=== PATIENT | female | born 1945 | race Caucasian/White ===

== ENCOUNTER → 2016-12-31 | Outpatient (CLI) | payer OTHER ==
[~2016-12-31] MED LIST: ACET-1257 PO; AMOX500C3 PO; ATOR10TA82 PO; CPR500 PO; ECON0.05 TOP; ECON118C TOP; FURO-85 PO; GLC/500 PO; GLIP5TAB11 PO; HYDR12.55 PO; INSDGIPEN SC; LEVO50TA6 PO; LISI-729 PO; NAPR1TAB9 PO; SULF800T23 PO
[2016-12-31 14:33] LABS: BASO % 0.7 %; BASO ABS # 0.08 K/uL (0-0.2); COMPLETE YES; EOS % 3.2 %; HEMATOCRIT 40.8 % (37-47); LYMPH % 25.5 %; LYMPH ABS # 3.08 K/uL (1.2-3.4); MEAN CELL VOLUME 92.5 fL (80-100); MEAN CORPUSCULAR HEMOGLOBIN 30.4 pg (25-34); MEAN CORPUSCULAR HGB CONC 32.8 g/dl (32-36); MEAN PLATELET VOLUME 9.9 fL (7.4-10.4); MONO % 5.8 %; NEUT % 63.8 %; PLATELET COUNT 343 K/uL (130-400); RED BLOOD COUNT 4.41 M/uL (4.2-5.4); WHITE BLOOD COUNT 12.06 K/uL (4.8-10.8)
[2016-12-31 15:29] LABS: ALT/SGPT 17 U/L (12-78); AST/SGOT 6 U/L (15-37); BLOOD UREA NITROGEN 38 mg/dl (7-18); BUN/CREATININE RATIO 29.4 (10-20); CALCIUM 9.6 mg/dl (8.5-10.1); CARBON DIOXIDE 35 mmol/L (21-32); CHLORIDE 99 mmol/L (98-107); GLUCOSE 205 mg/dl (70-99); POTASSIUM 4.8 mmol/L (3.5-5.1); SODIUM 138 mmol/L (136-145)
[2016-12-31 15:40] LABS: ALKALINE PHOSPHATASE 103 U/L (45-117); CHOLESTEROL 135 mg/dl (0-200); CHOLESTEROL/HDL RATIO 2.9; HDL CHOLESTEROL 46 mg/dl; LDL CHOLESTEROL CALCULATED 52 mg/dl; TRIGLYCERIDES 186 mg/dl (0-150); VERY LOW DENSITY LIPOPROT CALC 37 mg/dl
[2017-01-01 06:17] LABS: ESTIMATED AVERAGE GLUCOSE 278 mg/dl; HA1C FLAG Normal (Normal)
== END | disposition home or self-care (01) ==
LOC: C.LABBC 10:43
PROVIDERS: ATTEND Internal Medicine Geriatric Medicine
DX: Z11.59 Encounter for screening for other viral diseases (principal); M48.00 Spinal stenosis, site unspecified; E03.9 Hypothyroidism, unspecified; M19.90 Unspecified osteoarthritis, unspecified site; E11.65 Type 2 diabetes mellitus with hyperglycemia; I10 Essential (primary) hypertension; R60.9 Edema, unspecified; Z68.43 Body mass index [BMI] 50.0-59.9, adult

== ENCOUNTER → 2017-01-20 | Outpatient (CLI) | payer OTHER ==
[2017-01-20 17:19] LABS: BLOOD UREA NITROGEN 23 mg/dl (7-18); BUN/CREATININE RATIO 22.6 (10-20); CALCIUM 8.9 mg/dl (8.5-10.1); CARBON DIOXIDE 35 mmol/L (21-32); CHLORIDE 102 mmol/L (98-107); GLUCOSE 179 mg/dl (70-99); POTASSIUM 4.6 mmol/L (3.5-5.1); SODIUM 139 mmol/L (136-145)
== END | disposition home or self-care (01) ==
LOC: C.LABBC 12:58
PROVIDERS: ATTEND Internal Medicine Geriatric Medicine
DX: R79.9 Abnormal finding of blood chemistry, unspecified (principal)

== ENCOUNTER 2017-05-17 12:56 | Inpatient (IN) | payer OTHER ==
[~2017-05-17] VITALS: Ht 170.2 cm; Wt 123.6 kg
[~2017-05-17 12:56] MED LIST changes: -ATOR10TA82 PO; +ATOR10TA88 PO; -CPR500 PO; -ECON118C TOP
[2017-05-17] MEDS ORDERED: ECON118C TOP (13:36)
[2017-05-17] MEDS ORDERED: INSDGIPEN SC (13:36)
[2017-05-17 14:10] LABS: BASO % 0.4 %; BASO ABS # 0.05 K/uL (0-0.2); COMPLETE YES; EOS % 2.9 %; HEMATOCRIT 42.2 % (37-47); IG% 0.9 %; LYMPH % 19.6 %; LYMPH ABS # 2.42 K/uL (1.2-3.4); MEAN CELL VOLUME 90.2 fL (80-100); MEAN CORPUSCULAR HEMOGLOBIN 29.5 pg (25-34); MEAN CORPUSCULAR HGB CONC 32.7 g/dl (32-36); MEAN PLATELET VOLUME 9.3 fL (7.4-10.4); MONO % 5.3 %; NEUT % 70.9 %; PLATELET COUNT 343 K/uL (130-400); RED BLOOD COUNT 4.68 M/uL (4.2-5.4); WHITE BLOOD COUNT 12.35 K/uL (4.8-10.8)
[2017-05-17 14:24] LABS: INR 0.9 (0.9-1.1)
[2017-05-17] MEDS ORDERED: SODIUM CHLORIDE 0.9% 1000ML 1,000 ML IV STA ×2 (14:27→17:22)
[2017-05-17 14:30] LABS: ALT/SGPT 23 U/L (12-78); AST/SGOT 26 U/L (15-37); BLOOD UREA NITROGEN 41 mg/dl (7-18); BUN/CREATININE RATIO 27.6 (10-20); CALCIUM 8.6 mg/dl (8.5-10.1); CARBON DIOXIDE 31 mmol/L (21-32); CHLORIDE 101 mmol/L (98-107); GLUCOSE 161 mg/dl (70-99); MAGNESIUM 2.3 mg/dl (1.8-2.4); POTASSIUM 4.2 mmol/L (3.5-5.1); SODIUM 137 mmol/L (136-145)
[2017-05-17 14:41] LABS: ALKALINE PHOSPHATASE 107 U/L (45-117)
[2017-05-17 14:54] LABS: URINE APPEARANCE CLOUDY (CLEAR); URINE BILIRUBIN NEG (NEG); URINE COLOR YELLOW; URINE EPITHELIAL CELL AUTO 0-5 /lpf (0-5); URINE NITRITE NEG (NEG); URINE SPECIFIC GRAVITY 1.021 (1.000-1.030); UROBILINOGEN NEG (NEG); ZZURINE CULT IF INDIC CATH YES
--- NOTE | 2017-05-17 14:57 | DIAGNOSTIC IMAGING REPORT ---
LEFT FEMUR 2 VIEWS ROUTINE CLINICAL HISTORY: l hip/fem/isch tub pain COMPARISON: None. DISCUSSION: The bones and joint spaces appear intact. There is no evidence of fracture, dislocation or bony disease. Moderate degenerative change left hip as well as left knee. Soft tissue vascular calcification. IMPRESSION: No acute process. The above report was generated using voice recognition software. It may contain grammatical, syntax or spelling errors. Electronically signed by: Danny Alvarado M.D. 05/17/2017 2:55 PM Dictated Date/Time: 05/17/2017 2:54 PM
--- NOTE | 2017-05-17 14:58 | DIAGNOSTIC IMAGING REPORT ---
RIGHT FEMUR 2 VIEWS ROUTINE CLINICAL HISTORY: r femur pain Right pain COMPARISON: None. DISCUSSION: The bones and joint spaces appear intact. There is no evidence of fracture, dislocation or bony disease. Mild degenerative change of the right knee as well as right hip. Soft tissue vascular calcification. IMPRESSION: No acute process. Mild degenerative change. The above report was generated using voice recognition software. It may contain grammatical, syntax or spelling errors. Electronically signed by: Danny Alvarado M.D. 05/17/2017 2:57 PM Dictated Date/Time: 05/17/2017 2:57 PM
--- NOTE | 2017-05-17 14:58 | DIAGNOSTIC IMAGING REPORT ---
PELVIS 1 OR 2 VIEW ROUTINE CLINICAL HISTORY: l hip/femur pain pain COMPARISON: None. DISCUSSION: The bones and joint spaces appear intact. There is no evidence of fracture, dislocation or bony disease. Mild degenerative change of the hips bilaterally. Mild degenerative sclerosis of the sacroiliac joints. IMPRESSION: No acute bony abnormality. Mild degenerative change. The above report was generated using voice recognition software. It may contain grammatical, syntax or spelling errors. Electronically signed by: Danny Alvarado M.D. 05/17/2017 2:56 PM Dictated Date/Time: 05/17/2017 2:56 PM
[2017-05-17 15:08] LABS: MANUAL MICROSCOPIC REQUIRED? NO; REVIEW REQ? NO
[2017-05-17] MEDS ORDERED: CEFTRIAXONE SOD INJ 1 GM ADDVIAL IV STA (15:25)
[2017-05-17] MEDS ORDERED: GLUCOSE 10 TABS/TUBE PO PRN ×2 (18:15→19:45)
[2017-05-17] MEDS ORDERED: DEXTROSE 50% 50 ML SYR IV PRN ×2 (18:15→19:45)
[2017-05-17] MEDS ORDERED: POLYETHYLENE (MIRALAX) 17 GM PACK PO PRN (18:15)
[2017-05-17] MEDS ORDERED: ONDANSETRON INJ 2 MG/ML 2 ML VIAL IV PRN (18:15)
[2017-05-17] MEDS ORDERED: GLUCOSE 40% GEL 15 GM TUBE PO PRN ×2 (18:15→19:45)
[2017-05-17] MEDS ORDERED: MAGNESIUM HYDROXIDE SUSP 30 ML UDC PO PRN (18:15)
[2017-05-17] MEDS ORDERED: GLUCAGON FOR INJ 1 MG VIAL SQ PRN ×2 (18:15→19:45)
[2017-05-17] MEDS ORDERED: ACETAMINOPHEN 325 MG TAB PO PRN (18:15)
--- NOTE | 2017-05-17 18:19 | History and Physical ---
History & Physical Date & Time of Service: May 17, 2017 at 17:13 Chief Complaint: Primary Care Physician: Carlos Delarosa M.D. History of Present Illness Source: patient This is a 71-year-old female with past medical history of hypertension, hyperlipidemia, diabetes type 2, hypothyroidism, depression, GERD, spinal stenosis, obesity with a BMI = 42.7, osteoarthritis who presents to the ER after multiple calls from EMS secondary to falls. The patient has also been found on multiple occasions by EMS to be sitting in her own urine and feces as she is unable to care for herself. The most recent event occurred on Wednesday where the patient fell while she was going from a sit to standing position, in an attempt to change the pad which she was sitting on as it was soiled. She denies any loss of consciousness or trauma sustained at that time. At that time she refused to come to the hospital because she is afraid of going to a nursing facility. The patient is from home, and lives with another male house mate, Steve, who receives social group worker for 5 hours daily, 7 days per week. She only receives 2 hours daily. Pt is unable to ambulate herself, and uses a wheelchair primarily. Here in the ER the patient was found to have a dirty UA with moderate esterase, urine WBC 10-30 and 4+ bacteria. She was also mildly hypotensive upon presentation to the ER with a blood pressure of 99/80. She is maintained on 2 L of oxygen via NC however typically doesn't wear supplemental O2. Past Medical/Surgical History Medical Problems: Diabetes type 2 Hypertension Hyperlipidemia Hypothyroidism Depression GERD Spinal stenosis Obesity, morbid Osteoarthritis Surgical history Tonsillectomy and adenoidectomy Hx of Family History No pertinent family history Social History Smoking Status: Never Smoker (exposure to secondhand smoke) Smokeless Tobacco Use: No Alcohol Use: none Drug Use: none Marital Status: Occupational Status: unemployed, disabled Multi-Drug Resistant Organisms History of MDRO: Yes Type of MDRO: VRE Allergies Coded Allergies: Metformin (Verified Adverse Reaction, Unknown, Diarrhea, 05/17/17) Home Medications Scheduled Atorvastatin (Lipitor), 10 MG PO DAILY Econazole Nitrate (Econazole Nitrate), 1 APPLN TOP BID Furosemide (Lasix), 20 MG PO QAM Glipizide (Glucotrol), 5 MG PO BID Insulin Glargine (Lantus Solostar), 30 UNITS SC BID Levothyroxine Sodium (Levothyroxine Sodium), 50 MCG PO DAILY Lisinopril (Zestril), 5 MG PO DAILY Scheduled PRN Naproxen (Aleve), 220 MG PO UD PRN for Pain Review of Systems Constitutional: + fatigue, No fever, No chills, No sweats Eyes: No diplopia ENT: No hearing loss, No trouble swallowing Respiratory: + cough (dry), No sputum, No wheezing, No shortness of breath, No dyspnea on exertion Cardiovascular: No chest pain, No edema Abdomen: No pain, No nausea, No vomiting, No diarrhea Musculoskeletal: + joint pain (bilateral hips), No swelling, No calf pain Genitourinary - Female: + dysuria, + urinary frequency, No hematuria Neurologic: + weakness, + numbness/tingling (bilateral lower extremities), + balance problems Endocrine: No fatigue Integumentary: No rash, No itch Physical Exam Vital Signs Date Time Temp Pulse Resp B/P (MAP) Pulse Ox O2 Delivery O2 Flow Rate FiO2 05/17/17 17:01 103 18 99/71 100 Room Air 05/17/17 15:58 102 20 128/72 100 Nasal Cannula 2.0 05/17/17 15:05 72 20 128/66 98 Room Air 05/17/17 14:09 96 99/80 103 108/54 05/17/17 13:59 Nasal Cannula 05/17/17 13:59 101 05/17/17 13:54 Nasal Cannula 2.0 05/17/17 13:43 36.9 104 18 118/57 95 Room Air General Appearance: WD/WN, no apparent distress, + obese Head: normocephalic, atraumatic Eyes: PERRL, EOMI ENT: hearing grossly normal, pharynx normal, + pertinent finding (mucous membranes moist) Neck: supple, no JVD Respiratory/Chest: chest non-tender, lungs clear, no respiratory distress, no accessory muscle use, + pertinent finding (on 2 L via NC, breath sounds difficult to auscultate due to body habitus) Cardiovascular: regular rate, rhythm Abdomen/GI: normal bowel sounds, non tender, soft Back: + pertinent finding (+sacral wound, grade II, ~1 x 1 cm) Extremities/Musculoskelatal: no calf tenderness, no pedal edema, normal range of motion Neurologic/Psych: alert, normal reflexes, oriented x 3 Skin: normal color, warm/dry Diagnostics Laboratory Results Results Past 24 Hours Test 05/17/17 13:51 05/17/17 14:00 05/17/17 14:05 Range/Units Bedside Glucose 185 70-90 mg/dl White Blood Count 12.35 4.8-10.8 K/uL Red Blood Count 4.68 4.2-5.4 M/uL Hemoglobin 13.8 12.0-16.0 g/dL Hematocrit 42.2 37-47 % Mean Corpuscular Volume 90.2 80-100 fL Mean Corpuscular Hemoglobin 29.5 25-34 pg Mean Corpuscular Hemoglobin Concent 32.7 32-36 g/dl Platelet Count 343 130-400 K/uL Mean Platelet Volume 9.3 7.4-10.4 fL Neutrophils (%) (Auto) 70.9 % Lymphocytes (%) (Auto) 19.6 % Monocytes (%) (Auto) 5.3 % Eosinophils (%) (Auto) 2.9 % Basophils (%) (Auto) 0.4 % Neutrophils # (Auto) 8.75 1.4-6.5 K/uL Lymphocytes # (Auto) 2.42 1.2-3.4 K/uL Monocytes # (Auto) 0.66 0.11-0.59 K/uL Eosinophils # (Auto) 0.36 0-0.5 K/uL Basophils # (Auto) 0.05 0-0.2 K/uL RDW Standard Deviation 44.8 36.4-46.3 fL RDW Coefficient of Variation 13.6 11.5-14.5 % Immature Granulocyte % (Auto) 0.9 % Immature Granulocyte # (Auto) 0.11 0.00-0.02 K/uL Prothrombin Time 10.0 9.0-12.0 SECONDS Prothromb Time International Ratio 0.9 0.9-1.1 Activated Partial Thromboplast Time 26.0 21.0-31.0 SECONDS Partial Thromboplastin Ratio 1.0 Sodium Level 137 136-145 mmol/L Potassium Level 4.2 3.5-5.1 mmol/L Chloride Level 101 98-107 mmol/L Carbon Dioxide Level 31 21-32 mmol/L Anion Gap 5.0 3-11 mmol/L Blood Urea Nitrogen 41 7-18 mg/dl Creatinine 1.50 0.60-1.20 mg/dl Est Creatinine Clear Calc Drug Dose 47.6 ml/min Estimated GFR () 40.5 Estimated GFR (Non- 34.9 BUN/Creatinine Ratio 27.6 10-20 Random Glucose 161 70-99 mg/dl Calcium Level 8.6 8.5-10.1 mg/dl Magnesium Level 2.3 1.8-2.4 mg/dl Total Bilirubin 0.9 0.2-1 mg/dl Direct Bilirubin 0.2 0-0.2 mg/dl Aspartate Amino Transf (AST/SGOT) 26 15-37 U/L Alanine Aminotransferase (ALT/SGPT) 23 12-78 U/L Alkaline Phosphatase 107 45-117 U/L Troponin I < 0.015 0-0.045 ng/ml Total Protein 7.0 6.4-8.2 gm/dl Albumin 3.5 3.4-5.0 gm/dl Lipase 393 73-393 U/L Thyroid Stimulating Hormone (TSH) 3.340 0.300-4.500 uIu/ml Urine Color YELLOW Urine Appearance CLOUDY CLEAR Urine pH 5.0 4.5-7.5 Urine Specific [place] 1.021 1.000-1.030 Urine Protein 1+ NEG Urine Glucose (UA) NEG NEG Urine Ketones NEG NEG Urine Occult Blood 3+ NEG Urine Nitrite NEG NEG Urine Bilirubin NEG NEG Urine Urobilinogen NEG NEG Urine Leukocyte Esterase MODERATE NEG Urine WBC (Auto) 10-30 0-5 /hpf Urine RBC (Auto) 0-4 0-4 /hpf Urine Hyaline Casts (Auto) 1-5 0-5 /lpf Urine Epithelial Cells (Auto) 0-5 0-5 /lpf Urine Bacteria (Auto) 4+ NEG Microbiology Results 05/17/17 Urine Culture, Received Pending Diagnostic Radiology RIGHT FEMUR 2 VIEWS ROUTINE CLINICAL HISTORY: r femur pain Right pain COMPARISON: None. DISCUSSION: The bones and joint spaces appear intact. There is no evidence of fracture, dislocation or bony disease. Mild degenerative change of the right knee as well as right hip. Soft tissue vascular calcification. IMPRESSION: No acute process. Mild degenerative change. The above report was generated using voice recognition software. It may contain grammatical, syntax or spelling errors. Electronically signed by: Danny Alvarado M.D. 05/17/2017 2:57 PM Dictated Date/Time: 05/17/2017 2:57 PM The status of this report is Signed. LEFT FEMUR 2 VIEWS ROUTINE CLINICAL HISTORY: l hip/fem/isch tub pain COMPARISON: None. DISCUSSION: The bones and joint spaces appear intact. There is no evidence of fracture, dislocation or bony disease. Moderate degenerative change left hip as well as left knee. Soft tissue vascular calcification. IMPRESSION: No acute process. The above report was generated using voice recognition software. It may contain grammatical, syntax or spelling errors. Electronically signed by: Danny Alvarado M.D. 05/17/2017 2:55 PM Dictated Date/Time: 05/17/2017 2:54 PM The status of this report is Signed. PELVIS 1 OR 2 VIEW ROUTINE CLINICAL HISTORY: l hip/femur pain pain COMPARISON: None. DISCUSSION: The bones and joint spaces appear intact. There is no evidence of fracture, dislocation or bony disease. Mild degenerative change of the hips bilaterally. Mild degenerative sclerosis of the sacroiliac joints. IMPRESSION: No acute bony abnormality. Mild degenerative change. The above report was generated using voice recognition software. It may contain grammatical, syntax or spelling errors. Electronically signed by: Danny Alvarado M.D. 05/17/2017 2:56 PM Dictated Date/Time: 05/17/2017 2:56 PM The status of this report is Signed. EKG Vent. rate 91 BPM CA interval * ms QRS duration 68 ms QT/QTc 338/415 ms P-R-T axes * 67 30 Poor data quality, interpretation may be adversely affected Probable Sinus rhythm Low voltage QRS Abnormal ECG When compared with ECG of 09-SEP-2015 15:05, rate has decreased Confirmed by ALESSANDRA HAWTHORNE MD ([id number]) on 05/17/2017 3:28:42 PM Impression Assessment and Plan This is a 71-year-old female with past medical history of hypertension, hyperlipidemia, diabetes type 2, hypothyroidism, depression, GERD, spinal stenosis, obesity with a BMI = 42.7, osteoarthritis who presents to the ER after multiple calls from EMS secondary to falls. UTI - Admit patient to [facility] - UA appears dirty, urine culture in process - Continue on Rocephin - Patient's blood pressure has improved from 99/80 with IVF's, continue NSS at 100mL/hr x 12 hrs, and encourage PO fluids - WBC slightly elevated at 12.35, with left shift. - Afebrile but slightly hypotensive at time of presentation, BP typically runs in 110/70ss-120/80s on review of outpatient records - Likely etiology from inability to care/clean herself - PT/OT evals CLEMENITNA on CKD stage II - Cr. elevated at 1.5, baseline around 1.00 - IVFs over next 12 hours at 100mL/hr, Pt received 1 L NSS in the ED - Encourage oral hydration Hypertension - Hold lisinopril 5 mg daily for now, can resume when she improves - Lasix 20 mg prn as outpatient held. Hyperlipidemia - Continue atorvastatin 10 mg daily DM II - Last hemoglobin A1c = 11.3 on 12/31/16, recheck - Continue Lantus 30 U BID - ISS with Accu-Cheks ACHS Obesity BMI equals 42.7 - Diet and exercise should be encouraged prior to patient's discharge - Her diet currently consists of one meal per day and snacks as she has been unable to care for herself Sacral Wound - Wound nurse consultation DVT ppx: Teds, SCDs, Lovenox 40 units subq daily CODE STATUS: Full code This should be rediscussed with the patient as she was very unsure at the time of admission, patient was encouraged to talk with her son about her decision as she has not assigned a medical POA otherwise. Disposition: Patient from home, to assist with discharge planning, likely needs SNF placement. Level of Care Med/Surg Advanced Directives Existing Advance Directive: No Existing Living Will: No Existing Power of Kettle Tender: No Existing Health Care Proxy: No Resuscitation Status FULL RESUSCITATION VTE Prophylaxis VTE Risk Assessment Done? Y/N: Yes Risk Level: Moderate Given or contraindicated: Enoxaparin (Lovenox)SQ, T.E.D. Stockings, SCD's
--- NOTE | 2017-05-17 20:26 | EMERGENCY ROOM VISIT NOTE ---
History Report prepared by Roz: Pako Toscano Under the Supervision of: Dr. Andrea Colmenares D.O. First contact with patient: 13:18 History of Present Illness The patient is a 71 year old female who presents to the Emergency Room with complaints of a fall that occurred two days ago. She has been calling the ambulance more as of late secondary to help her stand up or get up off of the floor from falls. She fell out of her chair recently and has left hip pain. She has a history of diabetes and is on Insulin, Lasix, and Lisinopril. She is not on oxygen at home. Pt denies headache, change in vision, fevers, chest pain, shortness of breath, nausea, vomiting, pain with urination, and melena. Source of History: patient Onset: two days ago Symptom Intensity: 1 episode Quality: other (Fall) Timing: constant Associated Symptoms: No fevers, No headache, No chest pain, No SOB, No nausea, No vomiting, No melena, No diarrhea, No urinary symptoms Note: She has left hip pain. Review of Systems See HPI for pertinent positives & negatives. A total of 10 systems reviewed and were otherwise negative. Past Medical & Surgical Medical Problems: (1) Cellulitis (2) Diabetes (3) UTI (urinary tract infection) Family History No pertinent family history Social History Smoking Status: Current Some Day Smoker Drug Use: none Marital Status: Occupation Status: unemployed, disabled Current/Historical Medications Scheduled Atorvastatin (Lipitor), 10 MG PO DAILY Econazole Nitrate (Econazole Nitrate), 1 APPLN TOP BID Glipizide (Glucotrol), 5 MG PO BID Insulin Glargine (Lantus Solostar), 30 UNITS SC BID Levothyroxine Sodium (Levothyroxine Sodium), 50 MCG PO DAILY Lisinopril (Zestril), 5 MG PO DAILY Scheduled PRN Furosemide (Lasix), 20 MG PO QAM PRN for UNDECIDED Naproxen (Aleve), 220 MG PO UD PRN for Pain Allergies Coded Allergies: Metformin (Verified Adverse Reaction, Unknown, Diarrhea, 05/17/17) Physical Exam Vital Signs Date Time Temp Pulse Resp B/P (MAP) Pulse Ox O2 Delivery O2 Flow Rate FiO2 05/17/17 19:15 36.9 98 20 107/70 98 9/11/17 18:52 98 20 107/70 98 Room Air 05/17/17 18:01 99 05/17/17 17:01 103 18 99/71 100 Room Air 05/17/17 15:58 102 20 128/72 100 Nasal Cannula 2.0 05/17/17 15:05 72 20 128/66 98 Room Air 05/17/17 14:09 96 99/80 103 108/54 05/17/17 13:59 Nasal Cannula 05/17/17 13:59 101 05/17/17 13:54 Nasal Cannula 2.0 05/17/17 13:43 36.9 104 18 118/57 95 Room Air Physical Exam GENERAL: alert, chronically ill appearing,disheveled, morbidly obese, no distress, non-toxic HEAD: NC/AT EYE EXAM: normal conjunctiva NOSE: No septal hematoma. OROPHARYNX: no exudate, no erythema, lips, buccal mucosa, and tongue normal and mucous membranes are moist NECK: supple, no nuchal rigidity, no adenopathy, non-tender LUNGS: Clear to auscultation. Normal chest wall mechanics HEART: Distant, no murmurs, S1 normal and S2 normal ABDOMEN: abdomen soft, non-tender, normo-active bowel sounds, no masses, no rebound or guarding. BACK: Back is symmetrical on inspection and there is no deformity, no midline tenderness, no CVA tenderness. PELVIS: Minimal tenderness over the left proximal femur SKIN: Mild erythema with satellite lesions underneath the pannus going to the bilateral groins. UPPER EXTREMITIES: upper extremities are grossly normal. LOWER EXTREMITIES: No pitting edema. NEURO EXAM: Normal sensorium, cranial nerves II-XII grossly intact, normal speech, no gross weakness of arms, able to lift bilateral lower extremities with minimal discomfort. Medical Decision & Procedures ER Provider Diagnostic Interpretation: Radiology results as stated below per my review and the radiologist's interpretation: PELVIS 1 OR 2 VIEW ROUTINE CLINICAL HISTORY: l hip/femur pain pain COMPARISON: None. DISCUSSION: The bones and joint spaces appear intact. There is no evidence of fracture, dislocation or bony disease. Mild degenerative change of the hips bilaterally. Mild degenerative sclerosis of the sacroiliac joints. IMPRESSION: No acute bony abnormality. Mild degenerative change. The above report was generated using voice recognition software. It may contain grammatical, syntax or spelling errors. Electronically signed by: Danny Alvarado M.D. 05/17/2017 2:56 PM Dictated Date/Time: 05/17/2017 2:56 PM LEFT FEMUR 2 VIEWS ROUTINE CLINICAL HISTORY: l hip/fem/isch tub pain COMPARISON: None. DISCUSSION: The bones and joint spaces appear intact. There is no evidence of fracture, dislocation or bony disease. Moderate degenerative change left hip as well as left knee. Soft tissue vascular calcification. IMPRESSION: No acute process. The above report was generated using voice recognition software. It may contain grammatical, syntax or spelling errors. Electronically signed by: Danny Alvarado M.D. 05/17/2017 2:55 PM Dictated Date/Time: 05/17/2017 2:54 PM RIGHT FEMUR 2 VIEWS ROUTINE CLINICAL HISTORY: r femur pain Right pain COMPARISON: None. DISCUSSION: The bones and joint spaces appear intact. There is no evidence of fracture, dislocation or bony disease. Mild degenerative change of the right knee as well as right hip. Soft tissue vascular calcification. IMPRESSION: No acute process. Mild degenerative change. The above report was generated using voice recognition software. It may contain grammatical, syntax or spelling errors. Electronically signed by: Danny Alvarado M.D. 05/17/2017 2:57 PM Dictated Date/Time: 05/17/2017 2:57 PM Laboratory Results 05/17/17 14:00 Red Blood Count 4.68, Mean Corpuscular Volume 90.2, Mean Corpuscular Hemoglobin 29.5, Mean Corpuscular Hemoglobin Concent 32.7, Mean Platelet Volume 9.3, Neutrophils (%) (Auto) 70.9, Lymphocytes (%) (Auto) 19.6, Monocytes (%) (Auto) 5.3, Eosinophils (%) (Auto) 2.9, Basophils (%) (Auto) 0.4, Neutrophils # (Auto) 8.75, Lymphocytes # (Auto) 2.42, Monocytes # (Auto) 0.66, Eosinophils # (Auto) 0.36, Basophils # (Auto) 0.05 05/17/17 14:00 Test 05/17/17 13:51 05/17/17 14:00 05/17/17 14:05 Bedside Glucose 185 mg/dl (70-90) White Blood Count 12.35 K/uL (4.8-10.8) Red Blood Count 4.68 M/uL (4.2-5.4) Hemoglobin 13.8 g/dL (12.0-16.0) Hematocrit 42.2 % (37-47) Mean Corpuscular Volume 90.2 fL (80-100) Mean Corpuscular Hemoglobin 29.5 pg (25-34) Mean Corpuscular Hemoglobin Concent 32.7 g/dl (32-36) Platelet Count 343 K/uL (130-400) Mean Platelet Volume 9.3 fL (7.4-10.4) Neutrophils (%) (Auto) 70.9 % Lymphocytes (%) (Auto) 19.6 % Monocytes (%) (Auto) 5.3 % Eosinophils (%) (Auto) 2.9 % Basophils (%) (Auto) 0.4 % Neutrophils # (Auto) 8.75 K/uL (1.4-6.5) Lymphocytes # (Auto) 2.42 K/uL (1.2-3.4) Monocytes # (Auto) 0.66 K/uL (0.11-0.59) Eosinophils # (Auto) 0.36 K/uL (0-0.5) Basophils # (Auto) 0.05 K/uL (0-0.2) RDW Standard Deviation 44.8 fL (36.4-46.3) RDW Coefficient of Variation 13.6 % (11.5-14.5) Immature Granulocyte % (Auto) 0.9 % Immature Granulocyte # (Auto) 0.11 K/uL (0.00-0.02) Prothrombin Time 10.0 SECONDS (9.0-12.0) Prothromb Time International Ratio 0.9 (0.9-1.1) Activated Partial Thromboplast Time 26.0 SECONDS (21.0-31.0) Partial Thromboplastin Ratio 1.0 Anion Gap 5.0 mmol/L (3-11) Est Creatinine Clear Calc Drug Dose 47.6 ml/min Estimated GFR () 40.5 Estimated GFR (Non- 34.9 BUN/Creatinine Ratio 27.6 (10-20) Calcium Level 8.6 mg/dl (8.5-10.1) Magnesium Level 2.3 mg/dl (1.8-2.4) Total Bilirubin 0.9 mg/dl (0.2-1) Direct Bilirubin 0.2 mg/dl (0-0.2) Aspartate Amino Transf (AST/SGOT) 26 U/L (15-37) Alanine Aminotransferase (ALT/SGPT) 23 U/L (12-78) Alkaline Phosphatase 107 U/L (45-117) Troponin I < 0.015 ng/ml (0-0.045) Total Protein 7.0 gm/dl (6.4-8.2) Albumin 3.5 gm/dl (3.4-5.0) Lipase 393 U/L (73-393) Thyroid Stimulating Hormone (TSH) 3.340 uIu/ml (0.300-4.500) Urine Color YELLOW Urine Appearance CLOUDY (CLEAR) Urine pH 5.0 (4.5-7.5) Urine Specific Cold[place] 1.021 (1.000-1.030) Urine Protein 1+ (NEG) Urine Glucose (UA) NEG (NEG) Urine Ketones NEG (NEG) Urine Occult Blood 3+ (NEG) Urine Nitrite NEG (NEG) Urine Bilirubin NEG (NEG) Urine Urobilinogen NEG (NEG) Urine Leukocyte Esterase MODERATE (NEG) Urine WBC (Auto) 10-30 /hpf (0-5) Urine RBC (Auto) 0-4 /hpf (0-4) Urine Hyaline Casts (Auto) 1-5 /lpf (0-5) Urine Epithelial Cells (Auto) 0-5 /lpf (0-5) Urine Bacteria (Auto) 4+ (NEG) Laboratory results per my review. Medications Administered Medications (Trade) Dose Ordered Sig/Paz Route Start Time Stop Time Status Last Admin Dose Admin Sodium Chloride 1,000 ml @ 999 mls/hr Q1H1M STAT IV 05/17/17 14:27 05/17/17 15:27 DC 05/17/17 15:01 999 MLS/HR Ceftriaxone Sodium (Rocephin Inj) 1 gm NOW STAT IV 05/17/17 15:25 05/17/17 15:26 DC 05/17/17 15:37 1 GM Sodium Chloride 1,000 ml @ 999 mls/hr Q1H1M STAT IV 05/17/17 17:22 05/17/17 18:22 DC 05/17/17 17:22 999 MLS/HR ECG Indication: tachycardia Rate (beats per minute): 91 Rhythm: sinus rhythm Findings: other (Normal axis, poor baseline for interpretation) ED Course ED COURSE: Vital signs were reviewed and showed tachycardia. The patients medical record was reviewed The above diagnostic studies were performed and reviewed. ED treatments and interventions as stated above. 1318: The patient was evaluated in room B2. A complete history and physical examination was performed. 1427: Ordered Sodium Chloride 1000 ml @ 999 mls/hr IV 1525: Ordered Rocephin Inj 1 gm IV 1603: Upon reevaluation, the patient is resting. I discussed my findings with the patient and she understands and agrees with the treatment plan. Based on the patients age, coexisting illnesses, exam and lab findings the decision to treat as an inpatient was made. The patient remained stable while under my care. The patient will be evaluated for further management by Dr. Peg CALIX. Medical Decision Differential Diagnosis includes but is not limited to dehydration, stroke, anemia, hypoglycemia, hyponatremia, hypernatremia, urinary tract infection, pneumonia, bronchitis, sepsis, gastroenteritis, additional abdominal pathology, metabolic abnormalities and infections. Patient is a 71-year-old female who presents to ER for falls associated with weakness. Patient has been unable to get herself up from the chair and has called the ambulance mobile times upper out. CBC shows a mild leukocytosis. She was tachycardic upon arrival fairly persistently tachycardic. CBC along with BMP, LFTs and troponin, TSH was unremarkable. INR was negative. Luke's along with white cells and +4 bacteria was in the urine. This does show a UTI. She was given IV Rocephin. He was evaluated by area of aging who deemed her okay to go back home. I do not feel this is reasonable as she cannot get up. Imaging shows no fractures. She was admitted to internal medicine with ambulatory dysfunction UTI. Medication Reconcilliation Current Medication List: was personally reviewed by me Blood Pressure Screening Patient's blood pressure: Normal blood pressure Blood pressure disposition: Did not require urgent referral Consults Time Called: 1600 Consulting Physician: Dr. Peg CALIX Returned Call: 1603 I reviewed the patient's case with him. He will evaluate the patient for further management. Impression Primary Impression: UTI (urinary tract infection) Additional Impression: Ambulatory dysfunction Scribe Attestation The scribe's documentation has been prepared under my direction and personally reviewed by me in its entirety. I confirm that the note above accurately reflects all work, treatment, procedures, and medical decision making performed by me. Departure Information Dispostion Being Evaluated By Hospitalist Referrals Carlos Delarosa M.D. (PCP) Problem Qualifiers Primary Impression: UTI (urinary tract infection) Urinary tract infection type: acute cystitis Hematuria presence: with hematuria Qualified Codes: N30.01 - Acute cystitis with hematuria
[2017-05-17 20:29] VITALS: BP 107/67; PULSE 98; TEMP 36.9; O2SAT 96; BMI 42.7
[2017-05-17] MEDS: SODIUM CHLORIDE 0.9% 1000ML 1,000 ML IV SCH (21:28)
[2017-05-17] MEDS: ENOXAPARIN 40 MG/0.4 ML SYR SQ SCH (21:44)
[2017-05-17] MEDS: INSULIN ASPART 100 UNITS/ML 3 ML PEN SC SCH (21:45)
[2017-05-17] MEDS: INSULIN GLARGINE SOLOSTAR 100 UNITS/ML 3 ML PEN SC SCH (22:57)
[2017-05-17] MEDS: ECONAZOLE NITRATE 1% CRM 15 GM TUBE EXT SCH (22:59)
[2017-05-18 00:15] VITALS: BP 122/72; PULSE 115; TEMP 36.8; O2SAT 93
[2017-05-18 05:46] LABS: BASO % 0.4 %; BASO ABS # 0.04 K/uL (0-0.2); COMPLETE YES; EOS % 4.4 %; HEMATOCRIT 37.8 % (37-47); LYMPH % 24.2 %; LYMPH ABS # 2.55 K/uL (1.2-3.4); MEAN CELL VOLUME 90.9 fL (80-100); MEAN CORPUSCULAR HEMOGLOBIN 28.8 pg (25-34); MEAN CORPUSCULAR HGB CONC 31.7 g/dl (32-36); MEAN PLATELET VOLUME 9.2 fL (7.4-10.4); PLATELET COUNT 295 K/uL (130-400); RED BLOOD COUNT 4.16 M/uL (4.2-5.4); WHITE BLOOD COUNT 10.55 K/uL (4.8-10.8)
[2017-05-18] MEDS: LEVOTHYROXINE 50 MCG TAB PO SCH (06:09)
[2017-05-18 06:27] LABS: BUN/CREATININE RATIO 27.5 (10-20); CREATININE 1.1 mg/dl (0.60-1.20); POTASSIUM 4.4 mmol/L (3.5-5.1)
[2017-05-18 06:38] LABS: ESTIMATED AVERAGE GLUCOSE 223 mg/dl; HA1C FLAG Normal (Normal)
[2017-05-18] MEDS: SODIUM CHLORIDE 0.9% 1000ML 1,000 ML IV SCH ×2 (07:49→18:23)
[2017-05-18] MEDS: ECONAZOLE NITRATE 1% CRM 15 GM TUBE EXT SCH ×2 (08:00→21:26)
[2017-05-18 08:13] VITALS: BP 115/68; PULSE 104; TEMP 36.8; O2SAT 95
[2017-05-18] MEDS ORDERED: LISINOPRIL 5 MG TAB PO SCH (09:00)
[2017-05-18] MEDS: ATORVASTATIN 10 MG TAB PO SCH (09:02)
[2017-05-18] MEDS: ENOXAPARIN 40 MG/0.4 ML SYR SQ SCH (09:03)
[2017-05-18] MEDS: INSULIN ASPART 100 UNITS/ML 3 ML PEN SC SCH ×4 (09:09→21:24)
[2017-05-18] MEDS: INSULIN GLARGINE SOLOSTAR 100 UNITS/ML 3 ML PEN SC SCH ×2 (09:10→21:26)
[2017-05-18 11:17] VITALS: Ht 170.2 cm; Wt 123.6 kg
[2017-05-18 16:08] VITALS: BP 117/63; PULSE 98; TEMP 37.2; O2SAT 96
[2017-05-18] MEDS ORDERED: CEFTRIAXONE SOD INJ 500 MG in DEXTROSE 5% 50ML 50 ML IV SCH (17:00)
--- NOTE | 2017-05-18 17:24 | Progress Note ---
Subjective Date of Service: May 18, 2017. Subjective Pt evaluation today including: conversation w/ patient Pt states she is exhausted. She had no been OOB prior to our discussion, so she is uncertain how she is doing in terms of weakness. Tolerating PO without issue. Pt denies fever, SOB, chest pain, abd pain, n/v/c/d, LE pain or swelling. States that [employer] she was so weak that she was unable to move or take care of her daily needs, including toileting issues. Problem List Medical Problems: (1) Ambulatory dysfunction Status: Acute (2) Cellulitis of left lower extremity Status: Acute (3) Hypoxia Status: Acute Review of Systems All Other Systems: Reviewed and Negative Objective Vital Signs Date Time Temp Pulse Resp B/P (MAP) Pulse Ox O2 Delivery O2 Flow Rate FiO2 05/18/17 16:08 37.2 98 20 117/63 (81) 96 Nasal Cannula 2.0 05/18/17 08:13 36.8 104 18 115/68 (84) 95 Nasal Cannula 2.0 05/18/17 07:50 Nasal Cannula 2.0 05/18/17 00:15 36.8 115 22 122/72 (89) 93 Nasal Cannula 2.0 05/18/17 00:00 Nasal Cannula 2.0 05/17/17 20:29 36.9 98 20 107/67 96 Room Air 2.0 05/17/17 19:15 36.9 98 20 107/70 98 05/17/17 18:52 98 20 107/70 98 Room Air 05/17/17 18:01 99 Physical Exam General Appearance: no apparent distress, + obese Eyes: normal inspection, EOMI Respiratory/Chest: normal breath sounds, no respiratory distress Cardiovascular: regular rate, rhythm, no edema Abdomen: non tender, soft Extremities: non-tender, no pedal edema Neurologic/Psychiatric: alert, normal mood/affect Skin: warm/dry, + pertinent finding (toenails are unhealthy in appearance with skin ulceration that appear chronic on LE) Laboratory Results Last 24 Hours Test 05/17/17 20:29 05/18/17 05:25 Bedside Glucose 96 mg/dl White Blood Count 10.55 K/uL Red Blood Count 4.16 M/uL Hemoglobin 12.0 g/dL Hematocrit 37.8 % Mean Corpuscular Volume 90.9 fL Mean Corpuscular Hemoglobin 28.8 pg Mean Corpuscular Hemoglobin Concent 31.7 g/dl Platelet Count 295 K/uL Mean Platelet Volume 9.2 fL Neutrophils (%) (Auto) 63.0 % Lymphocytes (%) (Auto) 24.2 % Monocytes (%) (Auto) 7.0 % Eosinophils (%) (Auto) 4.4 % Basophils (%) (Auto) 0.4 % Neutrophils # (Auto) 6.65 K/uL Lymphocytes # (Auto) 2.55 K/uL Monocytes # (Auto) 0.74 K/uL Eosinophils # (Auto) 0.46 K/uL Basophils # (Auto) 0.04 K/uL RDW Standard Deviation 44.7 fL RDW Coefficient of Variation 13.4 % Immature Granulocyte % (Auto) 1.0 % Immature Granulocyte # (Auto) 0.11 K/uL Sodium Level 141 mmol/L Potassium Level 4.4 mmol/L Chloride Level 109 mmol/L Carbon Dioxide Level 29 mmol/L Anion Gap 3.0 mmol/L Blood Urea Nitrogen 30 mg/dl Creatinine 1.10 mg/dl Est Creatinine Clear Calc Drug Dose 64.9 ml/min Estimated GFR () 58.9 Estimated GFR (Non- 50.8 BUN/Creatinine Ratio 27.5 Random Glucose 159 mg/dl Estimated Average Glucose 223 mg/dl Hemoglobin A1c 9.4 % Calcium Level 8.0 mg/dl Assessment and Plan This is a 71-year-old female with past medical history of hypertension, hyperlipidemia, diabetes type 2, hypothyroidism, depression, GERD, spinal stenosis, obesity with a BMI = 42.7, osteoarthritis who presents to the ER after multiple calls from EMS secondary to falls. UTI Mod leuk est, neg nitrites with cx pending - Continue on Rocephin - WBC slightly elevated on admission, now improved - Afebrile - Likely etiology from inability to care/clean herself HypoTN: on admission, now improved s/p IVF and abx LCEMENTINA on CKD stage II - Cr. elevated on admission and now improved Hypertension - Hold lisinopril 5 mg daily for now, can resume as BP allows - Lasix 20 mg prn as outpatient held. Hyperlipidemia - Continue atorvastatin 10 mg daily DM II - Last hemoglobin A1c = 11.3 on 12/31/16, recheck - Continue Lantus 30 U BID - ISS with Accu-Cheks ACHS Obesity BMI equals 42.7 - Diet and exercise should be encouraged prior to patient's discharge - Her diet currently consists of one meal per day and snacks as she has been unable to care for herself Sacral Wound - Wound nurse consultation DVT ppx: Teds, SCDs, Lovenox 40 units subq daily CODE STATUS: Full code This should be rediscussed with the patient as she was very unsure at the time of admission, patient was encouraged to talk with her son about her decision as she has not assigned a medical POA otherwise. PT/OT pending, possible placement on d/c
[2017-05-18 23:39] VITALS: BP 114/68; PULSE 72; TEMP 37.3; O2SAT 95
[2017-05-19] MEDS: LEVOTHYROXINE 50 MCG TAB PO SCH (06:22)
[2017-05-19 07:47] VITALS: BP 144/75; PULSE 90; TEMP 36.6; O2SAT 96
[2017-05-19 07:58] LABS: BASO % 0.5 %; BASO ABS # 0.04 K/uL (0-0.2); COMPLETE YES; EOS % 3.8 %; HEMATOCRIT 38.8 % (37-47); LYMPH ABS # 2.36 K/uL (1.2-3.4); MEAN CELL VOLUME 91.1 fL (80-100); MEAN CORPUSCULAR HEMOGLOBIN 29.3 pg (25-34); MEAN CORPUSCULAR HGB CONC 32.2 g/dl (32-36); MEAN PLATELET VOLUME 9.1 fL (7.4-10.4); NEUT % 59.7 %; PLATELET COUNT 304 K/uL (130-400); RED BLOOD COUNT 4.26 M/uL (4.2-5.4); WHITE BLOOD COUNT 8.74 K/uL (4.8-10.8)
[2017-05-19 08:32] LABS: BUN/CREATININE RATIO 20.4 (10-20); CALCIUM 8.8 mg/dl (8.5-10.1); CREATININE 0.85 mg/dl (0.60-1.20); POTASSIUM 4.2 mmol/L (3.5-5.1)
[2017-05-19] MEDS: INSULIN ASPART 100 UNITS/ML 3 ML PEN SC SCH ×4 (09:19→19:38)
[2017-05-19] MEDS: ENOXAPARIN 40 MG/0.4 ML SYR SQ SCH (09:21)
[2017-05-19] MEDS: INSULIN GLARGINE SOLOSTAR 100 UNITS/ML 3 ML PEN SC SCH ×2 (09:21→19:38)
[2017-05-19] MEDS: ECONAZOLE NITRATE 1% CRM 15 GM TUBE EXT SCH ×2 (09:23→19:33)
[2017-05-19] MEDS: ATORVASTATIN 10 MG TAB PO SCH (09:35)
[2017-05-19] MEDS ORDERED: NAPROXEN 250 MG TAB PO PRN (10:15)
[2017-05-19] MEDS ORDERED: CIPROFLOXACIN 500 MG TAB PO ONE (12:23)
[2017-05-19] MEDS ORDERED: CPR500 PO (14:41)
--- NOTE | 2017-05-19 14:42 | Discharge Instructions ---
Discharge Instructions Date of Service May 19, 2017. Admission Reason for Admission: UTI Discharge Discharge Diagnosis / Problem: UTI, deconditioning Discharge Goals Goal(s): Decrease discomfort, Improve function, Increase independence Activity Recommendations Activity Level: Assistance Required Therapies: Physical Therapy, Occupational Therapy . Additional Information Patient informed of condition: Yes Advance Directives: No DNR: No Level of Care: Acute Rehab Communicable Disease: No Prognosis: Improving Current Hospital Diet Patient's current hospital diet: AHA Diet (Heart Healthy), Diabetes Type 2 Diet Discharge Diet Recommended Diet: Diabetes Type 2 Diet Pending Studies Studies pending at discharge: no Laboratory Results Hemoglobin A1c Test 05/18/17 05:25 Range/Units Estimated Average Glucose 223 mg/dl Hemoglobin A1c 9.4 H 4.5-5.6 % Medical Emergencies . Who to Call and When: Medical Emergencies: If at any time you feel your situation is an emergency, please call 911 immediately. . Non-Emergent Contact Non-Emergency issues call your: Primary Care Provider . . "Provider Documentation" section prepared by Alivia Walker. . Core Measure Problem Core Measures: None
--- NOTE | 2017-05-19 14:44 | Discharge Summary ---
Discharge Summary Date of Service May 19, 2017. Discharge Summary Admission Date: May 17, 2017 at 18:08 Discharge Date: May 19, 2017 Discharge Disposition: Rehab Principal Diagnosis: UTI, deconditioning Problems/Secondary Diagnoses: DM HTN GERD Spinal stenosis Hyperlipidemia Hypothyroid Depression Obesity OA Medication Reconciliation New Medications: Ciprofloxacin (Ciprofloxacin HCl) 500 Mg Tab 500 MG PO BID for 10 Days, TAB Continued Medications: Atorvastatin (Lipitor) 10 Mg Tab 10 MG PO DAILY, TAB Econazole Nitrate (Econazole Nitrate) 1 % Cre 1 APPLN TOP BID, #85 Furosemide (Lasix) 20 Mg Tab 20 MG PO QAM PRN for UNDECIDED, TAB Use for swelling in legs Glipizide (Glucotrol) 5 Mg Tab 5 MG PO BID, TAB Insulin Glargine (Lantus Solostar) 100 Unit/Ml Inj 30 UNITS SC BID, PEN Levothyroxine Sodium (Levothyroxine Sodium) 50 Mcg Tab 50 MCG PO DAILY, TAB Lisinopril (Zestril) 5 Mg Tab 5 MG PO DAILY, TAB Naproxen (Aleve) 220 Mg Tab 220 MG PO UD PRN for Pain, TAB Discharge Exam Pt is feeling weak still and has pain related to her hips/thighs which she usually has, but is feeling overall improved. She has been working with therapy. Tolerating PO without issue. Pt denies fever, SOB, chest pain, abd pain, n/v/c/d, LE or swelling. Pertinent positives and negatives reviewed in HPI--all others negative Physical Exam: General Appearance: no apparent distress, + obese Respiratory/Chest: normal breath sounds, no respiratory distress Cardiovascular: regular rate, rhythm, no edema Abdomen / GI: non tender, soft Extremities: no calf tenderness, no pedal edema Neurologic/Psychiatric: alert, oriented x 3 Skin: warm/dry, + pertinent finding (toe nails are in poor repair, skin on LE with chronic changes) Hospital Course This is a 71-year-old female with past medical history of hypertension, hyperlipidemia, diabetes type 2, hypothyroidism, depression, GERD, spinal stenosis, obesity with a BMI = 42.7, osteoarthritis who presents to the ER after multiple calls from EMS secondary to falls. UTI Mod leuk est, neg nitrites with cx + for Klebsiella and Lactobacillus with resistance to amp/sulbactam and cefepime - Was on rocephin during admission and feeling improved, however with resistance to cefepime will d/c on cipro x7 days - WBC slightly elevated on admission, now improved - Afebrile - Likely etiology from inability to care/clean herself due to her obesity and deconditioning HypoTN: on admission, now improved s/p IVF and abx CLEMENTINA on CKD stage II - Cr. elevated on admission and now improved Hypertension - Hold lisinopril 5 mg daily for now, can resume as BP allows - Lasix 20 mg prn as outpatient held. Hyperlipidemia - Continue atorvastatin 10 mg daily DM II - Last hemoglobin A1c = 11.3 on 12/31/16, recheck - Continue Lantus 30 U BID - ISS with Accu-Cheks ACHS Obesity BMI 42.7 Sacral Wound - Wound nurse consultation PT/OT with recs for inpt rehab, which pt was agreeable to. Office of Aging is involved in pt's care and should likely be kept in the loop on d/c to [facility] given tenuous home situation. Pt lives with a friend who has HH services in place. Total Time Spent: Greater than 30 minutes This includes examination of the patient, discharge planning, medication reconciliation, and communication with other providers. Discharge Instructions Please refer to the electronic Patient Visit Report (Discharge Instructions) for additional information. Follow-Up Dr. Delarosa 1 week after d/c from [facility] Additional Copies To Carlos Delarosa M.D.; [facility]
[2017-05-19 15:46] VITALS: BP 148/72; PULSE 99; TEMP 37; O2SAT 92
[2017-05-19 15:50] VITALS: BP 148/72; PULSE 99; TEMP 37; O2SAT 92
[2017-05-19] MEDS ORDERED: CIPROFLOXACIN 500 MG TAB PO SCH (20:00)
== END 2017-05-19 20:53 | DRG 690 ==
LOC: EDBD 12:56 → C.EDB 12:57 → C.MS4W 18:08 → CANRESERV 18:27 → ENRESERV 18:27 → C.MS4W 20:25 → UNDOADMIN 20:25
PROVIDERS: ADMIT Hospitalist; ATTEND Family Medicine
DX: N39.0 Urinary tract infection, site not specified (principal); Z68.41 Body mass index [BMI] 40.0-44.9, adult; E66.2 Morbid (severe) obesity with alveolar hypoventilation; N17.9 Acute kidney failure, unspecified; E11.9 Type 2 diabetes mellitus without complications; I95.9 Hypotension, unspecified; Z87.440 Personal history of urinary (tract) infections; F17.200 Nicotine dependence, unspecified, uncomplicated; B96.1 Klebsiella pneumoniae [K. pneumoniae] as the cause of diseases classified elsewhere; I12.9 Hypertensive chronic kidney disease with stage 1 through stage 4 chronic kidney disease, or unspecified chronic kidney disease; E78.5 Hyperlipidemia, unspecified; E03.9 Hypothyroidism, unspecified; K21.9 Gastro-esophageal reflux disease without esophagitis; N18.2 Chronic kidney disease, stage 2 (mild); R29.6 Repeated falls; Z79.4 Long term (current) use of insulin; W18.39XA Other fall on same level, initial encounter; Y92.009 Unspecified place in unspecified non-institutional (private) residence as the place of occurrence of the external cause

== ENCOUNTER → 2017-08-16 | Outpatient (CLI) | payer OTHER ==
[~2017-08-16] MED LIST changes: -ACET-1257 PO; -AMOX500C3 PO; +ATOR10TA82 PO; -ATOR10TA88 PO; +CPR500 PO; -ECON0.05 TOP; +ECON118C TOP; -GLC/500 PO; -HYDR12.55 PO; -SULF800T23 PO
--- NOTE | 2017-08-16 11:55 | DIAGNOSTIC IMAGING REPORT ---
CHEST 2 VIEWS ROUTINE CLINICAL HISTORY: 71 years-old Female presenting with R05 [id number]. TECHNIQUE: PA and lateral views of the chest were obtained. COMPARISON: 09/09/2015. FINDINGS: Atherosclerosis of aortic arch. Prominence of the cardiac silhouette unchanged. Mild prominence of pulmonary vasculature unchanged. Lungs and pleural spaces clear. Calcification superior lateral to the left humeral head could suggest calcific tendinitis. Upper abdomen normal. IMPRESSION: 1. Mild cardiomegaly and mild vascular prominence could suggest volume overload. No pulmonary edema. Electronically signed by: Papa Crain M.D. 08/16/2017 11:54 AM Dictated Date/Time: 08/16/2017 11:53 AM
[2017-08-16 14:15] LABS: ALT/SGPT 14 U/L (12-78); AST/SGOT 8 U/L (15-37); BLOOD UREA NITROGEN 24 mg/dl (7-18); BUN/CREATININE RATIO 26.7 (10-20); CALCIUM 8.5 mg/dl (8.5-10.1); CARBON DIOXIDE 30 mmol/L (21-32); CHLORIDE 101 mmol/L (98-107); CHOLESTEROL 115 mg/dl (0-200); CREATININE 0.88 mg/dl (0.60-1.20); GLUCOSE 259 mg/dl (70-99); POTASSIUM 4.6 mmol/L (3.5-5.1); SODIUM 136 mmol/L (136-145)
[2017-08-16 14:26] LABS: ALKALINE PHOSPHATASE 90 U/L (45-117); CHOLESTEROL/HDL RATIO 2.5; ESTIMATED AVERAGE GLUCOSE 203 mg/dl; HA1C FLAG Normal (Normal); HDL CHOLESTEROL 46 mg/dl; LDL CHOLESTEROL CALCULATED 35 mg/dl; TRIGLYCERIDES 171 mg/dl (0-150); VERY LOW DENSITY LIPOPROT CALC 34 mg/dl
== END | disposition home or self-care (01) ==
LOC: C.RADBC 11:05
PROVIDERS: ATTEND Internal Medicine Geriatric Medicine
DX: R05 Cough (principal); E03.9 Hypothyroidism, unspecified; E11.65 Type 2 diabetes mellitus with hyperglycemia; E78.5 Hyperlipidemia, unspecified; I10 Essential (primary) hypertension; M48.00 Spinal stenosis, site unspecified

== ENCOUNTER 2017-09-20 12:23 | Inpatient (IN) | payer OTHER ==
[~2017-09-20] VITALS: Ht 172.7 cm; Wt 129.4 kg
[2017-09-20] MEDS ORDERED: CZR25 PO (13:28)
[2017-09-20] MEDS ORDERED: LPT10 PO (13:28)
[2017-09-20] MEDS ORDERED: LEVO50TA6 PO (13:28)
[2017-09-20] MEDS ORDERED: INSDGIPEN SC (13:28)
[2017-09-20] MEDS ORDERED: FURO-85 PO (13:28)
[2017-09-20] MEDS ORDERED: GLC5 PO (13:28)
[2017-09-20 14:05] LABS: BASO % 0.4 %; BASO ABS # 0.07 K/uL (0-0.2); EOS % 2.6 %; EOS ABS # 0.44 K/uL (0-0.5); HEMATOCRIT 38.1 % (37-47); HEMOGLOBIN 12.4 g/dL (12.0-16.0); IG# 0.14 K/uL (0.00-0.02); LYMPH % 21.8 %; LYMPH ABS # 3.68 K/uL (1.2-3.4); MEAN CELL VOLUME 90.9 fL (80-100); MEAN CORPUSCULAR HEMOGLOBIN 29.6 pg (25-34); MEAN CORPUSCULAR HGB CONC 32.5 g/dl (32-36); MEAN PLATELET VOLUME 9.6 fL (7.4-10.4); MONO % 6.4 %; MONO ABS # 1.08 K/uL (0.11-0.59); NEUT ABS # 11.49 K/uL (1.4-6.5); PLATELET COUNT 353 K/uL (130-400); RED CELL DISTRIBUTION WIDTH CV 13.8 % (11.5-14.5); RED CELL DISTRIBUTION WIDTH SD 45.7 fL (36.4-46.3)
[2017-09-20 14:27] LABS: CALCIUM 8.5 mg/dl (8.5-10.1); CREATININE 0.87 mg/dl (0.60-1.20); POTASSIUM 4.4 mmol/L (3.5-5.1)
[2017-09-20] MEDS ORDERED: AMPICILLIN/SULBACTAM SOD INJ 3,000 MG in SODIUM CHLORIDE 0.9% 100ML 100 ML IV STA (14:48)
--- NOTE | 2017-09-20 15:44 | DIAGNOSTIC IMAGING REPORT ---
BILATERAL LOWER EXTREMITY VENOUS DOPPLER HISTORY: Bilateral leg swelling, erythema b/l, LLE wounds COMPARISON STUDY: Left venous Doppler 09/09/2015. FINDINGS: Subcutaneous edema seen within the right popliteal fossa. No obvious DVT within the bilateral lower extremities. However, the patient deferred visualization of the left common femoral vein, left greater saphenous vein, and proximal left superficial femoral vein. In addition, the patient was unable to tolerate compression of the majority of the bilateral lower extremity venous structures. IMPRESSION: No DVT within the visualized bilateral lower extremity venous systems as described above. Electronically signed by: Andrea Ojeda M.D. 09/20/2017 3:42 PM Dictated Date/Time: 09/20/2017 3:40 PM
--- NOTE | 2017-09-20 16:23 | History and Physical ---
History & Physical Date & Time of Service: Sep 20, 2017 at 16:20 Chief Complaint: EDEMA Primary Care Physician: Carlos Delarosa M.D. History of Present Illness Source: patient This is 71 yo F with PMHx of HTN, DM II, morbid obesity, HLD, hypothyroidism, osteoarthritis, spinal stenosis, depression who presents with increased bilateral lower extremity swelling and opened skin ulcerations which have now have purulent discharge x 3 days. The patient notes having home health caregivers in over the weekend, but had a training nurse. She reports this person did not wash or wrap her legs like others have done so in the past, and therefore feels the ulcers are much worse now. Her primary managed care manager, Victorina called EMS and brought her to the ER today for increased redness and swelling. She reports some pain in her legs, but it is the worst when she gets a cramp like sensation in them occasionally. She uses a wheelchair primarily for ambulation, so cannot say if it's painful to ambulate. She denies fever, sweats or chills. Denies any other acute complaints. The patient is extremely emotional during my examination as she reports her boyfriend last fall and is still not over this. She lives alone and has minimal support. Her caregiver Victorina is her primary emotional support. Here in the ER, WBC is elevated at 16.9. Bilateral LE dopplers are negative for acute findings. VSS. Past Medical/Surgical History Medical Problems: (1) Cellulitis (2) Depressed (3) Diabetes (4) HLD (hyperlipidemia) (5) HTN (hypertension) (6) Hypothyroidism (7) Major depressive disorder (8) Mild intellectual disabilities (9) Obesity, morbid, BMI 40.0-49.9 (10) UTI (urinary tract infection) Surgical Problems: (1) H/O: hysterectomy (2) Hx of tonsillectomy Family History No pertinent family history Social History Smoking Status: Current Some Day Smoker Drug Use: none Marital Status: Housing status: lives alone Occupational Status: unemployed, disabled Multi-Drug Resistant Organisms History of MDRO: Yes Type of MDRO: VRE Allergies Coded Allergies: Metformin (Verified Adverse Reaction, Unknown, Diarrhea, 09/20/17) Home Medications Scheduled Atorvastatin (Lipitor), 10 MG PO DAILY Glipizide (Glipizide), 5 MG PO BID Insulin Glargine (Lantus Solostar), 36 UNITS SC BID Levothyroxine Sodium (Levothyroxine Sodium), 50 MCG PO DAILY Losartan Potassium (Losartan Potassium), 25 MG PO DAILY Scheduled PRN Furosemide (Lasix), 20 MG PO DAILY PRN for EDEMA Review of Systems Constitutional: No fever, No chills, No sweats, No weight loss, No fatigue Eyes: No redness, No diplopia ENT: No nasal symptoms, No sore throat, No trouble swallowing Respiratory: No cough, No sputum, No wheezing, No shortness of breath, No dyspnea on exertion Cardiovascular: No chest pain, No edema, No palpitations Abdomen: No pain, No nausea, No vomiting, No diarrhea, No constipation Musculoskeletal: + swelling, No joint pain, No calf pain Genitourinary - Female: + urinary incontinence, No dysuria Neurologic: + balance problems, + problem reported (uses wheelchair for ambulation primarily), No numbness/tingling Psychiatric: + depression symptoms Endocrine: No fatigue Integumentary: No rash, No itch Physical Exam Vital Signs Date Time Temp Pulse Resp B/P (MAP) Pulse Ox O2 Delivery O2 Flow Rate FiO2 09/20/17 14:54 93 18 107/63 92 Room Air 09/20/17 14:05 93 Room Air 09/20/17 14:02 92 09/20/17 12:38 36.8 104 20 134/64 93 Room Air General Appearance: WD/WN, + obese, + pertinent finding (tearful during exam) Head: normocephalic, atraumatic Eyes: PERRL, EOMI, + pertinent finding (MMM) ENT: hearing grossly normal, pharynx normal Neck: supple, no JVD Respiratory/Chest: lungs clear, no respiratory distress, no accessory muscle use Cardiovascular: regular rate, rhythm, + systolic murmur (grade II/ ) Abdomen/GI: normal bowel sounds, non tender, soft Back: no CVA tenderness, normal range of motion Extremities/Musculoskelatal: + pertinent finding (BLE edema 2+ pitting, worse on the left compared to right, + erythema and warmth, + LLE ulceration overal medial posterior ankle, +yellow serosanginous drainage. Multiple small areas of excoriation over the LLE. + sacral decubitus grade II/V) Neurologic/Psych: alert, normal mood/affect, normal reflexes Skin: normal color, warm/dry Diagnostics Laboratory Results Results Past 24 Hours Test 09/20/17 13:28 Range/Units White Blood Count 16.90 4.8-10.8 K/uL Red Blood Count 4.19 4.2-5.4 M/uL Hemoglobin 12.4 12.0-16.0 g/dL Hematocrit 38.1 37-47 % Mean Corpuscular Volume 90.9 80-100 fL Mean Corpuscular Hemoglobin 29.6 25-34 pg Mean Corpuscular Hemoglobin Concent 32.5 32-36 g/dl Platelet Count 353 130-400 K/uL Mean Platelet Volume 9.6 7.4-10.4 fL Neutrophils (%) (Auto) 68.0 % Lymphocytes (%) (Auto) 21.8 % Monocytes (%) (Auto) 6.4 % Eosinophils (%) (Auto) 2.6 % Basophils (%) (Auto) 0.4 % Neutrophils # (Auto) 11.49 1.4-6.5 K/uL Lymphocytes # (Auto) 3.68 1.2-3.4 K/uL Monocytes # (Auto) 1.08 0.11-0.59 K/uL Eosinophils # (Auto) 0.44 0-0.5 K/uL Basophils # (Auto) 0.07 0-0.2 K/uL RDW Standard Deviation 45.7 36.4-46.3 fL RDW Coefficient of Variation 13.8 11.5-14.5 % Immature Granulocyte % (Auto) 0.8 % Immature Granulocyte # (Auto) 0.14 0.00-0.02 K/uL Sodium Level 136 136-145 mmol/L Potassium Level 4.4 3.5-5.1 mmol/L Chloride Level 100 98-107 mmol/L Carbon Dioxide Level 31 21-32 mmol/L Anion Gap 5.0 3-11 mmol/L Blood Urea Nitrogen 20 7-18 mg/dl Creatinine 0.87 0.60-1.20 mg/dl Est Creatinine Clear Calc Drug Dose 85.6 ml/min Estimated GFR () 78.2 Estimated GFR (Non- 67.5 BUN/Creatinine Ratio 23.1 10-20 Random Glucose 150 70-99 mg/dl Calcium Level 8.5 8.5-10.1 mg/dl Microbiology Results 09/20/17 Blood Culture, Received Pending 09/20/17 Blood Culture, Received Pending Diagnostic Radiology BILATERAL LOWER EXTREMITY VENOUS DOPPLER HISTORY: Bilateral leg swelling, erythema b/l, LLE wounds COMPARISON STUDY: Left venous Doppler 09/09/2015. FINDINGS: Subcutaneous edema seen within the right popliteal fossa. No obvious DVT within the bilateral lower extremities. However, the patient deferred visualization of the left common femoral vein, left greater saphenous vein, and proximal left superficial femoral vein. In addition, the patient was unable to tolerate compression of the majority of the bilateral lower extremity venous structures. IMPRESSION: No DVT within the visualized bilateral lower extremity venous systems as described above. Electronically signed by: Andrea Ojeda M.D. 09/20/2017 3:42 PM Dictated Date/Time: 09/20/2017 3:40 PM The status of this report is Signed. Impression Assessment and Plan This is 71 yo F with PMHx of HTN, DM II, morbid obesity, HLD, hypothyroidism, osteoarthritis, spinal stenosis, depression who presents with increased bilateral lower extremity swelling and opened skin ulcerations which have now have purulent discharge x 3 days. Bilateral Lower extremity Cellulitis/ sacral decubitus ulceration - Admit to med/surg - Wound care nurse consulted - pt has been applying aquacel to the wounds - ID consulted for antibiotic recs- wound culture - unasyn started in the ER, continue this for now. - WBC = 16.7 - Will order 1 time dose of lasix 20 mg IV as pt uses Lasix PO 20 mg prn edema - Doppler US BLE neg for VTE - PT/OT DM II - A1C = 8.7 in Dec, ISS with accuchecks - Continue lantus 36 U BID, holding home glipizide for now - Heart healthy diabetic diet HTN - Cont losartan 25 mg QAM HLD - Cont Atorvastatin Morbid obesity - PT/OT consulted - diet and exercise encouraged Hypothyroidism - Continue levothyroxine - TSH = 2.17 in Dec. Osteoarthritis -stable DVT ppx: Lovenox subq, no teds or scds with bilateral lower extremity cellulitis CODE STATUS: FULL Disposition: From home, lives alone, CM to assist with discharge planning. Level of Care Med/Surg Resuscitation Status FULL RESUSCITATION VTE Prophylaxis Given or contraindicated: Enoxaparin (Lovenox)SQ Note Attending Attestation & Admission Note: Pt seen/examined, chart reviewed, care plan d/w CHEYENNE Wetzel. I agree w/ the hartmann components of her admission documentation. 71yo female with chronic edema of LEs, morbid obesity, T2DM, chronic stasis changes of b/l shins - receives HH services and dressing changes due to chronically open wounds - presenting with concern of increased drainage from her left soriano (lesser degree the right soriano) as well as mild discomfort. PMH, PSH, allergies, meds, sochx, famhx, ros - reviewed VSS afebrile gen - obese, NAD neck - no obvious JVD heart - RRR lungs - basilar rales b/l, no wheeze abd - obese, soft, NT ext - 2+ edema left leg, 1+ edema right leg, pulses 2+ b/l skin - background of chronic venous stasis changes b/l shins, worse on left; possible mild cellulitis of left soriano anteriorly with macerated skin/ superficial ulcers on both anterior chins; mild weeping noted especially on left soriano; nontender to palpation; minimal warmth left soriano A/P: 1. chronic edema of b/l LEs, L>R 2. chronic venous stasis changes with superimposed venous ulcerations b/l shins worse on left 3. possible superimposed cellulitis of b/l shins, especially on left 4. bilateral crackles on exam 5. T2DM 6. morbid obesity consult wound care for shins in meantime aquacel to ulcers and cover w/ optifoams; await final recs from wound care for possible cellulitis will cont unasyn; low threshold to add vanco for MRSA coverage but she does not have h/o such agree w/ ID consult for b/l rales on lung exam - check cxr, r/o pulmonary edema add novolog for mealtime/HS coverage cont lantus add MVI, zinc, vit C to promote skin healing Mariaa RAMIREZ MD
[2017-09-20] MEDS ORDERED: GLUCAGON FOR INJ 1 MG VIAL SQ PRN (16:45)
[2017-09-20] MEDS ORDERED: GLUCOSE 40% GEL 15 GM TUBE PO PRN (16:45)
[2017-09-20] MEDS ORDERED: DEXTROSE 50% 50 ML SYR IV PRN (16:45)
[2017-09-20] MEDS ORDERED: POLYETHYLENE (MIRALAX) 17 GM PACK PO PRN (16:45)
[2017-09-20] MEDS ORDERED: GLUCOSE 10 TABS/TUBE PO PRN (16:45)
[2017-09-20] MEDS ORDERED: ONDANSETRON INJ 2 MG/ML 2 ML VIAL IV PRN (16:45)
[2017-09-20] MEDS ORDERED: MAGNESIUM HYDROXIDE SUSP 30 ML UDC PO PRN (16:45)
--- NOTE | 2017-09-20 17:18 | EMERGENCY ROOM VISIT NOTE ---
History Report prepared by Roz: Luisito William Under the Supervision of: Dr. Hima Saeed M.D. First contact with patient: 12:29 Stated Complaint: EDEMA History of Present Illness The patient is a 71 year old white female with a past medical history of diabetes, cellulitis, and UTI who presents to the ED with a cc of worsening lower extremity wound infections beginning this week. The wounds have begun "seeping". She follows up with the wound care clinic for her wounds. Positive increased leg swelling. Patient notes that she has a bed sore on her back side currently. She does not typically ambulate at home. Negative fevers or chills. Eating and drinking normally. Defecating and urinating normally. Source of History: patient Onset: This week Position: leg (bilateral) Quality: other (wound infections) Timing: worsening Associated Symptoms: No fevers, No chills Note: Positive increased leg swelling. Review of Systems See HPI for pertinent positives and negatives. A total of ten systems were reviewed and were otherwise negative. Past Medical & Surgical Medical Problems: (1) Cellulitis (2) Depressed (3) Diabetes (4) HLD (hyperlipidemia) (5) HTN (hypertension) (6) Hypothyroidism (7) Major depressive disorder (8) Mild intellectual disabilities (9) Obesity, morbid, BMI 40.0-49.9 (10) UTI (urinary tract infection) Surgical Problems: (1) H/O: hysterectomy (2) Hx of tonsillectomy Family History No pertinent family history Social History Smoking Status: Current Some Day Smoker Drug Use: none Marital Status: Occupation Status: unemployed, disabled Current/Historical Medications Scheduled Atorvastatin (Lipitor), 10 MG PO DAILY Glipizide (Glipizide), 5 MG PO BID Insulin Glargine (Lantus Solostar), 36 UNITS SC BID Levothyroxine Sodium (Levothyroxine Sodium), 50 MCG PO DAILY Losartan Potassium (Losartan Potassium), 25 MG PO DAILY Scheduled PRN Furosemide (Lasix), 20 MG PO DAILY PRN for EDEMA Allergies Coded Allergies: Metformin (Verified Adverse Reaction, Unknown, Diarrhea, 09/20/17) Physical Exam Vital Signs Date Time Temp Pulse Resp B/P (MAP) Pulse Ox O2 Delivery O2 Flow Rate FiO2 09/20/17 16:43 76 16 101/63 98 Room Air 1/15/18 14:54 93 18 107/63 92 Room Air 09/20/17 14:05 93 Room Air 09/20/17 14:02 92 09/20/17 12:38 36.8 104 20 134/64 93 Room Air Physical Exam GENERAL: Obese, awake, alert, well-appearing, NAD HENT: Normocephalic, atraumatic. EYES: Normal conjunctiva. Sclera non-icteric. NECK: Supple. No nuchal rigidity. FROM. RESPIRATORY: CTAB, no rhonchi, wheezing, crackles CARDIAC: RRR, no MRG ABDOMEN: Large, soft, NTND, BS+ MSK: No chest wall TTP. LLE greater in size than the RLE. Stage 2 ulcerations to the LLE draining clear liquid. Good granulation tissue forming over the lateral aspect. Mild warmth present. NVI distally. NEURO: GCS 15, CN 2-12 intact, moves all 4s on command SKIN: Several plaque-like lesions over the posterior buttock. 2 by 1 cm Stage 2 ulcer with healthy tissue. No evidence of infection. Medical Decision & Procedures ER Provider Diagnostic Interpretation: Radiology results as stated below per my review and radiologist interpretation: BILATERAL LOWER EXTREMITY VENOUS DOPPLER FINDINGS: Subcutaneous edema seen within the right popliteal fossa. No obvious DVT within the bilateral lower extremities. However, the patient deferred visualization of the left common femoral vein, left greater saphenous vein, and proximal left superficial femoral vein. In addition, the patient was unable to tolerate compression of the majority of the bilateral lower extremity venous structures. IMPRESSION: No DVT within the visualized bilateral lower extremity venous systems as described above. Electronically signed by: Andrea Ojeda M.D. 09/20/2017 3:42 PM Laboratory Results 09/20/17 13:28 Red Blood Count 4.19, Mean Corpuscular Volume 90.9, Mean Corpuscular Hemoglobin 29.6, Mean Corpuscular Hemoglobin Concent 32.5, Mean Platelet Volume 9.6, Neutrophils (%) (Auto) 68.0, Lymphocytes (%) (Auto) 21.8, Monocytes (%) (Auto) 6.4, Eosinophils (%) (Auto) 2.6, Basophils (%) (Auto) 0.4, Neutrophils # (Auto) 11.49, Lymphocytes # (Auto) 3.68, Monocytes # (Auto) 1.08, Eosinophils # (Auto) 0.44, Basophils # (Auto) 0.07 09/20/17 13:28 Test 09/20/17 13:28 White Blood Count 16.90 K/uL (4.8-10.8) Red Blood Count 4.19 M/uL (4.2-5.4) Hemoglobin 12.4 g/dL (12.0-16.0) Hematocrit 38.1 % (37-47) Mean Corpuscular Volume 90.9 fL (80-100) Mean Corpuscular Hemoglobin 29.6 pg (25-34) Mean Corpuscular Hemoglobin Concent 32.5 g/dl (32-36) Platelet Count 353 K/uL (130-400) Mean Platelet Volume 9.6 fL (7.4-10.4) Neutrophils (%) (Auto) 68.0 % Lymphocytes (%) (Auto) 21.8 % Monocytes (%) (Auto) 6.4 % Eosinophils (%) (Auto) 2.6 % Basophils (%) (Auto) 0.4 % Neutrophils # (Auto) 11.49 K/uL (1.4-6.5) Lymphocytes # (Auto) 3.68 K/uL (1.2-3.4) Monocytes # (Auto) 1.08 K/uL (0.11-0.59) Eosinophils # (Auto) 0.44 K/uL (0-0.5) Basophils # (Auto) 0.07 K/uL (0-0.2) RDW Standard Deviation 45.7 fL (36.4-46.3) RDW Coefficient of Variation 13.8 % (11.5-14.5) Immature Granulocyte % (Auto) 0.8 % Immature Granulocyte # (Auto) 0.14 K/uL (0.00-0.02) Prothrombin Time 9.4 SECONDS (9.0-12.0) Prothromb Time International Ratio 0.9 (0.9-1.1) Anion Gap 5.0 mmol/L (3-11) Est Creatinine Clear Calc Drug Dose 85.6 ml/min Estimated GFR () 78.2 Estimated GFR (Non- 67.5 BUN/Creatinine Ratio 23.1 (10-20) Calcium Level 8.5 mg/dl (8.5-10.1) Laboratory results reviewed by me Medications Administered Medications (Trade) Dose Ordered Sig/Paz Route Start Time Stop Time Status Last Admin Dose Admin Ampicillin Sodium/ Sulbactam Sodium 3000 mg/Sodium Chloride 108 ml @ 200 mls/hr NOW STAT IV 09/20/17 14:48 09/20/17 15:20 DC 09/20/17 16:12 200 MLS/HR ED Course 1252: The patient was evaluated in room B2. A complete history and physical exam was performed. 1545: Upon reexamination, the patient was resting comfortably. I discussed the test results and treatment plan with her. The patient will be evaluated for further management. Medical Decision The patient is a 71 year old white female with a past medical history of diabetes, cellulitis, and UTI who presents to the ED with a cc of worsening lower extremity wound infections beginning this week. Differential diagnosis: Etiologies such as cellulitis, abscess, MRSA infection, DVT, necrotizing fasciitis, dermatitis, drug eruption, as well as others were entertained. Patient was seen and evaluated the bedside. Patient does have a prior history of bilateral lower extremity wounds as well as sacral wound. Patient was told to come here as referred by the patient's PCP traveling secretary. Patient did have some noted bilateral lower extremity swelling. Patient did have left greater than right swelling. Patient did have noticed stage II ulceration some left lower extremity. There was erythema and warmth at with significant nature. Patient sacral wound is a 2 x 1 cm stage II ulceration. Appears well and does not have any surrounding erythema. I did look a prior wound cultures which showed that the patient did grow out Proteus, MRSA, and enterococcus. This was sensitive to Unasyn which was ordered empirically. Patient did have a white blood cell count of 16,000 which was double her prior. Given this and her lower extremity cellulitis I did discuss the patient with the admitting hospitalist who agreed to further evaluate and treat the patient. B/l LE US neg for DVT. Medication Reconcilliation Current Medication List: was personally reviewed by me Blood Pressure Screening Patient's blood pressure: Normal blood pressure Blood pressure disposition: Did not require urgent referral Consults Time Called: [id number] Consulting Physician: Dr. Bobo Hogan Hospitalist Returned Call: [phone] Discussed the patient's case. The patient will be evaluated for further treatment and disposition. Impression Primary Impression: Cellulitis Scribe Attestation The scribe's documentation has been prepared under my direction and personally reviewed by me in its entirety. I confirm that the note above accurately reflects all work, treatment, procedures, and medical decision making performed by me. Departure Information Dispostion Being Evaluated By Hospitalist Carlos Potter M.D. (PCP) Problem Qualifiers Primary Impression: Cellulitis Site of cellulitis: extremity Site of cellulitis of extremity: lower extremity Laterality: left Qualified Codes: L03.116 - Cellulitis of left lower limb
[2017-09-20] MEDS ORDERED: FUROSEMIDE INJ 20 MG in SYRINGE 0 ML IV ONE (18:00)
[2017-09-20 18:07] LABS: INR 0.9 (0.9-1.1)
[2017-09-20 18:20] VITALS: BP 120/60; PULSE 95; TEMP 36.6; O2SAT 92; O2SAT 98; Ht 172.7 cm; Wt 129.4 kg
--- NOTE | 2017-09-20 19:22 | DIAGNOSTIC IMAGING REPORT ---
CHEST ONE VIEW PORTABLE CLINICAL HISTORY: bibasilar rales, eval for pulm edema COMPARISON STUDY: 08/16/2017 FINDINGS: Examination is limited from a technical standpoint. The patient is rotated. The heart is at the upper limits of normal in size. There is no overt failure. There is no focal pulmonary consolidation. There are no pleural effusions. Indistinctness of the left cardiac phrenic angle is felt to be related to technical factors[ IMPRESSION: Technically limited study. No acute findings. Electronically signed by: Guilherme Rodriguez M.D. 09/20/2017 7:21 PM Dictated Date/Time: 09/20/2017 7:20 PM
[2017-09-20] MEDS: ENOXAPARIN 40 MG/0.4 ML SYR SQ SCH (20:18)
[2017-09-20] MEDS: ASCORBIC ACID 500 MG TAB PO SCH (20:18)
[2017-09-20] MEDS: INSULIN GLARGINE SOLOSTAR 100 UNITS/ML 3 ML PEN SC SCH (20:19)
[2017-09-20] MEDS ORDERED: INSULIN ASPART 100 UNITS/ML 3 ML PEN SC SCH (21:00)
[2017-09-20] MEDS: AMPICILLIN/SULBACTAM SOD INJ 1,500 MG in SODIUM CHLORIDE 0.9% 100ML 100 ML IV SCH (21:16)
[2017-09-21 00:12] VITALS: BP 107/68; PULSE 98; TEMP 36.4; O2SAT 90
[2017-09-21] MEDS ORDERED: MICONAZOLE NITRATE POWDER 43 GM EXT PRN (01:45)
[2017-09-21] MEDS: AMPICILLIN/SULBACTAM SOD INJ 1,500 MG in SODIUM CHLORIDE 0.9% 100ML 100 ML IV SCH ×4 (04:04→22:26)
[2017-09-21] MEDS: LEVOTHYROXINE 50 MCG TAB PO SCH (05:35)
[2017-09-21 07:04] LABS: BASO % 0.2 %; BASO ABS # 0.03 K/uL (0-0.2); EOS % 1.8 %; EOS ABS # 0.24 K/uL (0-0.5); HEMATOCRIT 36.8 % (37-47); HEMOGLOBIN 11.6 g/dL (12.0-16.0); IG# 0.13 K/uL (0.00-0.02); LYMPH % 23.8 %; LYMPH ABS # 3.24 K/uL (1.2-3.4); MEAN CORPUSCULAR HEMOGLOBIN 28.4 pg (25-34); MEAN CORPUSCULAR HGB CONC 31.5 g/dl (32-36); MEAN PLATELET VOLUME 9.4 fL (7.4-10.4); MONO % 6.3 %; MONO ABS # 0.86 K/uL (0.11-0.59); NEUT % 66.9 %; NEUT ABS # 9.12 K/uL (1.4-6.5); PLATELET COUNT 303 K/uL (130-400); RED CELL DISTRIBUTION WIDTH SD 46.1 fL (36.4-46.3); WHITE BLOOD COUNT 13.62 K/uL (4.8-10.8)
[2017-09-21 07:40] LABS: CALCIUM 8.3 mg/dl (8.5-10.1); CREATININE 0.87 mg/dl (0.60-1.20); POTASSIUM 4.2 mmol/L (3.5-5.1)
[2017-09-21] MEDS: ZINC SULFATE 220 MG CAP PO SCH (07:48)
[2017-09-21] MEDS: CEROVITE ADV FORMULA TAB PO SCH (07:48)
[2017-09-21] MEDS: LOSARTAN POTASSIUM 25 MG TAB PO SCH (07:48)
[2017-09-21] MEDS: ASCORBIC ACID 500 MG TAB PO SCH ×2 (07:48→20:21)
[2017-09-21] MEDS: ATORVASTATIN 10 MG TAB PO SCH (07:48)
[2017-09-21 08:00] VITALS: BP 124/89; PULSE 99; TEMP 36.9; O2SAT 90
[2017-09-21] MEDS: INSULIN GLARGINE SOLOSTAR 100 UNITS/ML 3 ML PEN SC SCH ×2 (08:00→20:20)
[2017-09-21] MEDS: INSULIN ASPART 100 UNITS/ML 3 ML PEN SC SCH ×4 (08:45→20:21)
--- NOTE | 2017-09-21 11:58 | Medical Consult ---
Consultation Date of Consultation: Sep 21, 2017. Attending Physician: Dago Hahn M.D. Reason for Consultation: Bilateral lower extremity cellulitis History of Present Illness 71-year-old female with diabetes mellitus, chronic lower extremity edema, who was well known to me [facility], when she was treated for left lower extremity cellulitis and associated with leg ulceration. She now presented to the emergency room with 4-5 days of leg ulcerations associated with foul-smelling drainage, mild pain, and difficulty ambulating. She states that she did not note any significant fever or chills. She was found to have evidence of bilateral lower extremity cellulitis, she has been started on IV Unasyn, MRSA screen is negative. Cultures are pending. Patient is tolerating her antibiotics so far without apparent difficulty. Denies any other new complaints. Past Medical/Surgical History Medical Problems: (1) Ambulatory dysfunction Status: Acute (2) Cellulitis of left lower extremity Status: Acute (3) Hypoxia Status: Acute Medical Problems: (1) Cellulitis (2) Depressed (3) Diabetes (4) HLD (hyperlipidemia) (5) HTN (hypertension) (6) Hypothyroidism (7) Major depressive disorder (8) Mild intellectual disabilities (9) Obesity, morbid, BMI 40.0-49.9 (10) UTI (urinary tract infection) Surgical Problems: (1) H/O: hysterectomy (2) Hx of tonsillectomy Family History No pertinent family history Social History Smoking Status: Current Some Day Smoker Drug Use: none Marital Status: Occupation Status: unemployed, disabled Allergies Coded Allergies: Metformin (Verified Adverse Reaction, Unknown, Diarrhea, 09/20/17) Current Inpatient Medications Current Inpatient Medications Medications (Trade) Dose Ordered Sig/Paz Route Start Time Stop Time Status Last Admin Dose Admin Enoxaparin Sodium (Lovenox Inj) 40 mg Q24H SQ 09/20/17 20:00 10/20/17 19:59 09/20/17 20:18 40 MG Acetaminophen (Tylenol Tab) 650 mg Q4H PRN PO 09/20/17 16:45 10/20/17 16:44 Magnesium Hydroxide (Milk Of Magnesia Susp) 30 ml Q6H PRN PO 09/20/17 16:45 10/20/17 16:44 Polyethylene (Miralax Powder Packet) 17 gm DAILY PRN PO 09/20/17 16:45 10/20/17 16:44 Ondansetron HCl (Zofran Inj) 4 mg Q6H PRN IV 09/20/17 16:45 10/20/17 16:44 Atorvastatin Calcium (Lipitor Tab) 10 mg DAILY PO 09/21/17 08:00 10/21/17 08:59 09/21/17 07:48 10 MG Insulin Glargine (Lantus Solostar Pen) 36 units BID SC 09/20/17 20:00 10/20/17 20:59 09/21/17 08:00 36 UNITS Levothyroxine Sodium (Synthroid Tab) 50 mcg DAILYBB PO 09/21/17 06:30 10/21/17 06:59 09/21/17 05:35 50 MCG Losartan Potassium (coZAAR TAB) 25 mg DAILY PO 09/21/17 08:00 10/21/17 08:59 09/21/17 07:48 25 MG Glucose (Glucose 40% Gel) 15-30 GRAMS 15 GRAMS... UD PRN PO 09/20/17 16:45 10/20/17 16:44 Glucose (Glucose Chew Tab) 4-8 Tablets 4 Tabl... UD PRN PO 09/20/17 16:45 10/20/17 16:44 Dextrose (Dextrose 50% 50ML Syringe) 25-50ML OF 50% DW IV FOR... UD PRN IV 09/20/17 16:45 10/20/17 16:44 Glucagon (Glucagon Inj) 1 mg UD PRN SQ 09/20/17 16:45 10/20/17 16:44 Ampicillin Sodium/ Sulbactam Sodium 1500 mg/Sodium Chloride 104 ml @ 200 mls/hr Q6H IV 09/20/17 22:00 09/30/17 21:59 09/21/17 10:44 200 MLS/HR Ascorbic Acid (Vitamin C Tab) 500 mg BID PO 09/20/17 20:00 10/20/17 20:59 09/21/17 07:48 500 MG Zinc Sulfate (Zinc Sulfate Cap) 220 mg QAM PO 09/21/17 08:00 10/21/17 08:59 09/21/17 07:48 220 MG Multivitamins/ Minerals (Multivitamin W/ Minerals Tab) 1 tab QAM PO 09/21/17 08:00 10/21/17 08:59 09/21/17 07:48 1 TAB Insulin Aspart (novoLOG ASPART) SLIDING SCALE G... ACHS SC 09/21/17 06:30 10/21/17 06:29 09/21/17 08:45 3 UNITS Miconazole Nitrate (Desenex Powder) 1 appln PRN PRN EXT 09/21/17 01:45 10/21/17 01:44 Review of Systems All systems were reviewed and are negative except as per HPI Physical Exam Date Time Temp Pulse Resp B/P (MAP) Pulse Ox O2 Delivery O2 Flow Rate FiO2 09/21/17 10:20 Room Air 09/21/17 08:00 36.9 99 19 124/89 (101) 90 Room Air 09/21/17 00:12 36.4 98 16 107/68 (81) 90 Room Air 09/21/17 00:00 Room Air 09/20/17 18:20 36.6 95 20 120/60 98 Room Air 09/20/17 18:20 36.6 95 20 120/60 (80) 92 Room Air 09/20/17 16:43 76 16 101/63 98 Room Air 09/20/17 14:54 93 18 107/63 92 Room Air 09/20/17 14:05 93 Room Air 09/20/17 14:02 92 09/20/17 12:38 36.8 104 20 134/64 93 Room Air General Appearance: WD/WN, no apparent distress, + obese Head: normocephalic, atraumatic Eyes: normal inspection, EOMI, sclerae normal ENT: normal ENT inspection, hearing grossly normal, pharynx normal Neck: supple, no adenopathy, thyroid normal, trachea midline Respiratory/Chest: chest non-tender, lungs clear, normal breath sounds, no respiratory distress Cardiovascular: regular rate, rhythm, no gallop, + systolic murmur Abdomen/GI: normal bowel sounds, non tender, soft, no organomegaly Back: normal inspection, no CVA tenderness Extremities/Musculoskelatal: + inflammation (Left lower extremity), + swelling (Both legs left greater than right) Neurologic/Psych: alert, oriented x 3 Skin: normal color, no rash, + pertinent finding (Left ankle with ulceration, yellowish foul-smelling drainage, erythema) Lymphatic: no adenopathy Laboratory Results Date/Time Source Procedure Growth Status 09/20/17 16:02 Blood Blood Culture Pending Received 09/20/17 16:00 Blood Blood Culture Pending Received 09/20/17 20:20 Nasal MRSA DNA Surveillance Screen - Final Specimen Negative for MRSA by DNA Probe Complete Last 24 Hours Test 09/20/17 13:28 09/20/17 20:21 09/21/17 06:45 09/21/17 07:58 White Blood Count 16.90 K/uL 13.62 K/uL Red Blood Count 4.19 M/uL 4.09 M/uL Hemoglobin 12.4 g/dL 11.6 g/dL Hematocrit 38.1 % 36.8 % Mean Corpuscular Volume 90.9 fL 90.0 fL Mean Corpuscular Hemoglobin 29.6 pg 28.4 pg Mean Corpuscular Hemoglobin Concent 32.5 g/dl 31.5 g/dl Platelet Count 353 K/uL 303 K/uL Mean Platelet Volume 9.6 fL 9.4 fL Neutrophils (%) (Auto) 68.0 % 66.9 % Lymphocytes (%) (Auto) 21.8 % 23.8 % Monocytes (%) (Auto) 6.4 % 6.3 % Eosinophils (%) (Auto) 2.6 % 1.8 % Basophils (%) (Auto) 0.4 % 0.2 % Neutrophils # (Auto) 11.49 K/uL 9.12 K/uL Lymphocytes # (Auto) 3.68 K/uL 3.24 K/uL Monocytes # (Auto) 1.08 K/uL 0.86 K/uL Eosinophils # (Auto) 0.44 K/uL 0.24 K/uL Basophils # (Auto) 0.07 K/uL 0.03 K/uL RDW Standard Deviation 45.7 fL 46.1 fL RDW Coefficient of Variation 13.8 % 14.0 % Immature Granulocyte % (Auto) 0.8 % 1.0 % Immature Granulocyte # (Auto) 0.14 K/uL 0.13 K/uL Prothrombin Time 9.4 SECONDS Prothromb Time International Ratio 0.9 Sodium Level 136 mmol/L 138 mmol/L Potassium Level 4.4 mmol/L 4.2 mmol/L Chloride Level 100 mmol/L 101 mmol/L Carbon Dioxide Level 31 mmol/L 32 mmol/L Anion Gap 5.0 mmol/L 5.0 mmol/L Blood Urea Nitrogen 20 mg/dl 21 mg/dl Creatinine 0.87 mg/dl 0.87 mg/dl Est Creatinine Clear Calc Drug Dose 85.6 ml/min 85.6 ml/min Estimated GFR () 78.2 78.2 Estimated GFR (Non- 67.5 67.5 BUN/Creatinine Ratio 23.1 23.8 Random Glucose 150 mg/dl 85 mg/dl Calcium Level 8.5 mg/dl 8.3 mg/dl Hepatitis C Antibody Screen NEG Bedside Glucose 181 mg/dl 78 mg/dl Magnesium Level 1.8 mg/dl Triglycerides Level 129 mg/dl Cholesterol Level 101 mg/dl HDL Cholesterol 44 mg/dl LDL Cholesterol, Calculated 31 mg/dl VLDL Cholesterol, Calculated 26 mg/dl Cholesterol/HDL Ratio 2.3 Assessment & Plan A 71-year-old female with diabetes mellitus and chronic lower extremity edema now presents with bilateral lower leg cellulitis in the setting of open wounds as well as stage II sacral decubitus ulcer. Given negative MRSA swab, think the patient can be continued on Unasyn pending further culture results. She will be evaluated by wound care. I will adjust antibiotics once final culture results are available. Will follow.
--- NOTE | 2017-09-21 15:21 | Progress Note ---
Subjective Date of Service: Sep 21, 2017. Subjective Patient reports feeling no significant improvement. Patient remains distraught about losing her boyfriend and states that she does not want to go to a nursing facility. ROS are below. Problem List Medical Problems: (1) Ambulatory dysfunction Status: Acute (2) Cellulitis of left lower extremity Status: Acute (3) Hypoxia Status: Acute Review of Systems Constitutional: No fever, No chills ENT: No hearing loss Respiratory: No cough, No sputum Cardiac: No chest pain Abdomen: No pain, No nausea Neurologic: No memory loss, No paralysis Heme: No abnormal bleeding/bruising Endo: No fatigue Skin: No rash, No itch All Other Systems: Reviewed and Negative Medications Current Inpatient Medications Medications (Trade) Dose Ordered Sig/Paz Route Start Time Stop Time Status Last Admin Dose Admin Enoxaparin Sodium (Lovenox Inj) 40 mg Q24H SQ 09/20/17 20:00 10/20/17 19:59 09/21/17 20:19 40 MG Acetaminophen (Tylenol Tab) 650 mg Q4H PRN PO 09/20/17 16:45 10/20/17 16:44 09/22/17 08:24 650 MG Magnesium Hydroxide (Milk Of Magnesia Susp) 30 ml Q6H PRN PO 09/20/17 16:45 10/20/17 16:44 Polyethylene (Miralax Powder Packet) 17 gm DAILY PRN PO 09/20/17 16:45 10/20/17 16:44 Ondansetron HCl (Zofran Inj) 4 mg Q6H PRN IV 09/20/17 16:45 10/20/17 16:44 Atorvastatin Calcium (Lipitor Tab) 10 mg DAILY PO 09/21/17 08:00 10/21/17 08:59 09/22/17 08:24 10 MG Insulin Glargine (Lantus Solostar Pen) 36 units BID SC 09/20/17 20:00 10/20/17 20:59 09/22/17 08:28 36 UNITS Levothyroxine Sodium (Synthroid Tab) 50 mcg DAILYBB PO 09/21/17 06:30 10/21/17 06:59 09/22/17 06:18 50 MCG Losartan Potassium (coZAAR TAB) 25 mg DAILY PO 09/21/17 08:00 10/21/17 08:59 09/22/17 08:24 25 MG Glucose (Glucose 40% Gel) 15-30 GRAMS 15 GRAMS... UD PRN PO 09/20/17 16:45 10/20/17 16:44 Glucose (Glucose Chew Tab) 4-8 Tablets 4 Tabl... UD PRN PO 09/20/17 16:45 10/20/17 16:44 Dextrose (Dextrose 50% 50ML Syringe) 25-50ML OF 50% DW IV FOR... UD PRN IV 09/20/17 16:45 10/20/17 16:44 Glucagon (Glucagon Inj) 1 mg UD PRN SQ 09/20/17 16:45 10/20/17 16:44 Ampicillin Sodium/ Sulbactam Sodium 1500 mg/Sodium Chloride 104 ml @ 200 mls/hr Q6H IV 09/20/17 22:00 09/30/17 21:59 09/22/17 04:30 200 MLS/HR Ascorbic Acid (Vitamin C Tab) 500 mg BID PO 09/20/17 20:00 10/20/17 20:59 09/22/17 08:24 500 MG Zinc Sulfate (Zinc Sulfate Cap) 220 mg QAM PO 09/21/17 08:00 10/21/17 08:59 09/22/17 08:25 220 MG Multivitamins/ Minerals (Multivitamin W/ Minerals Tab) 1 tab QAM PO 09/21/17 08:00 10/21/17 08:59 09/22/17 08:24 1 TAB Insulin Aspart (novoLOG ASPART) SLIDING SCALE G... ACHS SC 09/21/17 06:30 10/21/17 06:29 09/22/17 08:29 3 UNITS Miconazole Nitrate (Desenex Powder) 1 appln PRN PRN EXT 09/21/17 01:45 10/21/17 01:44 Objective Vital Signs Date Time Temp Pulse Resp B/P (MAP) Pulse Ox O2 Delivery O2 Flow Rate FiO2 09/21/17 10:20 Room Air 09/21/17 08:00 36.9 99 19 124/89 (101) 90 Room Air 09/21/17 00:12 36.4 98 16 107/68 (81) 90 Room Air 09/21/17 00:00 Room Air 09/20/17 18:20 36.6 95 20 120/60 98 Room Air 09/20/17 18:20 36.6 95 20 120/60 (80) 92 Room Air 09/20/17 16:43 76 16 101/63 98 Room Air Physical Exam Comments: General Appearance: WD/WN, + obese, Head: normocephalic, atraumatic Eyes: PERRL, EOMI, + pertinent finding (MMM) ENT: hearing grossly normal, pharynx normal Neck: supple, no JVD Respiratory/Chest: lungs clear, no respiratory distress, no accessory muscle use Cardiovascular: regular rate, rhythm, + systolic murmur (grade II/ ) Abdomen/GI: normal bowel sounds, non tender, soft Back: no CVA tenderness, normal range of motion Extremities/Musculoskelatal: + pertinent finding BLE has dry dressing on both lower legs; + sacral decubitus grade II/V) Neurologic/Psych: alert, normal mood/affect, normal reflexes Skin: normal color, warm/dry Laboratory Results Last 24 Hours Test 09/20/17 20:21 09/21/17 06:45 09/21/17 07:58 09/21/17 11:50 Bedside Glucose 181 mg/dl 78 mg/dl 131 mg/dl White Blood Count 13.62 K/uL Red Blood Count 4.09 M/uL Hemoglobin 11.6 g/dL Hematocrit 36.8 % Mean Corpuscular Volume 90.0 fL Mean Corpuscular Hemoglobin 28.4 pg Mean Corpuscular Hemoglobin Concent 31.5 g/dl Platelet Count 303 K/uL Mean Platelet Volume 9.4 fL Neutrophils (%) (Auto) 66.9 % Lymphocytes (%) (Auto) 23.8 % Monocytes (%) (Auto) 6.3 % Eosinophils (%) (Auto) 1.8 % Basophils (%) (Auto) 0.2 % Neutrophils # (Auto) 9.12 K/uL Lymphocytes # (Auto) 3.24 K/uL Monocytes # (Auto) 0.86 K/uL Eosinophils # (Auto) 0.24 K/uL Basophils # (Auto) 0.03 K/uL RDW Standard Deviation 46.1 fL RDW Coefficient of Variation 14.0 % Immature Granulocyte % (Auto) 1.0 % Immature Granulocyte # (Auto) 0.13 K/uL Sodium Level 138 mmol/L Potassium Level 4.2 mmol/L Chloride Level 101 mmol/L Carbon Dioxide Level 32 mmol/L Anion Gap 5.0 mmol/L Blood Urea Nitrogen 21 mg/dl Creatinine 0.87 mg/dl Est Creatinine Clear Calc Drug Dose 85.6 ml/min Estimated GFR () 78.2 Estimated GFR (Non- 67.5 BUN/Creatinine Ratio 23.8 Random Glucose 85 mg/dl Calcium Level 8.3 mg/dl Magnesium Level 1.8 mg/dl Triglycerides Level 129 mg/dl Cholesterol Level 101 mg/dl HDL Cholesterol 44 mg/dl LDL Cholesterol, Calculated 31 mg/dl VLDL Cholesterol, Calculated 26 mg/dl Cholesterol/HDL Ratio 2.3 Assessment and Plan This is 71 yo F with PMHx of HTN, DM II, morbid obesity, HLD, hypothyroidism, osteoarthritis, spinal stenosis, depression who presents with increased bilateral lower extremity swelling and opened skin ulcerations which have now have purulent discharge x 3 days. Bilateral Lower extremity Cellulitis/ sacral decubitus ulceration - Admitted to med/surg -Patient appears to be stable. - Wound care nurse consulted - pt has been applying aquacel to the wounds - ID consulted for antibiotic recs- wound culture - unasyn started in the ER, continue this for now. - WBC imrpved from 16 to 13 - Doppler US BLE neg for VTE - PT/OT DM II - A1C = 8.7 in Dec, ISS with accuchecks - Continue lantus 36 U BID, holding home glipizide for now - Heart healthy diabetic diet HTN - Cont losartan 25 mg QAM HLD - Cont Atorvastatin Morbid obesity - PT/OT consulted - diet and exercise encouraged Hypothyroidism - Continue levothyroxine - TSH = 2.17 in Dec. Osteoarthritis -stable DVT ppx: Lovenox subq, no teds or scds with bilateral lower extremity cellulitis CODE STATUS: FULL Disposition: From home, lives alone, CM to assist with discharge planning. Spent 55 minutes with patient as she discussed about her boyfriend and also discharge planning. Continued [facility] stay due to: multiple IV medications needed, other (frequent wound dressings.) Discharge planning: uncertain
[2017-09-21 16:25] VITALS: BP 109/66; PULSE 90; TEMP 36.6; O2SAT 96
[2017-09-21] MEDS: ENOXAPARIN 40 MG/0.4 ML SYR SQ SCH (20:19)
[2017-09-22 01:01] VITALS: BP 122/65; PULSE 89; TEMP 36.7; O2SAT 93
[2017-09-22] MEDS: AMPICILLIN/SULBACTAM SOD INJ 1,500 MG in SODIUM CHLORIDE 0.9% 100ML 100 ML IV SCH ×4 (04:30→21:54)
[2017-09-22] MEDS: LEVOTHYROXINE 50 MCG TAB PO SCH (06:18)
[2017-09-22 07:17] LABS: BASO % 0.4 %; BASO ABS # 0.05 K/uL (0-0.2); EOS % 3.8 %; EOS ABS # 0.47 K/uL (0-0.5); HEMATOCRIT 35.3 % (37-47); HEMOGLOBIN 11.2 g/dL (12.0-16.0); IG# 0.17 K/uL (0.00-0.02); LYMPH % 26.6 %; LYMPH ABS # 3.29 K/uL (1.2-3.4); MEAN CELL VOLUME 90.7 fL (80-100); MEAN CORPUSCULAR HEMOGLOBIN 28.8 pg (25-34); MEAN CORPUSCULAR HGB CONC 31.7 g/dl (32-36); MEAN PLATELET VOLUME 9.3 fL (7.4-10.4); MONO % 6.7 %; MONO ABS # 0.83 K/uL (0.11-0.59); NEUT % 61.1 %; NEUT ABS # 7.55 K/uL (1.4-6.5); PLATELET COUNT 292 K/uL (130-400); RED CELL DISTRIBUTION WIDTH CV 14.2 % (11.5-14.5); WHITE BLOOD COUNT 12.36 K/uL (4.8-10.8)
[2017-09-22 07:40] VITALS: BP 124/69; PULSE 97; TEMP 36.8; O2SAT 90
[2017-09-22 07:48] LABS: CALCIUM 8.5 mg/dl (8.5-10.1); CREATININE 1.01 mg/dl (0.60-1.20); POTASSIUM 4.1 mmol/L (3.5-5.1)
[2017-09-22] MEDS: CEROVITE ADV FORMULA TAB PO SCH (08:24)
[2017-09-22] MEDS: ASCORBIC ACID 500 MG TAB PO SCH ×2 (08:24→21:49)
[2017-09-22] MEDS: ATORVASTATIN 10 MG TAB PO SCH (08:24)
[2017-09-22] MEDS: ACETAMINOPHEN 325 MG TAB PO PRN (08:24)
[2017-09-22] MEDS: LOSARTAN POTASSIUM 25 MG TAB PO SCH (08:24)
[2017-09-22] MEDS: ZINC SULFATE 220 MG CAP PO SCH (08:25)
[2017-09-22] MEDS: INSULIN GLARGINE SOLOSTAR 100 UNITS/ML 3 ML PEN SC SCH ×2 (08:28→21:52)
[2017-09-22] MEDS: INSULIN ASPART 100 UNITS/ML 3 ML PEN SC SCH ×4 (08:29→21:51)
[2017-09-22 16:21] VITALS: BP 103/68; PULSE 93; TEMP 36.5; O2SAT 95
--- NOTE | 2017-09-22 19:20 | Progress Note ---
Subjective Date of Service: Sep 22, 2017. Subjective Pt evaluation today including: conversation w/ patient, physical exam 71 yo female being treated for bilateral lower extremity cellulitis. Patient reports having no pain, fever, chills, nausea, vomiting. Patient though has noticed fecal incontinence with very loose stools. When I had walked in the room, patient's legs were drenched in stool. Patient states that she did not notice the stool on her legs. Problem List Medical Problems: (1) Ambulatory dysfunction Status: Acute (2) Cellulitis of left lower extremity Status: Acute (3) Hypoxia Status: Acute Review of Systems Constitutional: No fever, No chills, No sweats Eyes: No worsening of vision ENT: No hearing loss Respiratory: No cough, No sputum Cardiac: No chest pain, No orthopnea Abdomen: No pain, No nausea Psychiatric: No depression symptoms Heme: No abnormal bleeding/bruising Endo: No fatigue Skin: No rash, No itch All Other Systems: Reviewed and Negative Medications Current Inpatient Medications Medications (Trade) Dose Ordered Sig/Paz Route Start Time Stop Time Status Last Admin Dose Admin Enoxaparin Sodium (Lovenox Inj) 40 mg Q24H SQ 09/20/17 20:00 10/20/17 19:59 09/22/17 21:52 40 MG Acetaminophen (Tylenol Tab) 650 mg Q4H PRN PO 09/20/17 16:45 10/20/17 16:44 09/23/17 07:54 650 MG Magnesium Hydroxide (Milk Of Magnesia Susp) 30 ml Q6H PRN PO 09/20/17 16:45 10/20/17 16:44 Polyethylene (Miralax Powder Packet) 17 gm DAILY PRN PO 09/20/17 16:45 10/20/17 16:44 Ondansetron HCl (Zofran Inj) 4 mg Q6H PRN IV 09/20/17 16:45 10/20/17 16:44 Atorvastatin Calcium (Lipitor Tab) 10 mg DAILY PO 09/21/17 08:00 10/21/17 08:59 09/23/17 09:15 10 MG Insulin Glargine (Lantus Solostar Pen) 36 units BID SC 09/20/17 20:00 10/20/17 20:59 09/23/17 07:56 36 UNITS Levothyroxine Sodium (Synthroid Tab) 50 mcg DAILYBB PO 09/21/17 06:30 10/21/17 06:59 09/23/17 06:05 50 MCG Losartan Potassium (coZAAR TAB) 25 mg DAILY PO 09/21/17 08:00 10/21/17 08:59 09/23/17 07:53 25 MG Glucose (Glucose 40% Gel) 15-30 GRAMS 15 GRAMS... UD PRN PO 09/20/17 16:45 10/20/17 16:44 Glucose (Glucose Chew Tab) 4-8 Tablets 4 Tabl... UD PRN PO 09/20/17 16:45 10/20/17 16:44 Dextrose (Dextrose 50% 50ML Syringe) 25-50ML OF 50% DW IV FOR... UD PRN IV 09/20/17 16:45 10/20/17 16:44 Glucagon (Glucagon Inj) 1 mg UD PRN SQ 09/20/17 16:45 10/20/17 16:44 Ampicillin Sodium/ Sulbactam Sodium 1500 mg/Sodium Chloride 104 ml @ 200 mls/hr Q6H IV 09/20/17 22:00 09/30/17 21:59 09/23/17 10:00 200 MLS/HR Ascorbic Acid (Vitamin C Tab) 500 mg BID PO 09/20/17 20:00 10/20/17 20:59 09/23/17 07:53 500 MG Zinc Sulfate (Zinc Sulfate Cap) 220 mg QAM PO 09/21/17 08:00 10/21/17 08:59 09/23/17 07:54 220 MG Multivitamins/ Minerals (Multivitamin W/ Minerals Tab) 1 tab QAM PO 09/21/17 08:00 10/21/17 08:59 09/23/17 07:53 1 TAB Insulin Aspart (novoLOG ASPART) SLIDING SCALE G... ACHS SC 09/21/17 06:30 10/21/17 06:29 09/23/17 09:17 3 UNITS Miconazole Nitrate (Desenex Powder) 1 appln PRN PRN EXT 09/21/17 01:45 10/21/17 01:44 Lactobacillus Acidophilus (Floranex Tab) 4 tab TIDM PO 09/23/17 12:00 10/23/17 11:59 Objective Vital Signs Date Time Temp Pulse Resp B/P (MAP) Pulse Ox O2 Delivery O2 Flow Rate FiO2 09/22/17 16:30 Room Air 09/22/17 16:21 36.5 93 20 103/68 (80) 95 Room Air 09/22/17 09:14 Room Air 09/22/17 07:40 36.8 97 18 124/69 (87) 90 Room Air 09/22/17 01:01 36.7 89 20 122/65 (84) 93 Room Air 09/22/17 00:00 Room Air 09/21/17 20:00 Room Air Physical Exam Comments: General Appearance: WD/WN, + obese, Head: normocephalic, atraumatic Eyes: PERRL, EOMI, + pertinent finding (MMM) ENT: hearing grossly normal, pharynx normal Neck: supple, no JVD Respiratory/Chest: lungs clear, no respiratory distress, no accessory muscle use Cardiovascular: regular rate, rhythm, + systolic murmur (grade II/ ) Abdomen/GI: normal bowel sounds, non tender, soft Back: no CVA tenderness, normal range of motion Extremities/Musculoskelatal: + pertinent finding BLE has dry dressing on both lower legs; + sacral decubitus grade II/V) Neurologic/Psych: alert, normal mood/affect, normal reflexes Skin: normal color, warm/dry Laboratory Results Last 24 Hours Test 09/21/17 19:56 09/22/17 06:45 09/22/17 07:52 09/22/17 11:48 Bedside Glucose 162 mg/dl 71 mg/dl 138 mg/dl White Blood Count 12.36 K/uL Red Blood Count 3.89 M/uL Hemoglobin 11.2 g/dL Hematocrit 35.3 % Mean Corpuscular Volume 90.7 fL Mean Corpuscular Hemoglobin 28.8 pg Mean Corpuscular Hemoglobin Concent 31.7 g/dl Platelet Count 292 K/uL Mean Platelet Volume 9.3 fL Neutrophils (%) (Auto) 61.1 % Lymphocytes (%) (Auto) 26.6 % Monocytes (%) (Auto) 6.7 % Eosinophils (%) (Auto) 3.8 % Basophils (%) (Auto) 0.4 % Neutrophils # (Auto) 7.55 K/uL Lymphocytes # (Auto) 3.29 K/uL Monocytes # (Auto) 0.83 K/uL Eosinophils # (Auto) 0.47 K/uL Basophils # (Auto) 0.05 K/uL RDW Standard Deviation 47.0 fL RDW Coefficient of Variation 14.2 % Immature Granulocyte % (Auto) 1.4 % Immature Granulocyte # (Auto) 0.17 K/uL Sodium Level 138 mmol/L Potassium Level 4.1 mmol/L Chloride Level 102 mmol/L Carbon Dioxide Level 32 mmol/L Anion Gap 4.0 mmol/L Blood Urea Nitrogen 26 mg/dl Creatinine 1.01 mg/dl Est Creatinine Clear Calc Drug Dose 73.7 ml/min Estimated GFR () 65.3 Estimated GFR (Non- 56.4 BUN/Creatinine Ratio 25.9 Random Glucose 75 mg/dl Calcium Level 8.5 mg/dl Test 09/22/17 16:42 Bedside Glucose 170 mg/dl Assessment and Plan This is 71 yo F with PMHx of HTN, DM II, morbid obesity, HLD, hypothyroidism, osteoarthritis, spinal stenosis, depression who presents with increased bilateral lower extremity swelling and opened skin ulcerations which have now have purulent discharge x 3 days. Bilateral Lower extremity Cellulitis/ sacral decubitus ulceration - Admitted to med/surg -Patient appears to be stable. - Wound care nurse consulted - pt has been applying aquacel to the wounds - ID consulted for antibiotic recs- wound culture - unasyn started in the ER, continue this for now. - WBC improved from 16 to 13 to 12 -Awaiting final cultures. - Doppler US BLE neg for VTE - PT/OT DM II - A1C = 8.7 in Dec, ISS with accuchecks - Continue lantus 36 U BID, holding home glipizide for now - Heart healthy diabetic diet HTN - Cont losartan 25 mg QAM HLD - Cont Atorvastatin Morbid obesity - PT/OT consulted - diet and exercise encouraged Hypothyroidism - Continue levothyroxine - TSH = 2.17 in Dec. Osteoarthritis -stable Diarrhea likelyu antibiotic related. will give a probiotic and monitor. DVT ppx: Lovenox subq, no teds or scds with bilateral lower extremity cellulitis CODE STATUS: FULL Disposition: From home, lives alone, CM to assist with discharge planning. Spent 55 minutes with patient as she discussed about her boyfriend and also discharge planning. Continued [facility] stay due to: multiple IV medications needed, other (frequent wound dressings.) Discharge planning: rehab hospital
[2017-09-22] MEDS: ENOXAPARIN 40 MG/0.4 ML SYR SQ SCH (21:52)
[2017-09-22 23:00] VITALS: BP 104/56; PULSE 85; TEMP 36.4; O2SAT 95
[2017-09-23] MEDS: ACETAMINOPHEN 325 MG TAB PO PRN ×3 (01:49→23:26)
[2017-09-23] MEDS: AMPICILLIN/SULBACTAM SOD INJ 1,500 MG in SODIUM CHLORIDE 0.9% 100ML 100 ML IV SCH ×4 (04:24→22:28)
[2017-09-23] MEDS: LEVOTHYROXINE 50 MCG TAB PO SCH (06:05)
[2017-09-23 06:32] LABS: BASO % 0.7 %; BASO ABS # 0.08 K/uL (0-0.2); EOS % 4.8 %; EOS ABS # 0.59 K/uL (0-0.5); HEMATOCRIT 35.4 % (37-47); HEMOGLOBIN 11.1 g/dL (12.0-16.0); IG# 0.23 K/uL (0.00-0.02); LYMPH % 27.4 %; LYMPH ABS # 3.34 K/uL (1.2-3.4); MEAN CELL VOLUME 91.2 fL (80-100); MEAN CORPUSCULAR HEMOGLOBIN 28.6 pg (25-34); MEAN CORPUSCULAR HGB CONC 31.4 g/dl (32-36); MEAN PLATELET VOLUME 9.4 fL (7.4-10.4); MONO % 8.1 %; MONO ABS # 0.99 K/uL (0.11-0.59); NEUT % 57.1 %; NEUT ABS # 6.95 K/uL (1.4-6.5); PLATELET COUNT 319 K/uL (130-400); RED CELL DISTRIBUTION WIDTH CV 14.1 % (11.5-14.5); RED CELL DISTRIBUTION WIDTH SD 46.5 fL (36.4-46.3); WHITE BLOOD COUNT 12.18 K/uL (4.8-10.8)
[2017-09-23 07:32] VITALS: BP 100/63; PULSE 87; TEMP 36.6; O2SAT 90
[2017-09-23] MEDS: CEROVITE ADV FORMULA TAB PO SCH (07:53)
[2017-09-23] MEDS: ASCORBIC ACID 500 MG TAB PO SCH ×2 (07:53→21:13)
[2017-09-23] MEDS: LOSARTAN POTASSIUM 25 MG TAB PO SCH (07:53)
[2017-09-23] MEDS: ZINC SULFATE 220 MG CAP PO SCH (07:54)
[2017-09-23] MEDS: INSULIN GLARGINE SOLOSTAR 100 UNITS/ML 3 ML PEN SC SCH ×2 (07:56→21:16)
[2017-09-23] MEDS: ATORVASTATIN 10 MG TAB PO SCH (09:15)
[2017-09-23] MEDS: INSULIN ASPART 100 UNITS/ML 3 ML PEN SC SCH ×4 (09:17→21:16)
[2017-09-23] MEDS: LACTOBACILLUS ACIDOPHILUS (FLORANEX) TAB PO SCH ×2 (12:51→16:32)
[2017-09-23 15:40] VITALS: BP 104/69; PULSE 88; TEMP 36.4; O2SAT 93
--- NOTE | 2017-09-23 17:18 | Progress Note ---
Subjective Date of Service: Sep 23, 2017. Subjective Pt evaluation today including: conversation w/ patient Patient reports feeling well. Patient only complaint is that her edema has not improved and this is causing worsening of her pain in her lower extremities. She attributes her ulcers to the fact that she walks on concrete. Patient denies any paresthesias, nausea, vomiting, palpations, chest pain. Patient also reports that her diarrhea has improved. Patient only had one stool over the course of the day. Problem List Medical Problems: (1) Ambulatory dysfunction Status: Acute (2) Cellulitis of left lower extremity Status: Acute (3) Hypoxia Status: Acute Review of Systems Constitutional: No fever, No chills ENT: No hearing loss Respiratory: No cough Cardiac: No chest pain Abdomen: No pain, No nausea Musculoskeletal: + swelling Neurologic: No memory loss, No paralysis Psychiatric: No depression symptoms Heme: No abnormal bleeding/bruising Endo: No fatigue Skin: No rash All Other Systems: Reviewed and Negative Medications Current Inpatient Medications Medications (Trade) Dose Ordered Sig/Paz Route Start Time Stop Time Status Last Admin Dose Admin Enoxaparin Sodium (Lovenox Inj) 40 mg Q24H SQ 09/20/17 20:00 10/20/17 19:59 09/24/17 20:46 40 MG Acetaminophen (Tylenol Tab) 650 mg Q4H PRN PO 09/20/17 16:45 10/20/17 16:44 09/24/17 16:14 650 MG Magnesium Hydroxide (Milk Of Magnesia Susp) 30 ml Q6H PRN PO 09/20/17 16:45 10/20/17 16:44 Polyethylene (Miralax Powder Packet) 17 gm DAILY PRN PO 09/20/17 16:45 10/20/17 16:44 Ondansetron HCl (Zofran Inj) 4 mg Q6H PRN IV 09/20/17 16:45 10/20/17 16:44 Atorvastatin Calcium (Lipitor Tab) 10 mg DAILY PO 09/21/17 08:00 10/21/17 08:59 09/24/17 09:05 10 MG Insulin Glargine (Lantus Solostar Pen) 36 units BID SC 09/20/17 20:00 10/20/17 20:59 09/24/17 21:54 36 UNITS Levothyroxine Sodium (Synthroid Tab) 50 mcg DAILYBB PO 09/21/17 06:30 10/21/17 06:59 09/24/17 06:15 50 MCG Losartan Potassium (coZAAR TAB) 25 mg DAILY PO 09/21/17 08:00 10/21/17 08:59 09/24/17 09:06 25 MG Glucose (Glucose 40% Gel) 15-30 GRAMS 15 GRAMS... UD PRN PO 09/20/17 16:45 10/20/17 16:44 Glucose (Glucose Chew Tab) 4-8 Tablets 4 Tabl... UD PRN PO 09/20/17 16:45 10/20/17 16:44 Dextrose (Dextrose 50% 50ML Syringe) 25-50ML OF 50% DW IV FOR... UD PRN IV 09/20/17 16:45 10/20/17 16:44 Glucagon (Glucagon Inj) 1 mg UD PRN SQ 09/20/17 16:45 10/20/17 16:44 Ampicillin Sodium/ Sulbactam Sodium 1500 mg/Sodium Chloride 104 ml @ 200 mls/hr Q6H IV 09/20/17 22:00 09/30/17 21:59 09/24/17 21:57 200 MLS/HR Ascorbic Acid (Vitamin C Tab) 500 mg BID PO 09/20/17 20:00 10/20/17 20:59 09/24/17 20:46 500 MG Zinc Sulfate (Zinc Sulfate Cap) 220 mg QAM PO 09/21/17 08:00 10/21/17 08:59 09/24/17 09:05 220 MG Multivitamins/ Minerals (Multivitamin W/ Minerals Tab) 1 tab QAM PO 09/21/17 08:00 10/21/17 08:59 09/24/17 09:05 1 TAB Insulin Aspart (novoLOG ASPART) SLIDING SCALE G... ACHS SC 09/21/17 06:30 10/21/17 06:29 09/24/17 21:55 4 UNITS Miconazole Nitrate (Desenex Powder) 1 appln PRN PRN EXT 09/21/17 01:45 10/21/17 01:44 Lactobacillus Acidophilus (Floranex Tab) 4 tab TIDM PO 09/23/17 12:00 10/23/17 11:59 09/24/17 17:11 4 TAB Objective Vital Signs Date Time Temp Pulse Resp B/P (MAP) Pulse Ox O2 Delivery O2 Flow Rate FiO2 09/23/17 15:40 36.4 88 18 104/69 (81) 93 Room Air 09/23/17 08:43 Room Air 09/23/17 07:32 36.6 87 18 100/63 (75) 90 Room Air 09/23/17 00:00 Room Air 09/22/17 23:00 36.4 85 18 104/56 (72) 95 Room Air Physical Exam Comments: General Appearance: WD/WN, + obese, Head: normocephalic, atraumatic Eyes: PERRL, EOMI, + pertinent finding (MMM) ENT: hearing grossly normal, pharynx normal Neck: supple, no JVD Respiratory/Chest: lungs clear, no respiratory distress, no accessory muscle use Cardiovascular: regular rate, rhythm, + systolic murmur (grade II/ ) Abdomen/GI: normal bowel sounds, non tender, soft Back: no CVA tenderness, normal range of motion Extremities/Musculoskelatal: + pertinent finding BLE has dry dressing on both lower legs; + sacral decubitus grade II/V) Neurologic/Psych: alert, normal mood/affect, normal reflexes Skin: normal color, warm/dry Laboratory Results Last 24 Hours Test 09/22/17 19:52 09/23/17 05:53 09/23/17 07:52 09/23/17 11:13 Bedside Glucose 181 mg/dl 98 mg/dl 186 mg/dl White Blood Count 12.18 K/uL Red Blood Count 3.88 M/uL Hemoglobin 11.1 g/dL Hematocrit 35.4 % Mean Corpuscular Volume 91.2 fL Mean Corpuscular Hemoglobin 28.6 pg Mean Corpuscular Hemoglobin Concent 31.4 g/dl Platelet Count 319 K/uL Mean Platelet Volume 9.4 fL Neutrophils (%) (Auto) 57.1 % Lymphocytes (%) (Auto) 27.4 % Monocytes (%) (Auto) 8.1 % Eosinophils (%) (Auto) 4.8 % Basophils (%) (Auto) 0.7 % Neutrophils # (Auto) 6.95 K/uL Lymphocytes # (Auto) 3.34 K/uL Monocytes # (Auto) 0.99 K/uL Eosinophils # (Auto) 0.59 K/uL Basophils # (Auto) 0.08 K/uL RDW Standard Deviation 46.5 fL RDW Coefficient of Variation 14.1 % Immature Granulocyte % (Auto) 1.9 % Immature Granulocyte # (Auto) 0.23 K/uL Test 09/23/17 16:39 Bedside Glucose 199 mg/dl Assessment and Plan This is 71 yo F with PMHx of HTN, DM II, morbid obesity, HLD, hypothyroidism, osteoarthritis, spinal stenosis, depression who presents with increased bilateral lower extremity swelling and opened skin ulcerations which have now have purulent discharge x 3 days. Bilateral Lower extremity Cellulitis/ sacral decubitus ulceration - Admitted to med/surg Cultures are still pending -Appears to be grafdually improving - Wound care nurse consulted - pt has been applying aquacel to the wounds - ID consulted for antibiotic recs- wound culture - unasyn started in the ER, continue this for now. - WBC improved from 16 to 13 to 12 - Doppler US BLE neg for VTE - PT/OT DM II - A1C = 8.7 in Dec, ISS with accuchecks - Continue lantus 36 U BID, holding home glipizide for now - Heart healthy diabetic diet HTN - Cont losartan 25 mg QAM HLD - Cont Atorvastatin Morbid obesity - PT/OT consulted - diet and exercise encouraged Hypothyroidism - Continue levothyroxine - TSH = 2.17 in Dec. Osteoarthritis -stable Diarrhea likelyu antibiotic related. will give a probiotic and monitor. DVT ppx: Lovenox subq, no teds or scds with bilateral lower extremity cellulitis CODE STATUS: FULL Disposition: From home, lives alone, CM to assist with discharge planning. Pending placement to [facility]. Continued [facility] stay due to: multiple IV medications needed, other (frequent wound dressings.) Discharge planning: rehab hospital
[2017-09-23] MEDS: ENOXAPARIN 40 MG/0.4 ML SYR SQ SCH (21:14)
[2017-09-23 23:20] VITALS: BP 114/70; PULSE 95; TEMP 36.6; O2SAT 90
[2017-09-24] MEDS: AMPICILLIN/SULBACTAM SOD INJ 1,500 MG in SODIUM CHLORIDE 0.9% 100ML 100 ML IV SCH ×5 (03:43→23:33)
[2017-09-24] MEDS: LEVOTHYROXINE 50 MCG TAB PO SCH (06:15)
[2017-09-24 07:58] VITALS: BP 160/85; PULSE 99; TEMP 36.6; O2SAT 94
[2017-09-24 09:00] VITALS: O2SAT 94
[2017-09-24] MEDS: CEROVITE ADV FORMULA TAB PO SCH (09:05)
[2017-09-24] MEDS: ATORVASTATIN 10 MG TAB PO SCH (09:05)
[2017-09-24] MEDS: ZINC SULFATE 220 MG CAP PO SCH (09:05)
[2017-09-24] MEDS: LACTOBACILLUS ACIDOPHILUS (FLORANEX) TAB PO SCH ×3 (09:05→17:11)
[2017-09-24] MEDS: ASCORBIC ACID 500 MG TAB PO SCH ×2 (09:06→20:46)
[2017-09-24] MEDS: LOSARTAN POTASSIUM 25 MG TAB PO SCH (09:06)
[2017-09-24] MEDS: INSULIN ASPART 100 UNITS/ML 3 ML PEN SC SCH ×4 (09:12→21:55)
[2017-09-24] MEDS: INSULIN GLARGINE SOLOSTAR 100 UNITS/ML 3 ML PEN SC SCH ×2 (09:13→21:54)
[2017-09-24 15:44] VITALS: BP 107/69; PULSE 84; TEMP 36.7; O2SAT 95
[2017-09-24 16:00] VITALS: O2SAT 94
[2017-09-24] MEDS: ACETAMINOPHEN 325 MG TAB PO PRN (16:14)
--- NOTE | 2017-09-24 16:29 | Progress Note ---
Subjective Date of Service: Sep 24, 2017. Subjective Pt evaluation today including: conversation w/ patient Patient reports no change from yesterday Problem List Medical Problems: (1) Ambulatory dysfunction Status: Acute (2) Cellulitis of left lower extremity Status: Acute (3) Hypoxia Status: Acute Review of Systems Constitutional: No fever, No chills Respiratory: No cough, No sputum Cardiac: No chest pain, No orthopnea Neurologic: No memory loss, No paralysis Heme: No abnormal bleeding/bruising Skin: + rash, + itch All Other Systems: Reviewed and Negative Medications Current Inpatient Medications Medications (Trade) Dose Ordered Sig/Paz Route Start Time Stop Time Status Last Admin Dose Admin Enoxaparin Sodium (Lovenox Inj) 40 mg Q24H SQ 09/20/17 20:00 10/20/17 19:59 09/24/17 20:46 40 MG Acetaminophen (Tylenol Tab) 650 mg Q4H PRN PO 09/20/17 16:45 10/20/17 16:44 09/24/17 16:14 650 MG Magnesium Hydroxide (Milk Of Magnesia Susp) 30 ml Q6H PRN PO 09/20/17 16:45 10/20/17 16:44 Polyethylene (Miralax Powder Packet) 17 gm DAILY PRN PO 09/20/17 16:45 10/20/17 16:44 Ondansetron HCl (Zofran Inj) 4 mg Q6H PRN IV 09/20/17 16:45 10/20/17 16:44 Atorvastatin Calcium (Lipitor Tab) 10 mg DAILY PO 09/21/17 08:00 10/21/17 08:59 09/24/17 09:05 10 MG Insulin Glargine (Lantus Solostar Pen) 36 units BID SC 09/20/17 20:00 10/20/17 20:59 09/24/17 21:54 36 UNITS Levothyroxine Sodium (Synthroid Tab) 50 mcg DAILYBB PO 09/21/17 06:30 10/21/17 06:59 09/24/17 06:15 50 MCG Losartan Potassium (coZAAR TAB) 25 mg DAILY PO 09/21/17 08:00 10/21/17 08:59 09/24/17 09:06 25 MG Glucose (Glucose 40% Gel) 15-30 GRAMS 15 GRAMS... UD PRN PO 09/20/17 16:45 10/20/17 16:44 Glucose (Glucose Chew Tab) 4-8 Tablets 4 Tabl... UD PRN PO 09/20/17 16:45 10/20/17 16:44 Dextrose (Dextrose 50% 50ML Syringe) 25-50ML OF 50% DW IV FOR... UD PRN IV 09/20/17 16:45 10/20/17 16:44 Glucagon (Glucagon Inj) 1 mg UD PRN SQ 09/20/17 16:45 10/20/17 16:44 Ampicillin Sodium/ Sulbactam Sodium 1500 mg/Sodium Chloride 104 ml @ 200 mls/hr Q6H IV 09/20/17 22:00 09/30/17 21:59 09/24/17 16:10 200 MLS/HR Ascorbic Acid (Vitamin C Tab) 500 mg BID PO 09/20/17 20:00 10/20/17 20:59 09/24/17 20:46 500 MG Zinc Sulfate (Zinc Sulfate Cap) 220 mg QAM PO 09/21/17 08:00 10/21/17 08:59 09/24/17 09:05 220 MG Multivitamins/ Minerals (Multivitamin W/ Minerals Tab) 1 tab QAM PO 09/21/17 08:00 10/21/17 08:59 09/24/17 09:05 1 TAB Insulin Aspart (novoLOG ASPART) SLIDING SCALE G... ACHS SC 09/21/17 06:30 10/21/17 06:29 09/24/17 21:55 4 UNITS Miconazole Nitrate (Desenex Powder) 1 appln PRN PRN EXT 09/21/17 01:45 10/21/17 01:44 Lactobacillus Acidophilus (Floranex Tab) 4 tab TIDM PO 09/23/17 12:00 10/23/17 11:59 09/24/17 17:11 4 TAB Objective Vital Signs Date Time Temp Pulse Resp B/P (MAP) Pulse Ox O2 Delivery O2 Flow Rate FiO2 09/24/17 15:44 36.7 84 20 107/69 (82) 95 Room Air 09/24/17 09:00 94 Room Air 09/24/17 07:58 36.6 99 20 160/85 (110) 94 09/24/17 00:05 Room Air 09/23/17 23:20 36.6 95 17 114/70 (85) 90 Room Air Physical Exam Comments: General Appearance: WD/WN, + obese, Head: normocephalic, atraumatic Eyes: PERRL, EOMI, + pertinent finding (MMM) ENT: hearing grossly normal, pharynx normal Neck: supple, no JVD Respiratory/Chest: lungs clear, no respiratory distress, no accessory muscle use Cardiovascular: regular rate, rhythm, + systolic murmur (grade II/ ) Abdomen/GI: normal bowel sounds, non tender, soft Back: no CVA tenderness, normal range of motion Extremities/Musculoskelatal: + pertinent finding BLE has dry dressing on both lower legs; + sacral decubitus grade II/V) Neurologic/Psych: alert, normal mood/affect, normal reflexes Skin: normal color, warm/dry Laboratory Results Last 24 Hours Test 09/23/17 16:39 09/23/17 19:47 09/24/17 07:55 09/24/17 11:26 Bedside Glucose 199 mg/dl 272 mg/dl 101 mg/dl 175 mg/dl Assessment and Plan This is 71 yo F with PMHx of HTN, DM II, morbid obesity, HLD, hypothyroidism, osteoarthritis, spinal stenosis, depression who presents with increased bilateral lower extremity swelling and opened skin ulcerations which have now have purulent discharge x 3 days. Bilateral Lower extremity Cellulitis/ sacral decubitus ulceration Cultures are still pending -Appears to be gradually improving - Wound care nurse consulted - pt has been applying aquacel to the wounds - ID consulted for antibiotic recs- wound culture - unasyn started in the ER, continue this for now. - WBC improved from 16 to 13 to 12 WBC plateaued. will repeat labs in AM - Doppler US BLE neg for VTE - PT/OT DM II - A1C = 8.7 in Dec, ISS with accuchecks - Continue lantus 36 U BID, holding home glipizide for now - Heart healthy diabetic diet HTN - Cont losartan 25 mg QAM BP stable HLD - Cont Atorvastatin Morbid obesity - PT/OT consulted - diet and exercise encouraged Hypothyroidism - Continue levothyroxine - TSH = 2.17 in Dec. Osteoarthritis -stable Diarrhea likelyu antibiotic related. will give a probiotic and monitor. DVT ppx: Lovenox subq, no teds or scds with bilateral lower extremity cellulitis CODE STATUS: FULL Disposition: From home, lives alone, CM to assist with discharge planning. Pending placement to [facility]. Continued [facility] stay due to: multiple IV medications needed, other (frequent wound dressings.) Discharge planning: rehab hospital Continued [facility] stay due to: multiple IV medications needed, other (frequent wound dressings.) Discharge planning: rehab hospital
[2017-09-24] MEDS: ENOXAPARIN 40 MG/0.4 ML SYR SQ SCH (20:46)
[2017-09-24 23:22] VITALS: BP 124/76; PULSE 90; TEMP 36.7; O2SAT 93
[2017-09-24 23:32] LABS: BASO % 0.5 %; BASO ABS # 0.07 K/uL (0-0.2); EOS % 4.4 %; EOS ABS # 0.61 K/uL (0-0.5); HEMATOCRIT 35.5 % (37-47); HEMOGLOBIN 11.3 g/dL (12.0-16.0); LYMPH % 28.3 %; LYMPH ABS # 3.93 K/uL (1.2-3.4); MEAN CORPUSCULAR HGB CONC 31.8 g/dl (32-36); MEAN PLATELET VOLUME 9.2 fL (7.4-10.4); MONO % 7.3 %; MONO ABS # 1.01 K/uL (0.11-0.59); NEUT % 57.3 %; NEUT ABS # 7.98 K/uL (1.4-6.5); PLATELET COUNT 335 K/uL (130-400); RED CELL DISTRIBUTION WIDTH SD 45.8 fL (36.4-46.3)
[2017-09-24 23:51] LABS: CALCIUM 8.9 mg/dl (8.5-10.1); CREATININE 0.9 mg/dl (0.60-1.20); POTASSIUM 4.1 mmol/L (3.5-5.1)
[2017-09-25] MEDS: AMPICILLIN/SULBACTAM SOD INJ 1,500 MG in SODIUM CHLORIDE 0.9% 100ML 100 ML IV SCH ×4 (04:52→22:01)
[2017-09-25] MEDS: ACETAMINOPHEN 325 MG TAB PO PRN ×2 (05:31→10:27)
[2017-09-25] MEDS: LEVOTHYROXINE 50 MCG TAB PO SCH (05:32)
[2017-09-25 07:22] VITALS: BP 134/64; PULSE 90; TEMP 36.7; O2SAT 90
[2017-09-25] MEDS: INSULIN ASPART 100 UNITS/ML 3 ML PEN SC SCH ×4 (09:42→22:00)
[2017-09-25] MEDS: INSULIN GLARGINE SOLOSTAR 100 UNITS/ML 3 ML PEN SC SCH ×2 (09:44→21:58)
[2017-09-25] MEDS: LOSARTAN POTASSIUM 25 MG TAB PO SCH (09:45)
[2017-09-25] MEDS: ATORVASTATIN 10 MG TAB PO SCH (09:46)
[2017-09-25] MEDS: ZINC SULFATE 220 MG CAP PO SCH (09:46)
[2017-09-25] MEDS: ASCORBIC ACID 500 MG TAB PO SCH ×2 (09:46→21:54)
[2017-09-25] MEDS: LACTOBACILLUS ACIDOPHILUS (FLORANEX) TAB PO SCH ×3 (09:46→17:06)
[2017-09-25] MEDS: CEROVITE ADV FORMULA TAB PO SCH (11:03)
[2017-09-25] MEDS ORDERED: NURSING VERBAL MED ORDER ONE (11:45)
[2017-09-25] MEDS: NAPROXEN 250 MG TAB PO PRN (12:35)
[2017-09-25 15:18] LABS: HEMATOCRIT 34.8 % (37-47); HEMOGLOBIN 11.1 g/dL (12.0-16.0); MEAN CELL VOLUME 91.8 fL (80-100); MEAN CORPUSCULAR HEMOGLOBIN 29.3 pg (25-34); MEAN CORPUSCULAR HGB CONC 31.9 g/dl (32-36); MEAN PLATELET VOLUME 9.2 fL (7.4-10.4); PLATELET COUNT 319 K/uL (130-400); RED CELL DISTRIBUTION WIDTH SD 45.9 fL (36.4-46.3); WHITE BLOOD COUNT 12.98 K/uL (4.8-10.8)
[2017-09-25 15:41] VITALS: BP 115/66; PULSE 83; TEMP 36.6; O2SAT 95
--- NOTE | 2017-09-25 21:06 | Progress Note ---
Subjective Date of Service: Sep 25, 2017. Subjective Pt evaluation today including: conversation w/ patient, conversation w/ family , physical exam, chart review, lab review, review of studies, review of inpatient medication list Pain: no pain Voiding: no voiding problems Pt is doing very good and she feels better asking for alleve for pain.Pt denies cp, sob, dizziness, palpitation and loss of consciousness. Problem List Medical Problems: (1) Ambulatory dysfunction Status: Acute (2) Cellulitis of left lower extremity Status: Acute (3) Hypoxia Status: Acute Review of Systems All Other Systems: Reviewed and Negative Medications Medications (Trade) Dose Ordered Sig/Paz Route Start Time Stop Time Status Last Admin Dose Admin Naproxen (Naprosyn Tab) 250 mg Q8H PRN PO 09/25/17 12:00 10/25/17 11:59 09/25/17 12:35 250 MG Objective Vital Signs Date Time Temp Pulse Resp B/P (MAP) Pulse Ox O2 Delivery O2 Flow Rate FiO2 09/25/17 16:00 Room Air 09/25/17 15:41 36.6 83 20 115/66 (82) 95 Room Air 09/25/17 08:00 Room Air 09/25/17 07:22 36.7 90 17 134/64 (87) 90 Room Air 09/25/17 00:00 Room Air 09/24/17 23:22 36.7 90 18 124/76 (92) 93 Room Air Physical Exam General Appearance: no apparent distress Eyes: EOMI Neck: supple, no adenopathy Respiratory/Chest: lungs clear Cardiovascular: regular rate, rhythm, no murmur Abdomen: normal bowel sounds, soft Neurologic/Psychiatric: alert, normal mood/affect, oriented x 3 Skin: no rash Lymphatic: no adenopathy Laboratory Results Last 24 Hours Test 09/24/17 23:16 09/25/17 07:55 09/25/17 12:01 09/25/17 15:11 White Blood Count 13.90 K/uL 12.98 K/uL Red Blood Count 3.90 M/uL 3.79 M/uL Hemoglobin 11.3 g/dL 11.1 g/dL Hematocrit 35.5 % 34.8 % Mean Corpuscular Volume 91.0 fL 91.8 fL Mean Corpuscular Hemoglobin 29.0 pg 29.3 pg Mean Corpuscular Hemoglobin Concent 31.8 g/dl 31.9 g/dl Platelet Count 335 K/uL 319 K/uL Mean Platelet Volume 9.2 fL 9.2 fL Neutrophils (%) (Auto) 57.3 % Lymphocytes (%) (Auto) 28.3 % Monocytes (%) (Auto) 7.3 % Eosinophils (%) (Auto) 4.4 % Basophils (%) (Auto) 0.5 % Neutrophils # (Auto) 7.98 K/uL Lymphocytes # (Auto) 3.93 K/uL Monocytes # (Auto) 1.01 K/uL Eosinophils # (Auto) 0.61 K/uL Basophils # (Auto) 0.07 K/uL RDW Standard Deviation 45.8 fL 45.9 fL RDW Coefficient of Variation 14.0 % 14.0 % Immature Granulocyte % (Auto) 2.2 % Immature Granulocyte # (Auto) 0.30 K/uL Sodium Level 137 mmol/L Potassium Level 4.1 mmol/L Chloride Level 101 mmol/L Carbon Dioxide Level 27 mmol/L Anion Gap 8.0 mmol/L Blood Urea Nitrogen 23 mg/dl Creatinine 0.90 mg/dl Est Creatinine Clear Calc Drug Dose 82.7 ml/min Estimated GFR () 75.1 Estimated GFR (Non- 64.8 BUN/Creatinine Ratio 25.7 Random Glucose 186 mg/dl Calcium Level 8.9 mg/dl Bedside Glucose 86 mg/dl 128 mg/dl Test 09/25/17 16:44 09/25/17 20:33 Bedside Glucose 165 mg/dl 251 mg/dl Assessment and Plan This is 71 yo F with PMHx of HTN, DM II, morbid obesity, HLD, hypothyroidism, osteoarthritis, spinal stenosis, depression who presents with increased bilateral lower extremity swelling and opened skin ulcerations which have now have purulent discharge x 3 days. Bilateral Lower extremity Cellulitis/ sacral decubitus ulceration Cultures:SURFACE WOUND CULTURE Preliminary -923 Organism 1 GROUP G BETA STREP QUANITY FEW SENS SENSITIVITY TO FOLLOW +MIXWOUND PLUS LOW COUNTS OF PROBABLE SKIN BETO - Improving wound - appreciate wound input - ID consulted and appreciated recommendation - unasyn for now. - WBC trending downward - Doppler US BLE neg for VTE - PT/OT - possible d/c on wednesday DM II - A1C = 8.7 in Dec, ISS with accuchecks - Continue lantus 36 U BID, holding home glipizide for now - Heart healthy diabetic diet HTN - Cont losartan 25 mg QAM BP stable Continued [facility] stay due to: multiple IV medications needed, other (frequent wound dressings.) Discharge planning: rehab hospital
[2017-09-25] MEDS: ENOXAPARIN 40 MG/0.4 ML SYR SQ SCH (22:00)
[2017-09-25 23:18] VITALS: BP 133/74; PULSE 79; TEMP 36.5; O2SAT 93
[2017-09-26] MEDS: NAPROXEN 250 MG TAB PO PRN ×2 (04:25→13:17)
[2017-09-26] MEDS: LEVOTHYROXINE 50 MCG TAB PO SCH (04:26)
[2017-09-26] MEDS: AMPICILLIN/SULBACTAM SOD INJ 1,500 MG in SODIUM CHLORIDE 0.9% 100ML 100 ML IV SCH ×4 (04:32→22:26)
[2017-09-26 07:45] VITALS: BP 118/64; PULSE 89; TEMP 36.7; O2SAT 92
[2017-09-26] MEDS: INSULIN ASPART 100 UNITS/ML 3 ML PEN SC SCH ×4 (09:33→22:24)
[2017-09-26] MEDS: INSULIN GLARGINE SOLOSTAR 100 UNITS/ML 3 ML PEN SC SCH ×2 (09:34→22:24)
[2017-09-26] MEDS: LOSARTAN POTASSIUM 25 MG TAB PO SCH (09:35)
[2017-09-26] MEDS: ATORVASTATIN 10 MG TAB PO SCH (09:36)
[2017-09-26] MEDS: LACTOBACILLUS ACIDOPHILUS (FLORANEX) TAB PO SCH ×3 (09:36→16:50)
[2017-09-26] MEDS: CEROVITE ADV FORMULA TAB PO SCH (09:36)
[2017-09-26] MEDS: ZINC SULFATE 220 MG CAP PO SCH (09:37)
[2017-09-26] MEDS: ASCORBIC ACID 500 MG TAB PO SCH ×2 (09:37→22:25)
[2017-09-26] MEDS: ACETAMINOPHEN 325 MG TAB PO PRN (09:38)
--- NOTE | 2017-09-26 12:04 | Progress Note ---
Subjective Date of Service: Sep 26, 2017. Subjective Pt evaluation today including: conversation w/ patient, physical exam, chart review Pt is seen and examined by me. pt denies cp, sob, dizziness, palpitation and loss of consciousness. Pt pain improved Problem List Medical Problems: (1) Ambulatory dysfunction Status: Acute (2) Cellulitis of left lower extremity Status: Acute (3) Hypoxia Status: Acute Review of Systems All Other Systems: Reviewed and Negative Objective Vital Signs Date Time Temp Pulse Resp B/P (MAP) Pulse Ox O2 Delivery O2 Flow Rate FiO2 09/26/17 07:45 36.7 89 20 118/64 (82) 92 Room Air 09/26/17 00:00 Room Air 09/25/17 23:18 36.5 79 20 133/74 (93) 93 Room Air 09/25/17 20:00 Room Air 09/25/17 16:00 Room Air 09/25/17 15:41 36.6 83 20 115/66 (82) 95 Room Air Physical Exam Comments: General Appearance: no apparent distress Eyes: EOMI Neck: supple, no adenopathy Respiratory/Chest: lungs clear Cardiovascular: regular rate, rhythm, no murmur Abdomen: normal bowel sounds, soft Neurologic/Psychiatric: alert, normal mood/affect, oriented x 3 Skin: no rash Lymphatic: no adenopathy Laboratory Results Last 24 Hours Test 09/25/17 15:11 09/25/17 16:44 09/25/17 20:33 09/26/17 07:48 White Blood Count 12.98 K/uL Red Blood Count 3.79 M/uL Hemoglobin 11.1 g/dL Hematocrit 34.8 % Mean Corpuscular Volume 91.8 fL Mean Corpuscular Hemoglobin 29.3 pg Mean Corpuscular Hemoglobin Concent 31.9 g/dl RDW Standard Deviation 45.9 fL RDW Coefficient of Variation 14.0 % Platelet Count 319 K/uL Mean Platelet Volume 9.2 fL Bedside Glucose 165 mg/dl 251 mg/dl 70 mg/dl Test 09/26/17 11:44 Bedside Glucose 141 mg/dl Assessment and Plan This is 71 yo F with PMHx of HTN, DM II, morbid obesity, HLD, hypothyroidism, osteoarthritis, spinal stenosis, depression who presents with increased bilateral lower extremity swelling and opened skin ulcerations which have now have purulent discharge x 3 days. Bilateral Lower extremity Cellulitis/ sacral decubitus ulceration - Improving wound- culture sensitivity came back and sensitive to all antibiotics. - appreciate wound input - ID consulted and appreciated recommendation - unasyn for now. - WBC trending downward - Doppler US BLE neg for VTE - PT/OT - possible d/c on wednesday DM II - A1C = 8.7 in Aug, ISS with accuchecks - Continue lantus 36 U BID, holding home glipizide for now - Heart healthy diabetic diet HTN - Cont losartan 25 mg QAM BP stable Continued [facility] stay due to: multiple IV medications needed, other (frequent wound dressings.) Discharge planning: rehab hospital
[2017-09-26 15:45] VITALS: BP 117/58; PULSE 97; TEMP 36.7; O2SAT 90
[2017-09-26] MEDS: ENOXAPARIN 40 MG/0.4 ML SYR SQ SCH (22:25)
[2017-09-26 23:14] VITALS: BP 114/66; PULSE 99; TEMP 36.8; O2SAT 90
[2017-09-27] MEDS: AMPICILLIN/SULBACTAM SOD INJ 1,500 MG in SODIUM CHLORIDE 0.9% 100ML 100 ML IV SCH ×4 (05:01→21:58)
[2017-09-27] MEDS: LEVOTHYROXINE 50 MCG TAB PO SCH (05:07)
[2017-09-27 07:34] VITALS: BP 134/69; PULSE 81; TEMP 36.7; O2SAT 91
[2017-09-27 08:00] VITALS: O2SAT 91
[2017-09-27] MEDS: NAPROXEN 250 MG TAB PO PRN (08:02)
[2017-09-27] MEDS: CEROVITE ADV FORMULA TAB PO SCH (08:03)
[2017-09-27] MEDS: ATORVASTATIN 10 MG TAB PO SCH (08:03)
[2017-09-27] MEDS: ZINC SULFATE 220 MG CAP PO SCH (08:03)
[2017-09-27] MEDS: LACTOBACILLUS ACIDOPHILUS (FLORANEX) TAB PO SCH ×3 (08:03→17:34)
[2017-09-27] MEDS: ASCORBIC ACID 500 MG TAB PO SCH ×2 (08:03→21:25)
[2017-09-27] MEDS: LOSARTAN POTASSIUM 25 MG TAB PO SCH (08:03)
[2017-09-27] MEDS: INSULIN GLARGINE SOLOSTAR 100 UNITS/ML 3 ML PEN SC SCH ×2 (08:06→21:34)
[2017-09-27] MEDS: INSULIN ASPART 100 UNITS/ML 3 ML PEN SC SCH ×4 (09:02→21:34)
[2017-09-27 16:31] VITALS: BP 135/76; PULSE 78; TEMP 36.7; O2SAT 96
--- NOTE | 2017-09-27 18:37 | Progress Note ---
Subjective Date of Service: Sep 27, 2017. Subjective Pt evaluation today including: conversation w/ patient, physical exam, chart review, lab review, review of inpatient medication list Problem List Medical Problems: (1) Ambulatory dysfunction Status: Acute (2) Cellulitis of left lower extremity Status: Acute (3) Hypoxia Status: Acute Review of Systems Constitutional: No see HPI, No fever, No chills, No sweats, No weight loss, No weakness, No fatigue, No problem reported Eyes: No see HPI, No worsening of vision, No eye pain, No redness, No discharge , No diplopia, No problem reported ENT: No see HPI, No hearing loss, No unusual epistaxis, No nasal symptoms, No sore throat, No tinnitus, No dental problems, No trouble swallowing, No problem reported Respiratory: No see HPI, No cough, No sputum, No wheezing, No shortness of breath, No dyspnea on exertion, No dyspnea at rest, No hemoptysis, No problem reported Cardiac: No see HPI, No chest pain, No orthopnea, No PND, No edema, No claudication, No palpitations, No problem reported Breast: No see HPI, No breast lump, No change in shape, No nipple discharge, No breast pain, No problem reported Abdomen: No see HPI, No pain, No nausea, No vomiting, No diarrhea, No constipation, No GI bleeding, No problem reported Musculoskeletal: No see HPI, No joint pain, No muscle pain, No swelling, No calf pain, No problem reported Female : No see HPI, No dysuria, No urinary frequency, No hematuria, No incontinence, No abnormal vaginal bleeding, No vaginal discharge, No problem reported Neurologic: No see HPI, No memory loss, No paralysis, No weakness, No numbness/ tingling, No vertigo, No balance problems, No problem reported Psychiatric: No see HPI, No depression symptoms, No anhedonism, No anxiety, No insomnia, No substance abuse, No problem reported Heme: No see HPI, No abnormal bleeding/bruising, No clotting problems, No swollen lymph nodes, No night sweats, No problem reported Endo: + fatigue, No see HPI, No excessive thirst, No excessive urination, No problem reported Skin: No see HPI, No rash, No itch, No new/changing skin lesions, No color change, No bleeding, No problem reported Medications Current Inpatient Medications Medications (Trade) Dose Ordered Sig/Paz Route Start Time Stop Time Status Last Admin Dose Admin Enoxaparin Sodium (Lovenox Inj) 40 mg Q24H SQ 09/20/17 20:00 10/20/17 19:59 09/26/17 22:25 40 MG Acetaminophen (Tylenol Tab) 650 mg Q4H PRN PO 09/20/17 16:45 10/20/17 16:44 09/26/17 09:38 650 MG Magnesium Hydroxide (Milk Of Magnesia Susp) 30 ml Q6H PRN PO 09/20/17 16:45 10/20/17 16:44 Polyethylene (Miralax Powder Packet) 17 gm DAILY PRN PO 09/20/17 16:45 10/20/17 16:44 Ondansetron HCl (Zofran Inj) 4 mg Q6H PRN IV 09/20/17 16:45 10/20/17 16:44 Atorvastatin Calcium (Lipitor Tab) 10 mg DAILY PO 09/21/17 08:00 10/21/17 08:59 09/27/17 08:03 10 MG Insulin Glargine (Lantus Solostar Pen) 36 units BID SC 09/20/17 20:00 10/20/17 20:59 09/27/17 08:06 36 UNITS Levothyroxine Sodium (Synthroid Tab) 50 mcg DAILYBB PO 09/21/17 06:30 10/21/17 06:59 09/27/17 05:07 50 MCG Losartan Potassium (coZAAR TAB) 25 mg DAILY PO 09/21/17 08:00 10/21/17 08:59 09/27/17 08:03 25 MG Glucose (Glucose 40% Gel) 15-30 GRAMS 15 GRAMS... UD PRN PO 09/20/17 16:45 10/20/17 16:44 Glucose (Glucose Chew Tab) 4-8 Tablets 4 Tabl... UD PRN PO 09/20/17 16:45 10/20/17 16:44 Dextrose (Dextrose 50% 50ML Syringe) 25-50ML OF 50% DW IV FOR... UD PRN IV 09/20/17 16:45 10/20/17 16:44 Glucagon (Glucagon Inj) 1 mg UD PRN SQ 09/20/17 16:45 10/20/17 16:44 Ampicillin Sodium/ Sulbactam Sodium 1500 mg/Sodium Chloride 104 ml @ 200 mls/hr Q6H IV 09/20/17 22:00 09/30/17 21:59 09/27/17 16:30 200 MLS/HR Ascorbic Acid (Vitamin C Tab) 500 mg BID PO 09/20/17 20:00 10/20/17 20:59 09/27/17 08:03 500 MG Zinc Sulfate (Zinc Sulfate Cap) 220 mg QAM PO 09/21/17 08:00 10/21/17 08:59 09/27/17 08:03 220 MG Multivitamins/ Minerals (Multivitamin W/ Minerals Tab) 1 tab QAM PO 09/21/17 08:00 10/21/17 08:59 09/27/17 08:03 1 TAB Insulin Aspart (novoLOG ASPART) SLIDING SCALE G... ACHS SC 09/21/17 06:30 10/21/17 06:29 09/27/17 17:34 8 UNITS Miconazole Nitrate (Desenex Powder) 1 appln PRN PRN EXT 09/21/17 01:45 10/21/17 01:44 09/26/17 09:38 1 APPLN Lactobacillus Acidophilus (Floranex Tab) 4 tab TIDM PO 09/23/17 12:00 10/23/17 11:59 09/27/17 17:34 4 TAB Naproxen (Naprosyn Tab) 250 mg Q8H PRN PO 09/25/17 12:00 10/25/17 11:59 09/27/17 08:02 250 MG Objective Vital Signs Date Time Temp Pulse Resp B/P (MAP) Pulse Ox O2 Delivery O2 Flow Rate FiO2 09/27/17 16:31 36.7 78 16 135/76 (95) 96 Room Air 09/27/17 08:00 91 Room Air 09/27/17 07:34 36.7 81 20 134/69 (90) 91 Room Air 09/27/17 00:00 Room Air 09/26/17 23:14 36.8 99 20 114/66 (82) 90 Room Air 09/26/17 20:00 Room Air Physical Exam General Appearance: no apparent distress, + obese Eyes: normal inspection, EOMI ENT: normal ENT inspection, hearing grossly normal Neck: supple Respiratory/Chest: chest non-tender, lungs clear, normal breath sounds, no respiratory distress, no accessory muscle use Cardiovascular: regular rate, rhythm, no edema, no gallop, no JVD, no murmur Abdomen: normal bowel sounds, non tender, soft, no organomegaly, no pulsatile mass Extremities: normal range of motion, + swelling, + pertinent finding (lower ext wounds are wraped) 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/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 as tested, no motor/sensory deficits, alert, normal mood/affect, oriented x 3 Skin: normal color Laboratory Results Last 24 Hours Test 09/26/17 20:11 09/27/17 07:53 09/27/17 12:07 09/27/17 16:45 Bedside Glucose 156 mg/dl 115 mg/dl 202 mg/dl 168 mg/dl Assessment and Plan 73-year-old female with past medical history of diabetes mellitus type 2 partially controlled, morbid obesity, dyslipidemia, hypertension, hypothyroidism , osteoarthritis/spinal stenosis, depression, Patient lost her boyfriend about 3 years ago and since then living by herself in a trailer home presented to the ED with bilateral lower extremity open skin wounds and decubitus ulcer purulent discharge. Assessment Bilateral lower extremity cellulitis/sacral decubitus ulcers Diabetes mellitus type 2 partially controlled Hypertension morbid obesity Depression plan ID consult appreciated, continue Unasyn add Lactinex Doppler US BLE neg for VTE Initiate PT/OT A1C = 8.7, continue sliding scale insulin plus lantus 36 U BID continue holding glipizide Cont losartan 25 mg QAM Continue Lovenox for DVT prophylaxis Continue thyroxine Continued [facility] stay due to: multiple IV medications needed, other (frequent wound dressings.) Discharge planning: rehab hospital
--- NOTE | 2017-09-27 20:55 | Infectious Disease Progress Nt ---
Progress Note Date of Service Sep 27, 2017. Subjective Pt evaluation today including: conversation w/ patient, physical exam, chart review, lab review, review of studies, conversation w/ information services consultant, review of inpatient medication list Patient offers no new complaints today. Remains afebrile. No increase in shortness of breath, no chest pain. Tolerating her antibiotic without apparent difficulty. Cultures growing group G Streptococcus. All Other Systems: Reviewed and Negative Medications Current Inpatient Medications Medications (Trade) Dose Ordered Sig/Paz Route Start Time Stop Time Status Last Admin Dose Admin Enoxaparin Sodium (Lovenox Inj) 40 mg Q24H SQ 09/20/17 20:00 10/20/17 19:59 09/26/17 22:25 40 MG Acetaminophen (Tylenol Tab) 650 mg Q4H PRN PO 09/20/17 16:45 10/20/17 16:44 09/26/17 09:38 650 MG Magnesium Hydroxide (Milk Of Magnesia Susp) 30 ml Q6H PRN PO 09/20/17 16:45 10/20/17 16:44 Polyethylene (Miralax Powder Packet) 17 gm DAILY PRN PO 09/20/17 16:45 10/20/17 16:44 Ondansetron HCl (Zofran Inj) 4 mg Q6H PRN IV 09/20/17 16:45 10/20/17 16:44 Atorvastatin Calcium (Lipitor Tab) 10 mg DAILY PO 09/21/17 08:00 10/21/17 08:59 09/27/17 08:03 10 MG Insulin Glargine (Lantus Solostar Pen) 36 units BID SC 09/20/17 20:00 10/20/17 20:59 09/27/17 08:06 36 UNITS Levothyroxine Sodium (Synthroid Tab) 50 mcg DAILYBB PO 09/21/17 06:30 10/21/17 06:59 09/27/17 05:07 50 MCG Losartan Potassium (coZAAR TAB) 25 mg DAILY PO 09/21/17 08:00 10/21/17 08:59 09/27/17 08:03 25 MG Glucose (Glucose 40% Gel) 15-30 GRAMS 15 GRAMS... UD PRN PO 09/20/17 16:45 10/20/17 16:44 Glucose (Glucose Chew Tab) 4-8 Tablets 4 Tabl... UD PRN PO 09/20/17 16:45 10/20/17 16:44 Dextrose (Dextrose 50% 50ML Syringe) 25-50ML OF 50% DW IV FOR... UD PRN IV 09/20/17 16:45 10/20/17 16:44 Glucagon (Glucagon Inj) 1 mg UD PRN SQ 09/20/17 16:45 10/20/17 16:44 Ampicillin Sodium/ Sulbactam Sodium 1500 mg/Sodium Chloride 104 ml @ 200 mls/hr Q6H IV 09/20/17 22:00 09/30/17 21:59 09/27/17 16:30 200 MLS/HR Ascorbic Acid (Vitamin C Tab) 500 mg BID PO 09/20/17 20:00 10/20/17 20:59 09/27/17 08:03 500 MG Zinc Sulfate (Zinc Sulfate Cap) 220 mg QAM PO 09/21/17 08:00 10/21/17 08:59 09/27/17 08:03 220 MG Multivitamins/ Minerals (Multivitamin W/ Minerals Tab) 1 tab QAM PO 09/21/17 08:00 10/21/17 08:59 09/27/17 08:03 1 TAB Insulin Aspart (novoLOG ASPART) SLIDING SCALE G... ACHS SC 09/21/17 06:30 10/21/17 06:29 09/27/17 17:34 8 UNITS Miconazole Nitrate (Desenex Powder) 1 appln PRN PRN EXT 09/21/17 01:45 10/21/17 01:44 09/26/17 09:38 1 APPLN Lactobacillus Acidophilus (Floranex Tab) 4 tab TIDM PO 09/23/17 12:00 10/23/17 11:59 09/27/17 17:34 4 TAB Naproxen (Naprosyn Tab) 250 mg Q8H PRN PO 09/25/17 12:00 10/25/17 11:59 09/27/17 08:02 250 MG Objective Vital Signs Date Time Temp Pulse Resp B/P (MAP) Pulse Ox O2 Delivery O2 Flow Rate FiO2 09/27/17 16:31 36.7 78 16 135/76 (95) 96 Room Air 09/27/17 16:00 Room Air 09/27/17 08:00 91 Room Air 09/27/17 07:34 36.7 81 20 134/69 (90) 91 Room Air 09/27/17 00:00 Room Air 09/26/17 23:14 36.8 99 20 114/66 (82) 90 Room Air Physical Exam General Appearance: WD/WN, no apparent distress Eyes: normal inspection, sclerae normal ENT: normal ENT inspection, pharynx normal Neck: supple, no adenopathy, thyroid normal, trachea midline Respiratory/Chest: chest non-tender, lungs clear, normal breath sounds, no respiratory distress Cardiovascular: regular rate, rhythm, no gallop, no murmur Abdomen: normal bowel sounds, non tender, soft, no organomegaly Extremities: non-tender, no calf tenderness Neurologic/Psychiatric: alert, oriented x 3 Skin: normal color, no rash, + pertinent finding (Improving lower extremity erythema) Lymphatic: no adenopathy Laboratory Results Last 24 Hours Test 09/27/17 07:53 09/27/17 12:07 09/27/17 16:45 09/27/17 20:19 Bedside Glucose 115 mg/dl 202 mg/dl 168 mg/dl 194 mg/dl Assessment and Plan A 71-year-old female with diabetes mellitus and chronic lower extremity edema now presents with bilateral lower leg cellulitis in the setting of open wounds as well as stage II sacral decubitus ulcer. Cultures growing group G Streptococcus. Patient to continue on Unasyn for now, but suspect she can be transitioned to oral Augmentin in the next day or so. Will discuss.
[2017-09-27] MEDS: ENOXAPARIN 40 MG/0.4 ML SYR SQ SCH (21:25)
[2017-09-27 23:44] VITALS: BP 118/66; PULSE 91; TEMP 36.6; O2SAT 91
[2017-09-28] MEDS: NAPROXEN 250 MG TAB PO PRN ×2 (01:01→08:34)
[2017-09-28] MEDS: LEVOTHYROXINE 50 MCG TAB PO SCH (05:12)
[2017-09-28] MEDS: AMPICILLIN/SULBACTAM SOD INJ 1,500 MG in SODIUM CHLORIDE 0.9% 100ML 100 ML IV SCH ×3 (05:12→12:32)
[2017-09-28 06:34] LABS: BASO % 0.5 %; BASO ABS # 0.07 K/uL (0-0.2); EOS % 4.6 %; EOS ABS # 0.62 K/uL (0-0.5); HEMATOCRIT 35.3 % (37-47); HEMOGLOBIN 11.1 g/dL (12.0-16.0); IG# 0.17 K/uL (0.00-0.02); LYMPH % 31.3 %; MEAN CELL VOLUME 90.7 fL (80-100); MEAN CORPUSCULAR HEMOGLOBIN 28.5 pg (25-34); MEAN CORPUSCULAR HGB CONC 31.4 g/dl (32-36); MONO % 7.3 %; MONO ABS # 0.98 K/uL (0.11-0.59); PLATELET COUNT 313 K/uL (130-400); RED CELL DISTRIBUTION WIDTH CV 14.1 % (11.5-14.5); RED CELL DISTRIBUTION WIDTH SD 46.3 fL (36.4-46.3); WHITE BLOOD COUNT 13.44 K/uL (4.8-10.8)
[2017-09-28 07:10] LABS: ALBUMIN 2.9 gm/dl (3.4-5.0); CALCIUM 8.5 mg/dl (8.5-10.1); CREATININE 0.89 mg/dl (0.60-1.20); POTASSIUM 4.1 mmol/L (3.5-5.1)
[2017-09-28 07:13] LABS: TOTAL PROTEIN 5.9 gm/dl (6.4-8.2)
[2017-09-28] MEDS: CEROVITE ADV FORMULA TAB PO SCH (08:34)
[2017-09-28] MEDS: LOSARTAN POTASSIUM 25 MG TAB PO SCH (08:34)
[2017-09-28] MEDS: ATORVASTATIN 10 MG TAB PO SCH (08:35)
[2017-09-28] MEDS: ASCORBIC ACID 500 MG TAB PO SCH ×2 (08:35→20:06)
[2017-09-28] MEDS: LACTOBACILLUS ACIDOPHILUS (FLORANEX) TAB PO SCH ×3 (08:35→17:44)
[2017-09-28] MEDS: ZINC SULFATE 220 MG CAP PO SCH (08:35)
[2017-09-28] MEDS: INSULIN ASPART 100 UNITS/ML 3 ML PEN SC SCH ×4 (08:41→20:18)
[2017-09-28] MEDS: INSULIN GLARGINE SOLOSTAR 100 UNITS/ML 3 ML PEN SC SCH ×2 (08:42→20:17)
[2017-09-28 09:11] VITALS: BP 127/67; PULSE 92; TEMP 37.2; O2SAT 90
[2017-09-28] MEDS ORDERED: NURSING VERBAL MED ORDER ONE (11:00)
[2017-09-28] MEDS: AMOXICILLIN/CLAVULANATE TAB 875 MG TAB PO SCH ×2 (13:01→20:06)
--- NOTE | 2017-09-28 13:58 | Discharge Instructions ---
Discharge Instructions Date of Service Sep 28, 2017. Admission Reason for Admission: Cellulitis Discharge Discharge Diagnosis / Problem: infected decubitus ulcer, and lower ext cellulitis Discharge Goals Goal(s): Decrease discomfort Activity Recommendations Activity Limitations: resume your previous activity . Current Hospital Diet Patient's current hospital diet: Diabetes Type 2 Diet Discharge Diet Recommended Diet: Diabetes Type 2 Diet Pending Studies Studies pending at discharge: no Laboratory Results Hemoglobin A1c Test 08/16/17 11:22 Range/Units Estimated Average Glucose 203 mg/dl Hemoglobin A1c 8.7 H 4.5-5.6 % Lipid Panel Test 09/21/17 06:45 Range/Units Triglycerides Level 129 0-150 mg/dl Cholesterol Level 101 0-200 mg/dl HDL Cholesterol 44 mg/dl Cholesterol/HDL Ratio 2.3 LDL Cholesterol, Calculated 31 mg/dl Medical Emergencies . Who to Call and When: Medical Emergencies: If at any time you feel your situation is an emergency, please call 911 immediately. . Non-Emergent Contact Non-Emergency issues call your: Primary Care Provider . . "Provider Documentation" section prepared by Gaviota Rankin. . VTE Core Measure Inpt VTE Proph given/why not?: Enoxaparin (Lovenox)SQ
[2017-09-28] MEDS ORDERED: MRLP17X PO (14:05)
[2017-09-28] MEDS ORDERED: NVLGIPEN SC (14:05)
[2017-09-28] MEDS ORDERED: MCTP EXT (14:05)
[2017-09-28] MEDS ORDERED: CNT PO (14:05)
[2017-09-28] MEDS ORDERED: AMOX1TAB43 PO (14:05)
[2017-09-28] MEDS ORDERED: ZNCS220 PO (14:05)
[2017-09-28] MEDS ORDERED: ASCA500 PO (14:05)
[2017-09-28] MEDS ORDERED: LCTX PO (14:05)
[2017-09-28] MEDS ORDERED: ACET-1047 PO (14:05)
--- NOTE | 2017-09-28 14:56 | Infectious Disease Progress Nt ---
Progress Note Date of Service Sep 28, 2017. Subjective Pt evaluation today including: conversation w/ patient, physical exam, chart review, lab review, review of studies, conversation w/ organization development consultant, review of inpatient medication list Patient continues to improve. Offers no new complaints. Remains afebrile. Pain in legs less. All Other Systems: Reviewed and Negative Medications Current Inpatient Medications Medications (Trade) Dose Ordered Sig/Paz Route Start Time Stop Time Status Last Admin Dose Admin Enoxaparin Sodium (Lovenox Inj) 40 mg Q24H SQ 09/20/17 20:00 10/20/17 19:59 09/27/17 21:25 40 MG Acetaminophen (Tylenol Tab) 650 mg Q4H PRN PO 09/20/17 16:45 10/20/17 16:44 09/26/17 09:38 650 MG Magnesium Hydroxide (Milk Of Magnesia Susp) 30 ml Q6H PRN PO 09/20/17 16:45 10/20/17 16:44 Polyethylene (Miralax Powder Packet) 17 gm DAILY PRN PO 09/20/17 16:45 10/20/17 16:44 Ondansetron HCl (Zofran Inj) 4 mg Q6H PRN IV 09/20/17 16:45 10/20/17 16:44 Atorvastatin Calcium (Lipitor Tab) 10 mg DAILY PO 09/21/17 08:00 10/21/17 08:59 09/28/17 08:35 10 MG Insulin Glargine (Lantus Solostar Pen) 36 units BID SC 09/20/17 20:00 10/20/17 20:59 09/28/17 08:42 36 UNITS Levothyroxine Sodium (Synthroid Tab) 50 mcg DAILYBB PO 09/21/17 06:30 10/21/17 06:59 09/28/17 05:12 50 MCG Losartan Potassium (coZAAR TAB) 25 mg DAILY PO 09/21/17 08:00 10/21/17 08:59 09/28/17 08:34 25 MG Glucose (Glucose 40% Gel) 15-30 GRAMS 15 GRAMS... UD PRN PO 09/20/17 16:45 10/20/17 16:44 Glucose (Glucose Chew Tab) 4-8 Tablets 4 Tabl... UD PRN PO 09/20/17 16:45 10/20/17 16:44 Dextrose (Dextrose 50% 50ML Syringe) 25-50ML OF 50% DW IV FOR... UD PRN IV 09/20/17 16:45 10/20/17 16:44 Glucagon (Glucagon Inj) 1 mg UD PRN SQ 09/20/17 16:45 10/20/17 16:44 Ascorbic Acid (Vitamin C Tab) 500 mg BID PO 09/20/17 20:00 10/20/17 20:59 09/28/17 08:35 500 MG Zinc Sulfate (Zinc Sulfate Cap) 220 mg QAM PO 09/21/17 08:00 10/21/17 08:59 09/28/17 08:35 220 MG Multivitamins/ Minerals (Multivitamin W/ Minerals Tab) 1 tab QAM PO 09/21/17 08:00 10/21/17 08:59 09/28/17 08:34 1 TAB Insulin Aspart (novoLOG ASPART) SLIDING SCALE G... ACHS SC 09/21/17 06:30 10/21/17 06:29 09/28/17 13:04 7 UNITS Miconazole Nitrate (Desenex Powder) 1 appln PRN PRN EXT 09/21/17 01:45 10/21/17 01:44 09/26/17 09:38 1 APPLN Lactobacillus Acidophilus (Floranex Tab) 4 tab TIDM PO 09/23/17 12:00 10/23/17 11:59 09/28/17 13:01 4 TAB Naproxen (Naprosyn Tab) 250 mg Q8H PRN PO 09/25/17 12:00 10/25/17 11:59 09/28/17 08:34 250 MG Amoxicillin/ Clavulanate Potassium (Augmentin Tab) 875 mg BIDM PO 09/28/17 11:30 09/30/17 21:59 09/28/17 13:01 875 MG Objective Vital Signs Date Time Temp Pulse Resp B/P (MAP) Pulse Ox O2 Delivery O2 Flow Rate FiO2 09/28/17 09:30 Room Air 09/28/17 09:11 37.2 92 127/67 (87) 90 09/28/17 00:00 Room Air 09/27/17 23:44 36.6 91 20 118/66 (83) 91 Room Air 09/27/17 16:31 36.7 78 16 135/76 (95) 96 Room Air 09/27/17 16:00 Room Air Physical Exam General Appearance: WD/WN, no apparent distress, + obese Eyes: normal inspection, EOMI, sclerae normal ENT: normal ENT inspection, pharynx normal Neck: supple, no adenopathy, trachea midline Respiratory/Chest: chest non-tender, lungs clear, normal breath sounds, no respiratory distress Cardiovascular: regular rate, rhythm, no gallop, no murmur Abdomen: normal bowel sounds, non tender, soft, no organomegaly Extremities: no calf tenderness, + inflammation, + swelling Neurologic/Psychiatric: alert, oriented x 3 Skin: normal color, no rash, + pertinent finding (Erythema and drainage of legs less) Lymphatic: no adenopathy Laboratory Results Last 24 Hours Test 09/27/17 16:45 09/27/17 20:19 09/28/17 06:18 09/28/17 08:01 Bedside Glucose 168 mg/dl 194 mg/dl 75 mg/dl White Blood Count 13.44 K/uL Red Blood Count 3.89 M/uL Hemoglobin 11.1 g/dL Hematocrit 35.3 % Mean Corpuscular Volume 90.7 fL Mean Corpuscular Hemoglobin 28.5 pg Mean Corpuscular Hemoglobin Concent 31.4 g/dl Platelet Count 313 K/uL Mean Platelet Volume 9.0 fL Neutrophils (%) (Auto) 55.0 % Lymphocytes (%) (Auto) 31.3 % Monocytes (%) (Auto) 7.3 % Eosinophils (%) (Auto) 4.6 % Basophils (%) (Auto) 0.5 % Neutrophils # (Auto) 7.40 K/uL Lymphocytes # (Auto) 4.20 K/uL Monocytes # (Auto) 0.98 K/uL Eosinophils # (Auto) 0.62 K/uL Basophils # (Auto) 0.07 K/uL RDW Standard Deviation 46.3 fL RDW Coefficient of Variation 14.1 % Immature Granulocyte % (Auto) 1.3 % Immature Granulocyte # (Auto) 0.17 K/uL Sodium Level 139 mmol/L Potassium Level 4.1 mmol/L Chloride Level 103 mmol/L Carbon Dioxide Level 32 mmol/L Anion Gap 4.0 mmol/L Blood Urea Nitrogen 20 mg/dl Creatinine 0.89 mg/dl Est Creatinine Clear Calc Drug Dose 83.6 ml/min Estimated GFR () 76.1 Estimated GFR (Non- 65.7 BUN/Creatinine Ratio 23.1 Random Glucose 70 mg/dl Calcium Level 8.5 mg/dl Magnesium Level 2.3 mg/dl Total Bilirubin 0.5 mg/dl Aspartate Amino Transf (AST/SGOT) 20 U/L Alanine Aminotransferase (ALT/SGPT) 40 U/L Alkaline Phosphatase 74 U/L Total Protein 5.9 gm/dl Albumin 2.9 gm/dl Globulin 3.0 gm/dl Albumin/Globulin Ratio 1.0 Test 09/28/17 11:36 Bedside Glucose 154 mg/dl Assessment and Plan With A 71-year-old female with diabetes mellitus and chronic lower extremity edema now presents with bilateral lower leg cellulitis in the setting of open wounds as well as stage II sacral decubitus ulcer. Cultures growing group G Streptococcus. Patient to be transitioned to oral Augmentin 875 b.i.d. for another several weeks. Would like to see in follow-up after discharge.
[2017-09-28 15:01] VITALS: BP 128/77; PULSE 88; TEMP 36.7; O2SAT 92
--- NOTE | 2017-09-28 17:59 | Progress Note ---
Subjective Date of Service: Sep 28, 2017. Subjective Pt evaluation today including: conversation w/ patient, physical exam, chart review, lab review, conversation w/ wealth management consultant, review of inpatient medication list Pain: controlled Voiding: no voiding problems Problem List Medical Problems: (1) Ambulatory dysfunction Status: Acute (2) Cellulitis of left lower extremity Status: Acute (3) Hypoxia Status: Acute Review of Systems Constitutional: No see HPI, No fever, No chills, No sweats, No weight loss, No weakness, No fatigue, No problem reported Eyes: No see HPI, No worsening of vision, No eye pain, No redness, No discharge , No diplopia, No problem reported ENT: No see HPI, No hearing loss, No unusual epistaxis, No nasal symptoms, No sore throat, No tinnitus, No dental problems, No trouble swallowing, No problem reported Respiratory: No see HPI, No cough, No sputum, No wheezing, No shortness of breath, No dyspnea on exertion, No dyspnea at rest, No hemoptysis, No problem reported Cardiac: No see HPI, No chest pain, No orthopnea, No PND, No edema, No claudication, No palpitations, No problem reported Breast: No see HPI, No breast lump, No change in shape, No nipple discharge, No breast pain, No problem reported Abdomen: No see HPI, No pain, No nausea, No vomiting, No diarrhea, No constipation, No GI bleeding, No problem reported Musculoskeletal: No see HPI, No joint pain, No muscle pain, No swelling, No calf pain, No problem reported Female : No see HPI, No dysuria, No urinary frequency, No hematuria, No incontinence, No abnormal vaginal bleeding, No vaginal discharge, No problem reported Neurologic: No see HPI, No memory loss, No paralysis, No weakness, No numbness/ tingling, No vertigo, No balance problems, No problem reported Psychiatric: No see HPI, No depression symptoms, No anhedonism, No anxiety, No insomnia, No substance abuse, No problem reported Heme: No see HPI, No abnormal bleeding/bruising, No clotting problems, No swollen lymph nodes, No night sweats, No problem reported Endo: No see HPI, No fatigue, No excessive thirst, No excessive urination, No problem reported Skin: No see HPI, No rash, No itch, No new/changing skin lesions, No color change, No bleeding, No problem reported Medications Current Inpatient Medications Medications (Trade) Dose Ordered Sig/Paz Route Start Time Stop Time Status Last Admin Dose Admin Enoxaparin Sodium (Lovenox Inj) 40 mg Q24H SQ 09/20/17 20:00 10/20/17 19:59 09/27/17 21:25 40 MG Acetaminophen (Tylenol Tab) 650 mg Q4H PRN PO 09/20/17 16:45 10/20/17 16:44 09/26/17 09:38 650 MG Magnesium Hydroxide (Milk Of Magnesia Susp) 30 ml Q6H PRN PO 09/20/17 16:45 10/20/17 16:44 Polyethylene (Miralax Powder Packet) 17 gm DAILY PRN PO 09/20/17 16:45 10/20/17 16:44 Ondansetron HCl (Zofran Inj) 4 mg Q6H PRN IV 09/20/17 16:45 10/20/17 16:44 Atorvastatin Calcium (Lipitor Tab) 10 mg DAILY PO 09/21/17 08:00 10/21/17 08:59 09/28/17 08:35 10 MG Insulin Glargine (Lantus Solostar Pen) 36 units BID SC 09/20/17 20:00 10/20/17 20:59 09/28/17 08:42 36 UNITS Levothyroxine Sodium (Synthroid Tab) 50 mcg DAILYBB PO 09/21/17 06:30 10/21/17 06:59 09/28/17 05:12 50 MCG Losartan Potassium (coZAAR TAB) 25 mg DAILY PO 09/21/17 08:00 10/21/17 08:59 09/28/17 08:34 25 MG Glucose (Glucose 40% Gel) 15-30 GRAMS 15 GRAMS... UD PRN PO 09/20/17 16:45 10/20/17 16:44 Glucose (Glucose Chew Tab) 4-8 Tablets 4 Tabl... UD PRN PO 09/20/17 16:45 10/20/17 16:44 Dextrose (Dextrose 50% 50ML Syringe) 25-50ML OF 50% DW IV FOR... UD PRN IV 09/20/17 16:45 10/20/17 16:44 Glucagon (Glucagon Inj) 1 mg UD PRN SQ 09/20/17 16:45 10/20/17 16:44 Ascorbic Acid (Vitamin C Tab) 500 mg BID PO 09/20/17 20:00 10/20/17 20:59 09/28/17 08:35 500 MG Zinc Sulfate (Zinc Sulfate Cap) 220 mg QAM PO 09/21/17 08:00 10/21/17 08:59 09/28/17 08:35 220 MG Multivitamins/ Minerals (Multivitamin W/ Minerals Tab) 1 tab QAM PO 09/21/17 08:00 10/21/17 08:59 09/28/17 08:34 1 TAB Insulin Aspart (novoLOG ASPART) SLIDING SCALE G... ACHS SC 09/21/17 06:30 10/21/17 06:29 09/28/17 17:47 7 UNITS Miconazole Nitrate (Desenex Powder) 1 appln PRN PRN EXT 09/21/17 01:45 10/21/17 01:44 09/26/17 09:38 1 APPLN Lactobacillus Acidophilus (Floranex Tab) 4 tab TIDM PO 09/23/17 12:00 10/23/17 11:59 09/28/17 17:44 4 TAB Naproxen (Naprosyn Tab) 250 mg Q8H PRN PO 09/25/17 12:00 10/25/17 11:59 09/28/17 08:34 250 MG Amoxicillin/ Clavulanate Potassium (Augmentin Tab) 875 mg BIDM PO 09/28/17 11:30 09/30/17 21:59 09/28/17 13:01 875 MG Objective Vital Signs Date Time Temp Pulse Resp B/P (MAP) Pulse Ox O2 Delivery O2 Flow Rate FiO2 09/28/17 16:00 Room Air 09/28/17 15:01 36.7 88 16 128/77 (94) 92 Room Air 09/28/17 09:30 Room Air 09/28/17 09:11 37.2 92 127/67 (87) 90 09/28/17 00:00 Room Air 09/27/17 23:44 36.6 91 20 118/66 (83) 91 Room Air Physical Exam General Appearance: no apparent distress, + obese Eyes: normal inspection, EOMI ENT: normal ENT inspection, hearing grossly normal Neck: supple Respiratory/Chest: chest non-tender, lungs clear, normal breath sounds, no respiratory distress, no accessory muscle use Cardiovascular: regular rate, rhythm, no edema, no gallop, no JVD, no murmur Abdomen: normal bowel sounds, non tender, soft, no organomegaly, no pulsatile mass Extremities: normal range of motion, no calf tenderness, + pertinent finding ( one-day lower extremity is wrapped) Neurologic/Psychiatric: security developer II-XII nml as tested, no motor/sensory deficits, alert, normal mood/affect, oriented x 3 Skin: normal color, warm/dry, no rash Laboratory Results Last 24 Hours Test 09/27/17 20:19 09/28/17 06:18 09/28/17 08:01 09/28/17 11:36 Bedside Glucose 194 mg/dl 75 mg/dl 154 mg/dl White Blood Count 13.44 K/uL Red Blood Count 3.89 M/uL Hemoglobin 11.1 g/dL Hematocrit 35.3 % Mean Corpuscular Volume 90.7 fL Mean Corpuscular Hemoglobin 28.5 pg Mean Corpuscular Hemoglobin Concent 31.4 g/dl Platelet Count 313 K/uL Mean Platelet Volume 9.0 fL Neutrophils (%) (Auto) 55.0 % Lymphocytes (%) (Auto) 31.3 % Monocytes (%) (Auto) 7.3 % Eosinophils (%) (Auto) 4.6 % Basophils (%) (Auto) 0.5 % Neutrophils # (Auto) 7.40 K/uL Lymphocytes # (Auto) 4.20 K/uL Monocytes # (Auto) 0.98 K/uL Eosinophils # (Auto) 0.62 K/uL Basophils # (Auto) 0.07 K/uL RDW Standard Deviation 46.3 fL RDW Coefficient of Variation 14.1 % Immature Granulocyte % (Auto) 1.3 % Immature Granulocyte # (Auto) 0.17 K/uL Sodium Level 139 mmol/L Potassium Level 4.1 mmol/L Chloride Level 103 mmol/L Carbon Dioxide Level 32 mmol/L Anion Gap 4.0 mmol/L Blood Urea Nitrogen 20 mg/dl Creatinine 0.89 mg/dl Est Creatinine Clear Calc Drug Dose 83.6 ml/min Estimated GFR () 76.1 Estimated GFR (Non- 65.7 BUN/Creatinine Ratio 23.1 Random Glucose 70 mg/dl Calcium Level 8.5 mg/dl Magnesium Level 2.3 mg/dl Total Bilirubin 0.5 mg/dl Aspartate Amino Transf (AST/SGOT) 20 U/L Alanine Aminotransferase (ALT/SGPT) 40 U/L Alkaline Phosphatase 74 U/L Total Protein 5.9 gm/dl Albumin 2.9 gm/dl Globulin 3.0 gm/dl Albumin/Globulin Ratio 1.0 Test 09/28/17 16:34 Bedside Glucose 182 mg/dl Assessment and Plan 73-year-old female with past medical history of diabetes mellitus type 2 partially controlled, morbid obesity, dyslipidemia, hypertension, hypothyroidism , osteoarthritis/spinal stenosis, depression, Patient lost her boyfriend about 3 years ago and since then living by herself in a trailer home presented to the ED with bilateral lower extremity open skin wounds and decubitus ulcer purulent discharge. Assessment Bilateral lower extremity cellulitis/sacral decubitus ulcers Diabetes mellitus type 2 partially controlled Hypertension morbid obesity Depression plan Patient lost her IV, And refused placing a ID consult appreciated, in the setting of losing her IV line, discontinue Unasyn and start Augmentin 14 days Continue Lactinex Doppler US BLE neg for VTE Initiate PT/OT A1C = 8.7, continue sliding scale insulin plus lantus 36 U BID continue holding glipizide Cont losartan 25 mg QAM Continue Lovenox for DVT prophylaxis Continue thyroxine Can be discharged in a.m. as soon as there is a bed available in rehab Continued [facility] stay due to: multiple IV medications needed, other (frequent wound dressings.) Discharge planning: rehab hospital
[2017-09-28] MEDS: ENOXAPARIN 40 MG/0.4 ML SYR SQ SCH (20:06)
[2017-09-28 23:05] VITALS: BP 120/73; PULSE 85; TEMP 36.5; O2SAT 91
[2017-09-29] MEDS: LEVOTHYROXINE 50 MCG TAB PO SCH (06:03)
[2017-09-29 06:14] LABS: BASO % 0.6 %; BASO ABS # 0.07 K/uL (0-0.2); EOS % 5.3 %; EOS ABS # 0.66 K/uL (0-0.5); HEMATOCRIT 33.8 % (37-47); HEMOGLOBIN 10.8 g/dL (12.0-16.0); IG# 0.17 K/uL (0.00-0.02); LYMPH % 26.4 %; LYMPH ABS # 3.28 K/uL (1.2-3.4); MEAN CELL VOLUME 91.4 fL (80-100); MEAN CORPUSCULAR HEMOGLOBIN 29.2 pg (25-34); MEAN PLATELET VOLUME 9.3 fL (7.4-10.4); MONO ABS # 0.75 K/uL (0.11-0.59); NEUT % 60.3 %; NEUT ABS # 7.49 K/uL (1.4-6.5); PLATELET COUNT 298 K/uL (130-400); RED CELL DISTRIBUTION WIDTH CV 14.3 % (11.5-14.5); RED CELL DISTRIBUTION WIDTH SD 47.2 fL (36.4-46.3); WHITE BLOOD COUNT 12.42 K/uL (4.8-10.8)
[2017-09-29 06:52] LABS: ALBUMIN 2.8 gm/dl (3.4-5.0); CALCIUM 8.6 mg/dl (8.5-10.1); CREATININE 0.94 mg/dl (0.60-1.20); POTASSIUM 4.5 mmol/L (3.5-5.1)
[2017-09-29 06:54] LABS: TOTAL PROTEIN 5.9 gm/dl (6.4-8.2)
[2017-09-29 07:51] VITALS: BP 121/68; PULSE 80; TEMP 36.6; O2SAT 90
[2017-09-29] MEDS: AMOXICILLIN/CLAVULANATE TAB 875 MG TAB PO SCH (07:54)
[2017-09-29] MEDS: LOSARTAN POTASSIUM 25 MG TAB PO SCH (07:54)
[2017-09-29] MEDS: ZINC SULFATE 220 MG CAP PO SCH (07:55)
[2017-09-29] MEDS: ASCORBIC ACID 500 MG TAB PO SCH (07:55)
[2017-09-29] MEDS: LACTOBACILLUS ACIDOPHILUS (FLORANEX) TAB PO SCH ×2 (07:55→12:48)
[2017-09-29] MEDS: CEROVITE ADV FORMULA TAB PO SCH (07:55)
[2017-09-29] MEDS: INSULIN GLARGINE SOLOSTAR 100 UNITS/ML 3 ML PEN SC SCH (07:58)
[2017-09-29] MEDS: INSULIN ASPART 100 UNITS/ML 3 ML PEN SC SCH ×2 (09:10→12:48)
[2017-09-29] MEDS: NAPROXEN 250 MG TAB PO PRN (09:11)
[2017-09-29] MEDS: ATORVASTATIN 10 MG TAB PO SCH (11:06)
[2017-09-29 12:17] VITALS: BP 121/68; PULSE 80; TEMP 36.6; O2SAT 90
--- NOTE | 2017-09-29 17:52 | Discharge Summary ---
Discharge Summary Date of Service Sep 29, 2017. Discharge Summary Admission Date: Sep 20, 2017 at 16:52 Discharge Date: Sep 29, 2017 Discharge Disposition: group home facility Principal Diagnosis: infected decubitus ulcer Problems/Secondary Diagnoses: Diabetes mellitus type 2 partially controlled Hypertension morbid obesity Depression Medication Reconciliation New Medications: Acetaminophen (Mapap) 325 Mg Tab 650 MG PO Q4H PRN for Pain or Fever for 30 Days, #30 TAB Amoxicillin & Pot Clavulanate (Amoxicillin/Clavulanate P) 1 Tab Tab 875 MG PO BIDM for 10 Days, #20 TAB Ascorbic Acid (Vitamin C) 500 Mg Tab 500 MG PO DAILY for 30 Days, #30 TAB Insulin Aspart (Novolog Flexpen) 100 Units/Ml Inj 3-16 UNITS SC ACHS, #1 VIAL Check your blood sugar before meals 3 times a day for blood sugar 150-200 take 3 units of insulin for blood sugar 2001-250 take 5 units of insulin for blood sugar 251-300 take 8 units of insulin for blood sugar 301-350 take 12 units of insulin for blood sugar 351-400 take 16 units of insulin and call Lactobacillus Acidophilus (Floranex) 1 Tab Tab 2 TAB PO TIDM for 30 Days, #180 TAB Miconazole Nitrate (Desenex Shake Powder) 43 Appln/43 Gm Powd 1 APPLN EXT PRN PRN for Affected Skin Folds for 30 Days, #200 GM Multivitamins/Minerals (Certavite/Antioxidants) 1 Tab Tab 1 TAB PO QAM for 30 Days, #30 TAB Polyethylene (Miralax) 17 Gm Pow 17 GM PO DAILY PRN for Constipation for 30 Days, #30 Zinc Sulfate (Zinc Sulfate) 220 Mg Cap 220 MG PO QAM for 30 Days, #30 CAP Continued Medications: Atorvastatin (Lipitor) 10 Mg Tab 10 MG PO DAILY Furosemide (Lasix) 20 Mg Tab 20 MG PO DAILY PRN for EDEMA Insulin Glargine (Lantus Solostar) 100 Unit/Ml Inj 36 UNITS SC BID Levothyroxine Sodium (Levothyroxine Sodium) 50 Mcg Tab 50 MCG PO DAILY Losartan Potassium (Losartan Potassium) 25 Mg Tab 25 MG PO DAILY Discontinued Medications: Glipizide (Glipizide) 5 Mg Tab 5 MG PO BID Discharge Exam Review of Systems: Constitutional: No fever, No chills, No sweats, No weight loss, No weakness , No fatigue, No problem reported Eyes: No worsening of vision, No eye pain, No redness, No discharge, No diplopia, No problem reported ENT: No hearing loss, No unusual epistaxis, No nasal symptoms, No sore throat, No tinnitus, No dental problems, No trouble swallowing, No problem reported Respiratory: No cough, No sputum, No wheezing, No shortness of breath, No dyspnea on exertion, No dyspnea at rest, No hemoptysis, No problem reported Cardiovascular: No chest pain, No orthopnea, No PND, No edema, No claudication, No palpitations, No problem reported Abdomen: No pain, No nausea, No vomiting, No diarrhea, No constipation, No GI bleeding, No problem reported Musculoskeletal: No joint pain, No muscle pain, No swelling, No calf pain, No problem reported Genitourinary - Female: No dysuria, No urinary frequency, No urinary urgency , No urinary incontinence, No urinary retention, No hematuria, No dysmenorrhea, No menorrhagia, No metrorrhagia, No rash, No vaginal bleeding, No vaginal discharge, No vaginal itching, No vulvodynia, No , No problem reported Genitourinary - Male: No hematuria, No dysuria, No urinary frequency, No urinary urgency, No urinary hesitancy, No urinary retention, No urinary incontinence, No penile discharge, No lesions, No impotence, No problem reported Neurologic: No memory loss, No paralysis, No weakness, No numbness/tingling , No vertigo, No balance problems, No problem reported Psychiatric: No depression symptoms, No anhedonism, No anxiety, No insomnia , No substance abuse, No problem reported Endocrine: No fatigue, No excessive thirst, No excessive urination, No problem reported Hematologic / Lymphatic: No abnormal bleeding/bruising, No clotting problems , No swollen lymph nodes, No night sweats, No problem reported Integumentary: No rash, No itch, No new/changing skin lesions, No color change, No bleeding, No problem reported Physical Exam: General Appearance: + mild distress, + obese Eyes: normal inspection, EOMI ENT: normal ENT inspection, hearing grossly normal Neck: supple Respiratory/Chest: chest non-tender, lungs clear, normal breath sounds, no respiratory distress, no accessory muscle use Cardiovascular: regular rate, rhythm, no edema, no gallop, no JVD, no murmur , normal peripheral pulses Abdomen / GI: normal bowel sounds, non tender, soft, no organomegaly, no pulsatile mass Extremities: normal inspection, + pedal edema, + swelling, + pertinent finding (wounds are wrapped by wound care) Neurologic/Psychiatric: bow maker production II-XII nml as tested, no motor/sensory deficits , alert, normal mood/affect, normal reflexes Skin: normal color, warm/dry, no rash Hospital Course 73-year-old female with past medical history of diabetes mellitus type 2 partially controlled, morbid obesity, dyslipidemia, hypertension, hypothyroidism , osteoarthritis/spinal stenosis, depression, Patient lost her boyfriend about 3 years ago and since then living by herself in a trailer home presented to the ED with bilateral lower extremity open skin wounds and decubitus ulcer purulent discharge. Hospital course For her Bilateral lower extremity cellulitis/sacral decubitus ulcers, ID consult appreciated, she was started on Unasyn while she is inpatient, then switched to Augmentin 14 days Also started on lactobacillus for C. difficile prophylaxis Doppler US BLE neg for VTE For her Diabetes mellitus type 2 partially controlled A1C = 8.7, continue sliding scale insulin plus lantus 36 U BID continue holding glipizide her Hypertension appears to be controlled Continued losartan 25 mg QAM Continue to her thyroxine and depression medications Given Lovenox for DVT prophylaxis Seen by PT and OT who recommended her admission to rehabilitation Today found within acceptable medical stability for discharge to rehabilitation Total Time Spent: Greater than 30 minutes This includes examination of the patient, discharge planning, medication reconciliation, and communication with other providers. Discharge Instructions Please refer to the electronic Patient Visit Report (Discharge Instructions) for additional information.
== END 2017-09-29 14:30 | DRG 593 ==
LOC: EDBD 12:23 → C.EDB 12:25 → C.4E 16:52 → ENRESERV 17:33
PROVIDERS: ADMIT Internal Medicine; ATTEND Internal Medicine
DX: L89.152 Pressure ulcer of sacral region, stage 2 (principal); L03.116 Cellulitis of left lower limb; L03.115 Cellulitis of right lower limb; Z68.41 Body mass index [BMI] 40.0-44.9, adult; F32.9 Major depressive disorder, single episode, unspecified; E11.9 Type 2 diabetes mellitus without complications; E78.5 Hyperlipidemia, unspecified; I10 Essential (primary) hypertension; E03.9 Hypothyroidism, unspecified; F17.200 Nicotine dependence, unspecified, uncomplicated; E66.01 Morbid (severe) obesity due to excess calories; M19.90 Unspecified osteoarthritis, unspecified site; R19.7 Diarrhea, unspecified; Z87.440 Personal history of urinary (tract) infections

== ENCOUNTER → 2017-11-09 | Outpatient (CLI) | payer OTHER ==
[~2017-11-09] MED LIST changes: +ACET-1047 PO; +AMOX1TAB43 PO; +ASCA500 PO; -ATOR10TA82 PO; +CNT PO; -CPR500 PO; +CZR25 PO; -ECON118C TOP; -GLIP5TAB11 PO; +LCTX PO; -LISI-729 PO; +LPT10 PO; +MCTP EXT; +MRLP17X PO; -NAPR1TAB9 PO; +NVLGIPEN SC; +ZNCS220 PO
--- NOTE | 2017-11-09 12:59 | DIAGNOSTIC IMAGING REPORT ---
CHEST 2 VIEWS ROUTINE HISTORY: 72 years-old Female R05 [id number] Acute [id number] acute cough COMPARISON: Chest radiograph 09/20/2017 TECHNIQUE: PA and lateral views of the chest FINDINGS: Cardiac silhouette again is mildly enlarged. Atherosclerosis of the aorta. Unchanged subsegmental atelectasis or scarring of the lingula. There is no pneumothorax, pleural effusion or lobar airspace consolidation. Degenerative changes noted within the shoulders and spine. IMPRESSION: Cardiomegaly without acute process. The above report was generated using voice recognition software. It may contain grammatical, syntax or spelling errors. Electronically signed by: Francisco J Gutierrez M.D. 11/09/2017 12:57 PM Dictated Date/Time: 11/09/2017 12:56 PM
== END | disposition home or self-care (01) ==
LOC: C.RADBC 12:15
PROVIDERS: ATTEND Physician Assistant Medical
DX: J20.9 Acute bronchitis, unspecified (principal); R05 Cough; I51.7 Cardiomegaly

== ENCOUNTER → 2017-12-01 | Outpatient (CLI) | payer OTHER ==
[2017-12-01 14:15] LABS: BASO % 0.6 %; BASO ABS # 0.07 K/uL (0-0.2); EOS % 3.3 %; HEMATOCRIT 37.3 % (37-47); IG# 0.07 K/uL (0.00-0.02); LYMPH ABS # 2.83 K/uL (1.2-3.4); MEAN CORPUSCULAR HEMOGLOBIN 28.6 pg (25-34); MEAN CORPUSCULAR HGB CONC 32.2 g/dl (32-36); MEAN PLATELET VOLUME 9.5 fL (7.4-10.4); MONO % 6.9 %; MONO ABS # 0.85 K/uL (0.11-0.59); NEUT % 65.6 %; NEUT ABS # 8.06 K/uL (1.4-6.5); PLATELET COUNT 343 K/uL (130-400); RED CELL DISTRIBUTION WIDTH SD 45.3 fL (36.4-46.3); WHITE BLOOD COUNT 12.28 K/uL (4.8-10.8)
[2017-12-01 16:17] LABS: HEMOGLOBIN A1C 8.4 % (4.5-5.6)
[2017-12-01 17:28] LABS: ALBUMIN 3.2 gm/dl (3.4-5.0); ALT/SGPT 14 U/L (12-78); BLOOD UREA NITROGEN 23 mg/dl (7-18); CALCIUM 8.7 mg/dl (8.5-10.1); CARBON DIOXIDE 27 mmol/L (21-32); CHOLESTEROL 103 mg/dl (0-200); GLUCOSE 119 mg/dl (70-99); POTASSIUM 4.2 mmol/L (3.5-5.1); SODIUM 137 mmol/L (136-145)
[2017-12-01 17:38] LABS: ALKALINE PHOSPHATASE 83 U/L (45-117); AST/SGOT 7 U/L (15-37); LDL CHOLESTEROL CALCULATED 43 mg/dl; TOTAL PROTEIN 6.6 gm/dl (6.4-8.2)
== END | disposition home or self-care (01) ==
LOC: C.LABBC 09:55
PROVIDERS: ATTEND Internal Medicine Geriatric Medicine
DX: M48.00 Spinal stenosis, site unspecified (principal); E78.5 Hyperlipidemia, unspecified; E03.9 Hypothyroidism, unspecified; M19.90 Unspecified osteoarthritis, unspecified site; I10 Essential (primary) hypertension; E11.65 Type 2 diabetes mellitus with hyperglycemia; L03.116 Cellulitis of left lower limb; Z68.43 Body mass index [BMI] 50.0-59.9, adult

== ENCOUNTER 2019-05-12 15:04 | Inpatient (IN) ==
--- NOTE | 2019-05-12 15:25 | Emergency Department Note ---
ED Visit Note This Patient was discussed with the physician assistant district attorney, Dago Benites PA-C. The pertinent historical and physical exam findings were confirmed. I agree with the studies ordered and with the interpretations of these studies. I agree with the disposition and care plan. .
--- NOTE | 2019-05-12 15:33 | Emergency Department Note ---
History of Present Illness General Chief complaint: Wound Time Seen by Provider: 05/12/19 15:05 History of Present Illness This is a 73-year-old female with a complex past medical history that presents to the emergency department via ambulance with complaints of "wound". Patient has a history of venous stasis/insufficiency with ulceration development now on the left lower leg. Review of previous documentation address concern for her living conditions. She was evaluated yesterday at the wound care center for the left lower extremity wounds which were addressed and she was sent a prescription for doxycycline and powder nystatin to the pharmacy but she has not picked this up. She has not taken the antibiotics. Office of aging was involved, was concerned about the patient and ambulance was called therefore bring the patient here to the emergency department for evaluation and potential placement to a care facility such as [facility]. The patient at this time denies any fevers or chills. She notes pain in the lower extremities. She believes that the ulcer on the left leg developed yesterday. I will note that review of her past medical history here reveals that she has battled with infections and venous insufficiency of the lower extremity for some time now. Review of her culture that was obtained yesterday was growing out Staphylococcus species. Home Medications Home Medications Medication Instructions Recorded Confirmed Type acetaminophen ER 650 mg 650 mg PO Q4H PRN tab 05/04/18 05/12/19 History tablet,extended release losartan 25 mg tablet 25 mg PO DAILY 05/04/18 05/12/19 History atorvastatin 10 mg tablet 10 mg PO DAILY #90 tab 02/21/19 05/12/19 Rx furosemide 20 mg tablet 20 mg PO DAILY PRN #90 tab 03/21/19 05/12/19 Rx levothyroxine 50 mcg capsule 50 mcg PO DAILY #90 cap 04/05/19 05/12/19 Rx docusate sodium 100 mg capsule 100 mg PO BID cap 04/11/19 05/12/19 History doxycycline hyclate 100 mg tablet 100 mg PO bid #28 tab 05/11/19 05/12/19 Rx nystatin 100,000 unit/gram topical 1 appln TOP BID #60 gm 05/11/19 05/12/19 Rx powder ammonium lactate 1 applic TOPICAL BID 05/12/19 05/12/19 History insulin glargine [Lantus Solostar 60 unit SUBCUT QAM 05/12/19 05/12/19 History U-100 Insulin] insulin glargine [Lantus Solostar 68 unit SUBCUT QPM 05/12/19 05/12/19 History U-100 Insulin] insulin lispro 1 sliding scale dose SUBCUT 05/12/19 05/12/19 History USEASDIRECTD ipratropium-albuterol 3 ml INHALATION QID 05/12/19 05/12/19 History ketoconazole 1 applic TOPICAL DAILY 05/12/19 05/12/19 History multivitamin 1 tab PO QAM 05/12/19 05/12/19 History Allergies Allergy/AdvReac Type Severity Reaction Status Date / Time metformin AdvReac Unknown Diarrhea Verified 05/11/19 13:47 Past Med/Surg History Medical History Urinary incontinence (Acute) Uncontrolled type 2 diabetes mellitus (Acute) Leukocytosis (Acute) Gastroesophageal reflux disease (Acute) Edema (Acute) Bilateral swelling of feet (Acute) Diabetes mellitus with diabetic polyneuropathy (Acute) Type 2 diabetes mellitus with diabetic peripheral angiopathy without gangrene (Acute) COPD (chronic obstructive pulmonary disease) (Chronic) Chronic GERD (Chronic) Depression (Chronic) Diabetes (Chronic) HLD (hyperlipidemia) (Chronic) HTN (hypertension) (Chronic) Hypothyroidism (Chronic) Major depressive disorder (Chronic) Morbid obesity (Chronic) Osteoarthritis (Chronic) Psoriasis (Chronic) Spinal stenosis (Chronic) Venous stasis dermatitis (Chronic) Cellulitis (Resolved) Cholelithiasis (Resolved) Tonsillectomy planned (Resolved) UTI (urinary tract infection) (Resolved) Surgical History S/P hysterectomy (Acute) Social History Preferred Language: Kazakh Communication Ability: Effective Visual Impairment: Limited Hearing Ability: Normal Beliefs That Will Affect Care: None marital status: single Current Living Situation: Alone current occupational status: disabled Feels Safe at Home: Yes Smoking Status: Never smoker Hx Alcohol Use: No Hx Substance Use: No Review of Systems A total of 10 systems reviewed and were otherwise negative Physical Exam Vital Signs Vital Signs - 24 hr 05/12/19 15:14 05/12/19 16:41 Temperature 36.9 C Temperature Source Oral Sepsis Recent Fever Within 48 Hours No Sepsis New/Unexplained Change in Mental Status No Sepsis Action Taken by Nursing No Action Required Pulse Rate 103 H Pulse Rate [Right Finger] 100 H Respiratory Rate 20 19 Blood Pressure 146/57 H Blood Pressure [Right Arm] 122/89 Blood Pressure Mean 86 Blood Pressure Mean [Right Arm] 100 Pulse Oximetry 95 92 Oxygen Delivery Method Room Air Room Air VITAL SIGNS - Vital signs and nursing notes were reviewed. In room a 10. GENERAL -73-year-old female appearing her stated age who is in no acute distress. Communicates well with provider and answers questions appropriately. SKIN -there is evidence of chronic venous insufficiency to the lower extremities. No evidence of recent trauma. There is marked lymphedema on the bilateral lower extremities. There is erythema noted throughout the entire left and right foot with the left leg having erythema from the mid soriano region distally and similar on the right. There is increased induration on the left lower extremity compared to the right. Sensation is diminished. Distal pulses are diminished. No evidence of acute trauma, lacerations, or fluid collections. HEAD - NC/AT. EYES - PERRL with EOMI bilaterally. Sclera anicteric. EARS - No deformities of external structures noted on gross examination bilaterally. NOSE - Midline and without cyanosis. No epistaxis or purulent drainage noted. MOUTH/OROPHARYNX - Without perioral cyanosis. NECK - Neck with FROM. No nuchal rigidity. LUNGS - Chest wall symmetric without accessory muscle use, intercostals retractions, or central cyanosis. Normal vesicular breath sounds CTA B/L. No wheezes, rales, or rhonchi appreciated. CARDIAC - RRR with S1/S2. No murmur, rubs, or gallops appreciated. ABDOMEN - Abdominal contour normal with pannus and without pulsations or visible emergent masses. BS normoactive all four quadrants. No tenderness. EXTREMITIES - No clubbing or peripheral cyanosis. Skin as above. Chronic change. No evidence of abscess. NEUROLOGIC - Cranial nerves II through XII grossly intact. Sensory intact to l ight touch throughout. PSYCH - A&Ox3 and cooperates fully with examiner. P Course Administered Medications Discontinued Medications Daptomycin 375 mg/ Syringe 7.5 mls @ 3.75 mls/min IV NOW ONE; Protocol Stop: 05/12/19 17:09 Last Admin: 05/12/19 18:03 Dose: 3.75 mls/min Documented by: [id number] Medical Decision Making Laboratory Data Result diagrams: 05/12/19 16:01 05/12/19 16:01 Lab Results 05/12/19 05/12/19 05/12/19 Range/Units 16:01 16:01 16:01 WBC 13.58 H (4.8-10.8) K/uL RBC 4.19 L (4.2-5.4) M/uL Hgb 12.2 (12.0-16.0) g/dL Hct 38.3 (37-47) % MCV 91.4 (80-100) fL MCH 29.1 (25-34) pg MCHC 31.9 L (32-36) g/dL RDW Std Deviation 49.3 H (36.4-46.3) fL RDW Coeff of Nasir 14.9 H (11.5-14.5) % Plt Count 311 (130-400) K/uL MPV 9.4 (7.4-10.4) fL Immature Gran % (Auto) 0.7 % Neut % (Auto) 69.4 % Lymph % (Auto) 19.6 % [place] % (Auto) 7.0 % Eos % (Auto) 2.6 % Baso % (Auto) 0.7 % Immature Gran # (Auto) 0.10 H (0.00-0.02) K/uL Neut # (Auto) 9.43 H (1.4-6.5) K/uL Lymph # (Auto) 2.66 (1.2-3.4) K/uL [place] # (Auto) 0.95 H (0.11-0.59) K/uL Eos # (Auto) 0.35 (0-0.5) K/uL Baso # (Auto) 0.09 (0-0.2) K/uL Sodium 141 (136-145) mmol/L Potassium 4.2 (3.5-5.1) mmol/L Chloride 103 (98-107) mmol/L Carbon Dioxide 34 H (21-32) mmol/L Anion Gap 4.0 (3-11) BUN 24 H (7-18) mg/dl Creatinine 1.16 (0.6-1.2) mg/dl Est Cr Clr Drug Dosing 63.4 ml/min Est GFR ( Amer) 54.5 Est GFR (Non-Af Amer) 47.0 BUN/Creatinine Ratio 20.3 H (10-20) Glucose 229 H (70-99) mg/dl Calcium 9.2 (8.5-10.1) mg/dl Total Bilirubin 0.6 (0.2-1) mg/dl AST 8 L (15-37) U/L ALT 13 (12-78) U/L Alkaline Phosphatase 115 (45-117) U/L C-Reactive Protein 2.99 H (0-0.29) mg/dl Total Protein 6.8 (6.4-8.2) gm/dl Albumin 3.2 L (3.4-5.0) gm/dl Globulin 3.6 (2.5-4.0) gm/dl Albumin/Globulin Ratio 0.9 (0.9-2) MDM Narrative Patient was seen and evaluated as above in room a 10. Review was performed of nursing notes and vital signs. After obtaining a thorough history and physical examination the above work up was performed. She presents to us today via ambulance. She has not been able to keep up with care of the wounds at home. [facility] agency on aging got involved in the eminence was called she was brought here. She has chronic appearing wounds with may be an acute cellulitis. 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 Initially I thought she could be transferred directly to a care facility but with the patient's stable but increased white blood cell count with elevated CRP and some acute appearing cellulitis I do believe that overnight management here in the hospital is warranted. I discussed this with the attending physician who also evaluate the wounds and the hospitalist. Her heart rate is also around 100. She will be admitted for further evaluation and management. Please refer to further documentation regarding her stay. Inpatient team recommended antibiotic such as daptomycin. Of additional note, the wound care nurse to come evaluate the wounds and cleansed and redressed them. I attest that I have personally reviewed the patient medication list. I attest that I have reviewed the patient's blood pressure and it was found to be elevated likely secondary to presentation. GCS: 15 In the evaluation and treatment of this patient the following differential diagnoses were entertained: Cellulitis, sepsis, chronic stasis wounds, among others. Impression & Plan Cellulitis of both lower extremities, Venous insufficiency, Lymphedema Discharge Plan Visit Data Chief Complaint: Wound ED Provider: Kishore Singh ED Midlevel Provider: Dago Benites Discharge Problem: Cellulitis of both lower extremities, Venous insufficiency, Lymphedema Patient Disposition: Admitted As Inpatient Condition: Good Forms Stand Alone Forms: My Mor[employer]sl Prescriptions Prescriptions: No Action acetaminophen 650 mg tablet extended release 650 mg PO Q4H PRN (Reason: Pain) RF: 0 losartan 25 mg tablet 25 mg PO DAILY RF: 0 doxycycline hyclate 100 mg tablet 100 mg PO bid Qty: 28 RF: 0 nystatin 100,000 unit/gram powder 1 appln TOP BID Qty: 60 RF: 1 atorvastatin [Lipitor] 10 mg tablet 10 mg PO DAILY Qty: 90 RF: 0 furosemide [Lasix] 20 mg tablet 20 mg PO DAILY PRN (Reason: edema) Qty: 90 RF: 0 levothyroxine 50 mcg capsule 50 mcg PO DAILY Qty: 90 RF: 0 docusate sodium 100 mg capsule 100 mg PO BID RF: 0 multivitamin Tablet 1 tab PO QAM RF: 0 ipratropium-albuterol 0.5 mg-3 mg(2.5 mg base)/3 mL Solution For Nebulization 3 ml INHALATION QID RF: 0 ammonium lactate 12 % Cream 1 applic TOPICAL BID RF: 0 insulin lispro 100 unit/mL Solution 1 sliding scale dose SUBCUT USEASDIRECTD RF: 0 ketoconazole 2 % Cream 1 applic TOPICAL DAILY RF: 0 Lantus Solostar U-100 Insulin 100 unit/mL (3 mL) insulin pen 68 unit subcut QPM RF: 0 Lantus Solostar U-100 Insulin 100 unit/mL (3 mL) insulin pen 60 unit subcut QAM RF: 0 Referrals Referrals: Eula Chow MD [Primary Care Provider] -
[2019-05-12 16:16] LABS: Basophils # (auto) 0.09 K/uL (0-0.2); Basophils % (auto) 0.7 %; Eosinophils # (auto) 0.35 K/uL (0-0.5); Eosinophils % (auto) 2.6 %; Hematocrit (blood only) 38.3 % (37-47); Hemoglobin 12.2 g/dL (12.0-16.0); Immature Granulocytes % (auto) 0.7 %; Lymphocytes # (auto) 2.66 K/uL (1.2-3.4); Lymphocytes % (auto) 19.6 %; Mean Corpuscular Hemoglobin 29.1 pg (25-34); Mean Corpuscular Hgb Conc 31.9 g/dL (32-36); Mean Corpuscular Volume 91.4 fL (80-100); Mean Platelet Volume 9.4 fL (7.4-10.4); Monocytes # (auto) 0.95 K/uL (0.11-0.59); Neutrophils # (auto) 9.43 K/uL (1.4-6.5); Neutrophils % (auto) 69.4 %; Platelet Count 311 K/uL (130-400); RDW Coefficient of Variation 14.9 % (11.5-14.5); RDW Standard Deviation 49.3 fL (36.4-46.3); Red Blood Count 4.19 M/uL (4.2-5.4); White Blood Count 13.58 K/uL (4.8-10.8)
[2019-05-12 16:32] LABS: Albumin Level 3.2 gm/dl (3.4-5.0); BUN Creatinine Ratio 20.3 (10-20); Calcium 9.2 mg/dl (8.5-10.1); Creatinine Clr Calc Pharmacy 63.4 ml/min; Est GFR (African American) 54.5; Potassium 4.2 mmol/L (3.5-5.1)
[2019-05-12 16:34] LABS: Albumin Globulin Ratio 0.9 (0.9-2); Bilirubin,Total 0.6 mg/dl (0.2-1); Globulin 3.6 gm/dl (2.5-4.0); Total Protein 6.8 gm/dl (6.4-8.2)
[2019-05-12] MEDS ORDERED: DAPTOmycin 375 MG in SYRINGE 0 ML IV ONE (17:08)
--- NOTE | 2019-05-12 18:40 | History & Physical Report ---
Date of Service May 12, 2019 Assessment & Plan (1) Cellulitis of both lower extremities: Admit to inpatient [facility] telemetry Vital signs every 4 hours C CBC CMP ESR and CRP daily Started daptomycin for Staphylococcus species positive wound culture Infectious diseases consult DVT prophylaxis Lovenox 40 mg subcu daily Full code Present on Admission?: Yes (2) Venous insufficiency: As the above Present on Admission?: Yes (3) Hypothyroidism: TSH, continue home dose of levothyroxine 50 MCG's daily Present on Admission?: Yes (4) HTN (hypertension): Stable continue home dose of losartan 25 mg p.o. daily, Present on Admission?: Yes (5) HLD (hyperlipidemia): Stable continue Present on Admission?: Yes (6) Diabetes mellitus type 2 in nonobese: Accu-Cheks before meals and at bedtime, management per pharmacy. Present on Admission?: Yes History of Present Illness Chief Complaint: Cellulitis of both lower extremities Primary Care Provider: Eula Chow MD Patient is a 83 years old female with past medical history of hypertension, hyperlipidemia, major depressive disorder, hypothyroidism,, deep Raynaud's insufficiency uncontrolled diabetes type 2, lymphedema, candidiasis presents to the emergency room via ambulance with complaint of lower extremity wounds and swelling. Patient has history of the nose stasis insufficiency with ulceration chronically. Patient also has a problem with her living conditions. She was evaluated yesterday at the wound care center for the left lower extremity wounds which are addressed and she was sent with prescription for doxycycline and powder mixed with nystatin to the pharmacy but patient was unable to pick it up. In fact patient was not taking any antibiotic. Office of aging is involved and they are concerned about patient and recommended potential placement at [facility]. Patient denies fever chills chest pain shortness of breath abdominal pain frequency urgency hematemesis dysuria melena hemoptysis. Under review of her wound culture she grew Staphylococcus species. Labs are reviewed and shows white blood cell count of 13.58 hemoglobin hemoglobin 12.2 hematocrit 38.3, platelets 311. PT 9.4, INR 0.9. Sodium 141 potassium 4.2, chloride 103, anion gap 4, BUN 24, creatinine 1.16, GFR 47 hemoglobin A1c. Vision was made to admit patient to [facility] for wound care and further thank you evaluation and treatment. Allergies Allergy/AdvReac Type Severity Reaction Status Date / Time metformin AdvReac Unknown Diarrhea Verified 05/11/19 13:47 Home Medications Home Medications Medication Instructions Recorded Confirmed Type acetaminophen ER 650 mg 650 mg PO Q4H PRN tab 05/04/18 05/12/19 History tablet,extended release losartan 25 mg tablet 25 mg PO DAILY 05/04/18 05/12/19 History atorvastatin 10 mg tablet 10 mg PO DAILY #90 tab 02/21/19 05/12/19 Rx furosemide 20 mg tablet 20 mg PO DAILY PRN #90 tab 03/21/19 05/12/19 Rx levothyroxine 50 mcg capsule 50 mcg PO DAILY #90 cap 04/05/19 05/12/19 Rx docusate sodium 100 mg capsule 100 mg PO BID cap 04/11/19 05/12/19 History doxycycline hyclate 100 mg tablet 100 mg PO bid #28 tab 05/11/19 05/12/19 Rx nystatin 100,000 unit/gram topical 1 appln TOP BID #60 gm 05/11/19 05/12/19 Rx powder ammonium lactate 1 applic TOPICAL BID 05/12/19 05/12/19 History insulin glargine [Lantus Solostar 60 unit SUBCUT QAM 05/12/19 05/12/19 History U-100 Insulin] insulin glargine [Lantus Solostar 68 unit SUBCUT QPM 05/12/19 05/12/19 History U-100 Insulin] insulin lispro 1 sliding scale dose SUBCUT 05/12/19 05/12/19 History USEASDIRECTD ipratropium-albuterol 3 ml INHALATION QID 05/12/19 05/12/19 History ketoconazole 1 applic TOPICAL DAILY 05/12/19 05/12/19 History multivitamin 1 tab PO QAM 05/12/19 05/12/19 History Past Med/Surg History Medical History Urinary incontinence (Acute) Uncontrolled type 2 diabetes mellitus (Acute) Leukocytosis (Acute) Gastroesophageal reflux disease (Acute) Edema (Acute) Bilateral swelling of feet (Acute) Diabetes mellitus with diabetic polyneuropathy (Acute) Type 2 diabetes mellitus with diabetic peripheral angiopathy without gangrene (Acute) COPD (chronic obstructive pulmonary disease) (Chronic) Chronic GERD (Chronic) Depression (Chronic) Diabetes (Chronic) HLD (hyperlipidemia) (Chronic) HTN (hypertension) (Chronic) Hypothyroidism (Chronic) Major depressive disorder (Chronic) Morbid obesity (Chronic) Osteoarthritis (Chronic) Psoriasis (Chronic) Spinal stenosis (Chronic) Venous stasis dermatitis (Chronic) Cellulitis (Resolved) Cholelithiasis (Resolved) Tonsillectomy planned (Resolved) UTI (urinary tract infection) (Resolved) Surgical History S/P hysterectomy (Acute) Social History Preferred Language: [place]ill[place] Communication Ability: Effective Visual Impairment: Limited Hearing Ability: Normal Beliefs That Will Affect Care: None marital status: single Current Living Situation: Alone current occupational status: disabled Feels Safe at Home: Yes Smoking Status: Never smoker Hx Alcohol Use: No Hx Substance Use: No Review of Systems Review of Systems: All systems reviewed & are unremarkable except as noted in HPI & below Physical Exam Constitutional: WD/WN, vitals as above well developed and + morbidly obese Eyes: PERRL, conjunctivae normal, anicteric sclerae ENMT: external ear and nose normal, oropharynx normal Neck: trachea midline, no thyromegaly Respiratory: normal respiratory effort, lungs clear to auscultation Cardiovascular: RRR, no murmur, no edema Chest (Breasts): normal inspection/palpation of breasts Gastrointestinal (Abdomen): normal bowel sounds, soft, nontender, no hepatosplenomegaly Musculoskeletal: no cyanosis or clubbing, extremities motor strength 5/5 Skin: Normal extremity edema associate with erythema and scarring bilaterally Neurologic: patellar DTR's 2+ bilat, sensation intact Psychiatric: A+Ox3, euthymic affect Genitourinary: no vaginal lesions, no adnexal mass Lymphatic: no cervical or axillary lymphadenopathy Results & Data Vital Signs (Past 12 Hours) Vital Signs Temp Pulse Pulse Resp BP BP Pulse Ox 05/12/19 16:41 100 H 19 122/89 92 05/12/19 15:14 36.9 C 103 H 20 146/57 H 95 Code Status & VTE Plan Code Status Full code VTE Prophylaxis Plan VTE Prophylaxis will be ordered: Yes PG Care Time/CCT Total # of Minutes Spent Total Time Spent with Patient: Total time spent is greater than 50% in coordination of care (as documented) at patient's floor/unit and/or counseling patient:
[2019-05-12] MEDS ORDERED: CARBOHYDRATES FOR HYPOGLYCEMIA PO PRN (21:24)
[2019-05-12] MEDS ORDERED: FUROSEMIDE 20 MG TAB PO PRN (21:24)
[2019-05-12] MEDS ORDERED: GLUCOSE 40% GEL 15 GM TUBE PO PRN (21:24)
[2019-05-12] MEDS ORDERED: POLYETHYLENE (MIRALAX) 17 GM PACK PO PRN (21:24)
[2019-05-12] MEDS ORDERED: ZOLPIDEM TARTRATE 5 MG TAB PO PRN (21:24)
[2019-05-12] MEDS ORDERED: GLUCOSE 10 TABS/TUBE PO PRN (21:24)
[2019-05-12] MEDS ORDERED: GLUCAGON FOR INJ 1 MG VIAL SQ PRN (21:24)
[2019-05-12] MEDS ORDERED: DEXTROSE 50% 50 ML SYRINGE IV PRN (21:24)
[2019-05-12] MEDS ORDERED: ACETAMINOPHEN 325 MG TAB PO PRN (21:24)
[2019-05-12] MEDS ORDERED: PHARMACY GLYCEMIC MGMT CONSULT PRN (21:38)
[2019-05-12] MEDS ORDERED: INSULIN GLARGINE SOLOSTAR 100 UNITS/ML 3 ML PEN SQ ONE (22:45)
[2019-05-12] MEDS: INSULIN ASPART 100 UNITS/ML 3 ML PEN SC SCH (23:19)
[2019-05-12] MEDS: AMMONIUM LACTATE 12% LOTION 225 GM BTL EXT SCH (23:22)
[2019-05-12] MEDS: DOCUSATE SODIUM 100 MG CAP PO SCH (23:23)
[2019-05-12] MEDS: DOXYCYCLINE HYCLATE 100 MG CAP PO SCH (23:24)
[2019-05-12] MEDS: HEPARIN SOD 5,000 UNIT/0.5 ML VIAL SQ SCH (23:27)
[2019-05-13] MEDS ORDERED: NAPROXEN 250 MG TAB PO PRN (00:29)
[2019-05-13] MEDS: ALBUT/IPRATROP 3MG/0.5MG NEB 3 ML VIAL INH SCH ×5 (00:54→19:39)
[2019-05-13] MEDS ORDERED: INSULIN ASPART 100 UNITS/ML 3 ML PEN SC SCH (04:00)
[2019-05-13] MEDS: LEVOTHYROXINE SODIUM 50 MCG TABLET PO SCH (06:19)
[2019-05-13 08:02] LABS: Basophils # (auto) 0.06 K/uL (0-0.2); Basophils % (auto) 0.6 %; Eosinophils # (auto) 0.46 K/uL (0-0.5); Eosinophils % (auto) 4.3 %; Hematocrit (blood only) 34.8 % (37-47); Hemoglobin 11.2 g/dL (12.0-16.0); Immature Granulocytes # (auto) 0.05 K/uL (0.00-0.02); Immature Granulocytes % (auto) 0.5 %; Lymphocytes # (auto) 2.62 K/uL (1.2-3.4); Lymphocytes % (auto) 24.6 %; Mean Corpuscular Hemoglobin 29.1 pg (25-34); Mean Corpuscular Hgb Conc 32.2 g/dL (32-36); Mean Corpuscular Volume 90.4 fL (80-100); Mean Platelet Volume 9.5 fL (7.4-10.4); Monocytes # (auto) 0.84 K/uL (0.11-0.59); Monocytes % (auto) 7.9 %; Neutrophils % (auto) 62.1 %; Platelet Count 282 K/uL (130-400); RDW Coefficient of Variation 14.8 % (11.5-14.5); Red Blood Count 3.85 M/uL (4.2-5.4); White Blood Count 10.63 K/uL (4.8-10.8)
[2019-05-13 08:45] LABS: Albumin Level 2.8 gm/dl (3.4-5.0); BUN Creatinine Ratio 23.6 (10-20); Calcium 8.5 mg/dl (8.5-10.1); Creatinine Clr Calc Pharmacy 73.8 ml/min; Est GFR (Non-African American) 56.9; Potassium 3.8 mmol/L (3.5-5.1)
[2019-05-13 08:48] LABS: Albumin Globulin Ratio 0.9 (0.9-2); Bilirubin,Total 0.8 mg/dl (0.2-1); Globulin 3.1 gm/dl (2.5-4.0); Total Protein 5.9 gm/dl (6.4-8.2)
[2019-05-13] MEDS: AMMONIUM LACTATE 12% LOTION 225 GM BTL EXT SCH ×2 (08:56→21:39)
[2019-05-13] MEDS ORDERED: INSULIN GLARGINE SOLOSTAR 100 UNITS/ML 3 ML PEN SQ SCH ×3 (09:00→21:00)
[2019-05-13] MEDS ORDERED: LOSARTAN POTASSIUM 25 MG TAB PO SCH (09:00)
[2019-05-13] MEDS: HEPARIN SOD 5,000 UNIT/0.5 ML VIAL SQ SCH ×2 (09:03→21:43)
[2019-05-13] MEDS: DOXYCYCLINE HYCLATE 100 MG CAP PO SCH (09:04)
[2019-05-13] MEDS: ATORVASTATIN 10 MG TAB PO SCH (09:04)
[2019-05-13] MEDS: MULTIVITAMIN TAB PO SCH (09:04)
[2019-05-13] MEDS: DOCUSATE SODIUM 100 MG CAP PO SCH ×2 (09:04→21:38)
[2019-05-13] MEDS: INSULIN ASPART 100 UNITS/ML 3 ML PEN SC SCH ×4 (09:05→21:44)
[2019-05-13] MEDS: KETOCONAZOLE 2% CR 15 GM TUBE EXT SCH (09:06)
--- NOTE | 2019-05-13 11:52 | Pharmacy Report ---
Glycemic Control Consultation - Date of Service May 13, 2019 - Scope Scope: Glycemic Pharmacist consulted for glycemic control and to write orders per [facility] ED inpatient glycemic control protocol - Objective Weight: 135.2 kg Accm[place]nnecks BSG (last 24hrs): 05/12/19 05/13/19 05/13/19 16:01 04:25 07:20 Glucose 229 H 67 L POC Glucose 117 H 05/13/19 08:05 Glucose POC Glucose 78 Laboratory Data (last 24hrs): 05/12/19 05/13/19 16:01 07:20 Potassium 4.2 3.8 Carbon Dioxide 34 H 32 Anion Gap 4.0 4.0 Creatinine 1.16 0.99 Est Cr Clr Drug Dosing 63.4 73.8 HbA1c: 8.8% ON 04/14/19 - Recent Pertinent Medications Outpatient Anti-diabetic Regimen: * Lantus 60 units SQ AM + 68 units SQ PM * Humalog per scale Risk Factors for Insulin Resistance: * Infection * Diet - Assessment & Plan Assessment & Plan: ASSESSMENT: * 73yo T2DM female with near adequate outpatient control per recent A1c. Goal A1c likely <7% based on age/co-morbidities. * Pt is maintained on high dose SQ basal bolus insulin regimen as an outpatient. Total daily outpatient dose is >128 units/day * BSGs have been running on the lower side despite significantly reduced outpatient dosing (received 23 units of Lantus last evening but outpatient dose is 68 units). Pt is refusing bolus insulin with NovoLog. Will continue with reduced dosing and titrated based on BSG trends PLAN FOR INPATIENT GLYCEMIC CONTROL: * Basal insulin * Lantus SQ BID - weight based dosing based on BSG since true insulin requirement unknown * BSG below 140mg/dl --> 12 units * BSG 140-180 mg/dl--> 23 units * BSG above 180 mg/dl --> 34 units * Bolus insulin * NovoLog per scale ACHS or Q6hrs while NPO * Goal Range: Low 120 mg/dL - High 150 mg/dL * Correction Factor: 15 mg/dL/unit * Nutritional / Prandial insulin per carb ratio of 1 unit per 6 grams CHO consumed * Please note that the plan above was derived based on current level of insulin resistance and hospital stress. These recommendations are appropriate for inpatient admission only. Plan of care upon discharge will need to be reassessed to avoid potential outpatient hypo/hyperglycemia. Thank you.
--- NOTE | 2019-05-13 12:54 | Hospitalist Progress Note ---
Date of Service May 13, 2019 Assessment & Plan (1) Cellulitis of both lower extremities: Has been an ongoing issue with wound center with concern for her home situation and self-care. - Continue doxycycline for coag(-) Tori on 05/11 wound culture - Infectious disease consult - rehabilitation counselor consulted (2) Venous insufficiency: As the above (3) Diabetes mellitus type 2 in nonobese: A1c was 8.8% in 04/2019. - Continue long-acting and sliding scale - Glycemic pharmacist consulted (4) Hypothyroidism: TSH was 4.2 in 04/2019. No signs/symptoms of hypo-/hyperthyroidism. - Continue home Synthroid 50 mcg (5) HTN (hypertension): BP low-normal in the hospital (100/60). - Continue home losartan (6) HLD (hyperlipidemia): - Continue statin (7) DVT prophylaxis: Heparin 5000 units Q12h Subjective Feeling fairly well today. No major changes from when she was admitted. Review of Systems Review of Systems: All systems reviewed & are unremarkable except as noted in HPI & below Physical Exam Constitutional: WD/WN, vitals as above + obese, + disheveled and comfortable Eyes: EOM intact bilaterally; no conjunctival abnormality ENMT: external ear and nose normal, oropharynx normal Neck: trachea midline, no thyromegaly normal visual inspection Respiratory: normal respiratory effort, lungs clear to auscultation no respiratory distress Cardiovascular: RRR, no murmur, no edema Gastrointestinal (Abdomen): Inspection/Auscultation: abdomen normal to inspection; abdomen not distended Musculoskeletal: no cyanosis or clubbing, extremities motor strength 5/5 Skin: no rashes, warm and dry Neurologic: moves all extremities and awake Psychiatric: Orientation: alert, oriented to person and cooperative Thought Process: + tangential thought process Results & Data Vital Signs (Past 12 Hours) Vital Signs Temp Pulse Resp BP Pulse Ox 05/13/19 12:25 36.6 C 93 H 18 97/62 L 90 05/13/19 11:05 84 16 95 05/13/19 07:36 68 16 92 05/13/19 07:07 36.8 C 86 22 97/62 L 91 05/13/19 05:00 36.5 C 94 H 19 94/57 L 91 PG Care Time/CCT Total # of Minutes Spent Total Time Spent with Patient: Total time spent is greater than 50% in coordination of care (as documented) at patient's floor/unit and/or counseling patient:
--- NOTE | 2019-05-13 15:38 | Ultrasound Report ---
US ankle/brachial index comp CLINICAL HISTORY: Non-healing wounds COMPARISON STUDY: No previous studies for comparison. FINDINGS: The right arm brachial systolic pressure was 123 mmHg. The patient refused to allow a left arm brachial pressure due to an indwelling IV line. The posterior tibial systolic arterial pressures measured 80 mmHg on the right and 80 mmHg on the lef t. The dorsalis pedis systolic arterial pressures measured 87 mmHg on the right and 89 mmHg on the left. IMPRESSION: 1. Mildly diminished bilateral ankle brachial indices of 0.7 Electronically signed by: Guilherme Rodriguez M.D. 05/13/2019 3:36 PM
[2019-05-13] MEDS ORDERED: MICONAZOLE NITRATE POWDER 43 GM EXT PRN (15:50)
[2019-05-14] MEDS: LEVOTHYROXINE SODIUM 50 MCG TABLET PO SCH (06:26)
[2019-05-14] MEDS: ALBUT/IPRATROP 3MG/0.5MG NEB 3 ML VIAL INH SCH (07:12)
[2019-05-14] MEDS ORDERED: SODIUM CHLORIDE 0.9% 1000ML 500 ML IV ONE (08:01)
[2019-05-14] MEDS: MULTIVITAMIN TAB PO SCH (08:18)
[2019-05-14] MEDS: ATORVASTATIN 10 MG TAB PO SCH (08:18)
[2019-05-14] MEDS: DOCUSATE SODIUM 100 MG CAP PO SCH ×2 (08:18→21:34)
[2019-05-14] MEDS: AMMONIUM LACTATE 12% LOTION 225 GM BTL EXT SCH (08:19)
[2019-05-14] MEDS: HEPARIN SOD 5,000 UNIT/0.5 ML VIAL SQ SCH ×2 (08:19→21:50)
[2019-05-14] MEDS: KETOCONAZOLE 2% CR 15 GM TUBE EXT SCH ×2 (08:20→21:35)
[2019-05-14] MEDS: INSULIN ASPART 100 UNITS/ML 3 ML PEN SC SCH ×4 (08:23→21:52)
[2019-05-14] MEDS ORDERED: IOTHALAMATE MEGLUMINE II 17.2% 250 ML VIAL ONE (08:41)
[2019-05-14] MEDS ORDERED: INSULIN GLARGINE SOLOSTAR 100 UNITS/ML 3 ML PEN SQ SCH (09:00)
[2019-05-14 09:17] LABS: Hematocrit (blood only) 33.5 % (37-47); Mean Corpuscular Hemoglobin 29.5 pg (25-34); Mean Corpuscular Hgb Conc 32.8 g/dL (32-36); Mean Corpuscular Volume 89.8 fL (80-100); Mean Platelet Volume 9.6 fL (7.4-10.4); Platelet Count 284 K/uL (130-400); RDW Coefficient of Variation 14.7 % (11.5-14.5); RDW Standard Deviation 48.1 fL (36.4-46.3); Red Blood Count 3.73 M/uL (4.2-5.4); White Blood Count 10.68 K/uL (4.8-10.8)
[2019-05-14] MEDS: DOXYCYCLINE HYCLATE 100 MG in DEXTROSE 5% 100 ML IV SCH ×2 (09:42→21:42)
[2019-05-14 09:50] LABS: BUN Creatinine Ratio 21.1 (10-20); Calcium 8.4 mg/dl (8.5-10.1); Est GFR (African American) 56.8; Potassium 3.8 mmol/L (3.5-5.1)
--- NOTE | 2019-05-14 10:32 | Infectious Disease Consult ---
Date of Consultation May 14, 2019 Assessment & Plan (1) Cellulitis of both lower extremities: continue abx, follow cultures. (2) Lymphedema: History of Present Illness Attending Physician: Azalea Vazquez MD pt admitted from wound center with increasing leg pain, redness and swelling. tearful on my exam today, states pain legs. was rx doxy from wound center but had not started at time of admission. afebrilee. wbc 13 in ER, 10 today. creat 0.9. 9/5 wound culture grew service electrician only, blood cultures negative to date. denies cp, sob, cough, n/v/d. ID consulted for wound . Allergies Allergy/AdvReac Type Severity Reaction Status Date / Time metformin AdvReac Unknown Diarrhea Verified 05/11/19 13:47 Home Medications Home Medications Medication Instructions Recorded Confirmed Type acetaminophen ER 650 mg 650 mg PO Q4H PRN tab 05/04/18 05/12/19 History tablet,extended release losartan 25 mg tablet 25 mg PO DAILY 05/04/18 05/12/19 History atorvastatin 10 mg tablet 10 mg PO DAILY #90 tab 02/21/19 05/12/19 Rx furosemide 20 mg tablet 20 mg PO DAILY PRN #90 tab 03/21/19 05/12/19 Rx levothyroxine 50 mcg capsule 50 mcg PO DAILY #90 cap 04/05/19 05/12/19 Rx docusate sodium 100 mg capsule 100 mg PO BID cap 04/11/19 05/12/19 History doxycycline hyclate 100 mg tablet 100 mg PO bid #28 tab 05/11/19 05/12/19 Rx nystatin 100,000 unit/gram topical 1 appln TOP BID #60 gm 05/11/19 05/12/19 Rx powder ammonium lactate 1 applic TOPICAL BID 05/12/19 05/12/19 History insulin glargine [Lantus Solostar 60 unit SUBCUT QAM 05/12/19 05/12/19 History U-100 Insulin] insulin glargine [Lantus Solostar 68 unit SUBCUT QPM 05/12/19 05/12/19 History U-100 Insulin] insulin lispro 1 sliding scale dose SUBCUT 05/12/19 05/12/19 History USEASDIRECTD ipratropium-albuterol 3 ml INHALATION QID 05/12/19 05/12/19 History ketoconazole 1 applic TOPICAL DAILY 05/12/19 05/12/19 History multivitamin 1 tab PO QAM 05/12/19 05/12/19 History Patient History Medical History Urinary incontinence (Acute) Uncontrolled type 2 diabetes mellitus (Acute) Leukocytosis (Acute) Gastroesophageal reflux disease (Acute) Edema (Acute) Bilateral swelling of feet (Acute) Diabetes mellitus with diabetic polyneuropathy (Acute) Type 2 diabetes mellitus with diabetic peripheral angiopathy without gangrene (Acute) COPD (chronic obstructive pulmonary disease) (Chronic) Chronic GERD (Chronic) Depression (Chronic) Diabetes (Chronic) HLD (hyperlipidemia) (Chronic) HTN (hypertension) (Chronic) Hypothyroidism (Chronic) Major depressive disorder (Chronic) Morbid obesity (Chronic) Osteoarthritis (Chronic) Psoriasis (Chronic) Spinal stenosis (Chronic) Venous stasis dermatitis (Chronic) Cellulitis (Resolved) Cholelithiasis (Resolved) Tonsillectomy planned (Resolved) UTI (urinary tract infection) (Resolved) Surgical History S/P hysterectomy (Acute) Social History Preferred Language: Japanese Communication Ability: Effective Visual Impairment: Limited Hearing Ability: Normal 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 Beliefs That Will Affect Care: None marital status: single Current Living Situation: Alone current occupational status: disabled Other Information That Helps Us Care for You: No Feels Safe at Home: Yes Safety Concerns: Feels Safe At This Time Smoking Status: Current some day smoker Tobacco Type: cigarettes ; Cigarettes Per Day: 1 ; Do You Dip or Chew Tobacco: No ; Second Hand Exposure: No ; Tobacco Cessation Education Requested by Patient: No Hx Alcohol Use: No Hx Substance Use: No Review of Systems Review of Systems: All systems reviewed & are unremarkable except as noted in HPI & below Physical Exam Constitutional: WD/WN, vitals as above Eyes: PERRL, conjunctivae normal, anicteric sclerae ENMT: external ear and nose normal, oropharynx normal Neck: normal visual inspection Respiratory: normal respiratory effort, lungs clear to auscultation Cardiovascular: RRR, no murmur, no edema Gastrointestinal (Abdomen): normal bowel sounds, soft, nontender, no hepatosplenomegaly Musculoskeletal: no cyanosis or clubbing, extremities motor strength 5/5 Skin: no rashes, warm and dry b/l legs with erythema, warmth, tenderness, no drainage. Psychiatric: A+Ox3, euthymic affect Results & Data Vital Signs (Past 12 Hours) Vital Signs Temp Pulse Pulse Resp BP Pulse Ox 05/14/19 10:13 154/70 H 05/14/19 07:51 36.6 C 91 H 20 83/50 L 90 05/14/19 07:12 83 18 93 05/14/19 03:00 36.8 C 65 18 112/64 92 05/13/19 23:03 82 PG Care Time/CCT Total # of Minutes Spent Total Time Spent with Patient: Total time spent is greater than 50% in coordination of care (as documented) at patient's floor/unit and/or counseling patient:
[2019-05-14] MEDS ORDERED: PIPERACILL/TAZOBAC CONSULT ACTIVE PRN (11:07)
--- NOTE | 2019-05-14 11:08 | Hospitalist Progress Note ---
Date of Service May 14, 2019 Assessment & Plan (1) Cellulitis of both lower extremities: Has been an ongoing issue with wound center with concern for her home situation and self-care. - Continue doxycycline for coag(-) Staph on 05/11 wound culture, added Zosyn to cover for gram negatives given that she is a diabetic and cellulitis seems fairly significant - Infectious disease consult appreciated - production painter consulted for venous stasis ulcer (2) Venous insufficiency: As the above (3) Diabetes mellitus type 2 in nonobese: A1c was 8.8% in 04/2019. - Continue long-acting and sliding scale - Glycemic pharmacist consulted and appreciated (4) Hypothyroidism: TSH was 4.2 in 04/2019. No signs/symptoms of hypo-/hyperthyroidism. - Continue home Synthroid 50 mcg once daily (5) HTN (hypertension): BP low here but may have been due to improperly sized cuff, was bolused with 500 cc of normal saline and had improvement - will hold home losartan -Follow blood pressures (6) HLD (hyperlipidemia): - Continue statin (7) Candidiasis: Apply ketoconazole cream and miconazole powder (8) Venous stasis ulcer of left lower leg with edema of left lower leg: As above, wound care consulted On antibiotics Growing coag negative staph (9) Leukocytosis: Now resolved, was present on admission likely secondary to acute cellulitis of the lower extremities with wound No further CBC to be checked as per patient's request (10) DVT prophylaxis: Heparin 5000 units will be increased to every 8 hours given morbid obesity Disposition-remain hospitalized for treatment of cellulitis PT/OT evaluations performed and recommending SNF placement Office of aging and case management are both involved in her care Will likely need placement-plan is for [facility] Subjective Patient reports she got out of bed to the chair today with therapist but was too tired to try to walk. She is not sure if her legs are improved from previous. Blood pressures were low this morning but improved with a normal saline bolus. RN reports that blood pressure cuff that was bariatric was used and it may have been too large, thereby causing falsely low blood pressures Patient denies chest pain or shortness of breath, denies abdominal pain. She is eating. She was refusing blood work this morning but then did have it drawn, however states that it is very painful for her at blood drawn. Telemetry with normal sinus rhythm with rates in the 80s to 90s Review of Systems Review of Systems: All systems reviewed & are unremarkable except as noted in HPI & below (Multiple skin rashes chronically) Physical Exam Constitutional: + morbidly obese; no acute distress Eyes: + anicteric sclerae Neck: trachea midline, no thyromegaly Respiratory: normal respiratory effort, lungs clear to auscultation Cardiovascular: Rate/Rhythm: regular rate and regular rhythm Heart Sounds: no murmur Extremities: + edema (1+ pitting edema of the legs to the knees bilaterally) Gastrointestinal (Abdomen): normal bowel sounds, soft, nontender, no hepatosplenomegaly (Morbidly obese, large pannus with intertrigo and Lupe rash underneath) Inspection/Auscultation: + significant pannus Musculoskeletal: Extremities: no cyanosis and no clubbing Skin: + rash (Multiple areas of satellite lesions and erythematous macular rash underneath large pannus and in the gluteal cleft) and + erythema (Bilateral left greater than right leg erythema with open wound draining on left posterior leg) Neurologic: moves all extremities and awake; no focal motor deficits Psychiatric: A+Ox3, euthymic affect Results & Data Vital Signs (Past 12 Hours) Vital Signs Temp Pulse Resp BP Pulse Ox 05/14/19 10:13 154/70 H 05/14/19 07:51 36.6 C 91 H 20 83/50 L 90 05/14/19 07:12 83 18 93 05/14/19 03:00 36.8 C 65 18 112/64 92 Laboratory Results 05/14/19 05/14/19 05/14/19 Range/Units 16:44 11:48 08:47 WBC (4.8-10.8) K/uL RBC (4.2-5.4) M/uL Hgb (12.0-16.0) g/dL Hct (37-47) % MCV (80-100) fL MCH (25-34) pg MCHC (32-36) g/dL RDW Std Deviation (36.4-46.3) fL RDW Coeff of Nasir (11.5-14.5) % Plt Count (130-400) K/uL MPV (7.4-10.4) fL Sodium 141 (136-145) mmol/L Potassium 3.8 (3.5-5.1) mmol/L Chloride 105 (98-107) mmol/L Carbon Dioxide 32 (21-32) mmol/L Anion Gap 5.0 (3-11) BUN 24 H (7-18) mg/dl Creatinine 1.12 (0.6-1.2) mg/dl Est Cr Clr Drug Dosing 65.0 ml/min Est GFR ( Amer) 56.8 Est GFR (Non-Af Amer) 49.0 BUN/Creatinine Ratio 21.1 H (10-20) Glucose 132 H (70-99) mg/dl POC Glucose 121 H 154 H (70-99) Calcium 8.4 L (8.5-10.1) mg/dl Magnesium 2.0 (1.8-2.4) mg/dl 05/14/19 05/14/19 05/13/19 Range/Units 08:47 07:53 20:19 WBC 10.68 (4.8-10.8) K/uL RBC 3.73 L (4.2-5.4) M/uL Hgb 11.0 L (12.0-16.0) g/dL Hct 33.5 L (37-47) % MCV 89.8 (80-100) fL MCH 29.5 (25-34) pg MCHC 32.8 (32-36) g/dL RDW Std Deviation 48.1 H (36.4-46.3) fL RDW Coeff of Nasir 14.7 H (11.5-14.5) % Plt Count 284 (130-400) K/uL MPV 9.6 (7.4-10.4) fL Sodium (136-145) mmol/L Potassium (3.5-5.1) mmol/L Chloride (98-107) mmol/L Carbon Dioxide (21-32) mmol/L Anion Gap (3-11) BUN (7-18) mg/dl Creatinine (0.6-1.2) mg/dl Est Cr Clr Drug Dosing ml/min Est GFR ( Amer) Est GFR (Non-Af Amer) BUN/Creatinine Ratio (10-20) Glucose (70-99) mg/dl POC Glucose 92 196 H (70-99) Calcium (8.5-10.1) mg/dl Magnesium (1.8-2.4) mg/dl Wound culture with coagulase-negative Staphylococcus Blood cultures-no growth to date PG Care Time/CCT Total # of Minutes Spent Total Time Spent with Patient: Total time spent is greater than 50% in coordination of care (as documented) at patient's floor/unit and/or counseling patient:
[2019-05-14] MEDS ORDERED: PIPERACILLIN/TAZOBACTAM 3.375 GM in DEXTROSE 5% 100 ML IV SCH (11:15)
[2019-05-14] MEDS ORDERED: PIPERACILLIN/TAZOBACTAM 4.5 GM in DEXTROSE 5% 100 ML IV ONE (11:45)
--- NOTE | 2019-05-14 12:20 | Pharmacy Report ---
Pharmacy Glycemic Short Note 2 - Date of Service May 14, 2019 - Glycemic Short BSG Results (Last 24 hours): 05/13/19 05/13/19 05/14/19 17:03 20:19 07:53 Glucose POC Glucose 162 H 196 H 92 05/14/19 05/14/19 08:47 11:48 Glucose 132 H POC Glucose 154 H OUTPATIENT ANTIDIABETIC REGIMEN: * Lantus 60 units SQ AM + 68 units SQ PM * Humalog per scale * A1c = 8.8% on 04/14/19 ASSESSMENT: * 73yo T2DM female with near adequate outpatient control per recent A1c. Goal A1c likely <7% based on age/co-morbidities. Adjustments needed at discharge to achieve adequate control. * Pt is maintained on high dose SQ basal bolus insulin regimen as an outpatient. Total daily outpatient dose is >128 units/day. Outpatient regimen weighted towards basal insulin indicating that it may be covering some prandial needs as well. * Typically, patients do not require outpatient dosing with controlled CHO DM diet in house. * Started with weight based dosing yesterday * Pt has received 88 units of insulin over the past 24hrs with near adequate control * AM fasting BS is slightly below goal range for inpatient targets at 92 mg/dl --> will decrease slightly * Post-prandial BSGs elevated slightly --> will tighten * Estimating total daily dose ~90-100 units/day PLAN FOR INPATIENT GLYCEMIC CONTROL: * Basal insulin: lower dosing * Lantus 25 units SQ BID * Will give a slightly reduced dose of 20 units this morning for lower AM fasting BSG of 92mg/dl and that patient has 34 units on board from last evening * Bolus insulin: tighten CR * NovoLog per scale ACHS or Q6hrs while NPO * Goal Range: Low 120 mg/dL - High 150 mg/dL * Correction Factor: 15 mg/dL/unit * Nutritional / Prandial insulin per carb ratio of 1 unit per 5 grams CHO consumed
[2019-05-14] MEDS: PIPERACILLIN/TAZOBACTAM 4.5 GM in DEXTROSE 5% 100 ML IV SCH (15:51)
[2019-05-14] MEDS: INSULIN GLARGINE SOLOSTAR 100 UNITS/ML 3 ML PEN SQ SCH (21:52)
[2019-05-15] MEDS: PIPERACILLIN/TAZOBACTAM 4.5 GM in DEXTROSE 5% 100 ML IV SCH ×4 (00:04→18:34)
[2019-05-15] MEDS: HEPARIN SOD 5,000 UNIT/0.5 ML VIAL SQ SCH ×3 (05:47→21:19)
[2019-05-15] MEDS: LEVOTHYROXINE SODIUM 50 MCG TABLET PO SCH (05:47)
[2019-05-15] MEDS: INSULIN ASPART 100 UNITS/ML 3 ML PEN SC SCH ×4 (08:29→21:18)
[2019-05-15] MEDS: INSULIN GLARGINE SOLOSTAR 100 UNITS/ML 3 ML PEN SQ SCH ×2 (08:31→21:17)
[2019-05-15] MEDS: KETOCONAZOLE 2% CR 15 GM TUBE EXT SCH ×2 (08:32→21:19)
[2019-05-15] MEDS: MULTIVITAMIN TAB PO SCH (08:32)
[2019-05-15] MEDS: DOCUSATE SODIUM 100 MG CAP PO SCH ×2 (08:33→21:08)
[2019-05-15] MEDS: ATORVASTATIN 10 MG TAB PO SCH (08:33)
[2019-05-15] MEDS: DOXYCYCLINE HYCLATE 100 MG in DEXTROSE 5% 100 ML IV SCH ×2 (08:37→21:08)
--- NOTE | 2019-05-15 14:21 | Pharmacy Report ---
Glycemic Control Progress Note - Date of Service May 15, 2019 - Scope Glycemic Pharmacist consulted for glycemic control to write orders per [facility] inpatient glycemic control protocol. - Objective Accuchecks BSG(last 24 hours):: 05/14/19 05/14/19 05/15/19 16:44 20:11 07:39 POC Glucose 121 H 209 H 108 H - Recent Pertinent Medications The patient is currently receiving: * Basal insulin: Lantus 25 units every 12 hours * Correctional Insulin: Novolog Correction per scale ACHS Goal Range: Low 110 mg/dL - High 140 mg/dL Correction Factor: 15 mg/dL/unit * Prandial insulin: Per carb ratio of 1 unit per 5 grams CHO consumed - Outpatient Anti-Diabetic Meds LANTUS 60 UNITS QAM PLUS 68 UNITS QPM HUMALOG PER SCALE - Assessment & Plan ASSESSMENT: * See progress note from 05/13/19 for more background info, in short: * Pt receiving SQ basal bolus insulin regimen for hyperglycemia secondary to baseline DM (outpatient regimen on hold),stress/infection (PULMONARY ON ZOSYN AND DOXYCYCLINE). * Patient is currently receiving an average of 72 units of insulin per day * 45 units of basal insulin * 27 units of prandial/correctional insulin * BSGs ranging 92 - 209 mg/dl over the past 24hrs * Changes needed to insulin regimen: * AM Fasting BSG = 108 mg/dl. This is in goal range for patient based on inpatient targets and co-morbidities. THE PATIENT'S REGIMEN AT THIS TIME IS EXTREMELY BASAL HEAVY. CONCERNED ABOUT THIS REGIMEN EVEN THOUGH IT CLOSELY MATCHES WHAT SHE DOES AT HOME. WILL SCHEDULE A SCALE FOR THIS EVENING TO HAVE A LOWER DOSE OF LANTUS AVAILABLE. * Post-prandial BSGs are in range therefore no changes needed to CF/CR. ONLY ONE BLOOD SUGAR ABOVE GOAL RANGE AND THIS WAS BEDTIME LAST NIGHT. * Total daily dose = ~60-70 units. PLAN FOR INPATIENT GLYCEMIC CONTROL: * DECREASING Lantus TO 15-25 units SQ BID * LANTUS 15 UNITS IF BLOOD SUGAR LESS THAN 140 MG/DL * LANTUS 20 UNITS IF BLOOD SUGAR 140-180 MG/DL * LANTUS 25 UNITS IF BLOOD SUGAR GREATER THAN 180 MG/Dl * Continuing correction factor OF 15 mg/dl/unit * Continuing carb ratio OF 1 unit per 5 grams CHO consumed * Continuing goal range OF Low 110 mg/dL - High 140 mg/dL * Please note that the plan above was derived based on current level of insulin resistance and hospital stress. These recommendations are appropriate for inpatient admission only. Plan of care upon discharge will need to be reassessed to avoid potential outpatient hypo/hyperglycemia. Thank you.
--- NOTE | 2019-05-15 19:01 | Hospitalist Progress Note ---
Date of Service May 15, 2019 Assessment & Plan (1) Cellulitis of both lower extremities: Has been an ongoing issue with wound center with concern for her home situation and self-care. Significantly improved from previous now that Zosyn was added - Continue doxycycline for coag(-) Staph on 05/11 wound culture, will continue Zosyn to cover for gram negatives given that she is a diabetic and cellulitis seems fairly significant-plan to convert to oral antibiotics with broad-spectrum coverage for skin organisms and gram negatives upon discharge for 10-day course - Infectious disease consult appreciated - dado operator consulted for venous stasis ulcer (2) Venous insufficiency: As above (3) Venous stasis ulcer of left lower leg with edema of left lower leg: As above, wound care consulted On antibiotics Growing coag negative staph ABIs performed and are mildly diminished at 0.7 although she did not allow the brachial blood pressure to be done on the left upper extremity (4) Diabetes mellitus type 2 in nonobese: A1c was 8.8% in 04/2019. - Continue long-acting and sliding scale - Glycemic pharmacist consulted and appreciated (5) Hypothyroidism: TSH was 4.2 in 04/2019. No signs/symptoms of hypo-/hyperthyroidism. - Continue home Synthroid 50 mcg once daily (6) HTN (hypertension): BP was low here but may have been due to improperly sized cuff, was bolused with 500 cc of normal saline and had improvement -Continue to hold home losartan -Follow blood pressures (7) HLD (hyperlipidemia): - Continue statin (8) Candidiasis: Apply ketoconazole cream and miconazole powder (9) Leukocytosis: Now resolved, was present on admission likely secondary to acute cellulitis of the lower extremities with wound No further CBC to be checked as per patient's request (10) DVT prophylaxis: Heparin 5000 units q. 8 hours Disposition-remain hospitalized for treatment of cellulitis-much improved, could likely be discharged to SNF tomorrow PT/OT evaluations performed and recommending SNF placement Office of aging and case management are both involved in her care Discharge plan is for [facility] Subjective Patient has no complaints, is wondering when she is getting out of the hospital and going to [facility]. Leg pain and swelling and redness is improved. Discussed the case with wound care nurse Tubigrip was placed to the leg Telemetry with normal sinus rhythm in the 80s Review of Systems Review of Systems: All systems reviewed & are unremarkable except as noted in HPI & below Physical Exam Constitutional: + morbidly obese; no acute distress Eyes: + anicteric sclerae Neck: trachea midline, no thyromegaly Respiratory: normal respiratory effort, lungs clear to auscultation Cardiovascular: Rate/Rhythm: regular rate and regular rhythm Heart Sounds: no murmur Extremities: + edema (1+ pitting edema of the legs to the knees bilaterally) Gastrointestinal (Abdomen): normal bowel sounds, soft, nontender, no hepatosplenomegaly (Morbidly obese, large pannus with intertrigo and Lupe rash underneath) Inspection/Auscultation: + significant pannus Musculoskeletal: Extremities: no cyanosis and no clubbing Skin: + rash (Multiple areas of satellite lesions and erythematous macular rash underneath large pannus and in the gluteal cleft) and + erythema (Bilateral left greater than right leg erythema with open wound draining on left posterior leg-erythema significantly improved from previous) Neurologic: moves all extremities and awake; no focal motor deficits Psychiatric: A+Ox3, euthymic affect Results & Data Vital Signs (Past 12 Hours) Vital Signs Temp Pulse Resp BP Pulse Ox 05/15/19 11:14 36.7 C 82 16 145/77 H 92 05/15/19 07:26 36.7 C 89 20 107/49 L 90 Laboratory Results Blood cultures-no growth to date Otherwise no new labs PG Care Time/CCT Total # of Minutes Spent Total Time Spent with Patient: Total time spent is greater than 50% in coordination of care (as documented) at patient's floor/unit and/or counseling patient:
[2019-05-16] MEDS: PIPERACILLIN/TAZOBACTAM 4.5 GM in DEXTROSE 5% 100 ML IV SCH ×2 (00:52→08:35)
[2019-05-16] MEDS: HEPARIN SOD 5,000 UNIT/0.5 ML VIAL SQ SCH ×2 (05:44→13:14)
[2019-05-16] MEDS: LEVOTHYROXINE SODIUM 50 MCG TABLET PO SCH (05:45)
[2019-05-16] MEDS: DOCUSATE SODIUM 100 MG CAP PO SCH (08:34)
[2019-05-16] MEDS: ATORVASTATIN 10 MG TAB PO SCH (08:34)
[2019-05-16] MEDS: MULTIVITAMIN TAB PO SCH (08:35)
[2019-05-16] MEDS: KETOCONAZOLE 2% CR 15 GM TUBE EXT SCH (08:36)
[2019-05-16] MEDS: INSULIN GLARGINE SOLOSTAR 100 UNITS/ML 3 ML PEN SQ SCH (08:37)
[2019-05-16] MEDS: INSULIN ASPART 100 UNITS/ML 3 ML PEN SC SCH ×2 (08:39→12:15)
[2019-05-16] MEDS: DOXYCYCLINE HYCLATE 100 MG in DEXTROSE 5% 100 ML IV SCH (09:33)
[2019-05-16] MEDS ORDERED: DOXYCYCLINE HYCLATE 100 MG CAP PO SCH (10:00)
--- NOTE | 2019-05-16 14:33 | Infectious Disease Progress Nt ---
Date of Service May 16, 2019 Assessment & Plan (1) Cellulitis of both lower extremities: continue abx, follow cultures, negative to date. agree with snf placement upon d/c. could d/c on po doxy and levaquin x 21 days. will continue with wound center followup. (2) Lymphedema: Subjective blood cultures remain negative, tolerating abx, doxy and zosyn. for snf placement when stable. afebrile Results & Data Vital Signs (Past 12 Hours) Vital Signs Temp Pulse Resp BP Pulse Ox 05/16/19 07:51 36.7 C 88 20 129/66 93 05/16/19 04:23 36.5 C 91 H 18 122/60 97 Laboratory Results Microbiology 05/12/19 16:13 Blood Aerobic Blood Culture - Preliminary No growth in Aerobic bottle after 48 hours. 05/12/19 16:13 Blood Anaerobic Blood Culture - Preliminary No growth in Anaerobic bottle after 48 hours. 05/12/19 16:01 Blood Aerobic Blood Culture - Preliminary No growth in Aerobic bottle after 48 hours. 05/12/19 16:01 Blood Anaerobic Blood Culture - Preliminary No growth in Anaerobic bottle after 48 hours. PG Care Time/CCT Total # of Minutes Spent Total Time Spent with Patient: Total time spent is greater than 50% in coordination of care (as documented) at patient's floor/unit and/or counseling patient:
--- NOTE | 2019-05-16 15:17 | Discharge Summary ---
Date of Service May 16, 2019 Admission HPI Per Admitting Provider Patient is a 83 years old female with past medical history of hypertension, hyperlipidemia, major depressive disorder, hypothyroidism,, deep Raynaud's insufficiency uncontrolled diabetes type 2, lymphedema, candidiasis presents to the emergency room via ambulance with complaint of lower extremity wounds and swelling. Patient has history of the nose stasis insufficiency with ulceration chronically. Patient also has a problem with her living conditions. She was evaluated yesterday at the wound care center for the left lower extremity wounds which are addressed and she was sent with prescription for doxycycline and powder mixed with nystatin to the pharmacy but patient was unable to pick it up. In fact patient was not taking any antibiotic. Office of aging is involved and they are concerned about patient and recommended potential placement at [facility]. Patient denies fever chills chest pain shortness of breath abdominal pain frequency urgency hematemesis dysuria melena hemoptysis. Under review of her wound culture she grew Staphylococcus species. Labs are reviewed and shows white blood cell count of 13.58 hemoglobin hemoglobin 12.2 hematocrit 38.3, platelets 311. PT 9.4, INR 0.9. Sodium 141 potassium 4.2, chloride 103, anion gap 4, BUN 24, creatinine 1.16, GFR 47 hemoglobin A1c. Vision was made to admit patient to [facility] for wound care and further thank you evaluation and treatment. Principal Diagnosis Lower extremity wound and cellulitis Discharge Exam Constitutional + morbidly obese; no acute distress Eyes + anicteric sclerae Neck trachea midline, no thyromegaly Respiratory normal respiratory effort, lungs clear to auscultation Cardiovascular Rate/Rhythm: regular rate and regular rhythm Heart Sounds: no murmur Extremities: + edema (1+ pitting edema of the legs to the knees bilaterally) Gastrointestinal (Abdomen) normal bowel sounds, soft, nontender, no hepatosplenomegaly (Morbidly obese, large pannus with intertrigo and Lupe rash underneath) Inspection/Auscultation: + significant pannus Musculoskeletal Extremities: no cyanosis and no clubbing Skin + rash (Multiple areas of satellite lesions and erythematous macular rash underneath large pannus and in the gluteal cleft) and + erythema (Bilateral left greater than right leg erythema with open wound draining on left posterior leg- erythema significantly improved from previous) Neurologic moves all extremities and awake; no focal motor deficits Psychiatric A+Ox3, euthymic affect Discharge Data Allergies Allergy/AdvReac Type Severity Reaction Status Date / Time metformin AdvReac Unknown Diarrhea Verified 05/11/19 13:47 Consultations 05/12/19 17:07 ED Decision to Admit Stat 05/12/19 21:24 Consult Case Management - Discharge Planning Routine 05/13/19 13:07 Consult Infectious Diseases Routine 05/13/19 13:08 Consult Case Management - Discharge Planning Routine Ordered Studies 05/13/19 13:45 US ankle/brachial index comp Routine Hospital Course (1) Cellulitis of both lower extremities: Has been an ongoing issue with wound center with concern for her home situation and self-care. Significantly improved from previous after tx with Zosyn and doxy - plan to convert to oral antibiotics with broad-spectrum coverage for skin organisms and gram negatives upon discharge for 10-day course - Infectious disease consult appreciated - valance cutter consulted for venous stasis ulcer-f/u at Wound Center after dc (2) Venous insufficiency: As above (3) Venous stasis ulcer of left lower leg with edema of left lower leg: As above, wound care consulted On antibiotics Growing coag negative staph ABIs performed and are mildly diminished at 0.7 although she did not allow the brachial blood pressure to be done on the left upper extremity (4) Diabetes mellitus type 2 in nonobese: A1c was 8.8% in 04/2019. - Continue long-acting and sliding scale - Glycemic pharmacist consulted and appreciated (5) Hypothyroidism: TSH was 4.2 in 04/2019. No signs/symptoms of hypo-/hyperthyroidism. - Continue home Synthroid 50 mcg once daily (6) HTN (hypertension): BP was low here but may have been due to improperly sized cuff, was bolused with 500 cc of normal saline and had improvement -held home losartan -Follow blood pressures (7) HLD (hyperlipidemia): - Continue statin (8) Candidiasis: Apply ketoconazole cream and miconazole powder (9) Leukocytosis: Now resolved, was present on admission likely secondary to acute cellulitis of the lower extremities with wound No further CBC to be checked as per patient's request (10) DVT prophylaxis: Heparin 5000 units q. 8 hours was provided Disposition-stable for dc PT/OT evaluations performed and recommending SNF placement Office of aging and case management are both involved in her care Discharge plan is for [facility] Total Time Total Time Spent Total Time Spent (In Minutes): >30 min Total Time Includes: Examination of the Patient, Discharge Planning and Medication Reconciliation Discharge Plan Discharge Items Patient Disposition: [facility] Reason For Visit: LOWER EXTREMITY CELLULITIS Condition on Discharge: Good Activity: As commented below Lifting: Gradually increase as tolerated Bathing: No limitations Exercise/Sports: Gradually increase as tolerated Weightbearing: Full weightbearing Non-emergency contact: Primary Care Provider Follow-up/Referrals: Eula Chow MD [Primary Care Provider] - [facility], [Non-Staff] - [facility] Animal Assistant Provider Instructions: Please change dressing on wound of left leg and foot daily, with Tubigrip or prn saturation. Continue Levaquin and doxycycline oral antibiotics x 15 more days. She should follow up with Wound Care center in 1 week. I would also suggest she see a Tube Pusher for improved foot care. Pending Studies at Discharge: No Stand-Alone Forms: My [facility] Skilled Items Patient informed of condition?: Yes DNR: No Discharge Level of Care: Skilled Communicable Disease: No Discharge Prognosis: Improving Medications and DC Order Prescriptions: New Desenex 2 % Powder 1 applic EXT PRN Qty: 43 RF: 0 Continued acetaminophen 650 mg tablet extended release 650 mg PO Q4H PRN (Reason: Pain) RF: 0 atorvastatin [Lipitor] 10 mg tablet 10 mg PO DAILY Qty: 90 RF: 0 furosemide [Lasix] 20 mg tablet 20 mg PO DAILY PRN (Reason: edema) Qty: 90 RF: 0 levothyroxine 50 mcg capsule 50 mcg PO DAILY Qty: 90 RF: 0 docusate sodium 100 mg capsule 100 mg PO BID RF: 0 multivitamin Tablet 1 tab PO QAM RF: 0 ipratropium-albuterol 0.5 mg-3 mg(2.5 mg base)/3 mL Solution For Nebulization 3 ml INHALATION QID RF: 0 insulin lispro 100 unit/mL Solution 1 sliding scale dose SUBCUT USEASDIRECTD RF: 0 Changed ketoconazole 2 % Cream 1 applic TOPICAL BID Qty: 0 RF: 0 Lantus Solostar U-100 Insulin 100 unit/mL (3 mL) insulin pen 60 unit subcut BID Qty: 0 RF: 0 Discontinued doxycycline hyclate 100 mg tablet 100 mg PO bid Qty: 28 RF: 0 nystatin 100,000 unit/gram powder 1 appln TOP BID Qty: 60 RF: 1 ammonium lactate 12 % Cream 1 applic TOPICAL BID RF: 0 Lantus Solostar U-100 Insulin 100 unit/mL (3 mL) insulin pen 68 unit subcut QPM RF: 0 No Action losartan 25 mg tablet 25 mg PO DAILY Qty: 90 RF: 1 Discharge Orders: Discharge Order (Routine); Ordered 05/16/19 Ordered By: Azalea Vazquez Admission Data Admit Date/Time: 05/12/19 18:56 Attending Provider: Azalea Vazquez Admit Provider: Myra Rome Primary Care Provider: Eula Chow Other Providers: Heidi Clifford Other Interventions: Discharge Summary Assessment (RN) Last Done: 05/16/19 15:42 DC Date/Time DO NOT enter until pt leaves facility: 05/16/19 16:39
== END 2019-05-16 16:39 | DRG 603 ==
LOC: ED 15:04 → SUATTDRO 18:56 → 2N 18:56

== ENCOUNTER 2022-02-06 18:09 | Inpatient (IN) ==
[2022-02-06] MEDS ORDERED: SODIUM CHLORIDE 0.9% 500 ML IV STA (18:27)
[2022-02-06] MEDS ORDERED: PIPERACILLIN/TAZOBACTAM 4.5 GM/120 ML BAG IV ONE (18:32)
--- NOTE | 2022-02-06 18:38 | Emergency Department Note ---
Impression & Plan Acute UTI, Atrial fibrillation with rapid ventricular response, Non-ST elevation MT (NSTEMI), Confusion ED Provider Note Provider: Gonzalo Harrell MD DATE OF SERVICE: 02/06/2022 CHIEF COMPLAINT: Low blood sugar, confusion, UTI HISTORY OF PRESENT ILLNESS: Patient is a 76-year-old female past medical history including type 2 diabetes on insulin hypertension, hypothyroidism, and chronic respiratory failure on 2 L of oxygen presenting via ambulance from her facility today. According to EMS the patient evidently had a low blood sugar at 39 and was more confused and EMS was called. She evidently has been having urinary symptoms according to them for about 2 weeks but finally had a urine sample sent yesterday. No antibiotics by the report have been given. EMS gave the patient 25 g of dextrose via IV and blood sugar improved. Upon arrival here patient has a bit of slurred speech is a bit difficult to understand but answers some questions. On initial presentation she is denying any significant pain. She denies that she has urinary symptoms. She states she has been eating she thi nks. Attempted to contact the patient facility via phone for additional history REVIEW OF SYSTEMS: A total of 10 review of systems was obtained and negative except as stated above in the HPI. PAST MEDICAL HISTORY: As noted above MEDICATIONS: Reviewed medication list from the facility SOCIAL HISTORY: Resides in nursing facility PHYSICAL EXAM: GENERAL: Drowsy but alert to verbal stimuli in no acute distress on stretcher, little bit hazy regarding recent events Head: normocephalic and atraumatic EYES: No injection, discharge or icterus. PERRL NECK: Trachea midline. Supple. ENT: Mucous membranes pink and moist. LUNGS: Airway patent. No retractions. Breath sounds with diminished bases HEART: Irregularly irregular rate and rhythm. No chest wall tenderness ABDOMEN: Soft and non-tender, without guarding or rebound. SKIN: Acyanotic, warm, dry, without rashes EXTREMITIES: Without swelling, tenderness or deformity NEUROLOGICAL: No focal deficits. No aphasia. No facial droop some mild slurred speech. EK beats per atrial fibrillation rapid ventricular response. No acute ST segment elevation noted. QTc 394. Normal axis. CONTINUOUS CARDIAC MONITORING: was ordered and showed a heart rate of bpm in Patient's laboratory studies and imaging reviewed. Differential includes Infection, dehydration, metabolic abnormality, hypo/hyperglycemia, electrolyte disturbance, anemia, hypoxia, cardiac sources, intracerebral event, toxicologic, neurologic, as well as other pathologies. IMPRESSION/MEDICAL DECISION MAKING: Reviewed urine culture obtained from a cath urine yesterday showing gram- negative bacteria. Previous microbiology reviewed. A dose of Zosyn was ordered. Cultures and basic blood work sent. Repeat blood sugar here was in the 130s. CT head be completed given the patient slurred speech is unsure of her baseline. Attempted initially to contact patient facility but was no answer at the phone on several calls initially. Patient without evidence of obvious trauma. Does have a history of respiratory issues and given some fatigue here and mild confusion VBG was sent. EKG appears to show the patient in atrial fibrillation and do not see a reported history of this in the past. High since he troponin turns elevated and previous troponins in the past have not been elevated. Discussing that the patient best to [facility] she is denying chest pain. Do not see STEMI on the EKG. VBG without significant acidosis although some hypercarbia appears compensated. Patient denies chest pain reassessment was a bit more clear. Given her new onset atrial fibrillation with troponin elevation discussed with her and instituting blood thinning. We will start a heparin drip and given some diltiazem for rate control. Will discuss with the hospitalist for further care here. Again I called her facility several times without anyone answering the phone for additional history. While being evaluated in the hospitalist here later the patient did have some wo rsening confusion and repeat VBG showed worsened acidosis/hypercarbia and she was placed on BiPAP. Diltiazem drip was held with some transient hypotension. DIAGNOSIS: Acute UTI, NSTEMI, A. fib RVR new onset, confusion DISPOSITION: Hospitalist will evaluate Patient was agreeable with this plan. Critical Care I have personally spent 42 minutes of critical care time in the direct management of this patient. This includes bedside care, interpretation of diagnostic studies, and testing, discussion with consultants, patient, and other required patient management activities. These 42 minutes is in excess of all separately billable procedures. Past Med/Surg History Medical History (Updated 02/06/22 @ 19:55 by Gonzalo Harrell M.D.) Bilateral swelling of feet Cellulitis Cholelithiasis Chronic GERD COPD (chronic obstructive pulmonary disease) Depression Diabetes Diabetes mellitus with diabetic polyneuropathy Edema Gastroesophageal reflux disease HLD (hyperlipidemia) HTN (hypertension) Hypothyroidism Left breast abscess Major depressive disorder Morbid obesity Osteoarthritis Psoriasis Spinal stenosis Tonsillectomy planned Type 2 diabetes mellitus with diabetic peripheral angiopathy without gangrene Uncontrolled type 2 diabetes mellitus Urinary incontinence UTI (urinary tract infection) Venous stasis dermatitis Surgical History (System 09/23/21 @ 11:43 by Ines Mckee) S/P hysterectomy Status post incision and drainage (03/01/20) I and D left breast 03/01/20 Dr. Mireles in office Social History (System 09/23/21 @ 11:43 by Ines Mckee) Smoking Status: Former smoker Tobacco Type: Cigarettes Cigarettes Per Day: 1; Second Hand Exposure: No; Hx Alcohol Use: No Hx Substance Use: No Preferred Language: [place] Communication Ability: Effective Visual Impairment: Limited Hearing Ability: Normal Dustless Operator Required: No Beliefs That Will Affect Care: None marital status: single Current Living Situation: Alone current occupational status: disabled Feels Safe at Home: Yes Assistive Devices: Wheelchair Allergies Allergies Allergy/AdvReac Type Severity Reaction Status Date / Time metformin AdvReac Unknown Diarrhea Verified 02/06/22 20:04 Home Meds Home Medications Medication Instructions Recorded Confirmed acetaminophen 650 mg 650 mg PO Q6H PRN tab 05/04/18 02/06/22 tablet,extended release docusate sodium 100 mg capsule 100 mg PO BID cap 04/11/19 02/06/22 multivitamin 1 tab PO QAM 05/12/19 02/06/22 cholecalciferol (vitamin D3) 125 125 mcg PO DAILY 03/01/20 02/06/22 mcg (5,000 unit) capsule emollient combination no.114 1 applic TOPICAL BID 02/06/22 02/06/22 (Eucerin Advanced Repair) furosemide 40 mg tablet 40 mg PO DAILY 02/06/22 02/06/22 hydrochlorothiazide 12.5 mg tablet 12.5 mg PO DAILY 02/06/22 02/06/22 insulin glargine 100 unit/mL (3 40 unit SUBCUT BID 02/06/22 02/06/22 mL) subcutaneous pen (Lantus Solostar U-100 Insulin) liraglutide 0.6 mg/0.1 mL (18 mg/3 1.8 mg SUBCUT DAILY 02/06/22 02/06/22 mL) subcutaneous pen injector (Appcoretoza 3-Ashok) loratadine 10 mg tablet 10 mg PO DAILY 02/06/22 02/06/22 potassium chloride 10 mEq 10 meq PO DAILY 02/06/22 02/06/22 tablet,extended release(part/cryst) sennosides 8.6 mg tablet (senna) 8.6 mg PO DAILY 02/06/22 02/06/22 Previous Rx's Medication Instructions Recorded atorvastatin 10 mg tablet (Lipitor) 10 mg PO DAILY #90 tab 02/21/19 levothyroxine 50 mcg capsule 50 mcg PO DAILY #90 cap 04/05/19 losartan 25 mg tablet 25 mg PO DAILY #90 tab 05/19/19 Results & Data (ED) Vital Signs Vital Signs - 24 hr 02/06/22 18:44 02/06/22 19:52 02/06/22 19:57 Temperature 37 C Temperature Source Oral Pulse Rate 76 120 H Pulse Rate [Right Finger] 110 H Pulse Rate from SpO2 Sensor 118 H Pulse Rhythm [Right Finger] Regular Pulse Strength [Right Finger] Normal Respiratory Rate 18 18 24 Respiratory Effort / Characteristics Non-Labored Respiratory Depth Shallow Normal Respiratory Pattern Regular Blood Pressure 121/73 Blood Pressure [Right Arm] 131/68 Blood Pressure Mean 89 Blood Pressure Mean [Right Arm] 89 Pulse Oximetry 100 96 93 Oxygen Delivery Method Nasal Cannula Nasal Cannula Oxygen Flow Rate 2 3 Sepsis Recent Fever Within 48 Hours No Sepsis New/Unexplained Change in Mental Status Yes Sepsis Action Taken by Nursing No Action Required 02/06/22 20:00 02/06/22 20:02 02/06/22 20:05 Temperature Temperature Source Pulse Rate 121 H 121 H 117 H Pulse Rate [Right Finger] Pulse Rate from SpO2 Sensor 113 H 122 H 112 H Pulse Rhythm [Right Finger] Pulse Strength [Right Finger] Respiratory Rate 24 23 35 H Respiratory Effort / Characteristics Respiratory Depth Respiratory Pattern Blood Pressure 114/91 Blood Pressure [Right Arm] Blood Pressure Mean 98 Blood Pressure Mean [Right Arm] Pulse Oximetry 95 97 98 Oxygen Delivery Method Oxygen Flow Rate Sepsis Recent Fever Within 48 Hours Sepsis New/Unexplained Change in Mental Status Sepsis Action Taken by Nursing 02/06/22 20:10 02/06/22 20:14 02/06/22 20:15 Temperature Temperature Source Pulse Rate 116 H 88 86 Pulse Rate [Right Finger] Pulse Rate from SpO2 Sensor 114 H 90 87 Pulse Rhythm [Right Finger] Pulse Strength [Right Finger] Respiratory Rate 26 H 22 25 H Respiratory Effort / Characteristics Respiratory Depth Respiratory Pattern Blood Pressure 108/76 115/69 Blood Pressure [Right Arm] Blood Pressure Mean 86 84 Blood Pressure Mean [Right Arm] Pulse Oximetry 97 98 98 Oxygen Delivery Method Oxygen Flow Rate Sepsis Recent Fever Within 48 Hours Sepsis New/Unexplained Change in Mental Status Sepsis Action Taken by Nursing 02/06/22 20:20 02/06/22 20:21 02/06/22 20:24 Temperature Temperature Source Pulse Rate 126 H 132 H 99 H Pulse Rate [Right Finger] Pulse Rate from SpO2 Sensor 88 87 87 Pulse Rhythm [Right Finger] Pulse Strength [Right Finger] Respiratory Rate 33 H 26 H 24 Respiratory Effort / Characteristics Respiratory Depth Respiratory Pattern Blood Pressure 148/101 H Blood Pressure [Right Arm] Blood Pressure Mean 116 Blood Pressure Mean [Right Arm] Pulse Oximetry 96 92 91 Oxygen Delivery Method Oxygen Flow Rate Sepsis Recent Fever Within 48 Hours Sepsis New/Unexplained Change in Mental Status Sepsis Action Taken by Nursing 02/06/22 20:25 02/06/22 20:29 02/06/22 20:30 Temperature Temperature Source Pulse Rate 96 H 96 H 100 H Pulse Rate [Right Finger] Pulse Rate from SpO2 Sensor 87 82 89 Pulse Rhythm [Right Finger] Pulse Strength [Right Finger] Respiratory Rate 26 H 25 H 14 Respiratory Effort / Characteristics Respiratory Depth Respiratory Pattern Blood Pressure 96/70 L Blood Pressure [Right Arm] Blood Pressure Mean 78 Blood Pressure Mean [Right Arm] Pulse Oximetry 94 80 L 97 Oxygen Delivery Method Oxygen Flow Rate Sepsis Recent Fever Within 48 Hours Sepsis New/Unexplained Change in Mental Status Sepsis Action Taken by Nursing 02/06/22 20:35 02/06/22 20:40 02/06/22 20:45 Temperature Temperature Source Pulse Rate 95 H 94 H 98 H Pulse Rate [Right Finger] Pulse Rate from SpO2 Sensor 93 H 96 H 108 H Pulse Rhythm [Right Finger] Pulse Strength [Right Finger] Respiratory Rate 25 H 34 H 30 H Respiratory Effort / Characteristics Respiratory Depth Respiratory Pattern Blood Pressure Blood Pressure [Right Arm] Blood Pressure Mean Blood Pressure Mean [Right Arm] Pulse Oximetry 95 90 93 Oxygen Delivery Method Oxygen Flow Rate Sepsis Recent Fever Within 48 Hours Sepsis New/Unexplained Change in Mental Status Sepsis Action Taken by Nursing 02/06/22 20:46 02/06/22 20:50 02/06/22 20:51 Temperature Temperature Source Pulse Rate 108 H 96 H 96 H Pulse Rate [Right Finger] Pulse Rate from SpO2 Sensor 101 H 96 H 90 Pulse Rhythm [Right Finger] Pulse Strength [Right Finger] Respiratory Rate 28 H 40 H 25 H Respiratory Effort / Characteristics Respiratory Depth Respiratory Pattern Blood Pressure 82/64 L 86/56 L Blood Pressure [Right Arm] Blood Pressure Mean 70 66 Blood Pressure Mean [Right Arm] Pulse Oximetry 94 93 97 Oxygen Delivery Method Oxygen Flow Rate Sepsis Recent Fever Within 48 Hours Sepsis New/Unexplained Change in Mental Status Sepsis Action Taken by Nursing 02/06/22 20:55 02/06/22 21:00 02/06/22 21:02 Temperature Temperature Source Pulse Rate 105 H 102 H 97 H Pulse Rate [Right Finger] Pulse Rate from SpO2 Sensor 100 H 113 H 103 H Pulse Rhythm [Right Finger] Pulse Strength [Right Finger] Respiratory Rate 26 H 21 21 Respiratory Effort / Characteristics Respiratory Depth Respiratory Pattern Blood Pressure 99/71 L 94/71 L Blood Pressure [Right Arm] Blood Pressure Mean 80 78 Blood Pressure Mean [Right Arm] Pulse Oximetry 98 88 L 88 L Oxygen Delivery Method Oxygen Flow Rate Sepsis Recent Fever Within 48 Hours Sepsis New/Unexplained Change in Mental Status Sepsis Action Taken by Nursing 02/06/22 21:05 02/06/22 21:10 02/06/22 21:11 Temperature Temperature Source Pulse Rate 95 H 98 H Pulse Rate [Right Finger] Pulse Rate from SpO2 Sensor 104 H 101 H 101 H Pulse Rhythm [Right Finger] Pulse Strength [Right Finger] Respiratory Rate 24 26 H Respiratory Effort / Characteristics Spontaneous Labored SOB on Exertion Respiratory Depth Normal Respiratory Pattern Tachypnea Blood Pressure 129/72 Blood Pressure [Right Arm] Blood Pressure Mean 91 Blood Pressure Mean [Right Arm] Pulse Oximetry 99 95 Oxygen Delivery Method Oxygen Flow Rate 60 Sepsis Recent Fever Within 48 Hours Sepsis New/Unexplained Change in Mental Status Sepsis Action Taken by Nursing 02/06/22 21:15 02/06/22 21:20 Temperature Temperature Source Pulse Rate Pulse Rate [Right Finger] Pulse Rate from SpO2 Sensor 104 H 85 Pulse Rhythm [Right Finger] Pulse Strength [Right Finger] Respiratory Rate Respiratory Effort / Characteristics Respiratory Depth Respiratory Pattern Blood Pressure Blood Pressure [Right Arm] Blood Pressure Mean Blood Pressure Mean [Right Arm] Pulse Oximetry 88 L 100 Oxygen Delivery Method Oxygen Flow Rate Sepsis Recent Fever Within 48 Hours Sepsis New/Unexplained Change in Mental Status Sepsis Action Taken by Nursing Laboratory Data Result diagrams: 02/06/22 18:25 02/06/22 19:06 Lab Results 02/06/22 02/06/22 02/06/22 Range/Units 18:25 18:25 18:25 WBC 7.67 (4.8-10.8) K/uL RBC 3.84 L (4.2-5.4) M/uL Hgb 11.7 L (12.0-16.0) g/dL Hct 38.4 (37-47) % MCV 100.0 (80-100) fL MCH 30.5 (25-34) pg MCHC 30.5 L (32-36) g/dL RDW Std Deviation 50.9 H (36.4-46.3) fL RDW Coeff of Nasir 14.4 (11.5-14.5) % Plt Count 312 (130-400) K/uL MPV 10.6 H (7.4-10.4) fL Immature Gran % (Auto) 0.4 % Neut % (Auto) 74.1 % Lymph % (Auto) 13.4 % [place] % (Auto) 11.2 % Eos % (Auto) 0.5 % Baso % (Auto) 0.4 % Neut # (Auto) 5.68 (1.4-6.5) K/uL Lymph # (Auto) 1.03 L (1.2-3.4) K/uL [place] # (Auto) 0.86 H (0.11-0.59) K/uL Eos # (Auto) 0.04 (0-0.5) K/uL Baso # (Auto) 0.03 (0-0.2) K/uL Immature Gran # (Auto) 0.03 H (0.00-0.02) K/uL PT (9.0-12.0) Seconds INR (0.9-1.1) APTT (21.0-31.0) Seconds PTT Ratio VBG pH (7.36-7.41) VBG pCO2 (38-50) mmHg VBG pO2 mmHg VBG HCO3 mmol/L VBG O2 Saturation % VBG Base Excess mEq/L Barometric Pressure mm/Hg Sodium TNP Potassium TNP Chloride 87 L (98-107) mmol/L Carbon Dioxide > 45 H* (21-32) mmol/L Anion Gap TNP BUN 48 H (6-23) mg/dl Creatinine 1.27 H (0.6-1.2) mg/dl Est Cr Clr Drug Dosing 49.9 ml/min Est GFR ( Amer) 47.8 ml/min Est GFR (Non-Af Amer) 41.2 ml/min BUN/Creatinine Ratio 37.8 H (10-20) Glucose 153 H (70-99(Fasting)) mg/dl POC Glucose (70-99) mg/dl Lactate 0.6 (0.4-2.0) mmol/L Calcium 9.9 (8.5-10.1) mg/dl Phosphorus (2.5-4.9) mg/dl Magnesium (1.7-2.4) mg/dl Total Bilirubin 1.0 (0.2-1.0) mg/dl AST (13-39) U/L ALT 12 (7-52) U/L Alkaline Phosphatase (34-104) U/L Troponin I High Sens 1808.9 H* (0-14) pg/ml Total Protein 6.5 (6.0-8.3) gm/dl Albumin (3.4-5.0) gm/dl Globulin TNP Albumin/Globulin Ratio TNP Procalcitonin TSH (0.300-4.500) uIu/ml Free T4 (0.61-1.60) ng/dl SARS-CoV-2, RNA, NAAT (NEGATIVE) 02/06/22 02/06/22 02/06/22 Range/Units 18:25 18:25 18:25 WBC (4.8-10.8) K/uL RBC (4.2-5.4) M/uL Hgb (12.0-16.0) g/dL Hct (37-47) % MCV (80-100) fL MCH (25-34) pg MCHC (32-36) g/dL RDW Std Deviation (36.4-46.3) fL RDW Coeff of Nasir (11.5-14.5) % Plt Count (130-400) K/uL MPV (7.4-10.4) fL Immature Gran % (Auto) % Neut % (Auto) % Lymph % (Auto) % [place] % (Auto) % Eos % (Auto) % Baso % (Auto) % Neut # (Auto) (1.4-6.5) K/uL Lymph # (Auto) (1.2-3.4) K/uL [place] # (Auto) (0.11-0.59) K/uL Eos # (Auto) (0-0.5) K/uL Baso # (Auto) (0-0.2) K/uL Immature Gran # (Auto) (0.00-0.02) K/uL PT (9.0-12.0) Seconds INR (0.9-1.1) APTT (21.0-31.0) Seconds PTT Ratio VBG pH (7.36-7.41) VBG pCO2 (38-50) mmHg VBG pO2 mmHg VBG HCO3 mmol/L VBG O2 Saturation % VBG Base Excess mEq/L Barometric Pressure mm/Hg Sodium Potassium Chloride (98-107) mmol/L Carbon Dioxide (21-32) mmol/L Anion Gap BUN (6-23) mg/dl Creatinine (0.6-1.2) mg/dl Est Cr Clr Drug Dosing ml/min Est GFR ( Amer) ml/min Est GFR (Non-Af Amer) ml/min BUN/Creatinine Ratio (10-20) Glucose (70-99(Fasting)) mg/dl POC Glucose 133 H (70-99) mg/dl Lactate (0.4-2.0) mmol/L Calcium (8.5-10.1) mg/dl Phosphorus (2.5-4.9) mg/dl Magnesium (1.7-2.4) mg/dl Total Bilirubin (0.2-1.0) mg/dl AST (13-39) U/L ALT (7-52) U/L Alkaline Phosphatase (34-104) U/L Troponin I High Sens (0-14) pg/ml Total Protein (6.0-8.3) gm/dl Albumin (3.4-5.0) gm/dl Globulin Albumin/Globulin Ratio Procalcitonin Cancelled TSH 4.843 H (0.300-4.500) uIu/ml Free T4 0.97 (0.61-1.60) ng/dl SARS-CoV-2, RNA, NAAT (NEGATIVE) 02/06/22 02/06/22 02/06/22 Range/Units 19:04 19:06 19:06 WBC (4.8-10.8) K/uL RBC (4.2-5.4) M/uL Hgb (12.0-16.0) g/dL Hct (37-47) % MCV (80-100) fL MCH (25-34) pg MCHC (32-36) g/dL RDW Std Deviation (36.4-46.3) fL RDW Coeff of Nasir (11.5-14.5) % Plt Count (130-400) K/uL MPV (7.4-10.4) fL Immature Gran % (Auto) % Neut % (Auto) % Lymph % (Auto) % [place] % (Auto) % Eos % (Auto) % Baso % (Auto) % Neut # (Auto) (1.4-6.5) K/uL Lymph # (Auto) (1.2-3.4) K/uL [place] # (Auto) (0.11-0.59) K/uL Eos # (Auto) (0-0.5) K/uL Baso # (Auto) (0-0.2) K/uL Immature Gran # (Auto) (0.00-0.02) K/uL PT (9.0-12.0) Seconds INR (0.9-1.1) APTT (21.0-31.0) Seconds PTT Ratio VBG pH 7.36 (7.36-7.41) VBG pCO2 89 H (38-50) mmHg VBG pO2 52 mmHg VBG HCO3 49 mmol/L VBG O2 Saturation 82.7 % VBG Base Excess 19.1 mEq/L Barometric Pressure 728.2 mm/Hg Sodium 143 Potassium 4.0 Chloride (98-107) mmol/L Carbon Dioxide (21-32) mmol/L Anion Gap BUN (6-23) mg/dl Creatinine (0.6-1.2) mg/dl Est Cr Clr Drug Dosing ml/min Est GFR ( Amer) ml/min Est GFR (Non-Af Amer) ml/min BUN/Creatinine Ratio (10-20) Glucose (70-99(Fasting)) mg/dl POC Glucose (70-99) mg/dl Lactate (0.4-2.0) mmol/L Calcium (8.5-10.1) mg/dl Phosphorus 4.2 (2.5-4.9) mg/dl Magnesium 1.7 (1.7-2.4) mg/dl Total Bilirubin (0.2-1.0) mg/dl AST 24 (13-39) U/L ALT (7-52) U/L Alkaline Phosphatase 76 (34-104) U/L Troponin I High Sens (0-14) pg/ml Total Protein (6.0-8.3) gm/dl Albumin 3.6 (3.4-5.0) gm/dl Globulin Albumin/Globulin Ratio Procalcitonin TSH (0.300-4.500) uIu/ml Free T4 (0.61-1.60) ng/dl SARS-CoV-2, RNA, NAAT (NEGATIVE) 02/06/22 02/06/22 02/06/22 Range/Units 19:09 19:41 21:38 WBC (4.8-10.8) K/uL RBC (4.2-5.4) M/uL Hgb (12.0-16.0) g/dL Hct (37-47) % MCV (80-100) fL MCH (25-34) pg MCHC (32-36) g/dL RDW Std Deviation (36.4-46.3) fL RDW Coeff of Nasir (11.5-14.5) % Plt Count (130-400) K/uL MPV (7.4-10.4) fL Immature Gran % (Auto) % Neut % (Auto) % Lymph % (Auto) % [place] % (Auto) % Eos % (Auto) % Baso % (Auto) % Neut # (Auto) (1.4-6.5) K/uL Lymph # (Auto) (1.2-3.4) K/uL [place] # (Auto) (0.11-0.59) K/uL Eos # (Auto) (0-0.5) K/uL Baso # (Auto) (0-0.2) K/uL Immature Gran # (Auto) (0.00-0.02) K/uL PT (9.0-12.0) Seconds INR (0.9-1.1) APTT (21.0-31.0) Seconds PTT Ratio VBG pH (7.36-7.41) VBG pCO2 (38-50) mmHg VBG pO2 mmHg VBG HCO3 mmol/L VBG O2 Saturation % VBG Base Excess mEq/L Barometric Pressure mm/Hg Sodium Potassium Chloride (98-107) mmol/L Carbon Dioxide (21-32) mmol/L Anion Gap BUN (6-23) mg/dl Creatinine (0.6-1.2) mg/dl Est Cr Clr Drug Dosing ml/min Est GFR ( Amer) ml/min Est GFR (Non-Af Amer) ml/min BUN/Creatinine Ratio (10-20) Glucose (70-99(Fasting)) mg/dl POC Glucose (70-99) mg/dl Lactate (0.4-2.0) mmol/L Calcium (8.5-10.1) mg/dl Phosphorus (2.5-4.9) mg/dl Magnesium (1.7-2.4) mg/dl Total Bilirubin (0.2-1.0) mg/dl AST (13-39) U/L ALT (7-52) U/L Alkaline Phosphatase (34-104) U/L Troponin I High Sens (0-14) pg/ml Total Protein (6.0-8.3) gm/dl Albumin (3.4-5.0) gm/dl Globulin Albumin/Globulin Ratio Procalcitonin Cancelled 0.09 TSH (0.300-4.500) uIu/ml Free T4 (0.61-1.60) ng/dl SARS-CoV-2, RNA, NAAT NEGATIVE (NEGATIVE) 02/06/22 02/06/22 02/06/22 Range/Units 21:38 21:38 21:39 WBC (4.8-10.8) K/uL RBC (4.2-5.4) M/uL Hgb (12.0-16.0) g/dL Hct (37-47) % MCV (80-100) fL MCH (25-34) pg MCHC (32-36) g/dL RDW Std Deviation (36.4-46.3) fL RDW Coeff of Nasir (11.5-14.5) % Plt Count (130-400) K/uL MPV (7.4-10.4) fL Immature Gran % (Auto) % Neut % (Auto) % Lymph % (Auto) % [place] % (Auto) % Eos % (Auto) % Baso % (Auto) % Neut # (Auto) (1.4-6.5) K/uL Lymph # (Auto) (1.2-3.4) K/uL [place] # (Auto) (0.11-0.59) K/uL Eos # (Auto) (0-0.5) K/uL Baso # (Auto) (0-0.2) K/uL Immature Gran # (Auto) (0.00-0.02) K/uL PT 10.7 (9.0-12.0) Seconds INR 1.0 (0.9-1.1) APTT 25.4 (21.0-31.0) Seconds PTT Ratio 0.9 VBG pH 7.33 L (7.36-7.41) VBG pCO2 98 H (38-50) mmHg VBG pO2 76 mmHg VBG HCO3 50 mmol/L VBG O2 Saturation 94.1 % VBG Base Excess 19.1 mEq/L Barometric Pressure 729.4 mm/Hg Sodium Potassium Chloride (98-107) mmol/L Carbon Dioxide (21-32) mmol/L Anion Gap BUN (6-23) mg/dl Creatinine (0.6-1.2) mg/dl Est Cr Clr Drug Dosing ml/min Est GFR ( Amer) ml/min Est GFR (Non-Af Amer) ml/min BUN/Creatinine Ratio (10-20) Glucose (70-99(Fasting)) mg/dl POC Glucose (70-99) mg/dl Lactate (0.4-2.0) mmol/L Calcium (8.5-10.1) mg/dl Phosphorus (2.5-4.9) mg/dl Magnesium (1.7-2.4) mg/dl Total Bilirubin (0.2-1.0) mg/dl AST (13-39) U/L ALT (7-52) U/L Alkaline Phosphatase (34-104) U/L Troponin I High Sens 2415.6 H* D (0-14) pg/ml Total Protein (6.0-8.3) gm/dl Albumin (3.4-5.0) gm/dl Globulin Albumin/Globulin Ratio Procalcitonin TSH (0.300-4.500) uIu/ml Free T4 (0.61-1.60) ng/dl SARS-CoV-2, RNA, NAAT (NEGATIVE) 02/06/22 Range/Units Unknown WBC (4.8-10.8) K/uL RBC (4.2-5.4) M/uL Hgb (12.0-16.0) g/dL Hct (37-47) % MCV (80-100) fL MCH (25-34) pg MCHC (32-36) g/dL RDW Std Deviation (36.4-46.3) fL RDW Coeff of Nasir (11.5-14.5) % Plt Count (130-400) K/uL MPV (7.4-10.4) fL Immature Gran % (Auto) % Neut % (Auto) % Lymph % (Auto) % [place] % (Auto) % Eos % (Auto) % Baso % (Auto) % Neut # (Auto) (1.4-6.5) K/uL Lymph # (Auto) (1.2-3.4) K/uL [place] # (Auto) (0.11-0.59) K/uL Eos # (Auto) (0-0.5) K/uL Baso # (Auto) (0-0.2) K/uL Immature Gran # (Auto) (0.00-0.02) K/uL PT Cancelled (9.0-12.0) Seconds INR Cancelled (0.9-1.1) APTT Cancelled (21.0-31.0) Seconds PTT Ratio Cancelled VBG pH (7.36-7.41) VBG pCO2 (38-50) mmHg VBG pO2 mmHg VBG HCO3 mmol/L VBG O2 Saturation % VBG Base Excess mEq/L Barometric Pressure mm/Hg Sodium Potassium Chloride (98-107) mmol/L Carbon Dioxide (21-32) mmol/L Anion Gap BUN (6-23) mg/dl Creatinine (0.6-1.2) mg/dl Est Cr Clr Drug Dosing ml/min Est GFR ( Amer) ml/min Est GFR (Non-Af Amer) ml/min BUN/Creatinine Ratio (10-20) Glucose (70-99(Fasting)) mg/dl POC Glucose (70-99) mg/dl Lactate (0.4-2.0) mmol/L Calcium (8.5-10.1) mg/dl Phosphorus (2.5-4.9) mg/dl Magnesium (1.7-2.4) mg/dl Total Bilirubin (0.2-1.0) mg/dl AST (13-39) U/L ALT (7-52) U/L Alkaline Phosphatase (34-104) U/L Troponin I High Sens (0-14) pg/ml Total Protein (6.0-8.3) gm/dl Albumin (3.4-5.0) gm/dl Globulin Albumin/Globulin Ratio Procalcitonin TSH (0.300-4.500) uIu/ml Free T4 (0.61-1.60) ng/dl SARS-CoV-2, RNA, NAAT (NEGATIVE) Administered Medications Heparin Sodium/Dextrose (Heparin Sodium/Dextrose) 25,000 units in 500 mls @ 20 mls/hr IV .Q24H [facility]; Protocol Stop: 03/08/22 20:14 Last Admin: 02/06/22 22:47 Dose: 1,000 units/hr, 20 mls/hr Documented by: [id number] Cosigned by: [id number] Discontinued Medications Aspirin (Aspirin Chew 324 Mg) 324 mg PO NOW STA Stop: 02/06/22 20:21 Last Admin: 02/06/22 20:45 Dose: 324 mg Documented by: [id number] Diltiazem HCl (Diltiazem Hcl 5 Mg/Ml 5 Ml Vial) 10 mg IV NOW STA Stop: 02/06/22 19:54 Last Admin: 02/06/22 20:07 Dose: 10 mg Documented by: [id number] Cosigned by: [id number] Furosemide (Furosemide Inj 20 Mg/2 Ml Vial) 20 mg IV ONE STA Stop: 02/06/22 21:15 Last Admin: 02/06/22 22:05 Dose: 20 mg Documented by: [id number] Heparin Sodium (Porcine) (Heparin Sod (Porcine) 1000 Unit/Ml) 1 units IV NOW ONE Stop: 02/06/22 20:10 Last Admin: 02/06/22 22:48 Dose: Not Given Documented by: [id number] Heparin Sodium (Porcine) (Heparin Sod (Porcine) 1000 Unit/Ml) 4,000 units IV NOW ONE Stop: 02/06/22 20:16 Last Admin: 02/06/22 22:36 Dose: 4,000 units Documented by: [id number] Cosigned by: [id number] Heparin Sodium/Dextrose (Heparin Iv Adult Wt-Based Low-Dose With Bolus Protocol) 1 ea IV NOW STA; Protocol Stop: 02/06/22 19:54 Last Admin: 02/06/22 22:47 Dose: Not Given Documented by: [id number] Sodium Chloride (Nss) 500 mls @ 999 mls/hr IV .Q31M STA Stop: 02/06/22 18:57 Last Admin: 02/06/22 19:03 Dose: 999 mls/hr Documented by: [id number] Piperacillin Sod/Tazobactam Sod (Zosyn) 4.5 gm in 120 mls @ 240 mls/hr IV NOW ONE Stop: 02/06/22 19:01 Last Admin: 02/06/22 19:03 Dose: 240 mls/hr Documented by: [id number] Diltiazem HCl 125 mg/ Dextrose 125 mls @ 5 mls/hr IV .Q24H MAYA; Protocol Stop: 03/08/22 19:59 Last Admin: 02/06/22 20:14 Dose: 5 mg/hr, 5 mls/hr Documented by: [id number] Cosigned by: [id number] Imaging Data Radiologist's Impression: Chest X-Ray 02/06/22 18:27 SINGLE VIEW CHEST CLINICAL HISTORY: Generalized weakness. FINDINGS: An AP, portable, upright chest radiograph is compared to study dated 09/20/2017 and correlated with chest CT dated 09/09/2015. The examination is degraded by portable technique, large body habitus, and patient rotation. The heart is enlarged noting atherosclerotic calcification of the thoracic aorta. The mitral annulus is densely calcified. There is pulmonary vascular congestion. Atelectasis is noted in the lung bases. No airspace consolidation typical for pneumonia or large pleural effusion is identified. No pneumothorax is seen. The skeletal structures are osteopenic. The bony thorax is grossly intact. IMPRESSION: Cardiomegaly with pulmonary vascular congestion. ACT 112: Negative or not required by law. Electronically signed by: Trent Quezada M.D. 02/06/2022 6:[address] 02/06/22 18:27 CT SCAN OF THE BRAIN WITHOUT IV CONTRAST CLINICAL HISTORY: Generalized weakness. COMPARISON STUDY: No priors. TECHNIQUE: Unenhanced axial CT scan of the brain is performed from the vertex to the skull base. A dose lowering technique was utilized adhering to the principles of ALARA. CT DOSE: 773.57 mGy.cm FINDINGS: Brain parenchyma: There is age-related involutional change noting moderate patchy subcortical and periventricular microangiopathic disease. There is no hemorrhage, mass effect, or evidence of acute territorial ischemia by CT criteria. Vázquez-white matter differentiation is preserved. No extra-axial fluid collection is seen. Ventricles, sulci, cisterns: Prominent secondary to involutional change. Intracranial vasculature: There is at the atherosclerotic calcification of the cavernous carotid and vertebral arteries. Calvarium: Unremarkable. Sinuses and mastoids: The visualized paranasal sinuses are clear. There is a small right mastoid effusion. The left mastoid air cells are well pneumatized. Orbits: The bony orbits are grossly intact. IMPRESSION: There is no hemorrhage, mass effect, or evidence of acute territorial ischemia by CT criteria. ACT 112: Negative or not required by law. Electronically signed by: Trent Quezada M.D. 02/06/2022 7:43 PM Discharge Plan Visit Data Chief Complaint: Urinary Symptoms Stated Complaint: UTI, hypoglycemic ED Provider: Gonzalo Harrell Discharge Problem: Acute UTI, Atrial fibrillation with rapid ventricular response, Non-ST elevation MT (NSTEMI), Confusion Patient Disposition: Being Evaluated by Hospitalist Forms Stand Alone Forms: My [facility] Prescriptions Prescriptions: No Action acetaminophen 650 mg tablet extended release 650 mg PO Q6H PRN (Reason: Pain) RF: 0 atorvastatin [Lipitor] 10 mg tablet 10 mg PO DAILY Qty: 90 RF: 0 levothyroxine 50 mcg capsule 50 mcg PO DAILY Qty: 90 RF: 0 losartan 25 mg tablet 25 mg PO DAILY Qty: 90 RF: 1 cholecalciferol (vitamin D3) 125 mcg (5,000 unit) capsule 125 mcg PO DAILY RF: 0 docusate sodium 100 mg capsule 100 mg PO BID RF: 0 multivitamin Tablet 1 tab PO QAM RF: 0 furosemide 40 mg tablet 40 mg PO DAILY RF: 0 sennosides [senna] 8.6 mg tablet 8.6 mg PO DAILY RF: 0 loratadine 10 mg tablet 10 mg PO DAILY RF: 0 potassium chloride 10 mEq tablet,ER particles/crystals 10 meq PO DAILY RF: 0 hydrochlorothiazide 12.5 mg tablet 12.5 mg PO DAILY RF: 0 Victoza 3-Ashok 0.6 mg/0.1 mL (18 mg/3 mL) pen injector 1.8 mg SUBCUT DAILY RF: 0 Eucerin Advanced Repair Cream 1 applic TOPICAL BID RF: 0 insulin glargine [Lantus Solostar U-100 Insulin] 100 unit/mL (3 mL) insulin pen 40 unit subcut BID RF: 0 Referrals Referrals: [facility] [Primary Care Provider] -
--- NOTE | 2022-02-06 18:48 | XRay Report ---
SINGLE VIEW CHEST CLINICAL HISTORY: Generalized weakness. FINDINGS: An AP, portable, upright chest radiograph is compared to study dated 09/20/2017 and correlat ed with chest CT dated 09/09/2015. The examination is degraded by portable technique, large body habitu s, and patient rotation. The heart is enlarged noting atherosclerotic calcification of the thoracic a jovita. The mitral annulus is densely calcified. There is pulmonary vascular congestion. Atelectasis is noted in the lung bases. No airspace consolidation typical for pneumonia or large pleural effusion i s identified. No pneumothorax is seen. The skeletal structures are osteopenic. The bony thorax is bernie ssly intact. IMPRESSION: Cardiomegaly with pulmonary vascular congestion. ACT 112: Negative or not required by law. Electronically signed by: Trent Quezada M.D. 02/06/2022 6:45 PM
[2022-02-06 19:05] LABS: Hematocrit (blood only) 38.4 % (37-47); Hemoglobin 11.7 g/dL (12.0-16.0); Mean Corpuscular Hemoglobin 30.5 pg (25-34); Mean Corpuscular Hgb Conc 30.5 g/dL (32-36); RDW Coefficient of Variation 14.4 % (11.5-14.5); RDW Standard Deviation 50.9 fL (36.4-46.3); Red Blood Count 3.84 M/uL (4.2-5.4); White Blood Count 7.67 K/uL (4.8-10.8)
[2022-02-06 19:06] LABS: Basophils # (auto) 0.03 K/uL (0-0.2); Basophils % (auto) 0.4 %; Eosinophils # (auto) 0.04 K/uL (0-0.5); Eosinophils % (auto) 0.5 %; Immature Granulocytes # (auto) 0.03 K/uL (0.00-0.02); Immature Granulocytes % (auto) 0.4 %; Lymphocytes # (auto) 1.03 K/uL (1.2-3.4); Lymphocytes % (auto) 13.4 %; Mean Platelet Volume 10.6 fL (7.4-10.4); Monocytes # (auto) 0.86 K/uL (0.11-0.59); Monocytes % (auto) 11.2 %; Neutrophils # (auto) 5.68 K/uL (1.4-6.5); Neutrophils % (auto) 74.1 %; Platelet Count 312 K/uL (130-400)
[2022-02-06 19:20] LABS: Thyroid Stimulating Hormone 4.843 uIu/ml (0.300-4.500)
[2022-02-06 19:24] LABS: Alanine Aminotransferase 12 U/L (7-52); BUN Creatinine Ratio 37.8 (10-20); Blood Urea Nitrogen 48 mg/dl (6-23); Calcium 9.9 mg/dl (8.5-10.1); Carbon Dioxide > 45 mmol/L (21-32); Chloride 87 mmol/L (98-107); Creatinine Clr Calc Pharmacy 49.9 ml/min; Est GFR (African American) 47.8 ml/min; Est GFR (Non-African American) 41.2 ml/min; Glucose 153 mg/dl (70-99(Fasting)); Total Protein 6.5 gm/dl (6.0-8.3); Troponin I High Sensitivity 1808.9 pg/ml (0-14)
[2022-02-06 19:27] LABS: Base Excess VBG 19.1 mEq/L; Oxygen Saturation VBG 82.7 %; pH VBG 7.36 (7.36-7.41)
--- NOTE | 2022-02-06 19:45 | CT Scan Report ---
CT SCAN OF THE BRAIN WITHOUT IV CONTRAST CLINICAL HISTORY: Generalized weakness. COMPARISON STUDY: No priors. TECHNIQUE: Unenhanced axial CT scan of the brain is performed from the vertex to the skull base. A do se lowering technique was utilized adhering to the principles of ALARA. CT DOSE: 773.57 mGy.cm FINDINGS: Brain parenchyma: There is age-related involutional change noting moderate patchy subcortical and per iventricular microangiopathic disease. There is no hemorrhage, mass effect, or evidence of acute terr itorial ischemia by CT criteria. Vázquez-white matter differentiation is preserved. No extra-axial fluid collection is seen. Ventricles, sulci, cisterns: Prominent secondary to involutional change. Intracranial vasculature: There is at the atherosclerotic calcification of the cavernous carotid and vertebral arteries. Calvarium: Unremarkable. Sinuses and mastoids: The visualized paranasal sinuses are clear. There is a small right mastoid effu dawit. The left mastoid air cells are well pneumatized. Orbits: The bony orbits are grossly intact. IMPRESSION: There is no hemorrhage, mass effect, or evidence of acute territorial ischemia by CT [facility]. ACT 112: Negative or not required by law. Electronically signed by: Trent Quezada M.D. 02/06/2022 7:43 PM
[2022-02-06 19:47] LABS: Albumin Level 3.6 gm/dl (3.4-5.0)
[2022-02-06] MEDS ORDERED: STAT IV Infusion **Titration per Protocol STA (19:53)
[2022-02-06] MEDS ORDERED: dilTIAZem HCl 5 MG/ML 5 ML VIAL IV STA (19:53)
[2022-02-06] MEDS ORDERED: Heparin IV Adult Wt-Based Low-Dose WITH Bolus Protocol IV STA (19:53)
[2022-02-06 19:56] LABS: T4 Free Thyroxine 0.97 ng/dl (0.61-1.60)
[2022-02-06] MEDS ORDERED: dilTIAZem HCL 125 MG in DEXTROSE 5% 100 ML IV SCH (20:00)
[2022-02-06] MEDS ORDERED: HEPARIN SOD (PORCINE) 1000 UNIT/ML IV ONE ×2 (20:09→20:15)
[2022-02-06] MEDS ORDERED: ASPIRIN CHEW 324 MG PO STA (20:20)
[2022-02-06] MEDS ORDERED: FUROSEMIDE INJ 20 MG/2 ML VIAL IV STA (21:14)
[2022-02-06 21:18] LABS: Magnesium 1.7 mg/dl (1.7-2.4); Phosphorus 4.2 mg/dl (2.5-4.9)
[2022-02-06 22:02] LABS: Base Excess VBG 19.1 mEq/L; Oxygen Saturation VBG 94.1 %; pH VBG 7.33 (7.36-7.41)
[2022-02-06 22:10] LABS: Partial Thromboplastin Ratio 0.9; Partial Thromboplastin Time 25.4 Seconds (21.0-31.0); Prothrombin Time 10.7 Seconds (9.0-12.0)
[2022-02-06] MEDS: HEPARIN SODIUM/DEXTROSE 25,000 UNITS/500 ML BAG IV SCH (22:47)
[2022-02-07] MEDS: MAGNESIUM SULFATE / D5W 1 GM/100 ML BAG IV SCH ×4 (00:14→06:35)
[2022-02-07] MEDS ORDERED: GLUCAGON FOR INJ 1 MG VIAL SQ PRN (01:17)
[2022-02-07] MEDS ORDERED: GLUCOSE 10 TABS/TUBE PO PRN (01:17)
[2022-02-07] MEDS ORDERED: ONDANSETRON INJ 2 MG/ML 2 ML VIAL IV PRN (01:17)
[2022-02-07] MEDS ORDERED: METOPROLOL TARTRATE 1 MG/ML VIAL IV PRN (01:17)
[2022-02-07] MEDS ORDERED: ACETAMINOPHEN 325 MG TAB PO PRN (01:17)
[2022-02-07] MEDS ORDERED: GLUCOSE 40% GEL 15 GM TUBE PO PRN (01:17)
[2022-02-07] MEDS ORDERED: CARBOHYDRATES FOR HYPOGLYCEMIA PO PRN (01:17)
[2022-02-07] MEDS: DEXTROSE 50% 50 ML SYRINGE IV PRN ×3 (01:34→10:44)
[2022-02-07] MEDS ORDERED: INFLUENZA VACCINE HIGH DOSE PF 65+ 0.7 ML SYR IM ONE (01:47)
[2022-02-07] MEDS: PIPERACILLIN/TAZOBACTAM 4.5 GM in DEXTROSE 5% 100 ML IV SCH ×3 (02:23→18:07)
--- NOTE | 2022-02-07 02:53 | History & Physical Report ---
Date of Service February 06, 2022 Assessment & Plan (1) Acute UTI: Plan: Patient afebrile, tachycardic on arrival. UA suggestive of infection, culture from 02/05/22 preliminary with GNR. Has history of Providencia, E.coli as well as Pseudomonas from wound -Follow cultures -Continue Zosyn (2) Uncontrolled type 2 diabetes mellitus: Plan: Type II DM - last [id number]=2.3 on 11/10/21. Hypoglycemic on arrival, resolved after D25. Had second episode of hypoglycemia on the floor - dextrose given. ?poor intake + diabetes medications + active infection -Continue to monitor glucose -Hold all insulin and Victoza -D5 infusion if patient becomes hypoglycemic again (3) Atrial fibrillation with rapid ventricular response: Plan: AF with RVR on arrival. No history of prior. Diltiazem bolus given in ER. Drip started with decreased blood pressure -Metoprolol PRN -Heparin gtt anticoagulation -Check 2D echo (4) COPD (chronic obstructive pulmonary disease): Plan: Chronic hypoxic respiratory failure on 2L O2. Labs suggestive of chronic retention. pCO2 on initial VBG 89. Patient placed on BiPAP. -Continue BiPAP -VBG in AM -Goal saturation 88-92% (5) Non-ST elevation ND (NSTEMI): Plan: Elevation of troponin 1808.9 --> 2415.6, no ischemic changes on EKG. Most likely rate related demand ischemia + possible failure/volume overload -Continue heparin gtt -Trend troponin -Atorvastatin (6) Hypothyroidism: Plan: Chronic. TSH elevated at 4.83 -Continue Synthroid (7) HTN (hypertension): Plan: Borderline low blood pressure in ER -Hold Losartan -Hold HCTZ -Monitor (8) HLD (hyperlipidemia): Plan: Chronic -Continue Atorvastatin (9) CLEMENTINA (acute kidney injury): Plan: Elevation of BUN to 48, Cr to 1.27 from 0.82 -Avoid nephrotoxic agents -Renal dosing where needed -Monitor BUN, Cr, electrolytes and UOP (10) Rash: Plan: Most of the rash appears to be psoriasis. Some possible kristy in groin and skin folds -Nystatin ointment Plan: F/E/N - Lasix given, Mg repletion Ppx - Heparin gtt Code - DNR/DNI LT per review of records Dispo -Admit to PCU Admission and Anticipated Discharge Date Admission Date: February 06, 2022 History of Present Illness Chief Complaint: hypoglycemia Primary Care Provider: [facility] Keila Hoffman is a 76yo female resident of [facility] presenting with hypoglycemia. She has history fo DM, HTN, HLP, Hypothyroidism and COPD, chronic hypoxic respiratory failure on 2L O2 at baseline. Patient presents to [facility] today from [facility] with a blood sugar of 39 with associated confusion. Also with urinary complaints for approximately two weeks. On arrival patient in atrial fibrillation with RVR. ER Course: NSS x 500mL, Heparin gtt, Diltiazem bolus, Zosyn, ASA 324mg, Lasix 20mg, D25 administered by EMS prior to arrival Allergies Allergy/AdvReac Type Severity Reaction Status Date / Time metformin AdvReac Unknown Diarrhea Verified 02/06/22 20:04 Home Medications Medication Instructions Recorded Confirmed Type acetaminophen 650 mg 650 mg PO Q6H PRN tab 05/04/18 02/06/22 History tablet,extended release atorvastatin 10 mg tablet (Lipitor) 10 mg PO DAILY #90 tab 02/21/19 02/06/22 Rx levothyroxine 50 mcg capsule 50 mcg PO DAILY #90 cap 04/05/19 02/06/22 Rx docusate sodium 100 mg capsule 100 mg PO BID cap 04/11/19 02/06/22 History multivitamin 1 tab PO QAM 05/12/19 02/06/22 History losartan 25 mg tablet 25 mg PO DAILY #90 tab 05/19/19 02/06/22 Rx cholecalciferol (vitamin D3) 125 125 mcg PO DAILY 03/01/20 02/06/22 History mcg (5,000 unit) capsule emollient combination no.114 1 applic TOPICAL BID 02/06/22 02/06/22 History (Eucerin Advanced Repair) furosemide 40 mg tablet 40 mg PO DAILY 02/06/22 02/06/22 History hydrochlorothiazide 12.5 mg tablet 12.5 mg PO DAILY 02/06/22 02/06/22 History insulin glargine 100 unit/mL (3 40 unit SUBCUT BID 02/06/22 02/06/22 History mL) subcutaneous pen (Lantus Solostar U-100 Insulin) liraglutide 0.6 mg/0.1 mL (18 mg/3 1.8 mg SUBCUT DAILY 02/06/22 02/06/22 History mL) subcutaneous pen injector (Victoza 3-Ashok) loratadine 10 mg tablet 10 mg PO DAILY 02/06/22 02/06/22 History potassium chloride 10 mEq 10 meq PO DAILY 02/06/22 02/06/22 History tablet,extended release(part/cryst) sennosides 8.6 mg tablet (senna) 8.6 mg PO DAILY 02/06/22 02/06/22 History Past Med/Surg History Medical History (Updated 02/07/22 @ 03:34 by Kayli Shahid DO) Bilateral swelling of feet Cellulitis Cholelithiasis Chronic GERD COPD (chronic obstructive pulmonary disease) Depression Diabetes Diabetes mellitus with diabetic polyneuropathy Edema Gastroesophageal reflux disease HLD (hyperlipidemia) HTN (hypertension) Hypothyroidism Left breast abscess Major depressive disorder Morbid obesity Osteoarthritis Psoriasis Spinal stenosis Tonsillectomy planned Type 2 diabetes mellitus with diabetic peripheral angiopathy without gangrene Uncontrolled type 2 diabetes mellitus Urinary incontinence UTI (urinary tract infection) Venous stasis dermatitis Surgical History (System 09/23/21 @ 11:43 by Ines Mckee) S/P hysterectomy Status post incision and drainage (03/01/20) I and D left breast 03/01/20 Dr. Mireles in office Social History (System 09/23/21 @ 11:43 by Ines Mckee) Smoking Status: Former smoker Tobacco Type: Cigarettes Cigarettes Per Day: 1; Second Hand Exposure: No; Hx Alcohol Use: No Hx Substance Use: No Preferred Language: Kinyarwanda Communication Ability: Impaired Visual Impairment: Limited Hearing Ability: Normal Knife Cutter Required: No Beliefs That Will Affect Care: None marital status: single Current Living Situation: Jail current occupational status: disabled Feels Safe at Home: Yes Assistive Devices: BiPap Review of Systems Review of Systems: Unobtainable due to reduced consciousness Physical Exam Physical Exam: General: patient resting comfortably, NAD, non-toxic in appearance, not answering questions Skin: warm, dry, intact, scattered flaky, erythematous annular lesions present on abdomen, groin and back HEENT: NC/AT, PERRL, EOMI, anicteric sclera, conjunctiva without injection, external ear normal to inspection and nontender, nares patent, moist mucus membranes, dentition intact, no oropharyngeal lesions, neck supple, trachea midline, no LAD, no thyromegaly, no JVD Heart: +S1/S2, irregularly irregular, no m/r/g Lungs: equal air entry bilaterally, diffuse crackles present Abd: +BS, soft, NT/ND, no masses/organomegaly/ascites Ext: warm, 2+ pulses in UE/LE bilaterally, no clubbing/cyanosis or edema Neuro: nonfocal, patient AA&O x 4, speech intact, no facial droop, moving all extremities on command with equal strength 5/5 Results & Data Results & Data ([facility]) Vital Signs (Past 12 Hours) Vital Signs Temp Pulse Pulse Resp BP BP Pulse Ox 02/07/22 01:18 37.0 C 113 H 21 107/39 L 96 02/07/22 00:25 114 H 23 96 02/07/22 00:21 118 H 14 101/58 L 96 02/07/22 00:20 118 H 22 95 02/07/22 00:15 119 H 24 94 02/07/22 00:10 112 H 18 94 02/07/22 00:05 113 H 17 95 02/07/22 00:00 104 H 21 93/46 L 96 02/06/22 23:55 105 H 19 96 02/06/22 23:52 102 H 18 95/62 L 95 02/06/22 23:50 109 H 16 97 02/06/22 23:45 102 H 24 96 02/06/22 23:40 112 H 33 H 97 02/06/22 23:35 104 H 24 97 02/06/22 23:34 105 H 26 H 97 02/06/22 23:32 115 H 19 102/67 98 02/06/22 23:30 110 H 23 98 02/06/22 23:25 107 H 29 H 100 02/06/22 23:21 113 H 28 H 101/58 L 97 02/06/22 23:20 118 H 27 H 98 02/06/22 23:15 104 H 23 100 02/06/22 23:10 126 H 29 H 154/127 H 100 02/06/22 23:05 121 H 23 99 02/06/22 23:00 116 H 25 H 100 02/06/22 22:55 110 H 25 H 100 02/06/22 22:51 110 H 32 H 92/61 L 100 02/06/22 22:50 115 H 19 100 02/06/22 22:45 103 H 19 100 02/06/22 22:40 102 H 23 102/51 L 98 02/06/22 22:35 103 H 27 H 100 02/06/22 22:30 103 H 32 H 90/67 L 100 02/06/22 22:25 106 H 23 100 02/06/22 22:20 104 H 26 H 100 02/06/22 22:15 96 H 25 H 100 02/06/22 22:11 94 H 24 100 02/06/22 22:10 101 H 23 100 02/06/22 22:05 109 H 31 H 99 02/06/22 22:02 101/68 100 02/06/22 22:01 100 02/06/22 21:40 99 02/06/22 21:20 100 02/06/22 21:15 88 L 02/06/22 21:11 129/72 95 02/06/22 21:10 98 H 26 H 99 02/06/22 21:05 95 H 24 02/06/22 21:02 97 H 21 94/71 L 88 L 02/06/22 21:00 102 H 21 88 L 02/06/22 20:55 105 H 26 H 99/71 L 98 02/06/22 20:51 96 H 25 H 86/56 L 97 02/06/22 20:50 96 H 40 H 93 02/06/22 20:46 108 H 28 H 82/64 L 94 02/06/22 20:45 98 H 30 H 93 02/06/22 20:40 94 H 34 H 90 02/06/22 20:35 95 H 25 H 95 02/06/22 20:30 100 H 14 97 02/06/22 20:29 96 H 25 H 96/70 L 80 L 02/06/22 20:25 96 H 26 H 94 02/06/22 20:24 99 H 24 148/101 H 91 02/06/22 20:21 132 H 26 H 92 02/06/22 20:20 126 H 33 H 96 02/06/22 20:15 86 25 H 115/69 98 02/06/22 20:14 88 22 108/76 98 02/06/22 20:10 116 H 26 H 97 02/06/22 20:05 117 H 35 H 98 02/06/22 20:02 121 H 23 114/91 97 02/06/22 20:00 121 H 24 95 02/06/22 19:57 120 H 24 93 02/06/22 19:52 110 H 18 131/68 96 02/06/22 18:44 37 C 76 18 121/73 100 Laboratory Results Laboratory Results WBC 7.67 K/uL (4.8-10.8) 02/06/22 18:25 RBC 3.84 M/uL (4.2-5.4) L 02/06/22 18:25 Hgb 11.7 g/dL (12.0-16.0) L 02/06/22 18:25 Hct 38.4 % (37-47) 02/06/22 18:25 MCV 100.0 fL (80-100) 02/06/22 18:25 MCH 30.5 pg (25-34) 02/06/22 18:25 MCHC 30.5 g/dL (32-36) L 02/06/22 18:25 RDW Std Deviation 50.9 fL (36.4-46.3) H 02/06/22 18:25 RDW Coeff of Nasir 14.4 % (11.5-14.5) 02/06/22 18:25 Plt Count 312 K/uL (130-400) 02/06/22 18:25 MPV 10.6 fL (7.4-10.4) H 02/06/22 18:25 Immature Gran % (Auto) 0.4 % 02/06/22 18:25 Neut % (Auto) 74.1 % 02/06/22 18:25 Lymph % (Auto) 13.4 % 02/06/22 18:25 [place] % (Auto) 11.2 % 02/06/22 18:25 Eos % (Auto) 0.5 % 02/06/22 18:25 Baso % (Auto) 0.4 % 02/06/22 18:25 Neut # (Auto) 5.68 K/uL (1.4-6.5) 02/06/22 18:25 Lymph # (Auto) 1.03 K/uL (1.2-3.4) L 02/06/22 18:25 [place] # (Auto) 0.86 K/uL (0.11-0.59) H 02/06/22 18:25 Eos # (Auto) 0.04 K/uL (0-0.5) 02/06/22 18:25 Baso # (Auto) 0.03 K/uL (0-0.2) 02/06/22 18:25 Immature Gran # (Auto) 0.03 K/uL (0.00-0.02) H 02/06/22 18:25 PT Cancelled 02/06/22 Unknown INR Cancelled 02/06/22 Unknown APTT Cancelled 02/06/22 Unknown PTT Ratio Cancelled 02/06/22 Unknown VBG pH 7.33 (7.36-7.41) L 02/06/22 21:39 VBG pCO2 98 mmHg (38-50) H 02/06/22 21:39 VBG pO2 76 mmHg 02/06/22 21:39 VBG HCO3 50 mmol/L 02/06/22 21:39 VBG O2 Saturation 94.1 % 02/06/22 21:39 VBG Base Excess 19.1 mEq/L 02/06/22 21:39 Barometric Pressure 729.4 mm/Hg 02/06/22 21:39 Sodium 143 mmol/L (136-145) 02/06/22 19:06 Potassium 4.0 mmol/L (3.5-5.1) 02/06/22 19:06 Chloride 87 mmol/L (98-107) L 02/06/22 18:25 Carbon Dioxide > 45 mmol/L (21-32) H* 02/06/22 18:25 Anion Gap TNP 02/06/22 18:25 BUN 48 mg/dl (6-23) H 02/06/22 18:25 Creatinine 1.27 mg/dl (0.6-1.2) H 02/06/22 18:25 Est Cr Clr Drug Dosing 49.9 ml/min 02/06/22 18:25 Est GFR ( Amer) 47.8 ml/min 02/06/22 18:25 Est GFR (Non-Af Amer) 41.2 ml/min 02/06/22 18:25 BUN/Creatinine Ratio 37.8 (10-20) H 02/06/22 18:25 Glucose 153 mg/dl (70-99(Fasting)) H 02/06/22 18:25 POC Glucose 128 mg/dl (70-99) H 02/07/22 02:11 Lactate 0.6 mmol/L (0.4-2.0) 02/06/22 18:25 Calcium 9.9 mg/dl (8.5-10.1) 02/06/22 18:25 Phosphorus 4.2 mg/dl (2.5-4.9) 02/06/22 19:06 Magnesium 1.7 mg/dl (1.7-2.4) 02/06/22 19:06 Total Bilirubin 1.0 mg/dl (0.2-1.0) 02/06/22 18:25 AST 24 U/L (13-39) 02/06/22 19:06 ALT 12 U/L (7-52) 02/06/22 18:25 Alkaline Phosphatase 76 U/L (34-104) 02/06/22 19:06 Troponin I High Sens 2415.6 pg/ml (0-14) H* D 02/06/22 21:38 Total Protein 6.5 gm/dl (6.0-8.3) 02/06/22 18:25 Albumin 3.6 gm/dl (3.4-5.0) 02/06/22 19:06 Globulin TNP 02/06/22 18:25 Albumin/Globulin Ratio TNP 02/06/22 18:25 Procalcitonin 0.09 ng/ml (0-0.5) 02/06/22 21:38 TSH 4.843 uIu/ml (0.300-4.500) H 02/06/22 18:25 Free T4 0.97 ng/dl (0.61-1.60) 02/06/22 18:25 SARS-CoV-2, RNA, NAAT NEGATIVE (NEGATIVE) 02/06/22 19:09 Impressions Chest X-Ray 02/06/22 18:27 SINGLE VIEW CHEST CLINICAL HISTORY: Generalized weakness. FINDINGS: An AP, portable, upright chest radiograph is compared to study dated 09/20/2017 and correlated with chest CT dated 09/09/2015. The examination is degraded by portable technique, large body habitus, and patient rotation. The heart is enlarged noting atherosclerotic calcification of the thoracic aorta. The mitral annulus is densely calcified. There is pulmonary vascular congestion. Atelectasis is noted in the lung bases. No airspace consolidation typical for pneumonia or large pleural effusion is identified. No pneumothorax is seen. The skeletal structures are osteopenic. The bony thorax is grossly intact. IMPRESSION: Cardiomegaly with pulmonary vascular congestion. ACT 112: Negative or not required by law. Electronically signed by: Trent Quezada M.D. 02/06/2022 6:[address] 02/06/22 18:27 CT SCAN OF THE BRAIN WITHOUT IV CONTRAST CLINICAL HISTORY: Generalized weakness. COMPARISON STUDY: No priors. TECHNIQUE: Unenhanced axial CT scan of the brain is performed from the vertex to the skull base. A dose lowering technique was utilized adhering to the principles of ALARA. CT DOSE: 773.57 mGy.cm FINDINGS: Brain parenchyma: There is age-related involutional change noting moderate patchy subcortical and periventricular microangiopathic disease. There is no hemorrhage, mass effect, or evidence of acute territorial ischemia by CT criteria. Vázquez-white matter differentiation is preserved. No extra-axial fluid collection is seen. Ventricles, sulci, cisterns: Prominent secondary to involutional change. Intracranial vasculature: There is at the atherosclerotic calcification of the cavernous carotid and vertebral arteries. Calvarium: Unremarkable. Sinuses and mastoids: The visualized paranasal sinuses are clear. There is a small right mastoid effusion. The left mastoid air cells are well pneumatized. Orbits: The bony orbits are grossly intact. IMPRESSION: There is no hemorrhage, mass effect, or evidence of acute territorial ischemia by CT criteria. ACT 112: Negative or not required by law. Electronically signed by: Trent Quezada M.D. 02/06/2022 7:43 PM ECG Additional Comments: atrial fibrillation at 109, normal axis, no acute ischemic changes Code Status & VTE Plan VTE Prophylaxis Plan VTE Prophylaxis will be ordered: Yes PG Care Time/CCT Total # of Minutes Spent Total Time Spent with Patient: Total time spent is greater than 50% in coordination of care (as documented) at patient's floor/unit and/or counseling patient: Coding Level of Care Code 50740 Initial Inpt Care Lvl 3 Diagnoses Acute UTI N39.0 Atrial fibrillation with rapid ventricular response I48.91 Non-ST elevation ND (NSTEMI) I21.4 Uncontrolled type 2 diabetes mellitus E11.65 Hypothyroidism E03.9 HTN (hypertension) I10 HLD (hyperlipidemia) E78.5 COPD (chronic obstructive pulmonary disease) J44.9 CLEMENTINA (acute kidney injury) N17.9 Rash R21
[2022-02-07 03:50] LABS: Base Excess VBG 17.1 mEq/L; Oxygen Saturation VBG 62.7 %; pH VBG 7.35 (7.36-7.41)
[2022-02-07 05:23] LABS: Basophils # (auto) 0.04 K/uL (0-0.2); Basophils % (auto) 0.4 %; Eosinophils # (auto) 0.16 K/uL (0-0.5); Eosinophils % (auto) 1.8 %; Hematocrit (blood only) 36.6 % (37-47); Hemoglobin 11.4 g/dL (12.0-16.0); Immature Granulocytes # (auto) 0.03 K/uL (0.00-0.02); Immature Granulocytes % (auto) 0.3 %; Lymphocytes # (auto) 1.99 K/uL (1.2-3.4); Lymphocytes % (auto) 22.3 %; Mean Corpuscular Hemoglobin 31.1 pg (25-34); Mean Corpuscular Hgb Conc 31.1 g/dL (32-36); Mean Corpuscular Volume 99.7 fL (80-100); Mean Platelet Volume 9.5 fL (7.4-10.4); Monocytes # (auto) 0.97 K/uL (0.11-0.59); Monocytes % (auto) 10.9 %; Neutrophils # (auto) 5.74 K/uL (1.4-6.5); Neutrophils % (auto) 64.3 %; Platelet Count 272 K/uL (130-400); RDW Coefficient of Variation 14.2 % (11.5-14.5); RDW Standard Deviation 51.4 fL (36.4-46.3); Red Blood Count 3.67 M/uL (4.2-5.4); White Blood Count 8.93 K/uL (4.8-10.8)
[2022-02-07 05:52] LABS: Partial Thromboplastin Ratio 1.9
[2022-02-07 06:02] LABS: Partial Thromboplastin Time 50.9 Seconds (21.0-31.0)
[2022-02-07 06:16] LABS: BUN Creatinine Ratio 36.4 (10-20); Blood Urea Nitrogen 47 mg/dl (6-23); Calcium 9.2 mg/dl (8.5-10.1); Carbon Dioxide > 45 mmol/L (21-32); Chloride 89 mmol/L (98-107); Creatinine Clr Calc Pharmacy 49.2 ml/min; Est GFR (African American) 46.9 ml/min; Est GFR (Non-African American) 40.5 ml/min; Glucose 93 mg/dl (70-99(Fasting)); Magnesium 2.1 mg/dl (1.7-2.4); Potassium 4.1 mmol/L (3.5-5.1); Sodium 141 mmol/L (136-145)
[2022-02-07] MEDS: ATORVASTATIN 10 MG TAB PO SCH (08:38)
[2022-02-07] MEDS: LEVOTHYROXINE SODIUM 50 MCG TABLET PO SCH (08:38)
[2022-02-07] MEDS: DOCUSATE SODIUM 100 MG CAP PO SCH ×2 (08:38→21:54)
[2022-02-07] MEDS: LORATADINE 10 MG TAB PO SCH (08:39)
[2022-02-07] MEDS: SENNA 8.6 MG TAB PO SCH (08:39)
[2022-02-07] MEDS: MULTIVITAMIN TAB PO SCH (08:39)
[2022-02-07] MEDS: NYSTATIN OINT 15 GM TUBE EXT SCH ×2 (08:53→20:54)
[2022-02-07] MEDS: EUCERIN CR 120 GM JAR EXT SCH ×2 (08:54→20:52)
[2022-02-07] MEDS ORDERED: INSULIN GLARGINE SOLOSTAR 100 UNITS/ML 3 ML PEN SQ SCH (09:00)
[2022-02-07] MEDS ORDERED: PNEUMOCOCCAL POLYSACCHARIDES 25 MCG/0.5 ML VIAL/SYR IM ONE (09:00)
--- NOTE | 2022-02-07 10:10 | XCELERA ---
[id number]
--- NOTE | 2022-02-07 12:47 | Hospitalist Progress Note ---
Date of Service February 07, 2022 Assessment & Plan (1) Acute UTI: Plan: Patient afebrile, tachycardic on arrival. UA suggestive of infection, culture from 02/05/22 preliminary with GNR. Has history of Providencia, E.coli as well as Pseudomonas from wound -Follow cultures: prelim. -Continue Zosyn (2) Uncontrolled type 2 diabetes mellitus: Plan: Type II DM - last YoiI1D=9.3 on 11/10/21. Hypoglycemic on arrival, resolved after D25. Had second episode of hypoglycemia on the floor - dextrose given. ?poor intake + diabetes medications + active infection -Continue to monitor glucose -Hold all insulin and Victoza -D5 infusion if patient becomes hypoglycemic again (3) Atrial fibrillation with rapid ventricular response: Plan: AF with RVR on arrival. No history of prior. Diltiazem bolus given in ER. Drip started with decreased blood pressure -Metoprolol PRN -added metoprolol 25 mg PO TID. -Heparin gtt anticoagulation -Check 2D echo (4) COPD (chronic obstructive pulmonary disease): Plan: Chronic hypoxic respiratory failure on 2L O2. Labs suggestive of chronic retention. pCO2 on initial VBG 89. Patient placed on BiPAP. -titrate off bipap -placed on oxymask -will repeat VBG -Goal saturation 88-92% (5) Non-ST elevation RI (NSTEMI): Plan: Elevation of troponin 1808.9 --> 2415.6, no ischemic changes on EKG. Most likely rate related demand ischemia + possible failure/volume overload -Continue heparin gtt -Trend troponin -Atorvastatin (6) Hypothyroidism: Plan: Chronic. TSH elevated at 4.83 -Continue Synthroid (7) HTN (hypertension): Plan: Borderline low blood pressure in ER -Hold Losartan -Hold HCTZ -Monitor (8) HLD (hyperlipidemia): Plan: Chronic -Continue Atorvastatin (9) CLEMENTINA (acute kidney injury): Plan: Elevation of BUN to 48, Cr to 1.27 from 0.82 -Avoid nephrotoxic agents -Renal dosing where needed -Monitor BUN, Cr, electrolytes and UOP (10) Rash: Plan: Most of the rash appears to be psoriasis. Some possible kristy in groin and skin folds -Nystatin ointment Plan: F/E/N - Lasix given, Mg repletion Ppx - Heparin gtt Code - DNR/DNI LT per review of records Dispo -Admit to PCU Admission and Anticipated Discharge Date Admission Date: February 06, 2022 Subjective 76 yo female has been confused. On BIPAP. Patient awoke and able to toerate oxymask. Review of Systems Review of Systems: All systems reviewed & are unremarkable except as noted in HPI & below Physical Exam Physical Exam: General: patient resting comfortably, NAD, non-toxic in appearance, now answering questions Skin: warm, dry, intact, scattered flaky, erythematous annular lesions present on abdomen, groin and back HEENT: NC/AT, PERRL, EOMI, anicteric sclera, conjunctiva without injection, external ear normal to inspection and nontender, nares patent, moist mucus membranes, dentition intact, no oropharyngeal lesions, neck supple, trachea midline, no LAD, no thyromegaly, no JVD Heart: +S1/S2, irregularly irregular, no m/r/g Lungs: equal air entry bilaterally, diffuse crackles present Abd: +BS, soft, NT/ND, no masses/organomegaly/ascites Ext: warm, 2+ pulses in UE/LE bilaterally, no clubbing/cyanosis or edema Neuro: nonfocal, patient AA&O x 4, speech intact, no facial droop, moving all extremities on command with equal strength 5/5 Results & Data Results & Data ([facility]) Vital Signs (Past 12 Hours) Vital Signs Temp Pulse Pulse Resp BP BP Pulse Ox 02/07/22 11:56 36.9 C 119 H 22 107/58 L 98 02/07/22 08:00 121 H 21 94 02/07/22 07:26 36.9 C 109 H 21 107/73 96 02/07/22 04:17 36.6 C 118 H 24 99/75 L 98 02/07/22 03:15 107 H 18 95 02/07/22 01:18 37.0 C 113 H 21 107/39 L 96 PG Care Time/CCT Total # of Minutes Spent Total Time Spent with Patient: Total time spent is greater than 50% in coordination of care (as documented) at patient's floor/unit and/or counseling patient: Coding Level of Care Code 18782 Subseq Hosp Care Lvl 3 Diagnoses Acute UTI N39.0 Uncontrolled type 2 diabetes mellitus E11.65 Atrial fibrillation with rapid ventricular response I48.91 COPD (chronic obstructive pulmonary disease) J44.9 Non-ST elevation RI (NSTEMI) I21.4 Hypothyroidism E03.9 HTN (hypertension) I10 HLD (hyperlipidemia) E78.5 CLEMENTINA (acute kidney injury) N17.9 Rash R21
[2022-02-07] MEDS: METOPROLOL TARTRATE 25 MG TAB PO SCH ×2 (14:28→20:52)
[2022-02-07] MEDS: HEPARIN SODIUM/DEXTROSE 25,000 UNITS/500 ML BAG IV SCH (21:13)
[2022-02-08] MEDS ORDERED: SODIUM CHLORIDE 0.9% 1000ML 500 ML IV ONE (00:07)
[2022-02-08] MEDS: PIPERACILLIN/TAZOBACTAM 4.5 GM in DEXTROSE 5% 100 ML IV SCH ×3 (01:54→17:19)
[2022-02-08] MEDS: DEXTROSE 50% 50 ML SYRINGE IV PRN (03:59)
[2022-02-08 06:22] LABS: Basophils # (auto) 0.05 K/uL (0-0.2); Basophils % (auto) 0.6 %; Eosinophils # (auto) 0.27 K/uL (0-0.5); Eosinophils % (auto) 3.2 %; Hematocrit (blood only) 35.4 % (37-47); Hemoglobin 10.5 g/dL (12.0-16.0); Immature Granulocytes # (auto) 0.02 K/uL (0.00-0.02); Immature Granulocytes % (auto) 0.2 %; Lymphocytes # (auto) 2.26 K/uL (1.2-3.4); Lymphocytes % (auto) 26.7 %; Mean Corpuscular Hemoglobin 31.3 pg (25-34); Mean Corpuscular Hgb Conc 29.7 g/dL (32-36); Mean Corpuscular Volume 105.7 fL (80-100); Mean Platelet Volume 9.5 fL (7.4-10.4); Monocytes # (auto) 0.94 K/uL (0.11-0.59); Monocytes % (auto) 11.1 %; Neutrophils # (auto) 4.91 K/uL (1.4-6.5); Neutrophils % (auto) 58.2 %; Platelet Count 254 K/uL (130-400); RDW Coefficient of Variation 14.3 % (11.5-14.5); RDW Standard Deviation 54.5 fL (36.4-46.3); Red Blood Count 3.35 M/uL (4.2-5.4); White Blood Count 8.45 K/uL (4.8-10.8)
[2022-02-08 06:58] LABS: Partial Thromboplastin Time 56.1 Seconds (21.0-31.0)
[2022-02-08 07:05] LABS: BUN Creatinine Ratio 30.5 (10-20); Blood Urea Nitrogen 47 mg/dl (6-23); Calcium 8.5 mg/dl (8.5-10.1); Carbon Dioxide > 45 mmol/L (21-32); Chloride 89 mmol/L (98-107); Creatinine Clr Calc Pharmacy 41.9 ml/min; Est GFR (African American) 37.9 ml/min; Est GFR (Non-African American) 32.7 ml/min; Glucose 93 mg/dl (70-99(Fasting)); Magnesium 2.3 mg/dl (1.7-2.4); Potassium 3.8 mmol/L (3.5-5.1); Sodium 140 mmol/L (136-145)
--- NOTE | 2022-02-08 08:16 | Electrocardiogram Report ---
Test Reason : Blood Pressure : / mmHG Vent. Rate : 109 BPM Atrial Rate : 108 BPM P-R Int : 000 ms QRS Dur : 092 ms QT Int : 294 ms P-R-T Axes : 000 064 033 degrees QTc Int : 395 ms Atrial fibrillation with rapid ventricular response Abnormal ECG When compared with ECG of 17-MAY-2017 13:58, Atrial fibrillation has replaced Sinus rhythm Confirmed by Tavares Velazquez ([id number]) on 02/08/2022 8:15:51 AM Referred By: [facility] Confirmed By:Tavares Velazquez
[2022-02-08] MEDS: SENNA 8.6 MG TAB PO SCH (08:29)
[2022-02-08] MEDS: ATORVASTATIN 10 MG TAB PO SCH (08:30)
[2022-02-08] MEDS: MULTIVITAMIN TAB PO SCH (08:30)
[2022-02-08] MEDS: NYSTATIN OINT 15 GM TUBE EXT SCH ×2 (08:30→20:46)
[2022-02-08] MEDS: LORATADINE 10 MG TAB PO SCH (08:30)
[2022-02-08] MEDS: LEVOTHYROXINE SODIUM 50 MCG TABLET PO SCH (08:30)
[2022-02-08] MEDS: EUCERIN CR 120 GM JAR EXT SCH ×2 (08:31→20:46)
[2022-02-08] MEDS: DOCUSATE SODIUM 100 MG CAP PO SCH ×2 (08:33→20:44)
[2022-02-08 09:26] LABS: Oxygen Saturation VBG 66.6 %; pH VBG 7.3 (7.36-7.41)
--- NOTE | 2022-02-08 10:25 | XRay Report ---
SINGLE VIEW CHEST CLINICAL HISTORY: Dyspnea. FINDINGS: An AP, portable, upright chest radiograph is compared to study dated 02/06/2022 and correlate d with chest CT dated 09/09/2015. The examination is degraded by portable technique, large body habitus , and patient rotation. The patient's head partially obscures the right apex. The heart is enlarged n oting atherosclerotic calcification of the thoracic aorta. The mitral annulus is densely calcified. P ulmonary vascular congestion persists. Atelectasis is noted in the lung bases. No airspace consolidat ion typical for pneumonia or large pleural effusion is identified. No pneumothorax is seen. The skele odette structures are osteopenic. The bony thorax is grossly intact. IMPRESSION: Cardiomegaly with persistent pulmonary vascular congestion. ACT 112: Negative or not required by law. Electronically signed by: Trent Quezada M.D. 02/08/2022 10:24 AM
[2022-02-08] MEDS: METOPROLOL TARTRATE 25 MG TAB PO SCH ×2 (12:50→20:45)
--- NOTE | 2022-02-08 15:01 | Hospitalist Progress Note ---
Date of Service February 08, 2022 Assessment & Plan (1) COPD (chronic obstructive pulmonary disease): Plan: Chronic hypoxic respiratory failure on 2L O2. Labs suggestive of chronic retention. -Patient does have remote histpry of smoking. She may have COPD, however could not find any PFT in chart. -Patient also may have obesity hypoventilatory syndrome. -Patient has required intermittent BIPAP. -Will require to place on BIPAP again on 02/08/22 as CO2 on ABG is elevated. -may require pulmonary consult (2) Acute UTI: Plan: Patient afebrile, tachycardic on arrival. UA suggestive of infection, culture from 02/05/22 preliminary with GNR. Has history of Providencia, E.coli as well as Pseudomonas from wound -Follow cultures: prelim. -Continue Zosyn (3) Uncontrolled type 2 diabetes mellitus: Plan: Type II DM - last DthP2I=8.3 on 11/10/21. Hypoglycemic on arrival, resolved after D25. Had second episode of hypoglycemia on the floor - dextrose given. ?poor intake + diabetes medications + active infection -Continue to monitor glucose -Hold all insulin and Victoza -D5 infusion if patient becomes hypoglycemic again (4) Atrial fibrillation with rapid ventricular response: Plan: AF with RVR on arrival. No history of prior. Diltiazem bolus given in ER. Drip started with decreased blood pressure -Metoprolol PRN -added metoprolol 25 mg PO TID. -Heparin gtt anticoagulation -Check 2D echo (5) Non-ST elevation [place] (NSTEMI): Plan: Elevation of troponin 1808.9 --> 2415.6, no ischemic changes on EKG. Most likely rate related demand ischemia + possible failure/volume overload -Continue heparin gtt -Trend troponin -Atorvastatin (6) Hypothyroidism: Plan: Chronic. TSH elevated at 4.83 -Continue Synthroid (7) HTN (hypertension): Plan: Borderline low blood pressure in ER -Hold Losartan -Hold HCTZ -Monitor (8) HLD (hyperlipidemia): Plan: Chronic -Continue Atorvastatin (9) CLEMENTINA (acute kidney injury): Plan: Elevation of BUN to 48, Cr to 1.27 from 0.82 -Avoid nephrotoxic agents -Renal dosing where needed -Monitor BUN, Cr, electrolytes and UOP (10) Rash: Plan: Most of the rash appears to be psoriasis. Some possible kristy in groin and skin folds -Nystatin ointment Plan: F/E/N - Lasix given, Mg repletion Ppx - Heparin gtt Code - DNR/DNI LT per review of records Dispo -Admit to PCU Admission and Anticipated Discharge Date Admission Date: February 06, 2022 Subjective 76 yo female reports no new symptoms today. Review of Systems Review of Systems: All systems reviewed & are unremarkable except as noted in HPI & below Physical Exam Physical Exam: General: patient resting comfortably, NAD, non-toxic in appearance, now answering questions Skin: warm, dry, intact, scattered flaky, erythematous annular lesions present on abdomen, groin and back HEENT: NC/AT, PERRL, EOMI, anicteric sclera, conjunctiva without injection, external ear normal to inspection and nontender, nares patent, moist mucus membranes, dentition intact, no oropharyngeal lesions, neck supple, trachea midline, no LAD, no thyromegaly, no JVD Heart: +S1/S2, irregularly irregular, no m/r/g Lungs: equal air entry bilaterally, diffuse crackles present Abd: +BS, soft, NT/ND, no masses/organomegaly/ascites Ext: warm, 2+ pulses in UE/LE bilaterally, no clubbing/cyanosis or edema Neuro: nonfocal, patient AA&O x 4, speech intact, no facial droop, moving all extremities on command with equal strength 5/5 Results & Data Results & Data ([facility]) Vital Signs (Past 12 Hours) Vital Signs Temp Pulse Pulse Resp BP Pulse Ox 02/08/22 14:31 90/41 L 02/08/22 14:20 92/40 L 02/08/22 08:03 36.5 C 116 H 24 92/51 L 94 02/08/22 07:05 112 H 22 97 02/08/22 03:43 106 H 19 96 02/08/22 03:25 36.6 C 100 H 20 113/65 98 PG Care Time/CCT Total # of Minutes Spent Total Time Spent with Patient: Total time spent is greater than 50% in coordination of care (as documented) at patient's floor/unit and/or counseling patient: Coding Level of Care Code 58252 Subseq Hosp Care Lvl 3 Diagnoses Acute UTI N39.0 Uncontrolled type 2 diabetes mellitus E11.65 Atrial fibrillation with rapid ventricular response I48.91 COPD (chronic obstructive pulmonary disease) J44.9 Non-ST elevation [place] (NSTEMI) I21.4 Hypothyroidism E03.9 HTN (hypertension) I10 HLD (hyperlipidemia) E78.5 CLEMENTINA (acute kidney injury) N17.9 Rash R21 Time Spent (min) 35
[2022-02-08 15:15] LABS: Base Excess VBG 16.9 mEq/L; Oxygen Saturation VBG 83.4 %; pH VBG 7.33 (7.36-7.41)
[2022-02-08] MEDS: OLODATEROL HCL 2.5MCG/ACTUATION 60 PUFFS/INHALER INH SCH (15:25)
[2022-02-08 17:30] LABS: Base Excess VBG 19.4 mEq/L; Oxygen Saturation VBG 86.2 %; pH VBG 7.46 (7.36-7.41)
[2022-02-08] MEDS: HEPARIN SODIUM/DEXTROSE 25,000 UNITS/500 ML BAG IV SCH (21:21)
[2022-02-09] MEDS: PIPERACILLIN/TAZOBACTAM 4.5 GM in DEXTROSE 5% 100 ML IV SCH ×2 (02:05→09:27)
[2022-02-09] MEDS: LEVOTHYROXINE SODIUM 50 MCG TABLET PO SCH (06:17)
[2022-02-09 07:40] LABS: Base Excess VBG 18.7 mEq/L; Oxygen Saturation VBG 82.8 %; pH VBG 7.46 (7.36-7.41)
[2022-02-09 07:53] LABS: Partial Thromboplastin Ratio 1.5; Partial Thromboplastin Time 41.1 Seconds (21.0-31.0)
[2022-02-09 08:04] LABS: Basophils # (auto) 0.04 K/uL (0-0.2); Basophils % (auto) 0.4 %; Eosinophils # (auto) 0.34 K/uL (0-0.5); Eosinophils % (auto) 3.6 %; Hematocrit (blood only) 33.6 % (37-47); Hemoglobin 10.2 g/dL (12.0-16.0); Immature Granulocytes # (auto) 0.04 K/uL (0.00-0.02); Immature Granulocytes % (auto) 0.4 %; Lymphocytes # (auto) 2.47 K/uL (1.2-3.4); Lymphocytes % (auto) 26.3 %; Mean Corpuscular Hemoglobin 29.9 pg (25-34); Mean Corpuscular Hgb Conc 30.4 g/dL (32-36); Mean Corpuscular Volume 98.5 fL (80-100); Mean Platelet Volume 9.3 fL (7.4-10.4); Monocytes % (auto) 10.6 %; Neutrophils # (auto) 5.51 K/uL (1.4-6.5); Neutrophils % (auto) 58.7 %; Platelet Count 265 K/uL (130-400); RDW Coefficient of Variation 14.1 % (11.5-14.5); RDW Standard Deviation 50.4 fL (36.4-46.3); Red Blood Count 3.41 M/uL (4.2-5.4)
[2022-02-09 08:08] LABS: BUN Creatinine Ratio 27.5 (10-20); Calcium 8.3 mg/dl (8.5-10.1); Creatinine Clr Calc Pharmacy 35.5 ml/min; Est GFR (African American) 30.9 ml/min; Est GFR (Non-African American) 26.7 ml/min; Magnesium 1.8 mg/dl (1.7-2.4); Potassium 3.6 mmol/L (3.5-5.1)
[2022-02-09] MEDS: OLODATEROL HCL 2.5MCG/ACTUATION 60 PUFFS/INHALER INH SCH (08:35)
[2022-02-09] MEDS: ATORVASTATIN 10 MG TAB PO SCH (08:35)
[2022-02-09] MEDS: METOPROLOL TARTRATE 25 MG TAB PO SCH ×3 (08:35→20:57)
[2022-02-09] MEDS: LORATADINE 10 MG TAB PO SCH (08:36)
[2022-02-09] MEDS: NYSTATIN OINT 15 GM TUBE EXT SCH ×2 (08:36→21:07)
[2022-02-09] MEDS: SENNA 8.6 MG TAB PO SCH (08:36)
[2022-02-09] MEDS: EUCERIN CR 120 GM JAR EXT SCH ×2 (08:36→20:56)
[2022-02-09] MEDS: MULTIVITAMIN TAB PO SCH (08:36)
[2022-02-09] MEDS: DOCUSATE SODIUM 100 MG CAP PO SCH ×2 (08:37→20:56)
[2022-02-09 14:25] LABS: Partial Thromboplastin Ratio 1.4; Partial Thromboplastin Time 38.7 Seconds (21.0-31.0)
[2022-02-09] MEDS ORDERED: FUROSEMIDE INJ 20 MG/2 ML VIAL IV ONE (14:34)
--- NOTE | 2022-02-09 17:03 | Hospitalist Progress Note ---
Date of Service February 09, 2022 Assessment & Plan (1) COPD (chronic obstructive pulmonary disease): Plan: Chronic hypoxic respiratory failure on 2L O2. Labs suggestive of chronic retention. -Patient does have remote history of smoking. She may have COPD, however could not find any PFT in chart. -Patient also may have obesity hypoventilatory syndrome. -Patient has required intermittent BIPAP. -Will require to place on BIPAP again on 02/08/22 as CO2 on ABG is elevated. -ordered CT scan of chest -may require pulmonary consult (2) Acute UTI: Plan: Patient afebrile, tachycardic on arrival. UA suggestive of infection, culture from 02/05/22 preliminary with GNR. Has history of Providencia, E.coli as well as Pseudomonas from wound -Follow cultures: prelim. -Transition Zosyn to ceftriaxone (3) Uncontrolled type 2 diabetes mellitus: Plan: Type II DM - last DowG6L=6.3 on 11/10/21. Hypoglycemic on arrival, resolved after D25. Had second episode of hypoglycemia on the floor - dextrose given. ?poor intake + diabetes medications + active infection -Continue to monitor glucose -Hold all insulin and Victoza -D5 infusion if patient becomes hypoglycemic again (4) Atrial fibrillation with rapid ventricular response: Plan: AF with RVR on arrival. No history of prior. Diltiazem bolus given in ER. Drip started with decreased blood pressure -Metoprolol PRN -added metoprolol 25 mg PO TID. -Heparin gtt anticoagulation -Check 2D echo (5) Non-ST elevation OK (NSTEMI): Plan: Elevation of troponin 1808.9 --> 2415.6, no ischemic changes on EKG. Most likely rate related demand ischemia + possible failure/volume overload -Continue heparin gtt -Trend troponin -Atorvastatin (6) Hypothyroidism: Plan: Chronic. TSH elevated at 4.83 -Continue Synthroid (7) HTN (hypertension): Plan: Borderline low blood pressure in ER -Hold Losartan -Hold HCTZ -Monitor (8) HLD (hyperlipidemia): Plan: Chronic -Continue Atorvastatin (9) CLEMENTINA (acute kidney injury): Plan: Elevation of BUN to 48, Cr to 1.27 from 0.82 -Avoid nephrotoxic agents -Renal dosing where needed -Monitor BUN, Cr, electrolytes and UOP Urine output has remained low. will place on IVF, patient does not appear to be volume overloaded. CT scan of chest: shows mild pleural effusions. (10) Rash: Plan: Most of the rash appears to be psoriasis. Some possible kristy in groin and skin folds -Nystatin ointment Plan: Ppx - Heparin gtt Code - DNR/DNI LT per review of records Dispo -Admit to PCU Admission and Anticipated Discharge Date Admission Date: February 06, 2022 Subjective 76 yo female reports feeling better. However she does not like to be placed on BIPAP. She is unsure if she would like to be placed on it. Review of Systems Review of Systems: All systems reviewed & are unremarkable except as noted in HPI & below Physical Exam Physical Exam: General: patient resting comfortably, NAD, non-toxic in appearance, now answering questions Skin: warm, dry, intact, scattered flaky, erythematous annular lesions present on abdomen, groin and back HEENT: NC/AT, PERRL, EOMI, anicteric sclera, conjunctiva without injection, ex ternal ear normal to inspection and nontender, nares patent, moist mucus membranes, dentition intact, no oropharyngeal lesions, neck supple, trachea midline, no LAD, no thyromegaly, no JVD Heart: +S1/S2, irregularly irregular, no m/r/g Lungs: equal air entry bilaterally, diffuse crackles present Abd: +BS, soft, NT/ND, no masses/organomegaly/ascites Ext: warm, 2+ pulses in UE/LE bilaterally, no clubbing/cyanosis or edema Neuro: nonfocal, patient AA&O x 4, speech intact, no facial droop, moving all extremities on command with equal strength 5/5 Results & Data Results & Data ([facility]) Vital Signs (Past 12 Hours) Vital Signs Temp Pulse Resp BP BP Pulse Ox 02/09/22 16:11 90/46 L 02/09/22 15:20 36.9 C 110 H 31 H 91 02/09/22 12:04 36.4 C L 94 H 26 H 111/58 L 959 H 02/09/22 07:56 36.7 C 100 H 31 H 99/59 L 93 PG Care Time/CCT Total # of Minutes Spent Total Time Spent with Patient: Total time spent is greater than 50% in coordination of care (as documented) at patient's floor/unit and/or counseling patient: Coding Level of Care Code 87883 Subseq Hosp Care Lvl 3 Diagnoses COPD (chronic obstructive pulmonary disease) J44.9 Acute UTI N39.0 Uncontrolled type 2 diabetes mellitus E11.65 Atrial fibrillation with rapid ventricular response I48.91 Non-ST elevation OK (NSTEMI) I21.4 Hypothyroidism E03.9 HTN (hypertension) I10 HLD (hyperlipidemia) E78.5 CLEMENTINA (acute kidney injury) N17.9 Rash R21 Time Spent (min) 45 Comment updated brother
--- NOTE | 2022-02-09 17:41 | CT Scan Report ---
CT chest diagnostic wo con CLINICAL HISTORY: hypercapnea acute resp. failure COMPARISON STUDY: CTA chest from 09/09/2015 and portable chest from 02/08/2022 CT DOSE: 1041.33 mGy.cm TECHNIQUE: Standard CT of the Chest was performed without IV contrast. A dose lowering technique was utilized adhering to the principles of ALARA. FINDINGS: Airway: The airway is clear. No endobronchial lesion is identified. Lungs and pleura: There are small bilateral pleural effusions, left greater than right. There is asso ciated compressive atelectasis/collapse involving both lower lobes posteriorly The remainder the lungs are clear bilaterally. There is no evidence for vascular congestion as suspec christopher radiographically. Mediastinum: There is no evidence for pathologic adenopathy on these limited noncontrast images. The heart is mildly enlarged. There is extensive coronary artery calcification. There is also calcificati on involving the mitral valve with findings suspicious for mitral valve replacement. The thoracic aor ta is within normal limits. There is mild atherosclerotic calcification present. There is no evidence for pericardial effusion. Upper abdomen: The adrenal glands are normal bilaterally. There is evidence for cholelithiasis with n o CT evidence for acute cholecystitis. Osseous structures: There is no acute osseous pathology. Mild degenerative changes are seen within th e spine. IMPRESSION: 1. Small bilateral pleural effusions, left greater than right with compressive atelectasis/collapse i nvolving both lower lobes, left greater than right. 2. No other acute chest disease with no evidence for vascular congestion. 3. Extensive coronary artery calcification. 4. Extensive mitral valve calcification/replacement. 5. Cholelithiasis with no CT evidence for acute cholecystitis. ACT 112: Negative or not required by law. Electronically signed by: Johny Vang M.D. 02/09/2022 5:39 PM
[2022-02-09] MEDS: cefTRIAXone SODIUM 2,000 MG in DEXTROSE 5% 50 ML IV SCH (17:48)
[2022-02-09 17:50] LABS: Appearance Urine Turbid (Clear); Bacteria Urine Automated Negative (Negative); Bilirubin Urine Negative (Negative); Blood Urine 2+ (Negative); Color Urine Yellow; Epithelial Cell Urine Auto >30 /lpf (0-5); Glucose Urine UA Negative (Negative); Ketones Urine Trace (Negative); Leukocyte Esterase Urine 3+ (Negative); Nitrite Urine Negative (Negative); Protein Urine 1+ (Negative); Specific Gravity Urine 1.019 (1.000-1.030); Urobilinogen Urine Negative (Negative); WBC Urine Automated >30 /hpf (0-5)
[2022-02-09] MEDS: HEPARIN SODIUM/DEXTROSE 25,000 UNITS/500 ML BAG IV SCH ×2 (17:52→20:55)
[2022-02-09] MEDS ORDERED: SODIUM CHLORIDE 0.9% 1000ML 1,000 ML IV SCH (20:15)
[2022-02-09 21:11] LABS: Partial Thromboplastin Ratio 1.6; Partial Thromboplastin Time 44.2 Seconds (21.0-31.0)
[2022-02-09 21:26] LABS: Creatinine Clr Calc Pharmacy 30.8 ml/min; Est GFR (Non-African American) 22.5 ml/min
[2022-02-10 04:24] LABS: Partial Thromboplastin Ratio 1.9
[2022-02-10 04:27] LABS: Partial Thromboplastin Time 52.3 Seconds (21.0-31.0)
[2022-02-10] MEDS: LEVOTHYROXINE SODIUM 50 MCG TABLET PO SCH (05:27)
[2022-02-10 07:28] LABS: Hemoglobin 10.2 g/dL (12.0-16.0); Mean Corpuscular Hemoglobin 30.4 pg (25-34); Mean Corpuscular Hgb Conc 31.9 g/dL (32-36); Mean Corpuscular Volume 95.5 fL (80-100); Mean Platelet Volume 9.3 fL (7.4-10.4); Platelet Count 247 K/uL (130-400); RDW Coefficient of Variation 14.1 % (11.5-14.5); RDW Standard Deviation 48.4 fL (36.4-46.3); Red Blood Count 3.35 M/uL (4.2-5.4); White Blood Count 8.85 K/uL (4.8-10.8)
[2022-02-10] MEDS: SENNA 8.6 MG TAB PO SCH (07:35)
[2022-02-10] MEDS: METOPROLOL TARTRATE 25 MG TAB PO SCH ×2 (07:35→20:05)
[2022-02-10 07:36] LABS: Partial Thromboplastin Ratio 1.6; Partial Thromboplastin Time 43.6 Seconds (21.0-31.0)
[2022-02-10] MEDS: ATORVASTATIN 10 MG TAB PO SCH (07:37)
[2022-02-10] MEDS: LORATADINE 10 MG TAB PO SCH (07:37)
[2022-02-10] MEDS: MULTIVITAMIN TAB PO SCH (07:37)
[2022-02-10] MEDS: DOCUSATE SODIUM 100 MG CAP PO SCH ×2 (07:38→20:04)
[2022-02-10] MEDS: EUCERIN CR 120 GM JAR EXT SCH ×2 (07:38→20:04)
[2022-02-10] MEDS: NYSTATIN OINT 15 GM TUBE EXT SCH ×2 (07:39→20:05)
[2022-02-10] MEDS: OLODATEROL HCL 2.5MCG/ACTUATION 60 PUFFS/INHALER INH SCH (07:40)
[2022-02-10 07:52] LABS: BUN Creatinine Ratio 28.7 (10-20); Calcium 8.3 mg/dl (8.5-10.1); Creatinine Clr Calc Pharmacy 39.8 ml/min; Est GFR (African American) 35.1 ml/min; Est GFR (Non-African American) 30.3 ml/min; Potassium 3.4 mmol/L (3.5-5.1)
[2022-02-10 08:06] LABS: Base Excess VBG 18.2 mEq/L; Oxygen Saturation VBG 70.6 %; pH VBG 7.46 (7.36-7.41)
[2022-02-10] MEDS ORDERED: WARFARIN SOD 5 MG TAB PO ONE (10:11)
--- NOTE | 2022-02-10 10:39 | Cardiology Consultation ---
Date of Consultation February 10, 2022 Assessment & Plan (1) Atrial fibrillation with rapid ventricular response: Ms. Hoffman is a 76 year old female with a history of Uncontrolled Type 2 Diabetes Mellitus, COPD, Chronic Respiratory Failure, Hypertension, Hyperlipidemia, Hypothyroidism, Major Depressive Disorder, Morbid Obesity, GERD, Chronic Venous Insufficiency, Psoriasis, Intellectual Disabilities, and Osteoarthritis who was admitted to [facility] on 02/06/22 with a UTI complicated by CLEMENTINA and was noted to be in newly diagnosed but asymptomatic A-Fib with RVR and positive hs Troponin I consistent with Demand Ischemia/NSTEMI. She initially received a IV Diltiazem bolus followed by a drip and was started on IV Heparin drip. Patient developed hypotension which precluded the use of IV Diltiazem -- so she was placed on Lopressor 25 mg b.i.d. and IV Lopressor as needed. Her heart rate has improved and she has an average HR of 100 bpm on cardiac monitoring. Unfortunately, her blood pressures remain relatively low and that limits what rate controlling medications/dosages we can use. Patient has not had any symptoms attributable to her atrial fibrillation. She has not experienced any palpitations, sensation that her heart is racing, nor has she noticed any elevated pulse rates. Patient has not had any angina pectoris or anginal equivalent type symptoms, overt symptoms of heart failure, nor has she had any symptoms suggestive of stroke or mini stroke. Patient states she is feeling very good at the present time and wants to go back home (at [facility]). Patient did not have any of the above symptoms leading up to this hospitalization. We discussed what atrial fibrillation is, the risk of stroke associated with atrial fibrillation, and the management of atrial fibrillation. As we do not know when the onset of her atrial fibrillation was and therefore we would recommend anticoagulating her for a minimum of 3.5 week before attempting to get her back into a normal sinus mechanism. In the meantime, controlling her ventricular response rate the best of our ability. Recommend the followin. Continue Heparin drip for the time being, convert to Eliquis 5 mg b.i.d. at discharge. 2. Continue Metoprolol Tartrate 25 mg b.i.d. and titrate if blood pressure allows. 3. Consider starting Digoxin 125 mcg every other day, but we will need to be cautious with her variable renal function. 4. Follow-up with [facility] in 4 weeks, arrange for cardioversion if symptomatic or if HR remains elevated. (2) Non-ST elevation ID (NSTEMI): Based on her risk factors and coronary artery calcifications she most likely has CAD. HS Troponin I peaked 2627.2 pg/mL and trended down from there. Echocardiogram 02/07/22 showed normal LV systolic function, normal wall motion, mild concentric LVH. 1. Continue Metoprolol Tartrate 25 mg b.i.d. 2. Start Aspirin 81 mg daily. 3. Continue Atorvastatin 10 mg daily. 4. Resume Losartan 25 mg daily when blood pressure allows. (3) HTN (hypertension): (4) HLD (hyperlipidemia): (5) Coronary artery calcification seen on CAT scan: (6) Mild mitral stenosis: Supervising Physician Co-Signing Physician Notes Agree with note by Mr. Moy with following additions: Patient was seen and examined. Completely asymptomatic in regards to atrial fibrillation. New diagnosis. Heart rate reasonably controlled ranging 80s to 110s. She is sedentary at her living facility. She rarely ambulates and if she does, needs assistance and a walker. She typically transfers via lift and sits in a wheelchair. She denies chest pain, shortness of breath, palpitations, melena, hematochezia, or hematuria. Exam notable for: General: No acute distress Neck: Thick. No appreciable JVD or hepatic jugular reflex. Cardiac: Irregularly irregular near 100 beats per minute. No murmur. Lungs: Decreased breath sounds but otherwise clear bilaterally. Extremities: 2+ bilateral radial pulses. Trace left lower extremity pedal edema. Telemetry personally reviewed: Atrial fibrillation. ASSESSMENT/PLAN: 1. Atrial fibrillation: New diagnosis. Heart rate reasonably controlled without rate-controlling medications as she has not received metoprolol/beta- mckinley. Recommend low-dose beta-mckinley if blood pressure remains reasonable. If systolic blood pressure in the 90s, can use metoprolol tartrate 12.5 mg twice daily. Otherwise, can use metoprolol tartrate 25 mg twice daily and titrate as blood pressure tolerates and heart rate requires. Agree with anticoagulation for stroke risk reduction. If she fails rate control strategy, could consider cardioversion in the future. 2. Hypotension: Most recent blood pressure was normal. As per primary hospitalist service. 3. Acute kidney injury: As per primary service. She does not appear to be hypervolemic 4. Elevated troponin: Likely due to demand ischemia in the setting of AFib with RVR. No anginal symptoms. No urgent ischemic evaluation necessary at this time . Presentation is not consistent with acute coronary syndrome. Normal LV systolic function reported on echo. 5. Disposition: She can follow-up with Cardiology as an outpatient. Plan of care communicated with Dr. Hahn of the primary hospitalist service. History of Present Illness Reason for Consultation: -- Newly Diagnosed Atrial Fibrillation Requesting Physician: Dago Hahn Attending Physician: Geraldo Austin MD History of Present Illness Ms. Hoffman is a 76 year old female with a history of Uncontrolled Type 2 Diabetes Mellitus, COPD, Chronic Respiratory Failure, Hypertension, Hyperlipidemia, Hypothyroidism, Major Depressive Disorder, Morbid Obesity, GERD, Chronic Venous Insufficiency, Psoriasis, Intellectual Disabilities, and Osteoarthritis who was admitted to [facility] on 02/06/22 with a UTI and was noted to be in newly diagnosed but asymptomatic A-Fib with RVR and positive hs Troponin I consistent with Demand Ischemia/NSTEMI. She initially received a IV Diltiazem bolus followed by a drip and was started on IV Heparin drip. Patient developed hypotension which precluded the use of IV Diltiazem -- so she was placed on Lopressor 25 mg b.i.d. and IV Lopressor as needed. Her heart rate has improved and she has an average HR of 100 bpm on cardiac monitoring. Her blood pressures remain relatively low. Patient is currently being seen in room 210. Patient has not had any symptoms attributable to her atrial fibrillation. She has not experienced any palpitations, sensation that her heart is racing, nor has she noticed any elevated pulse rates. She has not had any shortness of breath, unusual dyspnea on exertion (although she is quite sedentary) nor has she experienced any chest discomfort at any time. Patient specifically denies any chest pain, heaviness, tightness, or pressure. She denies any neck, jaw, back, or arm pain. She denies any nausea, vomiting, or diaphoresis. She denies any orthopnea or PND. She has not had any symptoms suggestive of stroke or mini stroke. Patient states she is feeling very good at the present time and wants to go back home (at [facility]). Patient did not have any of the above symptoms leading up to this hospitalization either. ECHOCARDIOGRAM 02/07/22: -- Normal LV systolic function. -- LVEF 50% to 55% with normal wall motion. -- Mild concentric LVH. -- Mildly dilated left atrium -- Mild aortic valve sclerosis without stenosis. -- Mild mitral stenosis. -- RVSP is elevated at 30-40 mmHg. -- IVC is mildly dilated. Allergies Allergy/AdvReac Type Severity Reaction Status Date / Time metformin AdvReac Unknown Diarrhea Verified 02/06/22 20:04 Home Medications Medication Instructions Recorded Confirmed Type acetaminophen 650 mg 650 mg PO Q6H PRN tab 05/04/18 02/06/22 History tablet,extended release atorvastatin 10 mg tablet (Lipitor) 10 mg PO DAILY #90 tab 02/21/19 02/06/22 Rx levothyroxine 50 mcg capsule 50 mcg PO DAILY #90 cap 04/05/19 02/06/22 Rx docusate sodium 100 mg capsule 100 mg PO BID cap 04/11/19 02/06/22 History multivitamin 1 tab PO QAM 05/12/19 02/06/22 History losartan 25 mg tablet 25 mg PO DAILY #90 tab 05/19/19 02/06/22 Rx cholecalciferol (vitamin D3) 125 125 mcg PO DAILY 03/01/20 02/06/22 History mcg (5,000 unit) capsule emollient combination no.114 1 applic TOPICAL BID 02/06/22 02/06/22 History (Eucerin Advanced Repair) furosemide 40 mg tablet 40 mg PO DAILY 02/06/22 02/06/22 History hydrochlorothiazide 12.5 mg tablet 12.5 mg PO DAILY 02/06/22 02/06/22 History insulin glargine 100 unit/mL (3 40 unit SUBCUT BID 02/06/22 02/06/22 History mL) subcutaneous pen (Lantus Solostar U-100 Insulin) liraglutide 0.6 mg/0.1 mL (18 mg/3 1.8 mg SUBCUT DAILY 02/06/22 02/06/22 History mL) subcutaneous pen injector (Victoza 3-Ashok) loratadine 10 mg tablet 10 mg PO DAILY 02/06/22 02/06/22 History potassium chloride 10 mEq 10 meq PO DAILY 02/06/22 02/06/22 History tablet,extended release(part/cryst) sennosides 8.6 mg tablet (senna) 8.6 mg PO DAILY 02/06/22 02/06/22 History Patient History Medical History Bilateral swelling of feet Cellulitis Cholelithiasis Chronic GERD COPD (chronic obstructive pulmonary disease) Depression Diabetes Diabetes mellitus with diabetic polyneuropathy Edema Gastroesophageal reflux disease HLD (hyperlipidemia) HTN (hypertension) Hypothyroidism Left breast abscess Major depressive disorder Morbid obesity Osteoarthritis Psoriasis Spinal stenosis Tonsillectomy planned Type 2 diabetes mellitus with diabetic peripheral angiopathy without gangrene Uncontrolled type 2 diabetes mellitus Urinary incontinence UTI (urinary tract infection) Venous stasis dermatitis Surgical History S/P hysterectomy Status post incision and drainage (03/01/20) I and D left breast 03/01/20 Dr. Mireles in office Social History Smoking Status: Former smoker Tobacco Type: Cigarettes Cigarettes Per Day: 1; Second Hand Exposure: No; Hx Alcohol Use: No Hx Substance Use: No Preferred Language: Yi Communication Ability: Impaired Visual Impairment: Limited Hearing Ability: Normal Executive Services Administrator Required: No Beliefs That Will Affect Care: None marital status: Single Current Living Situation: [facility] current occupational status: disabled How many Children do You have: 1 Feels Safe at Home: Yes Assistive Devices: BiPap and Oxygen - Continuous Physical Exam Physical Exam: GENERAL: Patient in no acute distress. HEENT: Head is atraumatic, normocephalic. EOM's intact. Facies symmetric. No perioral cyanosis. NECK: No JVD. JVP is not elevated. Carotid upstrokes are + 2 bilaterally without obvious bruits. CHEST/LUNGS: Diminished breath sounds throughout, otherwise clear. No wheezes, rales, or crackles. CVS: S1 and S2 are irregularly irregular at 99 bpm with a grade 1/6 basal systolic murmur. No diastolic murmurs or rumbles. No gallops or rubs. PMI is nonpalpable. No lifts, heaves, or thrills. No abdominal aortic or renal bruits. ABDOMINAL EXAM: Bowel sounds are present. No masses, organomegaly, or tenderness. EXTREMITIES: No clubbing or cyanosis. No significant edema. Intact radial pulses bilaterally. Extremities are well perfused. NEUROLOGIC EXAM: Patient is awake, alert, and oriented. Pleasant and cooperative. Answers questions appropriately. Speech is clear. HELIARC WELDER: -- Atrial fibrillation with HR averaging around 100 bpm. Results & Data ([facility]) Vital Signs (Past 12 Hours) Vital Signs Temp Pulse Pulse Resp BP Pulse Ox 02/10/22 08:00 36.5 C 98 H 15 87/57 L 93 02/10/22 03:00 36.9 C 99 H 22 88/57 L 100 02/10/22 02:49 83 14 96 02/10/22 00:10 110 H 02/09/22 23:00 37.0 C 102 H 16 89/48 L 96 02/09/22 22:58 110 H 28 H 95 Laboratory Results Laboratory Results - last 24 hr 02/09/22 02/09/22 02/09/22 11:18 14:08 16:35 WBC RBC Hgb Hct MCV MCH MCHC RDW Std Deviation RDW Coeff of Nasir Plt Count MPV APTT 38.7 H PTT Ratio 1.4 VBG pH VBG pCO2 VBG pO2 VBG HCO3 VBG O2 Saturation VBG Base Excess Barometric Pressure Sodium Potassium Chloride Carbon Dioxide Anion Gap BUN Creatinine Est Cr Clr Drug Dosing Est GFR ( Amer) Est GFR (Non-Af Amer) BUN/Creatinine Ratio Glucose POC Glucose 137 H 243 H Calcium B-Natriuretic Peptide Urine Color Urine Appearance Urine pH Ur Specific [place] Urine Protein Urine Glucose (UA) Urine Ketones Urine Blood Urine Nitrite Urine Bilirubin Urine Urobilinogen Ur Leukocyte Esterase Urine WBC (Auto) Urine RBC (Auto) U Hyaline Cast (Auto) U Epithel Cells (Auto) Urine Bacteria (Auto) Urine Yeast Stl C. diff Tox B Gene 02/09/22 02/09/22 02/09/22 17:35 20:39 20:45 WBC RBC Hgb Hct MCV MCH MCHC RDW Std Deviation RDW Coeff of Nasir Plt Count MPV APTT 44.2 H PTT Ratio 1.6 VBG pH VBG pCO2 VBG pO2 VBG HCO3 VBG O2 Saturation VBG Base Excess Barometric Pressure Sodium Potassium Chloride Carbon Dioxide Anion Gap BUN Creatinine Est Cr Clr Drug Dosing Est GFR ( Amer) Est GFR (Non-Af Amer) BUN/Creatinine Ratio Glucose POC Glucose 226 H Calcium B-Natriuretic Peptide Urine Color Yellow Urine Appearance Turbid A Urine pH 5.0 Ur Specific [place] 1.019 Urine Protein 1+ H Urine Glucose (UA) Negative Urine Ketones Trace H Urine Blood 2+ H Urine Nitrite Negative Urine Bilirubin Negative Urine Urobilinogen Negative Ur Leukocyte Esterase 3+ H Urine WBC (Auto) >30 H Urine RBC (Auto) 5-10 H U Hyaline Cast (Auto) 1-5 U Epithel Cells (Auto) >30 H Urine Bacteria (Auto) Negative Urine Yeast Not Reportable Stl C. diff Tox B Gene 02/09/22 02/10/22 02/10/22 20:45 03:33 07:05 WBC RBC Hgb Hct MCV MCH MCHC RDW Std Deviation RDW Coeff of Nasir Plt Count MPV APTT 52.3 H* 43.6 H PTT Ratio 1.9 1.6 VBG pH VBG pCO2 VBG pO2 VBG HCO3 VBG O2 Saturation VBG Base Excess Barometric Pressure Sodium Potassium Chloride Carbon Dioxide Anion Gap BUN Creatinine 2.10 H Est Cr Clr Drug Dosing 30.8 Est GFR ( Amer) 26.0 Est GFR (Non-Af Amer) 22.5 BUN/Creatinine Ratio Glucose POC Glucose Calcium B-Natriuretic Peptide Urine Color Urine Appearance Urine pH Ur Specific [place] Urine Protein Urine Glucose (UA) Urine Ketones Urine Blood Urine Nitrite Urine Bilirubin Urine Urobilinogen Ur Leukocyte Esterase Urine WBC (Auto) Urine RBC (Auto) U Hyaline Cast (Auto) U Epithel Cells (Auto) Urine Bacteria (Auto) Urine Yeast Stl C. diff Tox B Gene 02/10/22 02/10/22 02/10/22 07:05 07:05 07:05 WBC 8.85 RBC 3.35 L Hgb 10.2 L Hct 32.0 L MCV 95.5 MCH 30.4 MCHC 31.9 L RDW Std Deviation 48.4 H RDW Coeff of Nasir 14.1 Plt Count 247 MPV 9.3 APTT PTT Ratio VBG pH VBG pCO2 VBG pO2 VBG HCO3 VBG O2 Saturation VBG Base Excess Barometric Pressure Sodium 136 Potassium 3.4 L Chloride 89 L Carbon Dioxide 38 H Anion Gap 9 BUN 47 H Creatinine 1.64 H D Est Cr Clr Drug Dosing 39.8 Est GFR ( Amer) 35.1 Est GFR (Non-Af Amer) 30.3 BUN/Creatinine Ratio 28.7 H Glucose 167 H POC Glucose Calcium 8.3 L B-Natriuretic Peptide 117 H Urine Color Urine Appearance Urine pH Ur Specific [place] Urine Protein Urine Glucose (UA) Urine Ketones Urine Blood Urine Nitrite Urine Bilirubin Urine Urobilinogen Ur Leukocyte Esterase Urine WBC (Auto) Urine RBC (Auto) U Hyaline Cast (Auto) U Epithel Cells (Auto) Urine Bacteria (Auto) Urine Yeast Stl C. diff Tox B Gene 02/10/22 02/10/22 02/10/22 07:11 07:16 07:53 WBC RBC Hgb Hct MCV MCH MCHC RDW Std Deviation RDW Coeff of Nasir Plt Count MPV APTT PTT Ratio VBG pH Cancelled 7.46 H VBG pCO2 Cancelled 65 H VBG pO2 Cancelled 39 VBG HCO3 Cancelled 45 VBG O2 Saturation Cancelled 70.6 VBG Base Excess Cancelled 18.2 Barometric Pressure Cancelled 730.2 Sodium Potassium Chloride Carbon Dioxide Anion Gap BUN Creatinine Est Cr Clr Drug Dosing Est GFR ( Amer) Est GFR (Non-Af Amer) BUN/Creatinine Ratio Glucose POC Glucose 180 H Calcium B-Natriuretic Peptide Urine Color Urine Appearance Urine pH Ur Specific [place] Urine Protein Urine Glucose (UA) Urine Ketones Urine Blood Urine Nitrite Urine Bilirubin Urine Urobilinogen Ur Leukocyte Esterase Urine WBC (Auto) Urine RBC (Auto) U Hyaline Cast (Auto) U Epithel Cells (Auto) Urine Bacteria (Auto) Urine Yeast Stl C. diff Tox B Gene 02/10/22 09:44 WBC RBC Hgb Hct MCV MCH MCHC RDW Std Deviation RDW Coeff of Nasir Plt Count MPV APTT PTT Ratio VBG pH VBG pCO2 VBG pO2 VBG HCO3 VBG O2 Saturation VBG Base Excess Barometric Pressure Sodium Potassium Chloride Carbon Dioxide Anion Gap BUN Creatinine Est Cr Clr Drug Dosing Est GFR ( Amer) Est GFR (Non-Af Amer) BUN/Creatinine Ratio Glucose POC Glucose Calcium B-Natriuretic Peptide Urine Color Urine Appearance Urine pH Ur Specific [place] Urine Protein Urine Glucose (UA) Urine Ketones Urine Blood Urine Nitrite Urine Bilirubin Urine Urobilinogen Ur Leukocyte Esterase Urine WBC (Auto) Urine RBC (Auto) U Hyaline Cast (Auto) U Epithel Cells (Auto) Urine Bacteria (Auto) Urine Yeast Stl C. diff Tox B Gene Pending Diagnostic Findings CT SCAN CHEST 02/06/22: 1. Small bilateral pleural effusions, left greater than right with compressive atelectasis/collapse involving both lower lobes, left greater than right. 2. No other acute chest disease with no evidence for vascular congestion. 3. Extensive coronary artery calcification. 4. Extensive mitral valve calcification/replacement. 5. Cholelithiasis with no CT evidence for acute cholecystitis. Medications Administered Medications acetaminophen 650 mg tablet,extended release 650 mg PO Q6H PRN tab 05/04/18 [History Confirmed 02/06/22] atorvastatin 10 mg tablet (Lipitor) 10 mg PO DAILY #90 tab 02/21/19 [Rx Confirmed 02/06/22] levothyroxine 50 mcg capsule 50 mcg PO DAILY #90 cap 04/05/19 [Rx Confirmed 02/06/22] docusate sodium 100 mg capsule 100 mg PO BID cap 04/11/19 [History Confirmed 02/06/22] multivitamin 1 tab PO QAM 05/12/19 [History Confirmed 02/06/22] losartan 25 mg tablet 25 mg PO DAILY #90 tab 05/19/19 [Rx Confirmed 02/06/22] cholecalciferol (vitamin D3) 125 mcg (5,000 unit) capsule 125 mcg PO DAILY 03/01/20 [History Confirmed 02/06/22] emollient combination no.114 (Eucerin Advanced Repair) 1 applic TOPICAL BID 02/06/22 [History Confirmed 02/06/22] furosemide 40 mg tablet 40 mg PO DAILY 02/06/22 [History Confirmed 02/06/22] hydrochlorothiazide 12.5 mg tablet 12.5 mg PO DAILY 02/06/22 [History Confirmed 02/06/22] insulin glargine 100 unit/mL (3 mL) subcutaneous pen (Lantus Solostar U-100 Insulin) 40 unit SUBCUT BID 02/06/22 [History Confirmed 02/06/22] liraglutide 0.6 mg/0.1 mL (18 mg/3 mL) subcutaneous pen injector (Victoza 3-Ashok) 1.8 mg SUBCUT DAILY 02/06/22 [History Confirmed 02/06/22] loratadine 10 mg tablet 10 mg PO DAILY 02/06/22 [History Confirmed 02/06/22] potassium chloride 10 mEq tablet,extended release(part/cryst) 10 meq PO DAILY 02/06/22 [History Confirmed 02/06/22] sennosides 8.6 mg tablet (senna) 8.6 mg PO DAILY 02/06/22 [History Confirmed 02/06/22] Home Medications Acetaminophen (Acetaminophen 325 Mg Tab) 650 mg PO Q4H PRN PRN Reason: Pain or Fever Stop: 03/09/22 01:16 Atorvastatin Calcium (Atorvastatin 10 Mg Tab) 10 mg PO DAILY MAYA Stop: 03/09/22 08:59 Last Admin: 02/10/22 07:37 Dose: 10 mg Documented by: Dextrose (Dextrose 50% 50 Ml Syringe) 25 - 50 ml IV UD PRN; Protocol PRN Reason: Hypoglycemia Protocol Stop: 03/09/22 01:16 Last Admin: 02/08/22 03:59 Dose: 25 ml Documented by: Docusate Sodium (Docusate Sodium 100 Mg Cap) 100 mg PO BID MAYA Stop: 03/09/22 08:59 Last Admin: 02/10/22 07:38 Dose: Not Given Documented by: Glucagon (Glucagon For Inj 1 Mg Vial) 1 mg SQ UD PRN; Protocol PRN Reason: Hypoglycemia Protocol Stop: 03/09/22 01:16 Glucose (Glucose 10 Tabs/Tube) 4 - 8 tabs PO UD PRN; Protocol PRN Reason: Hypoglycemia Protocol Stop: 03/09/22 01:16 Glucose (Glucose 40% Gel 15 Gm Tube) 15 - 30 gm PO UD PRN; Protocol PRN Reason: Hypoglycemia Protocol Stop: 03/09/22 01:16 Heparin Sodium/Dextrose (Heparin Sodium/Dextrose) 25,000 units in 500 mls @ 26 mls/hr IV .[id number] [facility]; Protocol Stop: 03/08/22 20:14 Last Titration: 02/10/22 06:55 Dose: 1,300 units/hr, 26 mls/hr Documented by: Ceftriaxone Sodium 2,000 mg/ (Dextrose) 70 mls @ 140 mls/hr IV Q24H [facility]; Protocol Stop: 02/17/22 01:59 Last Infusion: 02/09/22 18:24 Dose: Infused Documented by: Levothyroxine Sodium (Levothyroxine Sodium 50 Mcg Tablet) 50 mcg PO DAILYBB [facility] Stop: 03/09/22 06:29 Last Admin: 02/10/22 05:27 Dose: 50 mcg Documented by: Loratadine (Loratadine 10 Mg Tab) 10 mg PO DAILY [facility] Stop: 03/09/22 08:59 Last Admin: 02/10/22 07:37 Dose: 10 mg Documented by: Metoprolol Tartrate (Metoprolol Tartrate 1 Mg/Ml Vial) 5 mg IV Q4 PRN PRN Reason: HR > 110 Stop: 03/09/22 01:16 Metoprolol Tartrate (Metoprolol Tartrate 25 Mg Tab) 25 mg PO BID MAYA Stop: 03/10/22 20:59 Last Admin: 02/10/22 07:35 Dose: Not Given Documented by: Miscellaneous (Carbohydrates For Hypoglycemia ) 15 - 30 gm PO UD PRN PRN Reason: Hypoglycemia Protocol Stop: 03/09/22 01:16 Multi-Ingredient Cream (Eucerin Cr 120 Gm Jar) 1 appln EXT BID [facility] Stop: 03/09/22 08:59 Last Admin: 02/10/22 07:38 Dose: 1 appln Documented by: Multivitamins (Multivitamin Tab) 1 tab PO QAM [facility] Stop: 03/09/22 08:59 Last Admin: 02/10/22 07:37 Dose: 1 tab Documented by: Nystatin (Nystatin Oint 15 Gm Tube) 1 appln EXT BID [facility] Stop: 03/09/22 08:59 Last Admin: 02/10/22 07:39 Dose: 1 appln Documented by: Olodaterol (Olodaterol Hcl 2.5mcg/Actuation 60 Puffs/Inhaler) 2 puffs INH DAILY [facility] Stop: 03/10/22 14:14 Last Admin: 02/10/22 07:40 Dose: 2 puffs Documented by: Ondansetron HCl (Ondansetron Inj 2 Mg/Ml 2 Ml Vial) 4 mg IV Q6H PRN PRN Reason: Nausea Stop: 03/09/22 01:16 Potassium Chloride (Potassium Chloride Crtab 20 Meq Tabcr) 20 meq PO TID [facility] Stop: 02/10/22 21:01 Sennosides (Senna 8.6 Mg Tab) 8.6 mg PO DAILY [facility] Stop: 03/09/22 08:59 Last Admin: 02/10/22 07:35 Dose: Not Given Documented by: PG Care Time/CCT Total # of Minutes Spent Total Time Spent with Patient: Total time spent is greater than 50% in coordination of care (as documented) at patient's floor/unit and/or counseling patient:32 Coding Level of Care Code 18828 Initial Inpt Care Lvl 3 Diagnoses Atrial fibrillation with rapid ventricular response I48.91 Non-ST elevation ID (NSTEMI) I21.4 HTN (hypertension) I10 HLD (hyperlipidemia) E78.5 Coronary artery calcification seen on CAT scan I25.10 Mild mitral stenosis I05.0 Time Spent (min) 58
[2022-02-10] MEDS: POTASSIUM CHLORIDE CRTAB 20 MEQ TABCR PO SCH ×3 (11:10→20:43)
[2022-02-10] MEDS ORDERED: LOPERAMIDE HCL 2 MG CAP PO STA (12:30)
[2022-02-10] MEDS ORDERED: PHARMACY GLYCEMIC MGMT CONSULT PRN (12:42)
[2022-02-10] MEDS: ADVANCED PROBIOTIC 1250 MG CAPSULE PO SCH (13:18)
[2022-02-10] MEDS: HEPARIN SODIUM/DEXTROSE 25,000 UNITS/500 ML BAG IV SCH (13:18)
[2022-02-10] MEDS ORDERED: INSULIN GLARGINE SOLOSTAR 100 UNITS/ML 3 ML PEN SC ONE ×2 (13:45→21:00)
[2022-02-10] MEDS ORDERED: DEXTROSE 50% 50 ML SYRINGE IV PRN (13:45)
[2022-02-10] MEDS ORDERED: GLUCAGON FOR INJ 1 MG VIAL SQ PRN (13:45)
[2022-02-10] MEDS ORDERED: GLUCOSE 10 TABS/TUBE PO PRN (13:45)
[2022-02-10] MEDS ORDERED: CARBOHYDRATES FOR HYPOGLYCEMIA PO PRN (13:45)
[2022-02-10] MEDS ORDERED: GLUCOSE 40% GEL 15 GM TUBE PO PRN (13:45)
--- NOTE | 2022-02-10 14:17 | Pharmacy Report ---
Pharmacy Glycemic Short Note 2 - Date of Service February 10, 2022 - Glycemic Short BSG Results (Last 24 hours): 02/09/22 02/09/22 02/10/22 16:35 20:39 07:05 Glucose 167 H POC Glucose 243 H 226 H 02/10/22 02/10/22 07:11 11:11 Glucose POC Glucose 180 H 286 H OUTPATIENT ANTIDIABETIC REGIMEN: * Insulin glargine 40 units BID, Victoza * A1c 6.3% ASSESSMENT: * Patient initially hypoglycemic on admission, insulin held at that time. BSGs have slowly trended up, fasting 180 mg/dL this morning and 286 mg/dl at lunch. Consult placed at that time. * Will give 20 units of lantus x1 now, scale for PM * Will start with weight based stress of 2 novolog parameters and titrate as needed PLAN FOR INPATIENT GLYCEMIC CONTROL: * Basal insulin * Lantus 20 x 1 now, 0-20 units PM * Bolus insulin * NovoLog per scale ACHS or Q6hrs while NPO * Goal Range: Low 110 mg/dL - High 120 mg/dL * Correction Factor: 20 mg/dL/unit * Nutritional / Prandial insulin per carb ratio of 1 unit per 7 grams CHO consumed
[2022-02-10] MEDS: INSULIN ASPART PER UNIT SC SCH ×3 (15:19→22:09)
[2022-02-10] MEDS: cefTRIAXone SODIUM 2,000 MG in DEXTROSE 5% 50 ML IV SCH (17:08)
--- NOTE | 2022-02-10 20:16 | Hospitalist Progress Note ---
Date of Service February 10, 2022 Assessment & Plan (1) COPD (chronic obstructive pulmonary disease): Plan: Chronic hypoxic respiratory failure on 2L O2. Labs suggestive of chronic retention. -Patient does have remote history of smoking. She may have COPD, however could not find any PFT in chart. -Patient also may have obesity hypoventilatory syndrome. -Patient has required intermittent BIPAP. -Will require to place on BIPAP again on 02/08/22 as CO2 on ABG is elevated. -reviewed CT scan of chest -patient will beenfit from CPAP at night. (2) Acute UTI: Plan: Patient afebrile, tachycardic on arrival. UA suggestive of infection, culture from 02/05/22 preliminary with GNR. Has history of Providencia, E.coli as well as Pseudomonas from wound -Follow cultures: prelim. -Transition Zosyn to ceftriaxone (3) Uncontrolled type 2 diabetes mellitus: Plan: Morbidly obese, BMI 40.8 kg/m*m Type II DM - last UlhF2K=0.3 on 11/10/21. Hypoglycemic on arrival, resolved after D25. Had second episode of hypoglycemia on the floor - dextrose given. ?poor intake + diabetes medications + active infection -Continue to monitor glucose -Hold all insulin and Victoza -D5 infusion if patient becomes hypoglycemic again (4) Atrial fibrillation with rapid ventricular response: Plan: AF with RVR on arrival. No history of prior. Diltiazem bolus given in ER. Drip started with decreased blood pressure -Metoprolol PRN -added metoprolol 25 mg PO TID. -Heparin gtt anticoagulation -Check 2D echo (5) Non-ST elevation [place] (NSTEMI): Plan: Elevation of troponin 1808.9 --> 2415.6, no ischemic changes on EKG. Most likely rate related demand ischemia + possible failure/volume overload -Continue heparin gtt -Trend troponin -Atorvastatin (6) Hypothyroidism: Plan: Chronic. TSH elevated at 4.83 -Continue Synthroid (7) HTN (hypertension): Plan: Borderline low blood pressure in ER -Hold Losartan -Hold HCTZ -Monitor (8) HLD (hyperlipidemia): Plan: Chronic -Continue Atorvastatin (9) CLEMENTINA (acute kidney injury): Plan: Elevation of BUN to 48, Cr to 1.27 from 0.82 -Avoid nephrotoxic agents -Renal dosing where needed -Monitor BUN, Cr, electrolytes and UOP Urine output has remained low. will place on IVF, patient does not appear to be volume overloaded. CT scan of chest: shows mild pleural effusions. (10) Rash: Plan: Most of the rash appears to be psoriasis. Some possible kristy in groin and skin folds -Nystatin ointment Plan: Ppx - Heparin gtt Code - DNR/DNI LT per review of records Dispo -Admit to PCU Admission and Anticipated Discharge Date Admission Date: February 06, 2022 Subjective Patient reports feeling well. Review of Systems Review of Systems: All systems reviewed & are unremarkable except as noted in HPI & below Physical Exam Physical Exam: General: patient resting comfortably, NAD, non-toxic in appearance, now answering questions Skin: warm, dry, intact, scattered flaky, erythematous annular lesions present on abdomen, groin and back HEENT: NC/AT, PERRL, EOMI, anicteric sclera, conjunctiva without injection, external ear normal to inspection and nontender, nares patent, moist mucus membranes, dentition intact, no oropharyngeal lesions, neck supple, trachea midline, no LAD, no thyromegaly, no JVD Heart: +S1/S2, irregularly irregular, no m/r/g Lungs: equal air entry bilaterally, diffuse crackles present Abd: +BS, soft, NT/ND, no masses/organomegaly/ascites Ext: warm, 2+ pulses in UE/LE bilaterally, no clubbing/cyanosis or edema Neuro: nonfocal, patient AA&O x 4, speech intact, no facial droop, moving all extremities on command with equal strength 5/5 Results & Data Results & Data ([facility]) Vital Signs (Past 12 Hours) Vital Signs Temp Pulse Pulse Resp BP Pulse Ox 02/10/22 20:08 36.9 C 100 H 20 92/69 L 93 02/10/22 15:16 36.7 C 101 H 16 109/57 L 95 02/10/22 15:02 105 H 02/10/22 13:35 83 02/10/22 11:30 36.4 C L 101 H 17 116/58 L 94 PG Care Time/CCT Total # of Minutes Spent Total Time Spent with Patient: Total time spent is greater than 50% in coordination of care (as documented) at patient's floor/unit and/or counseling patient: Coding Level of Care Code 57595 Subseq Hosp Care Lvl 2 Diagnoses COPD (chronic obstructive pulmonary disease) J44.9 Acute UTI N39.0 Uncontrolled type 2 diabetes mellitus E11.65 Atrial fibrillation with rapid ventricular response I48.91 Non-ST elevation [place] (NSTEMI) I21.4 Hypothyroidism E03.9 HTN (hypertension) I10 HLD (hyperlipidemia) E78.5 CLEMENTINA (acute kidney injury) N17.9 Rash R21
[2022-02-10] MEDS ORDERED: METOPROLOL SUCC 25MG EXT REL TAB PO STA (22:07)
[2022-02-11] MEDS: LEVOTHYROXINE SODIUM 50 MCG TABLET PO SCH (05:04)
[2022-02-11] MEDS: SENNA 8.6 MG TAB PO SCH (07:29)
[2022-02-11] MEDS: DOCUSATE SODIUM 100 MG CAP PO SCH ×2 (07:29→20:39)
[2022-02-11] MEDS: OLODATEROL HCL 2.5MCG/ACTUATION 60 PUFFS/INHALER INH SCH (07:31)
[2022-02-11] MEDS: ADVANCED PROBIOTIC 1250 MG CAPSULE PO SCH (07:32)
[2022-02-11 07:33] LABS: Hematocrit (blood only) 35.6 % (37-47); Mean Corpuscular Hemoglobin 29.9 pg (25-34); Mean Corpuscular Hgb Conc 30.9 g/dL (32-36); Mean Corpuscular Volume 96.7 fL (80-100); Mean Platelet Volume 9.5 fL (7.4-10.4); Platelet Count 278 K/uL (130-400); RDW Coefficient of Variation 14.4 % (11.5-14.5); RDW Standard Deviation 50.4 fL (36.4-46.3); Red Blood Count 3.68 M/uL (4.2-5.4); White Blood Count 9.79 K/uL (4.8-10.8)
[2022-02-11] MEDS: MULTIVITAMIN TAB PO SCH (07:34)
[2022-02-11] MEDS: LORATADINE 10 MG TAB PO SCH (07:34)
[2022-02-11] MEDS: ATORVASTATIN 10 MG TAB PO SCH (07:35)
[2022-02-11] MEDS: EUCERIN CR 120 GM JAR EXT SCH ×2 (07:35→20:39)
[2022-02-11] MEDS: NYSTATIN OINT 15 GM TUBE EXT SCH ×2 (07:38→20:39)
[2022-02-11] MEDS: INSULIN ASPART PER UNIT SC SCH ×4 (07:39→21:23)
[2022-02-11] MEDS: HEPARIN SODIUM/DEXTROSE 25,000 UNITS/500 ML BAG IV SCH (07:43)
[2022-02-11] MEDS: INSULIN GLARGINE SOLOSTAR 100 UNITS/ML 3 ML PEN SQ SCH ×2 (07:46→21:22)
[2022-02-11 07:55] LABS: BUN Creatinine Ratio 26.8 (10-20); Calcium 8.7 mg/dl (8.5-10.1); Creatinine Clr Calc Pharmacy 52.4 ml/min; Est GFR (African American) 49.7 ml/min; Est GFR (Non-African American) 42.9 ml/min; Potassium 3.9 mmol/L (3.5-5.1)
[2022-02-11] MEDS ORDERED: METOPROLOL TARTRATE 25 MG TAB PO STA (09:58)
--- NOTE | 2022-02-11 09:58 | Cardiology Progress Note ---
Date of Service February 11, 2022 Assessment & Plan (1) Atrial fibrillation with rapid ventricular response: (2) Mild mitral stenosis: (3) HTN (hypertension): (4) Elevated troponin: (5) Hypotension: (6) CLEMENTINA (acute kidney injury): (7) HLD (hyperlipidemia): (8) Coronary artery calcification seen on CAT scan: Plan: ASSESSMENT/PLAN: 1. Atrial fibrillation with RVR: Persistent atrial fibrillation. Asymptomatic. Had not been receiving beta-mckinley until last evening. Increase metoprolol succinate to 50 mg daily but will give a 1 time dose of metoprolol tartrate 25 mg now. Blood pressure tolerating well. Continue anticoagulation for stroke risk reduction. Will continue for with rate control strategy. Heart rates reasonable especially given that she is very sedentary and transfers at her living facility via a lift. 2. Elevated troponin: Likely due to demand ischemia. No anginal symptoms. May have underlying CAD especially with extensive coronary artery calcifications. Would treat as if she has underlying CAD. On anticoagulation. Continue statin therapy. Continue beta-mckinley. 3. Coronary artery calcifications: Noted on CT scan. Treat as if underlying CAD as above. Asymptomatic. 4. History of hypertension with hypotension during this hospital stay: Blood pressure overall has improved and currently normal. Beta-mckinley as above. 5. Dyslipidemia: LDL is excellent. Continue statin therapy. 6. Acute kidney injury: Renal function improving. Appears euvolemic. As per primary service. 7. Mitral annular calcification with reported stenosis: Reported mild mitral stenosis. Can be followed as an outpatient periodically. Asymptomatic. 8. Disposition: Can be discharged from a cardiology standpoint. Follow-up with Cardiology as an outpatient. Cardiology will sign off at this time. Admission and Anticipated Discharge Date Admission Date: February 06, 2022 Subjective She had no complaints today. She denies chest pain, shortness of breath, palpitations, syncope, near-syncope, or bleeding. She would like to return to her residence. Review of systems: As above. Physical Exam Physical Exam: Gen.: No acute distress. Alert and oriented. HEENT: Anicteric sclera. Neck: Thick neck. Cardiac: No ventricular heave. Irregularly irregular. Normal S1-S2. No murmurs, rubs, or gallops. Pulmonary: Decreased breath sounds, but otherwise clear to auscultation bilaterally without wheezes, rales, or rhonchi. Abdomen: Soft, nontender, nondistended, with normoactive bowel sounds. No bruits noted. Extremities: 2+ radial pulses bilaterally. 2+ posterior tibialis pulses bilaterally. Trace left pedal edema. No cyanosis. Results & Data ([facility]) Vital Signs (Past 12 Hours) Vital Signs Temp Pulse Resp BP Pulse Ox 02/11/22 03:37 36.7 C 90 20 129/53 L 95 02/10/22 23:41 37.0 C 110 H 20 106/75 94 Intake & Output 02/09/22 02/10/22 02/11/22 02/12/22 06:59 06:59 06:59 06:59 Intake Total 842.667 / 180.981 5086.200 / 1305.321 4964.134 / 2428.134 21.667 / 21.667 Output Total 250 / 250 1276 / 1276 3676 / 3676 Balance 592.667 / 592.667 318.200 / 318.200 -1247.866 / -1247.866 21.667 / 21.667 Weight 260 lb 9.382 oz 264 lb 12.403 oz 258 lb 13.163 oz Laboratory Results Laboratory Results - last 24 hr 02/10/22 02/10/22 02/10/22 09:44 11:11 15:15 WBC RBC Hgb Hct MCV MCH MCHC RDW Std Deviation RDW Coeff of Nasir Plt Count MPV APTT PTT Ratio Sodium Potassium Chloride Carbon Dioxide Anion Gap BUN Creatinine Est Cr Clr Drug Dosing Est GFR ( Amer) Est GFR (Non-Af Amer) BUN/Creatinine Ratio Glucose POC Glucose 286 H 273 H Calcium B-Natriuretic Peptide Stl C. diff Tox B Gene Negative Cdiff Gene 02/10/22 02/10/22 02/11/22 16:26 21:09 06:56 WBC RBC Hgb Hct MCV MCH MCHC RDW Std Deviation RDW Coeff of Nasir Plt Count MPV APTT 54.0 H* PTT Ratio 2.0 Sodium Potassium Chloride Carbon Dioxide Anion Gap BUN Creatinine Est Cr Clr Drug Dosing Est GFR ( Amer) Est GFR (Non-Af Amer) BUN/Creatinine Ratio Glucose POC Glucose 293 H 197 H Calcium B-Natriuretic Peptide Stl C. diff Tox B Gene 02/11/22 02/11/22 02/11/22 06:56 06:56 06:56 WBC 9.79 RBC 3.68 L Hgb 11.0 L Hct 35.6 L MCV 96.7 MCH 29.9 MCHC 30.9 L RDW Std Deviation 50.4 H RDW Coeff of Nasir 14.4 Plt Count 278 MPV 9.5 APTT PTT Ratio Sodium 139 Potassium 3.9 Chloride 94 L Carbon Dioxide 40 H Anion Gap 5 BUN 33 H Creatinine 1.23 H D Est Cr Clr Drug Dosing 52.4 Est GFR ( Amer) 49.7 Est GFR (Non-Af Amer) 42.9 BUN/Creatinine Ratio 26.8 H Glucose 126 H POC Glucose Calcium 8.7 B-Natriuretic Peptide 145 H Stl C. diff Tox B Gene 02/11/22 07:30 WBC RBC Hgb Hct MCV MCH MCHC RDW Std Deviation RDW Coeff of Nasir Plt Count MPV APTT PTT Ratio Sodium Potassium Chloride Carbon Dioxide Anion Gap BUN Creatinine Est Cr Clr Drug Dosing Est GFR ( Amer) Est GFR (Non-Af Amer) BUN/Creatinine Ratio Glucose POC Glucose 128 H Calcium B-Natriuretic Peptide Stl C. diff Tox B Gene Diagnostic Findings Telemetry personally reviewed: Atrial fibrillation with heart rates 90s to 110s. Medications Administered Current Inpatient Medications Acetaminophen (Acetaminophen 325 Mg Tab) 650 mg PO Q4H PRN PRN Reason: Pain or Fever Stop: 03/09/22 01:16 Atorvastatin Calcium (Atorvastatin 10 Mg Tab) 10 mg PO DAILY MAYA Stop: 03/09/22 08:59 Last Admin: 02/11/22 07:35 Dose: 10 mg Documented by: Dextrose (Dextrose 50% 50 Ml Syringe) 25 - 50 ml IV UD PRN; Protocol PRN Reason: Hypoglycemia Protocol Stop: 03/09/22 01:16 Last Admin: 02/08/22 03:59 Dose: 25 ml Documented by: Dextrose (Dextrose 50% 50 Ml Syringe) 25 - 50 ml IV UD PRN; Protocol PRN Reason: Hypoglycemia Protocol Stop: 03/12/22 13:44 Docusate Sodium (Docusate Sodium 100 Mg Cap) 100 mg PO BID MAYA Stop: 03/09/22 08:59 Last Admin: 02/11/22 07:29 Dose: Not Given Documented by: Glucagon (Glucagon For Inj 1 Mg Vial) 1 mg SQ UD PRN; Protocol PRN Reason: Hypoglycemia Protocol Stop: 03/09/22 01:16 Glucagon (Glucagon For Inj 1 Mg Vial) 1 mg SQ UD PRN; Protocol PRN Reason: Hypoglycemia Protocol Stop: 03/12/22 13:44 Glucose (Glucose 10 Tabs/Tube) 4 - 8 tabs PO UD PRN; Protocol PRN Reason: Hypoglycemia Protocol Stop: 03/09/22 01:16 Glucose (Glucose 40% Gel 15 Gm Tube) 15 - 30 gm PO UD PRN; Protocol PRN Reason: Hypoglycemia Protocol Stop: 03/09/22 01:16 Glucose (Glucose 40% Gel 15 Gm Tube) 15 - 30 gm PO UD PRN; Protocol PRN Reason: Hypoglycemia Protocol Stop: 03/12/22 13:44 Glucose (Glucose 10 Tabs/Tube) 4 - 8 tabs PO UD PRN; Protocol PRN Reason: Hypoglycemia Protocol Stop: 03/12/22 13:44 Heparin Sodium/Dextrose (Heparin Sodium/Dextrose) 25,000 units in 500 mls @ 26 mls/hr IV .[id number] [facility]; Protocol Stop: 03/08/22 20:14 Last Admin: 02/11/22 07:43 Dose: 1,300 units/hr, 26 mls/hr Documented by: Ceftriaxone Sodium 2,000 mg/ (Dextrose) 70 mls @ 140 mls/hr IV Q24H [facility]; Protocol Stop: 02/17/22 01:59 Last Infusion: 02/10/22 18:27 Dose: Infused Documented by: Insulin Aspart (Insulin Aspart Per Unit) 0 units SC ACHS [facility] Stop: 03/12/22 13:29 Last Admin: 02/11/22 07:39 Dose: 8 units Documented by: Insulin Glargine (Insulin Glargine Solostar 100 Units/Ml 3 Ml Pen) 15 units SQ BID [facility] Stop: 03/13/22 08:59 Last Admin: 02/11/22 07:46 Dose: 15 units Documented by: Lactobacillus Acidophilus (Advanced Probiotic 1250 Mg Capsule) 2 cap PO DAILY [facility] Stop: 03/12/22 12:29 Last Admin: 02/11/22 07:32 Dose: 2 cap Documented by: Levothyroxine Sodium ([facility]othyroxine Sodium 50 Mcg Tablet) [facility]: 03/09/22 06:29 Last Admin: 02/11/22 05:04 Dose: 50 mcg Documented by: Loratadine (Loratadine 10 Mg Tab) 10 mg PO DAILY [facility] Stop: 03/09/22 08:59 Last Admin: 02/11/22 07:34 Dose: 10 mg Documented by: Metoprolol Succinate (Metoprolol Succ 25mg Ext Rel Tab) 25 mg PO QPM [facility] Stop: 03/13/22 20:59 Metoprolol Tartrate (Metoprolol Tartrate 1 Mg/Ml Vial) 5 mg IV Q4 PRN PRN Reason: HR > 110 Stop: 03/09/22 01:16 Miscellaneous (Carbohydrates For Hypoglycemia ) 15 - 30 gm PO UD PRN PRN Reason: Hypoglycemia Protocol Stop: 03/09/22 01:16 Miscellaneous (Carbohydrates For Hypoglycemia ) 15 - 30 gm PO UD PRN PRN Reason: Hypoglycemia Treatment Stop: 03/12/22 13:44 Miscellaneous Information (Pharmacy Glycemic Mgmt Consult) 1 ea N/A UD PRN PRN Reason: Consult Stop: 03/12/22 12:41 Multi-Ingredient Cream (Eucerin Cr 120 Gm Jar) 1 appln EXT BID [facility] Stop: 03/09/22 08:59 Last Admin: 02/11/22 07:35 Dose: 1 appln Documented by: Multivitamins (Multivitamin Tab) 1 tab PO QAM [facility] Stop: 03/09/22 08:59 Last Admin: 02/11/22 07:34 Dose: 1 tab Documented by: Nystatin (Nystatin Oint 15 Gm Tube) 1 appln EXT BID [facility] Stop: 03/09/22 08:59 Last Admin: 02/11/22 07:38 Dose: 1 appln Documented by: Olodaterol (Olodaterol Hcl 2.5mcg/Actuation 60 Puffs/Inhaler) 2 puffs INH DAILY [facility] Stop: 03/10/22 14:14 Last Admin: 02/11/22 07:31 Dose: 2 puffs Documented by: Ondansetron HCl (Ondansetron Inj 2 Mg/Ml 2 Ml Vial) 4 mg IV Q6H PRN PRN Reason: Nausea Stop: 03/09/22 01:16 Sennosides (Senna 8.6 Mg Tab) 8.6 mg PO DAILY [facility] Stop: 03/09/22 08:59 Last Admin: 02/11/22 07:29 Dose: Not Given Documented by: PG Care Time/CCT Total # of Minutes Spent Total Time Spent with Patient: Total time spent is greater than 50% in coordination of care (as documented) at patient's floor/unit and/or counseling patient: Coding Level of Care Code 04936 Subseq Hosp Care Lvl 3 Diagnoses Atrial fibrillation with rapid ventricular response I48.91 Mild mitral stenosis I05.0 HTN (hypertension) I10 Elevated troponin R77.8 Hypotension I95.9 CLEMENTINA (acute kidney injury) N17.9 HLD (hyperlipidemia) E78.5 Coronary artery calcification seen on CAT scan I25.10
--- NOTE | 2022-02-11 13:44 | Pharmacy Report ---
Pharmacy Glycemic Short Note 2 - Date of Service February 11, 2022 - Glycemic Short BSG Results (Last 24 hours): 02/10/22 02/10/22 02/10/22 15:15 16:26 21:09 Glucose POC Glucose 273 H 293 H 197 H 02/11/22 02/11/22 02/11/22 06:56 07:30 11:22 Glucose 126 H POC Glucose 128 H 173 H OUTPATIENT ANTIDIABETIC REGIMEN: * Insulin glargine 40 units BID, Victoza * A1c 6.3% ASSESSMENT: 02/11 * BSGs improved overnight, Fasting 128 mg/dL, received 30 units of basal yesterday- will continue same today * Novlog tightened slightly, continue to monitor for improvement 02/10 * Patient initially hypoglycemic on admission, insulin held at that time. BSGs have slowly trended up, fasting 180 mg/dL this morning and 286 mg/dl at lunch. Consult placed at that time. * Will give 20 units of lantus x1 now, scale for PM * Will start with weight based stress of 2 novolog parameters and titrate as needed PLAN FOR INPATIENT GLYCEMIC CONTROL: * Basal insulin * Lantus 15 units BID * Bolus insulin * NovoLog per scale ACHS or Q6hrs while NPO * Goal Range: Low 110 mg/dL - High 120 mg/dL * Correction Factor: 20 mg/dL/unit * Nutritional / Prandial insulin per carb ratio of 1 unit per 6 grams CHO consumed
[2022-02-11] MEDS: cefTRIAXone SODIUM 2,000 MG in DEXTROSE 5% 50 ML IV SCH (17:10)
[2022-02-11] MEDS: METOPROLOL SUCC 50MG EXT REL TAB PO SCH (20:36)
[2022-02-11] MEDS ORDERED: METOPROLOL SUCC 25MG EXT REL TAB PO SCH (21:00)
--- NOTE | 2022-02-11 22:37 | Hospitalist Progress Note ---
Date of Service February 11, 2022 Assessment & Plan (1) COPD (chronic obstructive pulmonary disease): Plan: Chronic hypoxic respiratory failure on 2L O2. Labs suggestive of chronic retention. -Patient does have remote history of smoking. She may have COPD, however could not find any PFT in chart. -However main cause of her condition is likely obesity hypoventilatory syndrome. -Patient will likely benefit from CPAP. -however she will need outpatient sleep study. -discharge held as trying to get BIPAP qualified. -Patient had pC02 on VBG of over 100, which improved with BIPAP. -will obtain pulse ox with her 2 liters nasal cannula at baseline, and will obtain ABG in AM. -reviewed CT scan of chest -patient will beenfit from CPAP at night. (2) Acute UTI: Plan: Patient afebrile, tachycardic on arrival. UA suggestive of infection, culture from 02/05/22 preliminary with GNR. Has history of Providencia, E.coli as well as Pseudomonas from wound -Follow cultures: prelim. -Transition Zosyn to ceftriaxone -Day 5 of antibiotics. (3) Uncontrolled type 2 diabetes mellitus: Plan: Morbidly obese, BMI 40.8 kg/m*m Type II DM - last WibD6T=3.3 on 11/10/21. Hypoglycemic on arrival, resolved after D25. Had second episode of hypoglycemia on the floor - dextrose given. ?poor intake + diabetes medications + active infection -Continue to monitor glucose -Hold all insulin and Victoza -D5 infusion if patient becomes hypoglycemic again (4) Atrial fibrillation with rapid ventricular response: Plan: AF with RVR on arrival. No history of prior. Diltiazem bolus given in ER. Drip started with decreased blood pressure -Metoprolol PRN -added metoprolol 25 mg PO TID. -Heparin gtt anticoagulation -D/W Cardio, given her BMI, ok to switch to Eliquis. (5) Non-ST elevation [place] (NSTEMI): Plan: Elevation of troponin 1808.9 --> 2415.6, no ischemic changes on EKG. Most likely rate related demand ischemia + possible failure/volume overload -Continue heparin gtt: will transition to ELIQUIS -Atorvastatin (6) Hypothyroidism: Plan: Chronic. TSH elevated at 4.83 -Continue Synthroid (7) HTN (hypertension): Plan: Borderline low blood pressure in ER -Hold Losartan -Hold HCTZ -Monitor (8) HLD (hyperlipidemia): Plan: Chronic -Continue Atorvastatin (9) CLEMENTINA (acute kidney injury): Plan: Elevation of BUN to 48, Cr to 1.27 from 0.82 -Avoid nephrotoxic agents -Renal dosing where needed -Monitor BUN, Cr, electrolytes and UOP Urine output has remained low. will place on IVF, patient does not appear to be volume overloaded. CT scan of chest: shows mild pleural effusions. (10) Rash: Plan: Most of the rash appears to be psoriasis. Some possible kristy in groin and skin folds -Nystatin ointment Plan: Ppx - Heparin gtt Code - DNR/DNI LT per review of records Dispo -Admit to PCU Admission and Anticipated Discharge Date Admission Date: February 06, 2022 Subjective 76 yo female reports feeling well. She states she does not want to use BIPAP. Review of Systems Review of Systems: All systems reviewed & are unremarkable except as noted in HPI & below Physical Exam Physical Exam: General: patient resting comfortably, NAD, non-toxic in appearance, now answering questions Skin: warm, dry, intact, scattered flaky, erythematous annular lesions present on abdomen, groin and back HEENT: NC/AT, PERRL, EOMI, anicteric sclera, conjunctiva without injection, external ear normal to inspection and nontender, nares patent, moist mucus membranes, dentition intact, no oropharyngeal lesions, neck supple, trachea midline, no LAD, no thyromegaly, no JVD Heart: +S1/S2, irregularly irregular, no m/r/g Lungs: equal air entry bilaterally, diffuse crackles present Abd: +BS, soft, NT/ND, no masses/organomegaly/ascites Ext: warm, 2+ pulses in UE/LE bilaterally, no clubbing/cyanosis or edema Neuro: nonfocal, patient AA&O x 4, speech intact, no facial droop, moving all extremities on command with equal strength 5/5 Results & Data Results & Data ([facility]) Vital Signs (Past 12 Hours) Vital Signs Temp Pulse Pulse Resp BP BP Pulse Ox 02/11/22 19:21 37.0 C 104 H 20 109/56 L 92 02/11/22 16:02 101 H 02/11/22 15:00 36.8 C 87 20 125/62 97 02/11/22 12:31 36.9 C 99 H 18 168/99 H 97 PG Care Time/CCT Total # of Minutes Spent Total Time Spent with Patient: Total time spent is greater than 50% in coordination of care (as documented) at patient's floor/unit and/or counseling patient: Coding Level of Care Code 22790 Subseq Hosp Care Lvl 3 Diagnoses COPD (chronic obstructive pulmonary disease) J44.9 Acute UTI N39.0 Uncontrolled type 2 diabetes mellitus E11.65 Atrial fibrillation with rapid ventricular response I48.91 Non-ST elevation [place] (NSTEMI) I21.4 Hypothyroidism E03.9 HTN (hypertension) I10 HLD (hyperlipidemia) E78.5 CLEMENTINA (acute kidney injury) N17.9 Rash R21 Time Spent (min) 35
[2022-02-12] MEDS: HEPARIN SODIUM/DEXTROSE 25,000 UNITS/500 ML BAG IV SCH (03:01)
[2022-02-12] MEDS: LEVOTHYROXINE SODIUM 50 MCG TABLET PO SCH (05:02)
[2022-02-12 07:09] LABS: Base Excess ABG 10.9 mEq/L (-9-1.8); HCO3 ABG 37 mmol/L (19-24); Oxygen Saturation ABG 91.9 % (90-95); PCO2 ABG 56 mmHg (35-46); PO2 ABG 58 mmHg (80-95); pH ABG 7.44 (7.35-7.45)
[2022-02-12 07:12] LABS: Allen Test Pos (Pos)
[2022-02-12 07:14] LABS: Partial Thromboplastin Ratio 1.9
[2022-02-12 07:19] LABS: Partial Thromboplastin Time 52.4 Seconds (21.0-31.0)
[2022-02-12] MEDS ORDERED: STOP HEPARIN DRIP ORDER SCH (08:00)
[2022-02-12] MEDS: INSULIN ASPART PER UNIT SC SCH ×4 (08:27→21:19)
[2022-02-12] MEDS: MULTIVITAMIN TAB PO SCH (08:30)
[2022-02-12] MEDS: ADVANCED PROBIOTIC 1250 MG CAPSULE PO SCH (08:30)
[2022-02-12] MEDS: ATORVASTATIN 10 MG TAB PO SCH (08:31)
[2022-02-12] MEDS: SENNA 8.6 MG TAB PO SCH (08:31)
[2022-02-12] MEDS: OLODATEROL HCL 2.5MCG/ACTUATION 60 PUFFS/INHALER INH SCH (08:31)
[2022-02-12] MEDS: LORATADINE 10 MG TAB PO SCH (08:31)
[2022-02-12] MEDS: EUCERIN CR 120 GM JAR EXT SCH ×2 (08:32→21:24)
[2022-02-12] MEDS: DOCUSATE SODIUM 100 MG CAP PO SCH ×2 (08:32→21:21)
[2022-02-12] MEDS: NYSTATIN OINT 15 GM TUBE EXT SCH ×2 (08:32→21:24)
[2022-02-12] MEDS: INSULIN GLARGINE SOLOSTAR 100 UNITS/ML 3 ML PEN SQ SCH ×2 (08:32→21:14)
[2022-02-12] MEDS: APIXABAN 5 MG TABLET PO SCH ×2 (08:51→21:16)
--- NOTE | 2022-02-12 11:26 | Hospitalist Progress Note ---
Date of Service February 12, 2022 Assessment & Plan (1) Acute on chronic respiratory failure with hypoxia and hypercapnia: Plan: No definitive evidence of COPD. Recommend outpatient PFTs (see below). Aim O2 sats 90% Overnight pulse ox performed on 2LPM Morning ABG qualifies her for BiPAP, prior settings 15/5 on 6LPM O2 to be used HS (2) Acute UTI: Plan: Presented with 2 weeks of urinary complaints. Urine culture 6/2 - 3 types of organisms present. Continue ceftriaxone (3) Left leg cellulitis: Plan: Not previously mentioned but this appears more extensive than just venous stasis and centers around open venous ulceration. Should be covered by ceftriaxone as above for UTI (4) Atrial fibrillation with rapid ventricular response: Plan: New onset. TSH 4.843, free T4 WNL Anticoagulation with Eliquis Rate control with metoprolol succinate (5) CLEMENTINA (acute kidney injury): Plan: Appeared to be uptrending Cr, peaked 02/09 at 2.01. Diuretics and losartan held since admission without evidence of worsening heart failure. ?due to hypotension at that time +/- Zosyn given. Appears to be resolving at this time. Cr 1.23 yesterday, pending today Maintaining euvolemic I&Os throughout admission despite holding diuretics. No further IV fluids warranted. Will try to restart diuretics prior to discharge otherwise close observation required at [facility] for heart failure especially in setting of new onset atrial fibrillation (6) COPD (chronic obstructive pulmonary disease): Plan: Patient does have remote history of smoking. - possible diagnosis however no PFTs charted. - more likely obesity hypoventilation. Stop LABA (especially in setting of elevated heart rate) and start LAMA ABG this morning qualifies for BiPAP at [facility]. IPAP/EPAP 15/5. 6LPM O2. (7) Uncontrolled type 2 diabetes mellitus: Plan: Morbidly obese, BMI 40.8 kg/m*m HbA1C 6.3 in November Pharmacy consulted for glycemic control. On vastly reduced insulin here even without Victoza. Will need to be reduced on discharge and closely monitored in outpatient setting as possibly acutely reduced due to infection. (8) Non-ST elevation VA (NSTEMI): Plan: Elevation of troponin 1808.9 --> 2415.6, no ischemic changes on EKG. Not suspected to be NSTEMI per cardiology. Most likely rate related demand ischemia in setting of UTI/cellulitis/hypoglycemia Appreciate cardiology review with no further ischemic workup planned at this time. (9) Hypothyroidism: Plan: Chronic. TSH mildly elevated at 4.83 with normal free T4 -Continue Synthroid (10) HTN (hypertension): Plan: Remains borderline low -Hold Losartan, HCTZ and Lasix. Unclear if we need to restart diuretics on d ischarge at this time. -Monitor (11) HLD (hyperlipidemia): Plan: Chronic -Continue Atorvastatin (12) Rash: Plan: Most of the rash appears to be psoriasis. Some possible kristy in groin and skin folds -Nystatin ointment Plan: VTE Prophylaxis - Eliquis Code - DNR/DNI LT per review of records Dispo - Continue admission on med/tele, possible discharge back to [facility] tomorrow Admission and Anticipated Discharge Date Admission Date: February 06, 2022 Subjective Patient reports being at her baseline shortness of breath. No chest pain. Does not like wearing the BiPAP machine and has limited understanding the importance of this. She has been off her usual diuretics since admission despite mildly dilated IVC on echo on 02/07. I&Os show she has mostly maintained a euvolemic balance with these and has had IV fluids as well as multiple IV medications given during the admission without overt heart failure especially in setting of new onset a. fib. Review of Systems Review of Systems: All systems reviewed & are unremarkable except as noted in Subjective Physical Exam Constitutional: well developed and + morbidly obese; no acute distress Respiratory: normal respiratory effort; no labored breathing, does not use accessory muscles and expiratory phase not prolonged Cardiovascular: Rate/Rhythm: regular rate and + irregularly irregular Heart Sounds: no murmur Extremities: + pedal edema (trace b/l ankles) Gastrointestinal (Abdomen): normal bowel sounds, soft, nontender, no hepatosplenomegaly Skin: + erythema (left lower extremity from mid soriano to ankle, bright, same temp as right) Psychiatric: A+Ox3, euthymic affect Results & Data Results & Data ([facility]) Vital Signs (Past 12 Hours) Vital Signs Temp Pulse Pulse Resp BP BP Pulse Ox 02/12/22 08:03 36.4 C L 96 H 16 101/61 92 02/12/22 03:33 36.9 C 103 H 20 116/73 94 02/12/22 03:25 96 H 02/11/22 23:30 36.9 C 101 H 18 125/66 94 Pulse Ox 02/12/22 08:03 02/12/22 03:33 02/12/22 03:25 93 02/11/22 23:30 PG Care Time/CCT Total # of Minutes Spent Total Time Spent with Patient: Total time spent is greater than 50% in coordination of care (as documented) at patient's floor/unit and/or counseling patient: Coding Level of Care Code 76955 Subseq Hosp Care Lvl 3 Diagnoses COPD (chronic obstructive pulmonary disease) J44.9 Acute UTI N39.0 Uncontrolled type 2 diabetes mellitus E11.65 Atrial fibrillation with rapid ventricular response I48.91 Non-ST elevation VA (NSTEMI) I21.4 Hypothyroidism E03.9 HTN (hypertension) I10 HLD (hyperlipidemia) E78.5 CLEMENTINA (acute kidney injury) N17.9 Rash R21 Acute on chronic respiratory failure with hypoxia and hypercapnia J96.21; J96.22 Left leg cellulitis L03.116
--- NOTE | 2022-02-12 12:03 | XRay Report ---
XR chest 1V portable HISTORY: 76 years-old Female shortness of breath acute shortness of breath COMPARISON: Chest CT 02/09/2022 TECHNIQUE: Portable AP view of the chest FINDINGS: The cardiac silhouette is enlarged. Atherosclerosis of the thoracic aorta. Small pleural effusions. M ild persistent bibasilar consolidation has mildly progressed on the left. Pulmonary vascular congesti on. The bones appear grossly intact. IMPRESSION: 1. Cardiomegaly with pulmonary vascular congestion. 2. Small pleural effusions with persistent bibasilar opacities, mildly progressed on the left suggest ervin of atelectasis versus pneumonitis. ACT 112: Negative or not required by law. The above report was generated using voice recognition software. It may contain grammatical, syntax o r spelling errors. Electronically signed by: Barry Gutierrez M.D. 02/12/2022 12:02 PM
[2022-02-12 13:47] LABS: Estimated Average Glucose 105 mg/dl; Hemoglobin A1C 5.3 % (4.5-5.6)
[2022-02-12 13:48] LABS: BUN Creatinine Ratio 24.7 (10-20); Calcium 8.6 mg/dl (8.5-10.1); Creatinine Clr Calc Pharmacy 66.6 ml/min; Est GFR (African American) 66.2 ml/min; Est GFR (Non-African American) 57.1 ml/min; Potassium 4.1 mmol/L (3.5-5.1)
--- NOTE | 2022-02-12 14:23 | Pharmacy Report ---
Pharmacy Glycemic Short Note 2 - Date of Service February 12, 2022 - Glycemic Short BSG Results (Last 24 hours): 02/11/22 02/11/22 02/12/22 16:40 21:00 07:30 Glucose POC Glucose 128 H 148 H 108 H 02/12/22 02/12/22 11:33 12:52 Glucose 175 H POC Glucose 160 H OUTPATIENT ANTIDIABETIC REGIMEN: * Insulin glargine 40 units BID, Victoza * A1c 6.3% ASSESSMENT: 02/12 * BSGs with good control over the past 24 hours ranging 128-173 mg/dL yesterday * Fasting this AM 108 mg/dL, will adjust lantus with scale for PM * Prandial BSGs continue to improve/be at goal- continue current novolog parameters 02/11 * BSGs improved overnight, Fasting 128 mg/dL, received 30 units of basal yesterday- will continue same today * Novlog tightened slightly, continue to monitor for improvement 02/10 * Patient initially hypoglycemic on admission, insulin held at that time. BSGs have slowly trended up, fasting 180 mg/dL this morning and 286 mg/dl at lunch. Consult placed at that time. * Will give 20 units of lantus x1 now, scale for PM * Will start with weight based stress of 2 novolog parameters and titrate as needed PLAN FOR INPATIENT GLYCEMIC CONTROL: * Basal insulin * Lantus 15 units this AM, 10/15 units this evening * Bolus insulin * NovoLog per scale ACHS or Q6hrs while NPO * Goal Range: Low 110 mg/dL - High 120 mg/dL * Correction Factor: 20 mg/dL/unit * Nutritional / Prandial insulin per carb ratio of 1 unit per 6 grams CHO consumed
[2022-02-12] MEDS: cefTRIAXone SODIUM 2,000 MG in DEXTROSE 5% 50 ML IV SCH (17:14)
[2022-02-12] MEDS: METOPROLOL SUCC 50MG EXT REL TAB PO SCH (21:17)
[2022-02-13] MEDS: LEVOTHYROXINE SODIUM 50 MCG TABLET PO SCH (05:58)
[2022-02-13 07:36] LABS: Hematocrit (blood only) 35.2 % (37-47); Hemoglobin 10.8 g/dL (12.0-16.0); Lymphocytes % (auto) 28.6 %; Mean Corpuscular Hgb Conc 30.7 g/dL (32-36); Mean Corpuscular Volume 97.8 fL (80-100); Mean Platelet Volume 9.4 fL (7.4-10.4); Neutrophils % (auto) 55.4 %; Platelet Count 276 K/uL (130-400); RDW Coefficient of Variation 14.5 % (11.5-14.5); RDW Standard Deviation 51.4 fL (36.4-46.3); White Blood Count 9.78 K/uL (4.8-10.8)
[2022-02-13 07:37] LABS: Basophils # (auto) 0.04 K/uL (0-0.2); Basophils % (auto) 0.4 %; Eosinophils # (auto) 0.49 K/uL (0-0.5); Monocytes # (auto) 0.84 K/uL (0.11-0.59); Monocytes % (auto) 8.6 %; Neutrophils # (auto) 5.41 K/uL (1.4-6.5)
[2022-02-13 07:52] LABS: C Reactive Protein 1.54 mg/dl (0-0.5); Calcium 8.8 mg/dl (8.5-10.1); Creatinine Clr Calc Pharmacy 74.3 ml/min; Est GFR (African American) 75.5 ml/min; Est GFR (Non-African American) 65.2 ml/min; Potassium 3.9 mmol/L (3.5-5.1)
[2022-02-13] MEDS: APIXABAN 5 MG TABLET PO SCH (08:55)
[2022-02-13] MEDS: LORATADINE 10 MG TAB PO SCH (08:55)
[2022-02-13] MEDS: ADVANCED PROBIOTIC 1250 MG CAPSULE PO SCH (08:55)
[2022-02-13] MEDS: SENNA 8.6 MG TAB PO SCH (08:55)
[2022-02-13] MEDS: MULTIVITAMIN TAB PO SCH (08:55)
[2022-02-13] MEDS: ATORVASTATIN 10 MG TAB PO SCH (08:55)
[2022-02-13] MEDS: INSULIN GLARGINE SOLOSTAR 100 UNITS/ML 3 ML PEN SQ SCH (08:56)
[2022-02-13] MEDS: NYSTATIN OINT 15 GM TUBE EXT SCH (08:56)
[2022-02-13] MEDS: INSULIN ASPART PER UNIT SC SCH ×2 (08:56→12:02)
[2022-02-13] MEDS: EUCERIN CR 120 GM JAR EXT SCH (08:57)
[2022-02-13] MEDS: DOCUSATE SODIUM 100 MG CAP PO SCH (08:57)
[2022-02-13] MEDS ORDERED: MICONAZOLE NITRATE POWDER 43 GM EXT PRN (10:41)
--- NOTE | 2022-02-13 15:48 | Discharge Summary ---
Date of Service February 13, 2022 Admission HPI Per Admitting Provider Keila Hoffman is a 76yo female resident of [facility] presenting with hypoglycemia. She has history fo DM, HTN, HLP, Hypothyroidism and COPD, chronic hypoxic respiratory failure on 2L O2 at baseline. Patient presents to [facility] today from [facility] with a blood sugar of 39 with associated confusion. Also with urinary complaints for approximately two weeks. On arrival patient in atrial fibrillation with RVR. ER Course: NSS x 500mL, Heparin gtt, Diltiazem bolus, Zosyn, ASA 324mg, Lasix 20mg, D25 administered by EMS prior to arrival Discharge Data Allergies Allergy/AdvReac Type Severity Reaction Status Date / Time metformin AdvReac Unknown Diarrhea Verified 02/06/22 20:04 Consultations 02/06/22 20:36 ED Decision to Admit Stat 02/10/22 09:09 Consult Cardiology Routine Ordered Studies 02/06/22 18:27 CT head/brain wo con Stat 02/09/22 14:40 CT chest diagnostic wo con Routine Hospital Course (1) Acute on chronic respiratory failure with hypoxia and hypercapnia: No definitive evidence of COPD. Recommend outpatient PFTs (see below). Aim O2 sats 90% Overnight pulse ox performed on 2LPM Morning ABG qualifies her for BiPAP, prior settings 15/5 on 6LPM O2 to be used HS (2) Acute UTI: Presented with 2 weeks of urinary complaints. Urine culture 6/2 - 3 types of organisms present. Continue ceftriaxone (3) Left leg cellulitis: Not previously mentioned but this appears more extensive than just venous stasis and centers around open venous ulceration. Should be covered by ceftriaxone as above for UTI (4) Atrial fibrillation with rapid ventricular response: New onset. TSH 4.843, free T4 WNL Anticoagulation with Eliquis Rate control with metoprolol succinate (5) CLEMENTINA (acute kidney injury): Appeared to be uptrending Cr, peaked / at 2.01. Diuretics and losartan held since admission without evidence of worsening heart failure. ?due to hypotension at that time +/- Zosyn given. Appears to be resolving at this time. Cr 1.23 yesterday, pending today Maintaining euvolemic I&Os throughout admission despite holding diuretics. No further IV fluids warranted. Will try to restart diuretics prior to discharge otherwise close observation required at [facility] for heart failure especially in setting of new onset atrial fibrillation (6) COPD (chronic obstructive pulmonary disease): Patient does have remote history of smoking. - possible diagnosis however no PFTs charted. - more likely obesity hypoventilation. Stop LABA (especially in setting of elevated heart rate) and start LAMA ABG this morning qualifies for BiPAP at [facility]. IPAP/EPAP 15/5. 6LPM O2. (7) Uncontrolled type 2 diabetes mellitus: Morbidly obese, BMI 40.8 kg/m*m HbA1C 6.3 in November Pharmacy consulted for glycemic control. On vastly reduced insulin here even without Victoza. Will need to be reduced on discharge and closely monitored in outpatient setting as possibly acutely reduced due to infection. (8) Non-ST elevation PR (NSTEMI): Elevation of troponin 1808.9 --> 2415.6, no ischemic changes on EKG. Not suspected to be NSTEMI per cardiology. Most likely rate related demand ischemia in setting of UTI/cellulitis/hypoglycemia Appreciate cardiology review with no further ischemic workup planned at this time. (9) Hypothyroidism: Chronic. TSH mildly elevated at 4.83 with normal free T4 -Continue Synthroid (10) HTN (hypertension): Remains borderline low -Hold Losartan, HCTZ and Lasix. Unclear if we need to restart diuretics on discharge at this time. -Monitor (11) HLD (hyperlipidemia): Chronic -Continue Atorvastatin (12) Rash: Most of the rash appears to be psoriasis. Some possible kristy in groin and skin folds -Nystatin ointment VTE Prophylaxis - Eliquis Code - DNR/DNI LT per review of records Dispo - Continue admission on med/tele, possible discharge back to [facility] tomorrow Discharge Plan Discharge Items Patient Disposition: Transfer Detention Fac Reason For Visit: HYPOGLYCEMIA, AFIB NEW ONSET, ELEVATED TROPONIN, Discharge Diagnosis: Hypoglycemia due to insulin UTI New onset atrial fibrillation Activity: Resume your previous activity Non-emergency contact: Primary Care Provider Call non-emergency contact if: you have any medication questions and your symptoms worsen Follow-up/Referrals: Geraldo Austin MD [Physician] - (a. fib follow up in 4-6 weeks) [facility] [Primary Care Provider] - Diet: Carb Consistent or DM2 and Heart Healthy Diet Texture: Mechanical soft (ground) Addtl Attending Provider Instructions: Keila Hoffman is a 76 year old female admitted to [facility] from February 06-2021 due to hypoglycemia, associated confusion and 2 weeks of urinary complaints. She was treated for a UTI with Zosyn, switched to ceftriaxone and will be switched to cefdinir on discharge for a total 10 day course. Blood cultures grew coag neg staph from 1/2 sites suspected to be contaminant. Her blood pressure has remained low normal and recommend continuing off the lo sartan and HCTZ. Please monitor closely for worsening fluid retention and increasing weight as Lasix dosing may need uptitrating. However during inpatient admission she required stopping of her diuretics and IV fluids to help with CLEMENTINA that developed. Please repeat BMP in 1 week. Cr 0.87 on discharge. She was also diagnosed with new onset atrial fibrillation on admission. She was started on anticoagulation with Eliquis and rate controlled with metoprolol succinate 50mg PO daily. Managed was co-ordinated with cardiology and recommend follow up as an outpatient for this. She was also diagnosed with Yamel cruris with improvement with miconazole powder, recommend continuing on discharge for at least a further 2 weeks if not longer. Recommend using clotrimazole cream on her feet for 4 weeks to see if this helps with her skin peeling however fungal element has not been confirmed on culture or HARDEEP stain. She has significant erythema on her left lower extremity which she reports is from a fall 1 month ago. Do not suspect cellulitis at this time however if not improving recommend wound culture and coverage for both MRSA (resistant to Bactrim) and pseudomonas as she has grown these from prior wound cultures - consider doxycycline and ciprofloxacin. Urinary catheter was placed during this admission to help with healing of significant tinea cruris. This has been left in on discharge and recommend a trial without catheter at [facility] in the next few days. She was also notably hypercapnic. Suspect this is from obesity hypoventilation however difficult to rule out COPD without lung function tests. Consider PFTs as outpatient but in the mean time recommend start Spiriva or equivalent long acting muscarinic antagonist. BiPAP has been ordered to help with this IPAP/EPAP 15/5 with 6LPM O2 to be used at night. Consider outpatient sleep study. Regarding her hypoglycemia she is requiring significantly less inuslin here even without her Victoza. Currently receiving Lantus 10 units BID and Novolog sliding scale (total 18 units in 24 hours) on day prior to discharge. Recommend continuing her usual Victoza with Lantus reduced from 40 units BID to 10 units BID. HbA1C 5.3 suggestive of overtreatment with insulin. Pending Studies at Discharge: No Stand-Alone Forms: My [facility] Skilled Items Patient informed of condition?: Yes DNR: Yes Discharge Level of Care: Skilled Communicable Disease: No Discharge Prognosis: Improving Lines: None Urinary Catheter: Yes (recommend trial without catheter at [facility]) Medications and DC Order Prescriptions: New metoprolol succinate 50 mg Tablet Extended Release 24 Hr 50 mg PO QPM Qty: 30 RF: 0 Desenex 2 % Powder 1 applic EXT BID Qty: 85 RF: 0 Eliquis 5 mg Tablet 5 mg PO BID Qty: 60 RF: 0 clotrimazole [Athlete's Foot (clotrimazole)] 1 % cream 1 applic topical BID 28 Days RF: 0 cefdinir 300 mg capsule 300 mg PO BID 4 Days Qty: 8 RF: 0 Spiriva Respimat 2.5 mcg/actuation mist 2 inh inhalation DAILY Qty: 4 RF: 0 Continued acetaminophen 650 mg tablet extended release 650 mg PO Q6H PRN (Reason: Pain) RF: 0 atorvastatin [Lipitor] 10 mg tablet 10 mg PO DAILY Qty: 90 RF: 0 levothyroxine 50 mcg capsule 50 mcg PO DAILY Qty: 90 RF: 0 cholecalciferol (vitamin D3) 125 mcg (5,000 unit) capsule 125 mcg PO DAILY RF: 0 docusate sodium 100 mg capsule 100 mg PO BID RF: 0 multivitamin Tablet 1 tab PO QAM RF: 0 furosemide 40 mg tablet 40 mg PO DAILY RF: 0 sennosides [senna] 8.6 mg tablet 8.6 mg PO DAILY RF: 0 loratadine 10 mg tablet 10 mg PO DAILY RF: 0 potassium chloride 10 mEq tablet,ER particles/crystals 10 meq PO DAILY RF: 0 Victoza 3-Ashok 0.6 mg/0.1 mL (18 mg/3 mL) pen injector 1.8 mg SUBCUT DAILY RF: 0 Eucerin Advanced Repair Cream 1 applic TOPICAL BID RF: 0 Changed insulin glargine [Lantus Solostar U-100 Insulin] 100 unit/mL (3 mL) insulin pen 10 unit subcut BID Qty: 0 RF: 0 Discontinued losartan 25 mg tablet 25 mg PO DAILY Qty: 90 RF: 1 hydrochlorothiazide 12.5 mg tablet 12.5 mg PO DAILY RF: 0 Discharge Orders: Discharge Order (Routine); Ordered 02/13/22 Ordered By: Sam Putnam/Other Patient Handouts: Chest and Lung Problems, Diabetes: Caring for Your Body, Urinary Tract Infections in Women Admission Data Admit Date/Time: 02/06/22 21:30 Attending Provider: Sam Lamar Admit Provider: Kayli Shahid Primary Care Provider: [facility] Other Providers: Kayli Shahid ; Kristofer Moy ; Akbar Metz ; Kishore Flores ; Tavon Hopper ; Tavares Velazquez ; Eddie Corbett Jr ; Geraldo Austin ; Emili Cuello ; Holly Butterfield ; Glen Rodriguez ; Aftab Schneider ; Cameron Zuniga ; Heidi Ramon ; Marilu Jasso ; Mika Armstrong ; Kleber Ward Michael K. ; Bertin Rivas ; Tavon Faith V. Other Interventions: Discharge Summary Assessment (RN) Last Done: 02/13/22 11:45 Coding Diagnoses Acute on chronic respiratory failure with hypoxia and hypercapnia J96.21; J96.22 Acute UTI N39.0 Left leg cellulitis L03.116 Atrial fibrillation with rapid ventricular response I48.91 CLEMENTINA (acute kidney injury) N17.9 COPD (chronic obstructive pulmonary disease) J44.9 Uncontrolled type 2 diabetes mellitus E11.65 Non-ST elevation PR (NSTEMI) I21.4 Hypothyroidism E03.9 HTN (hypertension) I10 HLD (hyperlipidemia) E78.5 Rash R21
== END 2022-02-13 16:35 | DRG 689 ==
LOC: ED 18:09 → 2E 21:30 → SUATTDRO 21:30 → 2E 02-07 01:00 → 2N 02-12 23:06

== ENCOUNTER 2022-03-14 04:57 | Inpatient (IN) ==
[2022-03-14] MEDS ORDERED: SODIUM CHLORIDE 0.9% 1000ML 1,000 ML IV SCH (05:15)
--- NOTE | 2022-03-14 05:20 | Emergency Department Note ---
History of Present Illness General Chief complaint: Respiratory Problems Stated complaint: CHANGE IN MENTAL STATUS Time Seen by Provider: 03/14/22 05:04 History of Present Illness 76-year-old female presents emergency department with a reported change in mental status due to low oxygen. Patient has a history of chronic respiratory failure. Patient is supposed to wear BiPAP at the facility and at times she ta kes it off and does not want to wear it. The staff found her to have a pulse ox of 55% they placed her on 6 L of oxygen and she improved to over 75% and then EMS increased her oxygen and she improved to 93%. Patient had a blood sugar of 109 patient initially had a blood pressure in the low 100s with a tachycardic A. fib rhythm was given 500 mL of saline by EMS prior to arrival; patient currently has no complaints; he states she was doing well yesterday and she states she actually received a shower for which she was happy to receive. Patient denies cough cold congestion. Patient states she just does not want to wear the BiPAP at night. Home Medications Medication Instructions Recorded Confirmed Type acetaminophen 650 mg 650 mg PO Q6H PRN tab 05/04/18 02/06/22 History tablet,extended release atorvastatin 10 mg tablet (Lipitor) 10 mg PO DAILY #90 tab 02/21/19 02/06/22 Rx levothyroxine 50 mcg capsule 50 mcg PO DAILY #90 cap 04/05/19 02/06/22 Rx docusate sodium 100 mg capsule 100 mg PO BID cap 04/11/19 02/06/22 History multivitamin 1 tab PO QAM 05/12/19 02/06/22 History cholecalciferol (vitamin D3) 125 125 mcg PO DAILY 03/01/20 02/06/22 History mcg (5,000 unit) capsule emollient combination no.114 1 applic TOPICAL BID 02/06/22 02/06/22 History (Eucerin Advanced Repair) furosemide 40 mg tablet 40 mg PO DAILY 02/06/22 02/06/22 History liraglutide 0.6 mg/0.1 mL (18 mg/3 1.8 mg SUBCUT DAILY 02/06/22 02/06/22 History mL) subcutaneous pen injector (Victoza 3-Ashok) loratadine 10 mg tablet 10 mg PO DAILY 02/06/22 02/06/22 History potassium chloride 10 mEq 10 meq PO DAILY 02/06/22 02/06/22 History tablet,extended release(part/cryst) sennosides 8.6 mg tablet (senna) 8.6 mg PO DAILY 02/06/22 02/06/22 History apixaban 5 mg tablet (Eliquis) 5 mg PO BID #60 tab 02/13/22 Rx insulin glargine 100 unit/mL (3 10 unit SUBCUT BID #0 ml 02/13/22 02/06/22 Rx mL) subcutaneous pen (Lantus Solostar U-100 Insulin) metoprolol succinate 50 mg 50 mg PO QPM #30 tab 02/13/22 Rx tablet,extended release 24 hr miconazole nitrate 2 % topical 1 applic EXT BID #85 g 02/13/22 Rx powder (Desenex) tiotropium bromide 2.5 2 inh INHALATION DAILY #4 g 02/13/22 Rx mcg/actuation mist for inhalation (Spiriva Respimat) Allergies Allergy/AdvReac Type Severity Reaction Status Date / Time metformin AdvReac Unknown Diarrhea Verified 02/06/22 20:04 Past Med/Surg History Medical History Bilateral swelling of feet Cellulitis Cholelithiasis Chronic GERD COPD (chronic obstructive pulmonary disease) Depression Diabetes Diabetes mellitus with diabetic polyneuropathy Edema Gastroesophageal reflux disease HLD (hyperlipidemia) HTN (hypertension) Hypothyroidism Left breast abscess Major depressive disorder Morbid obesity Osteoarthritis Psoriasis Spinal stenosis Tonsillectomy planned Type 2 diabetes mellitus with diabetic peripheral angiopathy without gangrene Uncontrolled type 2 diabetes mellitus Urinary incontinence UTI (urinary tract infection) Venous stasis dermatitis Surgical History S/P hysterectomy Status post incision and drainage (03/01/20) I and D left breast 03/01/20 Dr. Mireles in office Social History Smoking Status: Unknown if ever smoked Tobacco Type: Cigarettes Cigarettes Per Day: 1; Second Hand Exposure: No; Hx Alcohol Use: No Hx Substance Use: No Preferred Language: Mohawk Communication Ability: Impaired Visual Impairment: Limited Hearing Ability: Normal [employer] Supervisor Required: No Beliefs That Will Affect Care: None marital status: Single Current Living Situation: Half-Way current occupational status: disabled How many Children do You have: 1 Feels Safe at Home: Yes Assistive Devices: BiPap and Oxygen - Continuous Review of Systems A total of 10 systems reviewed and were otherwise negative Constitutional: no fever Respiratory: + cough and + dyspnea Cardiovascular: no chest pain Physical Exam Vital Signs Vital Signs - 24 hr 03/14/22 05:16 03/14/22 05:45 03/14/22 05:49 Temperature 37.1 C Temperature Source Oral Pulse Rate 122 H 114 H Pulse Rate [Finger] 122 H Pulse Rhythm Irregular Pulse Rhythm [Finger] Irregular Respiratory Rate 28 H 26 H 22 Respiratory Effort / Characteristics Respiratory Depth Respiratory Pattern Blood Pressure 115/86 Blood Pressure Mean 95 Pulse Oximetry 96 96 97 Pulse Oximetry [Index Finger] 96 Oxygen Delivery Method Oxymask Oxymask Oxymask Oxygen Delivery Method [Index Finger] Oxymask Oxygen Flow Rate 7 7 7 Oxygen Flow Rate [Index Finger] 7 Fraction of Inspired Oxygen Sepsis Recent Fever Within 48 Hours No Sepsis New/Unexplained Change in Mental Status Yes Sepsis Action Taken by Nursing Physician Notified Oxygen Flow Rate - Titration Pulse Oximetry Post Tiitration 03/14/22 05:51 03/14/22 05:57 03/14/22 06:19 Temperature Temperature Source Pulse Rate 128 H Pulse Rate [Finger] Pulse Rhythm Pulse Rhythm [Finger] Respiratory Rate 36 H 28 H Respiratory Effort / Characteristics Labored Spontaneous Labored Moaning Respiratory Depth Shallow Respiratory Pattern Regular Tachypnea Blood Pressure Blood Pressure Mean Pulse Oximetry 95 97 Pulse Oximetry [Index Finger] Oxygen Delivery Method Oxymask BiPAP Oxygen Delivery Method [Index Finger] Oxygen Flow Rate Oxygen Flow Rate [Index Finger] Fraction of Inspired Oxygen 65 65 Sepsis Recent Fever Within 48 Hours Sepsis New/Unexplained Change in Mental Status Sepsis Action Taken by Nursing Oxygen Flow Rate - Titration 7 Pulse Oximetry Post Tiitration 96 VITAL SIGNS - Vital signs and nursing notes were reviewed. GENERAL -morbidly obese disheveled female in no distress speaking to me in sentences; communicates well with provider and answers questions appropriately. SKIN - Without rashes. HEAD - NC/AT. EYES - PERRL with EOMI bilaterally. Sclera anicteric. Palpebral conjunctiva pink and moist with no injection noted. EARS - No deformities of external structures noted on gross examination bilaterally. NOSE - Midline and without cyanosis. No epistaxis or purulent drainage noted. S eptum midline without deviation or septal hematoma noted. MOUTH/OROPHARYNX - Without perioral cyanosis. Buccal mucosa pink and moist and without leukoplakia. Tongue midline with equal elevation of palate bilaterally. No tonsillar hypertrophy, erythema, or exudates noted. [] dentition noted. NECK - Neck with FROM. Supple to palpation. LUNGS - Chest wall symmetric without accessory muscle use, intercostals retractions, or central cyanosis. Normal vesicular breath sounds CTA B/L. No wheezes, rales, or rhonchi appreciated. CARDIAC -tachycardic irregularly irregular with S1/S2. No murmur, rubs, or gallops appreciated. ABDOMEN - Abdominal contour soft; Patient has an umbilical hernia present; Fo joaquim catheter present EXTREMITIES - No clubbing or peripheral cyanosis. Bilateral lower extremity ed meenakshi. +5/5 strength noted in UE/LE bilaterally. NEUROLOGIC - Cranial nerves II through XII grossly intact. PSYCH - A&Ox3 and cooperates fully with examiner. Pt is very pleasant and interacts well with examiner. Course Reevaluation(s) Reevaluation #1: Patient was started on oxygen, patient had been given 500 M of saline by EMS prior to arrival. Patient will be changed over to BiPAP as the patient has a PCO2 of 82. Patient is alert and answers my questions but at times is somnolent Time: 05:45 Reevaluation #2: Patient was ordered 10 mg of IV Cardizem for rapid A. fib rate of 120. Patient's been normotensive since emergency department arrival Time: 05:48 Reevaluation #3: Patient's heart rate is decreased to less than 100 after 10 mg of IV Cardizem, patient is on BiPAP, patient appears much more comfortable. [facility] Time: 06:21 Administered Medications Discontinued Medications Diltiazem HCl (Diltiazem Hcl 5 Mg/Ml 5 Ml Vial) 10 mg IV NOW STA Stop: 03/14/22 05:47 Last Admin: 03/14/22 06:12 Dose: 10 mg Documented by: [id number] Cosigned by: [id number] Critical Care Time Critical Care Time: Yes Total Critical Care Time: 35 I have personally spent greater than 35 minutes of critical care time in the direct management of this patient. This includes bedside care, interpretation of diagnostic studies, and testing, discussion with consultants, patient, and family members, and other required patient management activities. These minutes are in excess of all separately billable procedures. Medical Decision Making Medical Records Attestation: I reviewed the patient's medical records. Home Medications Current Medication List: was personally reviewed by me Laboratory Data Attestation: I reviewed the patient's lab results. Result diagrams: 03/14/22 05:10 03/14/22 05:10 Lab Results 03/14/22 03/14/22 03/14/22 Range/Units 03:30 05:10 05:10 WBC 10.36 (4.8-10.8) K/ul RBC 4.18 (3.93-5.22) M/uL Hgb 12.4 (12.0-16.0) g/dl Hct 40.2 (34.1-44.9) % MCV 96.2 (80.0-100.0) fL MCH 29.7 (25.0-34.0) pg MCHC 30.8 L (32.0-36.0) g/dL RDW Std Deviation 47.7 H (36.4-46.3) fL RDW Coeff of Nasir 13.6 (11.5-14.5) % Plt Count 318 (130-400) K/uL MPV 9.9 (9.4-12.3) fL Immature Gran % (Auto) 1.0 % Neut % (Auto) 64.3 % Lymph % (Auto) 23.2 % Kings % (Auto) 8.6 % Eos % (Auto) 2.0 % Baso % (Auto) 0.9 % Neut # (Auto) 6.67 H (1.4-6.5) K/uL Lymph # (Auto) 2.40 (1.2-3.4) K/uL Kings # (Auto) 0.89 H (0.24-0.82) K/uL Eos # (Auto) 0.21 (0-0.50) K/uL Baso # (Auto) 0.09 (0-0.2) K/uL Immature Gran # (Auto) 0.10 H (0.00-0.02) K/uL Absolute Nucleated RBC 0.02 H (0-0) K/uL Nucleated RBC % (auto) 0.2 % PT 11.3 (9.0-12.0) Seconds INR 1.1 (0.9-1.1) APTT 26.1 (21.0-31.0) Seconds PTT Ratio 0.9 VBG pH (7.36-7.41) VBG pCO2 (38-50) mmHg VBG pO2 mmHg VBG HCO3 mmol/L VBG O2 Saturation % VBG Base Excess mEq/L Sodium (136-145) mmol/L Potassium (3.5-5.1) mmol/L Chloride (98-107) mmol/L Carbon Dioxide (21-32) mmol/L Anion Gap (3-11) BUN (6-23) mg/dl Creatinine (0.6-1.2) mg/dl Est Cr Clr Drug Dosing ml/min Est GFR ( Amer) ml/min Est GFR (Non-Af Amer) ml/min BUN/Creatinine Ratio (10-20) Glucose (70-99(Fasting)) mg/dl Lactate (0.4-2.0) mmol/L Calcium (8.5-10.1) mg/dl Magnesium (1.7-2.4) mg/dl Total Bilirubin (0.2-1.0) mg/dl AST (13-39) U/L ALT (7-52) U/L Alkaline Phosphatase (34-104) U/L Troponin I High Sens (0-14) pg/ml Total Protein (6.0-8.3) gm/dl Albumin (3.4-5.0) gm/dl Globulin (2.5-4.0) gm/dl Albumin/Globulin Ratio (0.9-2) SARS-CoV-2, RNA, NAAT NEGATIVE (NEGATIVE) 03/14/22 03/14/22 03/14/22 Range/Units 05:10 05:10 05:20 WBC (4.8-10.8) K/ul RBC (3.93-5.22) M/uL Hgb (12.0-16.0) g/dl Hct (34.1-44.9) % MCV (80.0-100.0) fL MCH (25.0-34.0) pg MCHC (32.0-36.0) g/dL RDW Std Deviation (36.4-46.3) fL RDW Coeff of Nasir (11.5-14.5) % Plt Count (130-400) K/uL MPV (9.4-12.3) fL Immature Gran % (Auto) % Neut % (Auto) % Lymph % (Auto) % Kings % (Auto) % Eos % (Auto) % Baso % (Auto) % Neut # (Auto) (1.4-6.5) K/uL Lymph # (Auto) (1.2-3.4) K/uL Kings # (Auto) (0.24-0.82) K/uL Eos # (Auto) (0-0.50) K/uL Baso # (Auto) (0-0.2) K/uL Immature Gran # (Auto) (0.00-0.02) K/uL Absolute Nucleated RBC (0-0) K/uL Nucleated RBC % (auto) % PT (9.0-12.0) Seconds INR (0.9-1.1) APTT (21.0-31.0) Seconds PTT Ratio VBG pH 7.37 (7.36-7.41) VBG pCO2 82 H (38-50) mmHg VBG pO2 123 mmHg VBG HCO3 47 mmol/L VBG O2 Saturation 99.9 % VBG Base Excess 17.6 mEq/L Sodium 141 (136-145) mmol/L Potassium 4.2 (3.5-5.1) mmol/L Chloride 94 L (98-107) mmol/L Carbon Dioxide 42 H* (21-32) mmol/L Anion Gap 5 (3-11) BUN 26 H (6-23) mg/dl Creatinine 0.97 (0.6-1.2) mg/dl Est Cr Clr Drug Dosing 56.4 ml/min Est GFR ( Amer) 66.2 ml/min Est GFR (Non-Af Amer) 57.1 ml/min BUN/Creatinine Ratio 26.8 H (10-20) Glucose 122 H (70-99(Fasting)) mg/dl Lactate 0.7 (0.4-2.0) mmol/L Calcium 9.3 (8.5-10.1) mg/dl Magnesium 1.6 L (1.7-2.4) mg/dl Total Bilirubin 1.0 (0.2-1.0) mg/dl AST 11 L (13-39) U/L ALT 7 (7-52) U/L Alkaline Phosphatase 65 (34-104) U/L Troponin I High Sens 40.9 H D (0-14) pg/ml Total Protein 6.1 (6.0-8.3) gm/dl Albumin 3.3 L (3.4-5.0) gm/dl Globulin 2.8 (2.5-4.0) gm/dl Albumin/Globulin Ratio 1.2 (0.9-2) SARS-CoV-2, RNA, NAAT (NEGATIVE) Imaging Data Attestation: I personally reviewed and interpreted this imaging study as follows: My Impression: Chest x-ray interpreted by me cardiomegaly poor inspiratory effort no obvious infiltrate no significant pleural effusion. ECG Data Attestation: I personally reviewed and interpreted this ECG as follows: Additional Comments: EKG interpreted by me, rapid atrial fibrillation rate of 123 normal axis no obvious ST segment elevation or depression MDM Narrative Medical decision making differential diagnosis chronic respiratory failure acute hypoxia acute hypercarbic respiratory failure pneumonia CHF sepsis. Patient did receive 500 mL of fluid prior to arrival. Patient has an extensive cardiac history with CHF patient will be given judicious saline as the patient's blood pressure is normotensive at this time. Plan is to check labs EKG chest x-ray. Impression & Plan Acute respiratory failure with hypoxia and hypercarbia, Atrial fibrillation with rapid ventricular response, Altered mental status Discharge Plan Visit Data Chief Complaint: Respiratory Problems Stated Complaint: CHANGE IN MENTAL STATUS ED Provider: Mitch Holguin Discharge Problem: Acute respiratory failure with hypoxia and hypercarbia, Atrial fibrillation with rapid ventricular response, Altered mental status Patient Disposition: Being Evaluated by Hospitalist Forms Stand Alone Forms: My [facility] Prescriptions Prescriptions: No Action acetaminophen 650 mg tablet extended release 650 mg PO Q6H PRN (Reason: Pain) RF: 0 atorvastatin [Lipitor] 10 mg tablet 10 mg PO DAILY Qty: 90 RF: 0 levothyroxine 50 mcg capsule 50 mcg PO DAILY Qty: 90 RF: 0 cholecalciferol (vitamin D3) 125 mcg (5,000 unit) capsule 125 mcg PO DAILY RF: 0 docusate sodium 100 mg capsule 100 mg PO BID RF: 0 multivitamin Tablet 1 tab PO QAM RF: 0 furosemide 40 mg tablet 40 mg PO DAILY RF: 0 sennosides [senna] 8.6 mg tablet 8.6 mg PO DAILY RF: 0 loratadine 10 mg tablet 10 mg PO DAILY RF: 0 potassium chloride 10 mEq tablet,ER particles/crystals 10 meq PO DAILY RF: 0 Victoza 3-Ashok 0.6 mg/0.1 mL (18 mg/3 mL) pen injector 1.8 mg SUBCUT DAILY RF: 0 Eucerin Advanced Repair Cream 1 applic TOPICAL BID RF: 0 metoprolol succinate 50 mg Tablet Extended Release 24 Hr 50 mg PO QPM Qty: 30 RF: 0 Desenex 2 % Powder 1 applic EXT BID Qty: 85 RF: 0 Eliquis 5 mg Tablet 5 mg PO BID Qty: 60 RF: 0 insulin glargine [Lantus Solostar U-100 Insulin] 100 unit/mL (3 mL) insulin pen 10 unit subcut BID Qty: 0 RF: 0 Spiriva Respimat 2.5 mcg/actuation mist 2 inh inhalation DAILY Qty: 4 RF: 0 Referrals Referrals: [facility] [Primary Care Provider] -
[2022-03-14 05:29] LABS: Base Excess VBG 17.6 mEq/L; HCO3 VBG 47 mmol/L; Oxygen Saturation VBG 99.9 %; PCO2 VBG 82 mmHg (38-50); PO2 VBG 123 mmHg; pH VBG 7.37 (7.36-7.41)
[2022-03-14 05:30] LABS: Basophils # (auto) 0.09 K/uL (0-0.2); Basophils % (auto) 0.9 %; Eosinophils # (auto) 0.21 K/uL (0-0.50); Hematocrit (blood only) 40.2 % (34.1-44.9); Hemoglobin 12.4 g/dl (12.0-16.0); Lymphocytes % (auto) 23.2 %; Mean Corpuscular Hemoglobin 29.7 pg (25.0-34.0); Mean Corpuscular Hgb Conc 30.8 g/dL (32.0-36.0); Mean Corpuscular Volume 96.2 fL (80.0-100.0); Mean Platelet Volume 9.9 fL (9.4-12.3); Monocytes # (auto) 0.89 K/uL (0.24-0.82); Monocytes % (auto) 8.6 %; Neutrophils # (auto) 6.67 K/uL (1.4-6.5); Neutrophils % (auto) 64.3 %; Nucleated RBC # (auto) 0.02 K/uL (0-0); Nucleated RBC % (auto) 0.2 %; Platelet Count 318 K/uL (130-400); RDW Coefficient of Variation 13.6 % (11.5-14.5); RDW Standard Deviation 47.7 fL (36.4-46.3); Red Blood Count 4.18 M/uL (3.93-5.22); White Blood Count 10.36 K/ul (4.8-10.8)
[2022-03-14 05:46] LABS: INR 1.1 (0.9-1.1); Partial Thromboplastin Ratio 0.9; Partial Thromboplastin Time 26.1 Seconds (21.0-31.0); Prothrombin Time 11.3 Seconds (9.0-12.0)
[2022-03-14] MEDS ORDERED: dilTIAZem HCl 5 MG/ML 5 ML VIAL IV STA (05:46)
[2022-03-14 06:16] LABS: Albumin Globulin Ratio 1.2 (0.9-2); Albumin Level 3.3 gm/dl (3.4-5.0); BUN Creatinine Ratio 26.8 (10-20); Calcium 9.3 mg/dl (8.5-10.1); Creatinine Clr Calc Pharmacy 56.4 ml/min; Est GFR (African American) 66.2 ml/min; Est GFR (Non-African American) 57.1 ml/min; Globulin 2.8 gm/dl (2.5-4.0); Magnesium 1.6 mg/dl (1.7-2.4); Potassium 4.2 mmol/L (3.5-5.1); Total Protein 6.1 gm/dl (6.0-8.3); Troponin I High Sensitivity 40.9 pg/ml (0-14)
--- NOTE | 2022-03-14 08:03 | XRay Report ---
XR chest 1V portable CLINICAL HISTORY: SEPSIS. COMPARISON STUDY: 02/12/2022 TECHNIQUE: 1 view of the chest FINDINGS: Single frontal view of the chest demonstrates the heart to again be enlarged. There is again evidence for mild central vascular congestion. No peripheral interstitial edema is seen. There is suspicion o f a left pleural effusion. There is no evidence for right pleural effusion. No confluent alveolar opa cities are identified. There is no acute osseous pathology. IMPRESSION: 1. Cardiomegaly with mild central vascular congestion. ACT 112: Negative or not required by law. Electronically signed by: Johny Vang M.D. 03/14/2022 8:02 AM
[2022-03-14 09:12] LABS: Base Excess ABG 16.6 mEq/L (-9-1.8); HCO3 ABG 48 mmol/L (19-24); Oxygen Saturation ABG 99.6 % (90-95); PCO2 ABG 95 mmHg (35-46); PO2 ABG 118 mmHg (80-95); pH ABG 7.31 (7.35-7.45)
--- NOTE | 2022-03-14 09:27 | History & Physical Report ---
Date of Service March 14, 2022 Assessment & Plan (1) Acute respiratory failure with hypoxia and hypercarbia: Plan: Attending: Dr. Maciel Esparza Impression: 76-year-old female residing at [facility] found to be hypoxic last night with an SaO2 in the 50s. EMS was called. Patient was oxygenated with nasal cannula and then with BiPAP. Patient currently on BiPAP in the emergency department at 7 L/min. Patient with new atrial fibrillation identified in February 2022 on apixaban and metoprolol succinate. Patient currently in atrial fibrillation with a rate of 130. Patient is nonverbal but does follow simple commands. CT scan of head this admission without evidence of acute change or CVA. Patient with a BMI of 41.5 kg/m. Patient identified with hypercapnia last admission and started on BiPAP at discharge. Patient is apparently noncompliant with BiPAP at [facility] Will obtain an ABG Continue BiPAP therapy with IPAP of 14 and EPAP of 7 and per protocol HS and during the day as needed Recommend outpatient polysomnography Monitor on telemetry due to altered mental status as well as atrial fibrillation with rapid ventricular rate No elevation of WBC. Chest x-ray with no evidence of consolidation or infiltrate Continue to monitor (2) Altered mental status: Plan: No evidence of acute stroke or other acute findings on CT head Most likely etiology is hypercapnia Check an arterial blood gas and repeat the BSG Follow on telemetry (3) COPD (chronic obstructive pulmonary disease): Plan: Patient unable to provide history so unclear if there is a tobacco abuse history in place Outpatient medications include Spiriva Respimat. This will be continued during this hospital stay No wheezes on presentation so we will hold off on bronchodilators due to RVR (4) Atrial fibrillation with rapid ventricular response: Plan: New onset last admission in February 2022 Was seen by cardiology at that time and appeared to have persistent atrial fibrillation. They placed patient on metoprolol succinate and apixaban on discharge Patient currently in atrial fibrillation with a rate of 130. She received 10 mg of diltiazem in the emergency department Unclear on whether patient took her Toprol-XL last night We will begin treating with beta-mckinley for rate control starting with 2.5 mg of IV Lopressor and then every 6 hours until able to take oral medications Will follow on PCU/telemetry so we have the option of IV intervention as needed CT head without any acute findings Previous echo last month with no valvular disease and a preserved left ventricular ejection fraction of 55% Continue to monitor on telemetry (5) Morbid obesity: Plan: Body mass index is 41.5 kg/m This is most likely contributing to her hypoxia with hypercapnia We discussed weight loss strategy at the time of discharge (6) Uncontrolled type 2 diabetes mellitus: Plan: Patient currently n.p.o. secondary to altered mental status Hold outpatient meds and place glycemic control consult Hemoglobin A1c q. 02/12/2022 was 5.3. It was 6.3 on 11/10/2021. No need to repeat (7) Gastroesophageal reflux disease: Plan: Although this is listed in past medical history I cannot confirm with the patient Currently not on an H2 mckinley or PPI Due to patient's morbid obesity, will empirically start her on famotidine IV daily (8) Hypothyroidism: Plan: Continue levothyroxine Most recent TSH is 4.83 (02/06/2022). Previously it was 3.243 (01/28/2022) Will not adjust dose at this time (9) HTN (hypertension): Plan: Patient currently hemodynamically stable with a systolic blood pressure of 127 Oral medications are not able to be given now secondary to altered mental status so we will hold patient's metoprolol succinate and began metoprolol tartrate Follow on telemetry (10) Hypomagnesemia: Plan: Serum magnesium was 1.6 Potassium was 4.2 Will replete magnesium with 2 g of magnesium sulfate and repeat labs tomorrow morning (11) Elevated BUN: Plan: BUN is currently elevated at 27 Patient is n.p.o. so we will start normal saline at 50 mL an hour Can discontinue IV fluids once patient is able to sustain oral intake Hold patient's furosemide. Follow volume status for when furosemide should be re-started (12) DVT prophylaxis: Plan: Patient currently anticoagulated with apixaban Continue at this time If unable to take oral medications by this afternoon we will place patient on low-dose heparin drip secondary to atrial fibrillation with RVR CODE STATUS: POLST form in place. DNR/DNI. Disposition: Transfer back to [facility] when stable History of Present Illness Primary Care Provider: [facility] Attending: Dr. Maciel Esparza Patient is a 83 years old female with past medical history of newly diagnosed atrial fibrillation with RVR in February 2022, hypertension, hyperlipidemia, major depressive disorder, hypothyroidism,, deep Raynaud's insufficiency, uncontrolled diabetes type 2, lymphedema, candidiasis presents to the emergency room via ambulance with complaint of altered mental status presumed to be secondary to hypercapnic failure. Patient has a significant past medical history which was complicated by social issues where office of aging needed to be involved. Patient was transferred to [facility] and is currently residing there. Last evening, the patient was found to be hypoxic with an SaO2 in the 50s. She was placed on supplemental oxygen at 6 L/min via nasal cannula and improved into the 70s. EMS arrived and increased her oxygen further and on arrival to the emergency department she was found to be in the 90s. Patient also in atrial fibrillation with RVR. She received diltiazem in the emergency department by the ER physician. Patient is nonverbal and is unable to provide past medical history or review of systems. I am not clear as to whether this is acute or chronic. She does follow some commands such as squeezing fingers, wiggling toes, opening and closing eyes, raising arms as directed. She seems to have a right pronator drift. Pupils are equal and reactive bilaterally. Patient does not appear to be in any acute distress. BiPAP is in place and patient is saturating at 97%. Patient is nonverbal so I could not discuss CODE STATUS. There is a POLST form in the chart. Patient was listed as a DNR/DNI as directed by that form. Allergies Allergy/AdvReac Type Severity Reaction Status Date / Time metformin AdvReac Unknown Diarrhea Verified 02/06/22 20:04 Home Medications Medication Instructions Recorded Confirmed Type acetaminophen 650 mg 650 mg PO Q6H PRN tab 05/04/18 02/06/22 History tablet,extended release atorvastatin 10 mg tablet (Lipitor) 10 mg PO DAILY #90 tab 02/21/19 02/06/22 Rx levothyroxine 50 mcg capsule 50 mcg PO DAILY #90 cap 04/05/19 02/06/22 Rx docusate sodium 100 mg capsule 100 mg PO BID cap 04/11/19 02/06/22 History multivitamin 1 tab PO QAM 05/12/19 02/06/22 History cholecalciferol (vitamin D3) 125 125 mcg PO DAILY 03/01/20 02/06/22 History mcg (5,000 unit) capsule emollient combination no.114 1 applic TOPICAL BID 02/06/22 02/06/22 History (Eucerin Advanced Repair) furosemide 40 mg tablet 40 mg PO DAILY 02/06/22 02/06/22 History liraglutide 0.6 mg/0.1 mL (18 mg/3 1.8 mg SUBCUT DAILY 02/06/22 02/06/22 History mL) subcutaneous pen injector (Victoza 3-Ashok) loratadine 10 mg tablet 10 mg PO DAILY 02/06/22 02/06/22 History potassium chloride 10 mEq 10 meq PO DAILY 02/06/22 02/06/22 History tablet,extended release(part/cryst) sennosides 8.6 mg tablet (senna) 8.6 mg PO DAILY 02/06/22 02/06/22 History apixaban 5 mg tablet (Eliquis) 5 mg PO BID #60 tab 02/13/22 Rx insulin glargine 100 unit/mL (3 10 unit SUBCUT BID #0 ml 02/13/22 02/06/22 Rx mL) subcutaneous pen (Lantus Solostar U-100 Insulin) metoprolol succinate 50 mg 50 mg PO QPM #30 tab 02/13/22 Rx tablet,extended release 24 hr miconazole nitrate 2 % topical 1 applic EXT BID #85 g 02/13/22 Rx powder (Desenex) tiotropium bromide 2.5 2 inh INHALATION DAILY #4 g 02/13/22 Rx mcg/actuation mist for inhalation (Spiriva Respimat) Past Med/Surg History Medical History Bilateral swelling of feet Cellulitis Cholelithiasis Chronic GERD COPD (chronic obstructive pulmonary disease) Depression Diabetes Diabetes mellitus with diabetic polyneuropathy Edema Gastroesophageal reflux disease HLD (hyperlipidemia) HTN (hypertension) Hypothyroidism Left breast abscess Major depressive disorder Morbid obesity Osteoarthritis Psoriasis Spinal stenosis Tonsillectomy planned Type 2 diabetes mellitus with diabetic peripheral angiopathy without gangrene Uncontrolled type 2 diabetes mellitus Urinary incontinence UTI (urinary tract infection) Venous stasis dermatitis Surgical History S/P hysterectomy Status post incision and drainage (03/01/20) I and D left breast 03/01/20 Dr. 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 Patient is nonverbal. She does follow some commands EYES: No icterus, gaze conjugate. Pupils are equal round and reactive to light. Patient does appear to have a cataract in the right eye NOSE: No evidence of epistaxis. BiPAP mask in place MOUTH: No lesions or candidiasis. Mucosa appears to be dry NECK: Supple. No appreciation of carotid bruits LUNGS: CTA B/L, no wheezes, rales or rhonchi. Good breath sounds with BiPAP in place HEART: Irregular, irregular, rate is in the 130s ABDOMEN: Soft, NT, ND, BS Present EXTREMITIES: No LE edema, pedal pulses intact. NEURO: Patient opens eyes to commands. Pupils equal round and reactive to light. Patient does track per order. Patient has difficulty lifting arms. Good grasp of fingers and able to hold on as I lift her arms. Able to hold left arm up but appears to have somewhat of a right pronator drift when I like overhand. Does not lift legs. Can wiggle toes bilaterally. Moves all extremities. Results & Data Results & Data ([facility]) Vital Signs (Past 12 Hours) Vital Signs Temp Pulse Pulse Resp BP Pulse Ox Pulse Ox 03/14/22 09:00 127 H 30 H 123/82 95 03/14/22 08:30 110 H 29 H 128/84 97 03/14/22 08:00 108 H 34 H 95/72 L 97 03/14/22 07:30 110 H 36 H 123/76 96 03/14/22 07:00 109 H 37 H 96 03/14/22 06:41 95 H 33 H 96 03/14/22 06:30 99 H 33 H 123/68 100 03/14/22 06:19 99 H 28 H 97 03/14/22 06:15 112 H 32 H 97 03/14/22 06:07 119 H 25 H 127/87 97 03/14/22 06:00 119 H 27 H 93 03/14/22 05:57 128 H 36 H 95 03/14/22 05:49 122 H 22 97 96 03/14/22 05:45 121 H 40 H 94 03/14/22 05:30 126 H 23 96 03/14/22 05:29 128 H 39 H 96 03/14/22 05:16 37.1 C 122 H 28 H 115/86 96 Critical Care Results & Data Vital Signs (Past 12 Hours) Vital Signs Temp Pulse Pulse Resp BP Pulse Ox Pulse Ox 03/14/22 09:00 127 H 30 H 123/82 95 03/14/22 08:30 110 H 29 H 128/84 97 03/14/22 08:00 108 H 34 H 95/72 L 97 03/14/22 07:30 110 H 36 H 123/76 96 03/14/22 07:00 109 H 37 H 96 03/14/22 06:41 95 H 33 H 96 03/14/22 06:30 99 H 33 H 123/68 100 03/14/22 06:19 99 H 28 H 97 03/14/22 06:15 112 H 32 H 97 03/14/22 06:07 119 H 25 H 127/87 97 03/14/22 06:00 119 H 27 H 93 03/14/22 05:57 128 H 36 H 95 03/14/22 05:49 122 H 22 97 96 03/14/22 05:45 121 H 40 H 94 03/14/22 05:30 126 H 23 96 03/14/22 05:29 128 H 39 H 96 03/14/22 05:16 37.1 C 122 H 28 H 115/86 96 Lab & Micro Results (Past 24 Hours) RBC 4.18 M/uL (3.93-5.22) 03/14/22 WBC 10.36 K/ul (4.8-10.8) 03/14/22 Hgb 12.4 g/dl (12.0-16.0) 03/14/22 Hct 40.2 % (34.1-44.9) 03/14/22 MCV 96.2 fL (80.0-100.0) 03/14/22 MCH 29.7 pg (25.0-34.0) 03/14/22 MCHC 30.8 g/dL (32.0-36.0) L 03/14/22 RDW Standard Deviation 47.7 fL (36.4-46.3) H 03/14/22 RDW Coefficient of Variation 13.6 % (11.5-14.5) 03/14/22 Plt Count 318 K/uL (130-400) 03/14/22 MPV 9.9 fL (9.4-12.3) 03/14/22 Nucleated Red Blood Cells % (auto) 0.2 % 03/14/22 Nucleated RBC Absolute Count (auto) 0.02 K/uL (0-0) H 03/14/22 Neutrophils (%) (Auto) 64.3 % 03/14/22 Lymphocytes (%) (Auto) 23.2 % 03/14/22 Monocytes # (Auto) 0.89 K/uL (0.24-0.82) H 03/14/22 Eosinophils # (Auto) 0.21 K/uL (0-0.50) 03/14/22 Immature Granulocyte % (Auto) 1.0 % 03/14/22 Neutrophils # (Auto) 6.67 K/uL (1.4-6.5) H 03/14/22 Lymphocytes # (Auto) 2.40 K/uL (1.2-3.4) 03/14/22 Monocytes # (Auto) 0.89 K/uL (0.24-0.82) H 03/14/22 Eosinophils # (Auto) 0.21 K/uL (0-0.50) 03/14/22 Basophils # (Auto) 0.09 K/uL (0-0.2) 03/14/22 Immature Granulocyte # (Auto) 0.10 K/uL (0.00-0.02) H 03/14/22 Na 141 mmol/L (136-145) 03/14/22 K 4.2 mmol/L (3.5-5.1) 03/14/22 Cl 94 mmol/L (98-107) L 03/14/22 CO2 42 mmol/L (21-32) H* 03/14/22 Anion Gap 5 (3-11) 03/14/22 BUN 26 mg/dl (6-23) H 03/14/22 Creatinine 0.97 mg/dl (0.6-1.2) 03/14/22 Estimated GFR ( Amer) 66.2 ml/min 03/14/22 Estimated GFR (Non-Af Amer) 57.1 ml/min 03/14/22 BUN/Creatinine Ratio 26.8 (10-20) H 03/14/22 Glu 122 mg/dl (70-99(Fasting)) H 03/14/22 Ca 9.3 mg/dl (8.5-10.1) 03/14/22 Total Bilirubin 1.0 mg/dl (0.2-1.0) 03/14/22 AST 11 U/L (13-39) L 03/14/22 ALT 7 U/L (7-52) 03/14/22 Alkaline Phosphatase 65 U/L (34-104) 03/14/22 TP 6.1 gm/dl (6.0-8.3) 03/14/22 Albumin 3.3 gm/dl (3.4-5.0) L 03/14/22 Globulin 2.8 gm/dl (2.5-4.0) 03/14/22 Albumin/Globulin Ratio 1.2 (0.9-2) 03/14/22 Mg 1.6 mg/dl (1.7-2.4) L 03/14/22 05:10 03/14/22 Calcium Level 9.3 mg/dl (8.5-10.1) 03/14/22 05:10 03/14/22 Prothromb Time International Ratio 1.1 (0.9-1.1) 03/14/22 05:10 03/14/22 Venous Blood pH 7.37 (7.36-7.41) 03/14/22 05:10 03/14/22 Venous Blood Partial Pressure CO2 82 mmHg (38-50) H 03/14/22 05:10 03/14/22 Venous Blood Partial Pressure O2 123 mmHg 03/14/22 05:10 03/14/22 Venous Blood HCO3 47 mmol/L 03/14/22 05:10 03/14/22 Venous Blood Base Excess 17.6 mEq/L 03/14/22 05:10 03/14/22 Venous Blood Oxygen Saturation 99.9 % 03/14/22 05:10 03/14/22 Arterial Blood pH 7.31 (7.35-7.45) L 03/14/22 08:56 03/14/22 Arterial Blood Partial Pressure CO2 95 mmHg (35-46) H 03/14/22 08:56 03/14/22 Arterial Blood Partial Pressure O2 118 mmHg (80-95) H 03/14/22 08:56 03/14/22 Arterial Blood HCO3 48 mmol/L (19-24) H 03/14/22 08:56 03/14/22 Arterial Blood Base Excess 16.6 mEq/L (-9-1.8) H 03/14/22 08:56 03/14/22 Arterial Blood Oxygen Saturation 99.6 % (90-95) H 03/14/22 08:56 03/14/22 Blood Gas Oxygen Given 7L 03/14/22 08:56 03/14/22 Rocky Test Pos (Pos) 03/14/22 08:56 03/14/22 Diagnostic Findings (Past 24 Hours) Chest X-Ray 03/14/22 05:04 XR chest 1V portable CLINICAL HISTORY: SEPSIS. COMPARISON STUDY: 02/12/2022 TECHNIQUE: 1 view of the chest FINDINGS: Single frontal view of the chest demonstrates the heart to again be enlarged. There is again evidence for mild central vascular congestion. No peripheral interstitial edema is seen. There is suspicion of a left pleural effusion. There is no evidence for right pleural effusion. No confluent alveolar opacities are identified. There is no acute osseous pathology. IMPRESSION: 1. Cardiomegaly with mild central vascular congestion. ACT 112: Negative or not required by law. Electronically signed by: Johny Vang M.D. 03/14/2022 8:[address] 03/14/22 08:49 CT head/brain wo con CLINICAL HISTORY: Non-verbal, A Fib, R pronator drift altered mental status COMPARISON STUDY: 02/06/2022 CT DOSE: 537.48 mGy.cm TECHNIQUE: Standard CT of the Brain was performed without IV contrast. A dose lowering technique was utilized adhering to the principles of ALARA. FINDINGS: Extraaxial space: There is no evidence for subdural hematoma. There are no extra-axial fluid collections. Ventricles and cisterns: The ventricles are mildly dilated bilaterally. There is no evidence for midline shift or mass effect. Parenchyma: There is no subarachnoid or intraparenchymal hemorrhage. There is no evidence for an acute infarct or cerebral edema. There is mild cerebral cortical atrophy and decreased attenuation in the periventricular white matter representing remote small vessel disease. There are no gross mass lesions. Osseous structures: There is no evidence for an acute fracture. The visualized paranasal sinuses are clear. The mastoid air cells are clear bilaterally. Soft tissues: There is no evidence for focal soft tissue swelling. IMPRESSION: 1. No acute intracerebral pathology. 2. Cerebral cortical atrophy and remote small vessel disease. ACT 112: Negative or not required by law. Electronically signed by: Johny Vang M.D. 03/14/2022 9:28 AM I & O Totals 24 Hours 03/13/22 03/14/22 03/15/22 06:59 06:59 06:59 Intake Total 500 / 500 0 / 0 Balance 500 / 500 0 / 0 Cumulative 03/14/22 04:48 thru 03/14/22 09:00 Intake Total 500 Balance 500 RT Ventilator Mngmt (Last Documented) Ventilator Ordered Settings Respiratory Rate 30 03/14/22 09:00 Fraction of Inspired Oxygen 65 03/14/22 06:19 Ventilator - PT Measurements Respiratory Rate 30 Code Status & VTE Plan Code Status POLST form is on the chart indicating DNR/DNI VTE Prophylaxis Plan VTE Prophylaxis will be ordered: Yes Supervising Physician Co-Signing Physician Notes I supervised Trent Khalil PA-C on this admission. I examined the patient independently of him. The plan is as written in the note except for any following changes/exceptions: None 76yo F w/ hx of recent admission for hypoglycemia and new onset afib who presents with acute respiratory failure and hypercapnia. The patient is unresponsive, and no hx can be obtained from her, but chart indicates she was sent to the ER for either hypoxia down to the 50% range last night or possibly altered mental status. By the time admission was called, ER physician had left, so I am uncertain. On our exam, she will follow commands, but non-verbal. - Will get abg, attempt to improve respiratory status with BiPap - For afib, will start IV rate control. Cardiology consulted. PG Care Time/CCT Total # of Minutes Spent Total Time Spent with Patient: Total time spent is greater than 50% in coordination of care (as documented) at patient's floor/unit and/or counseling patient: 50 minutes Coding Level of Care Code 29519 Initial Inpt Care Lvl 3 Diagnoses Acute respiratory failure with hypoxia and hypercarbia J96.01; J96.02 Altered mental status R41.82 Altered mental status type: unspecified COPD (chronic obstructive pulmonary disease) J44.9 Atrial fibrillation with rapid ventricular response I48.91 Morbid obesity E66.01 Uncontrolled type 2 diabetes mellitus E11.65 Gastroesophageal reflux disease K21.9 Hypothyroidism E03.9 HTN (hypertension) I10 Hypomagnesemia E83.42 Elevated BUN R79.9 DVT prophylaxis Z29.9 Time Spent (min) 50 (1) Altered mental status Altered mental status type: unspecified Qualified Code(s): R41.82 - Altered mental status, unspecified
--- NOTE | 2022-03-14 09:30 | CT Scan Report ---
CT head/brain wo con CLINICAL HISTORY: Non-verbal, A Fib, R pronator drift altered mental status COMPARISON STUDY: 02/06/2022 CT DOSE: 537.48 mGy.cm TECHNIQUE: Standard CT of the Brain was performed without IV contrast. A dose lowering technique was utilized adhering to the principles of ALARA. FINDINGS: Extraaxial space: There is no evidence for subdural hematoma. There are no extra-axial fluid collecti ons. Ventricles and cisterns: The ventricles are mildly dilated bilaterally. There is no evidence for midl ine shift or mass effect. Parenchyma: There is no subarachnoid or intraparenchymal hemorrhage. There is no evidence for an acut e infarct or cerebral edema. There is mild cerebral cortical atrophy and decreased attenuation in the periventricular white matter representing remote small vessel disease. There are no gross mass lesio ns. Osseous structures: There is no evidence for an acute fracture. The visualized paranasal sinuses are clear. The mastoid air cells are clear bilaterally. Soft tissues: There is no evidence for focal soft tissue swelling. IMPRESSION: 1. No acute intracerebral pathology. 2. Cerebral cortical atrophy and remote small vessel disease. ACT 112: Negative or not required by law. Electronically signed by: Johny Vang M.D. 03/14/2022 9:28 AM
[2022-03-14] MEDS ORDERED: METOPROLOL TARTRATE 1 MG/ML VIAL IV STA ×2 (09:31→10:44)
[2022-03-14 09:41] LABS: Allen Test Pos (Pos)
[2022-03-14] MEDS ORDERED: PHARMACY GLYCEMIC MGMT CONSULT PRN (10:44)
[2022-03-14] MEDS ORDERED: ALUMINUM/MAGNESIUM SUSP 30 ML UDC PO PRN (10:44)
[2022-03-14] MEDS ORDERED: ACETAMINOPHEN 325 MG TAB PO PRN (10:44)
[2022-03-14] MEDS ORDERED: MAGNESIUM HYDROXIDE SUSP 30 ML UDC PO PRN (10:44)
[2022-03-14] MEDS ORDERED: POLYETHYLENE (MIRALAX) 17 GM PACK PO PRN (10:44)
--- NOTE | 2022-03-14 11:11 | Pharmacy Report ---
Pharmacy Glycemic Short Note 2 - Date of Service March 14, 2022 - Glycemic Short BSG Results (Last 24 hours): 03/14/22 03/14/22 05:10 08:57 Glucose 122 H POC Glucose 114 H OUTPATIENT ANTIDIABETIC REGIMEN: * Lantus 10 units BID * Victoza 1.8mg SQ Daily * A1c 5.3% 02/12/22 ASSESSMENT: * 76 year old female, admitted for acute respiratory failure, resides at [facility], non-verbal. Low A1c, possible previous hypoglycemia, home insulin dose was reduced after last admission in February. * Begin with basal bolus insulin and titrate to goal blood sugar. Euglycemic on admission. PLAN FOR INPATIENT GLYCEMIC CONTROL: * Hold outpatient diabetes medications * Basal insulin * Lantus 10 units SQ daily * Bolus insulin * NovoLog per scale ACHS or Q6hrs while NPO * Goal Range: Low 110 mg/dL - High 140 mg/dL * Correction Factor: 20 mg/dL/unit * Nutritional / Prandial insulin per carb ratio of 1 unit per 7 grams CHO consumed
[2022-03-14] MEDS ORDERED: DEXTROSE 50% 50 ML SYRINGE IV PRN (11:15)
[2022-03-14] MEDS ORDERED: GLUCOSE 10 TAB/TUBE PO PRN (11:15)
[2022-03-14] MEDS ORDERED: GLUCAGON FOR INJ 1 MG VIAL SQ PRN (11:15)
[2022-03-14] MEDS ORDERED: GLUCOSE 40% GEL 15 GM TUBE PO PRN (11:15)
[2022-03-14] MEDS ORDERED: CARBOHYDRATES FOR HYPOGLYCEMIA PO PRN (11:15)
[2022-03-14] MEDS ORDERED: LANTUS PER UNIT CHARGE SQ SCH (11:30)
[2022-03-14] MEDS: SODIUM CHLORIDE 0.9% 1000ML 1,000 ML IV SCH (11:59)
[2022-03-14] MEDS: INSULIN ASPART PER UNIT SC SCH ×3 (11:59→21:00)
[2022-03-14] MEDS: MAGNESIUM SULFATE / D5W 1 GM/100 ML BAG IV SCH ×2 (12:00→13:14)
[2022-03-14] MEDS: METOPROLOL TARTRATE 1 MG/ML VIAL IV SCH ×2 (12:01→16:43)
--- NOTE | 2022-03-14 12:17 | Cardiology Consultation ---
Date of Consultation March 14, 2022 Assessment & Plan (1) Atrial fibrillation with rapid ventricular response: 1. Atrial fibrillation: She is not known to be symptomatic from the atrial fibrillation. During her last hospitalization rate control was initiated with metoprolol succinate. Systemic anticoagulation was initiated with apixaban. Unclear whether she had good rate control an outpatient. Think reinstitution of these medications when she is able to take oral treatment will be the 1st recommendation. Currently getting p.r.n. doses of intravenous metoprolol as she cannot yet protect her airway. She is known to be nearly bed- bound. We should be able to achieve adequate rate control with oral metoprolol 1 she is taking oral medications. The dose may need to be increased slightly. An alternative would be the addition of digoxin which would likely were quite well given her overall sedentary lifestyle. We can monitor her response to therapy give additional doses of metoprolol as needed. I Do not believe there is any indication for cardioversion. History of Present Illness Reason for Consultation: Atrial fibrillation Requesting Physician: Remi Attending Physician: Maciel Esparza MD History of Present Illness The patient is a 76-year-old woman admitted to the hospital 1 month ago with hypoglycemia and mental status changes discovered at that time to have atrial fibrillation. She was started on medical therapy with metoprolol and apixaban. She was discharged to her nursing facility but returned last evening with hypoxemia. At the time of admission the patient was again noted to have atrial fibrillation and high ventricular rates. No additional history can be obtained from the patient as she is poorly responsive at this time. Allergies Allergy/AdvReac Type Severity Reaction Status Date / Time metformin AdvReac Unknown Diarrhea Verified 02/06/22 20:04 Home Medications Medication Instructions Recorded Confirmed Type acetaminophen 650 mg 650 mg PO Q6H PRN tab 05/04/18 02/06/22 History tablet,extended release atorvastatin 10 mg tablet (Lipitor) 10 mg PO DAILY #90 tab 02/21/19 02/06/22 Rx levothyroxine 50 mcg capsule 50 mcg PO DAILY #90 cap 04/05/19 02/06/22 Rx docusate sodium 100 mg capsule 100 mg PO BID cap 04/11/19 02/06/22 History multivitamin 1 tab PO QAM 05/12/19 02/06/22 History cholecalciferol (vitamin D3) 125 125 mcg PO DAILY 03/01/20 02/06/22 History mcg (5,000 unit) capsule emollient combination no.114 1 applic TOPICAL BID 02/06/22 02/06/22 History (Eucerin Advanced Repair) furosemide 40 mg tablet 40 mg PO DAILY 02/06/22 02/06/22 History liraglutide 0.6 mg/0.1 mL (18 mg/3 1.8 mg SUBCUT DAILY 02/06/22 02/06/22 History mL) subcutaneous pen injector (Hoodinntoza 3-Ashok) loratadine 10 mg tablet 10 mg PO DAILY 02/06/22 02/06/22 History potassium chloride 10 mEq 10 meq PO DAILY 02/06/22 02/06/22 History tablet,extended release(part/cryst) sennosides 8.6 mg tablet (senna) 8.6 mg PO DAILY 02/06/22 02/06/22 History apixaban 5 mg tablet (Eliquis) 5 mg PO BID #60 tab 02/13/22 Rx insulin glargine 100 unit/mL (3 10 unit SUBCUT BID #0 ml 02/13/22 02/06/22 Rx mL) subcutaneous pen (Lantus Solostar U-100 Insulin) metoprolol succinate 50 mg 50 mg PO QPM #30 tab 02/13/22 Rx tablet,extended release 24 hr miconazole nitrate 2 % topical 1 applic EXT BID #85 g 02/13/22 Rx powder (Desenex) tiotropium bromide 2.5 2 inh INHALATION DAILY #4 g 02/13/22 Rx mcg/actuation mist for inhalation (Spiriva Respimat) Patient History Medical History Bilateral swelling of feet Cellulitis Cholelithiasis Chronic GERD COPD (chronic obstructive pulmonary disease) Depression Diabetes Diabetes mellitus with diabetic polyneuropathy Edema Gastroesophageal reflux disease HLD (hyperlipidemia) HTN (hypertension) Hypothyroidism Left breast abscess Major depressive disorder Morbid obesity Osteoarthritis Psoriasis Spinal stenosis Tonsillectomy planned Type 2 diabetes mellitus with diabetic peripheral angiopathy without gangrene Uncontrolled type 2 diabetes mellitus Urinary incontinence UTI (urinary tract infection) Venous stasis dermatitis Surgical History S/P hysterectomy Status post incision and drainage (03/01/20) I and D left breast 03/01/20 Dr. Mireles in office Social History Smoking Status: Unknown if ever smoked Tobacco Type: Cigarettes Cigarettes Per Day: 1; Second Hand Exposure: No; Hx Alcohol Use: No Hx Substance Use: No Preferred Language: Indonesian Communication Ability: Impaired Visual Impairment: Limited Hearing Ability: Normal Occupational Rehabilitation Aide Required: No Beliefs That Will Affect Care: None marital status: Single Current Living Situation: [facility] current occupational status: disabled How many Children do You have: 1 Feels Safe at Home: Yes Assistive Devices: BiPap and Oxygen - Continuous Review of Systems Review of Systems: Unobtainable due to cognitive status Physical Exam Physical Exam: She is mildly somnolent, but easily arousable and she does follow commands. Unable to answer questions. Using BiPAP. Morbidly obese. HEENT: Sclerae are anicteric. Pupils are equal and reactive to light and accommodation. Extraocular movements were intact. Neuro: She could not cooperate with exam. Lungs: Lungs are clear to auscultation bilaterally. There are no rales wheezes or rhonchi. She has normal respiratory effort without use of accessory muscles. There is normal pulmonary excursion. Cardiac: The rhythm was irregular. S1 and S2 were normal. There are no murmurs on examination. The PMI was not markedly displaced on palpation. Abdomen: Morbidly obese Extremities: Patient has bilateral radial pulses that are equal in intensity. There is no evidence cyanosis or clubbing. There was no evidence of significant peripheral edema bilaterally. Skin: There are no rashes noted on examination today. Results & Data ([facility]) Vital Signs (Past 12 Hours) Vital Signs Temp Pulse Pulse Resp BP BP Pulse Ox 03/14/22 12:01 118 H 105/68 03/14/22 12:00 118 H 22 105/68 93 03/14/22 11:30 93 03/14/22 11:00 20 95 03/14/22 10:54 125 H 33 H 95 03/14/22 10:45 35.6 C L 122 H 20 109/70 93 03/14/22 10:00 103 H 28 H 108/76 97 03/14/22 09:41 123 H 03/14/22 09:38 123 H 25 H 110/73 95 03/14/22 09:30 127 H 29 H 95 03/14/22 09:00 127 H 30 H 123/82 95 03/14/22 08:30 110 H 29 H 128/84 97 03/14/22 08:00 108 H 34 H 95/72 L 97 03/14/22 07:30 110 H 36 H 123/76 96 03/14/22 07:00 109 H 37 H 96 03/14/22 06:41 95 H 33 H 96 03/14/22 06:30 99 H 33 H 123/68 100 03/14/22 06:19 99 H 28 H 97 03/14/22 06:15 112 H 32 H 97 03/14/22 06:07 119 H 25 H 127/87 97 03/14/22 06:00 119 H 27 H 93 03/14/22 05:57 128 H 36 H 95 03/14/22 05:49 122 H 22 97 03/14/22 05:45 121 H 40 H 94 03/14/22 05:30 126 H 23 96 03/14/22 05:29 128 H 39 H 96 03/14/22 05:16 37.1 C 122 H 28 H 115/86 96 Pulse Ox 03/14/22 12:01 03/14/22 12:00 03/14/22 11:30 03/14/22 11:00 03/14/22 10:54 03/14/22 10:45 03/14/22 10:00 03/14/22 09:41 03/14/22 09:38 03/14/22 09:30 03/14/22 09:00 03/14/22 08:30 03/14/22 08:00 03/14/22 07:30 03/14/22 07:00 03/14/22 06:41 03/14/22 06:30 03/14/22 06:19 03/14/22 06:15 03/14/22 06:07 03/14/22 06:00 03/14/22 05:57 03/14/22 05:49 96 03/14/22 05:45 03/14/22 05:30 03/14/22 05:29 03/14/22 05:16 Laboratory Results Abnormal Lab Results 03/14/22 03/14/22 03/14/22 03:30 05:10 05:10 WBC 10.36 RBC 4.18 Hgb 12.4 Hct 40.2 MCV 96.2 MCH 29.7 MCHC 30.8 L RDW Std Deviation 47.7 H RDW Coeff of Nasir 13.6 Plt Count 318 MPV 9.9 Immature Gran % (Auto) 1.0 Neut % (Auto) 64.3 Lymph % (Auto) 23.2 [place] % (Auto) 8.6 Eos % (Auto) 2.0 Baso % (Auto) 0.9 Neut # (Auto) 6.67 H Lymph # (Auto) 2.40 [place] # (Auto) 0.89 H Eos # (Auto) 0.21 Baso # (Auto) 0.09 Immature Gran # (Auto) 0.10 H Absolute Nucleated RBC 0.02 H Nucleated RBC % (auto) 0.2 PT 11.3 INR 1.1 APTT 26.1 PTT Ratio 0.9 ABG pH ABG pCO2 ABG pO2 ABG HCO3 ABG O2 Saturation ABG Base Excess Rocky Test VBG pH VBG pCO2 VBG pO2 VBG HCO3 VBG O2 Saturation VBG Base Excess Oxygen Given Sodium Potassium Chloride Carbon Dioxide Anion Gap BUN Creatinine Est Cr Clr Drug Dosing Est GFR ( Amer) Est GFR (Non-Af Amer) BUN/Creatinine Ratio Glucose POC Glucose Lactate Calcium Magnesium Total Bilirubin AST ALT Alkaline Phosphatase Troponin I High Sens Total Protein Albumin Globulin Albumin/Globulin Ratio SARS-CoV-2, RNA, NAAT NEGATIVE 03/14/22 03/14/22 03/14/22 05:10 05:10 05:20 WBC RBC Hgb Hct MCV MCH MCHC RDW Std Deviation RDW Coeff of Nasir Plt Count MPV Immature Gran % (Auto) Neut % (Auto) Lymph % (Auto) [place] % (Auto) Eos % (Auto) Baso % (Auto) Neut # (Auto) Lymph # (Auto) [place] # (Auto) Eos # (Auto) Baso # (Auto) Immature Gran # (Auto) Absolute Nucleated RBC Nucleated RBC % (auto) PT INR APTT PTT Ratio ABG pH ABG pCO2 ABG pO2 ABG HCO3 ABG O2 Saturation ABG Base Excess Rocky Test VBG pH 7.37 VBG pCO2 82 H VBG pO2 123 VBG HCO3 47 VBG O2 Saturation 99.9 VBG Base Excess 17.6 Oxygen Given Sodium 141 Potassium 4.2 Chloride 94 L Carbon Dioxide 42 H* Anion Gap 5 BUN 26 H Creatinine 0.97 Est Cr Clr Drug Dosing 56.4 Est GFR ( Amer) 66.2 Est GFR (Non-Af Amer) 57.1 BUN/Creatinine Ratio 26.8 H Glucose 122 H POC Glucose Lactate 0.7 Calcium 9.3 Magnesium 1.6 L Total Bilirubin 1.0 AST 11 L ALT 7 Alkaline Phosphatase 65 Troponin I High Sens 40.9 H D Total Protein 6.1 Albumin 3.3 L Globulin 2.8 Albumin/Globulin Ratio 1.2 SARS-CoV-2, RNA, NAAT 03/14/22 03/14/22 03/14/22 08:56 08:57 11:26 WBC RBC Hgb Hct MCV MCH MCHC RDW Std Deviation RDW Coeff of Nasir Plt Count MPV Immature Gran % (Auto) Neut % (Auto) Lymph % (Auto) [place] % (Auto) Eos % (Auto) Baso % (Auto) Neut # (Auto) Lymph # (Auto) [place] # (Auto) Eos # (Auto) Baso # (Auto) Immature Gran # (Auto) Absolute Nucleated RBC Nucleated RBC % (auto) PT INR APTT PTT Ratio ABG pH 7.31 L ABG pCO2 95 H ABG pO2 118 H ABG HCO3 48 H ABG O2 Saturation 99.6 H ABG Base Excess 16.6 H Rocky Test Pos VBG pH VBG pCO2 VBG pO2 VBG HCO3 VBG O2 Saturation VBG Base Excess Oxygen Given 7L Sodium Potassium Chloride Carbon Dioxide Anion Gap BUN Creatinine Est Cr Clr Drug Dosing Est GFR ( Amer) Est GFR (Non-Af Amer) BUN/Creatinine Ratio Glucose POC Glucose 114 H 118 H Lactate Calcium Magnesium Total Bilirubin AST ALT Alkaline Phosphatase Troponin I High Sens Total Protein Albumin Globulin Albumin/Globulin Ratio SARS-CoV-2, RNA, NAAT Diagnostic Findings Echocardiogram obtained 02/07/2022 revealed normal LV systolic function. Mild LVH. Mild left atrial dilation. Moderate to severe mitral annular calcification with mild mitral stenosis. ECG Additional Comments: EKG obtained the time admission revealed atrial fibrillation with rapid ventricular response. No acute ST or T-wave changes. PG Care Time/CCT Total # of Minutes Spent Total Time Spent with Patient: Total time spent is greater than 50% in coordination of care (as documented) at patient's floor/unit and/or counseling patient: Coding Level of Care Code 86570 Initial Inpt Care Lvl 3 Diagnoses Atrial fibrillation with rapid ventricular response I48.91
--- NOTE | 2022-03-14 12:23 | Electrocardiogram Report ---
Test Reason : Blood Pressure : / mmHG Vent. Rate : 123 BPM Atrial Rate : 136 BPM P-R Int : 000 ms QRS Dur : 092 ms QT Int : 322 ms P-R-T Axes : 000 072 019 degrees QTc Int : 460 ms Atrial fibrillation with rapid ventricular response Abnormal ECG When compared with ECG of 06-FEB-2022 19:10, No significant change was found Confirmed by Aftab Schneider ([id number]) on 03/14/2022 12:23:07 PM Referred By: [facility] Confirmed By:Chevy Schneider
[2022-03-14 14:47] LABS: Appearance Urine Turbid (Clear); Bacteria Urine Automated 2+ (Negative); Blood Urine 2+ (Negative); Color Urine Dark Yellow; Glucose Urine UA Negative (Negative); Ketones Urine Negative (Negative); Leukocyte Esterase Urine 2+ (Negative); Nitrite Urine Negative (Negative); Protein Urine 1+ (Negative); Specific Gravity Urine 1.021 (1.000-1.030); Urobilinogen Urine Negative (Negative); WBC Urine Automated >30 /hpf (0-5)
[2022-03-14 14:58] LABS: Bilirubin Urine 1+ (Negative)
[2022-03-14] MEDS: cefTRIAXone SODIUM 2,000 MG in DEXTROSE 5% 50 ML IV SCH (16:42)
[2022-03-14] MEDS: APIXABAN 5 MG TABLET PO SCH ×2 (17:52→21:00)
[2022-03-14] MEDS: DOCUSATE SODIUM 100 MG CAP PO SCH (21:00)
[2022-03-14] MEDS: METOPROLOL SUCC 50MG EXT REL TAB PO SCH (21:38)
[2022-03-14] MEDS: MICONAZOLE NITRATE POWDER 43 GM EXT SCH (21:43)
[2022-03-14] MEDS ORDERED: Nursing to Pharmacy Communication SCH (21:45)
[2022-03-15] MEDS: INSULIN ASPART PER UNIT SC SCH ×5 (00:24→20:44)
[2022-03-15] MEDS: METOPROLOL TARTRATE 1 MG/ML VIAL IV SCH ×2 (00:29→05:50)
[2022-03-15] MEDS: SODIUM CHLORIDE 0.9% 1000ML 1,000 ML IV SCH ×2 (04:02→23:04)
[2022-03-15] MEDS: LEVOTHYROXINE SODIUM 50 MCG TABLET PO SCH (05:51)
[2022-03-15 06:44] LABS: Basophils % (auto) 0.9 %; Eosinophils # (auto) 0.27 K/uL (0-0.50); Eosinophils % (auto) 2.5 %; Hematocrit (blood only) 42.5 % (34.1-44.9); Hemoglobin 12.8 g/dl (12.0-16.0); Immature Granulocytes # (auto) 0.08 K/uL (0.00-0.02); Immature Granulocytes % (auto) 0.7 %; Lymphocytes # (auto) 3.17 K/uL (1.2-3.4); Lymphocytes % (auto) 29.7 %; Mean Corpuscular Hemoglobin 29.4 pg (25.0-34.0); Mean Corpuscular Hgb Conc 30.1 g/dL (32.0-36.0); Mean Corpuscular Volume 97.5 fL (80.0-100.0); Mean Platelet Volume 10.1 fL (9.4-12.3); Monocytes # (auto) 0.88 K/uL (0.24-0.82); Monocytes % (auto) 8.2 %; Neutrophils # (auto) 6.19 K/uL (1.4-6.5); Platelet Count 312 K/uL (130-400); RDW Coefficient of Variation 13.7 % (11.5-14.5); RDW Standard Deviation 48.9 fL (36.4-46.3); Red Blood Count 4.36 M/uL (3.93-5.22); White Blood Count 10.69 K/ul (4.8-10.8)
[2022-03-15 07:19] LABS: BUN Creatinine Ratio 26.7 (10-20); Creatinine Clr Calc Pharmacy 47.8 ml/min; Est GFR (African American) 51.2 ml/min; Est GFR (Non-African American) 44.2 ml/min; Potassium 4.4 mmol/L (3.5-5.1)
[2022-03-15 10:32] LABS: Base Excess ABG 13.5 mEq/L (-9-1.8); HCO3 ABG 42 mmol/L (19-24); Oxygen Saturation ABG 98.7 % (90-95); PCO2 ABG 71 mmHg (35-46); PO2 ABG 97 mmHg (80-95); pH ABG 7.38 (7.35-7.45)
--- NOTE | 2022-03-15 10:32 | Hospitalist Progress Note ---
Date of Service March 15, 2022 Assessment & Plan (1) Altered mental status: Plan: Attending: Dr. Lamar Impression: 76-year-old female residing at [facility] found to be hypoxic there on the night of admission with an SaO2 in the 50s. EMS was called. Patient was oxygenated with nasal cannula and then with BiPAP. Patient currently on BiPAP in the emergency department at 7 L/min. Patient with new atrial fibrillation identified in February 2022 on apixaban and metoprolol succinate. Patient was in atrial fibrillation with a rate of 130. CT scan of head this admission without evidence of acute change or CVA. Sensorium appears to be completely resolved. Interestingly enough, patient remembered me from doing the admission in the ED No evidence of acute stroke or other acute findings on CT head Most likely etiology is hypercapnia as patient improved with use of BiPAP Patient educated on the importance of BiPAP usage in the longterm. Will encourage this with [facility] staff Follow on telemetry today. If she remains stable, can most likely discharge back to [facility] tomorrow (2) Acute respiratory failure with hypoxia and hypercarbia: Plan: Patient with a BMI of 41.5 kg/m. Patient identified with hypercapnia last admission and started on BiPAP at discharge. Patient is apparently noncompliant with BiPAP at [facility] Significant improvement in sensorium with BiPAP usage here Continue BiPAP therapy with IPAP of 14 and EPAP of 7 and per protocol HS and during the day as needed Recommend outpatient polysomnography Monitor on telemetry due to altered mental status as well as atrial fibrillation with rapid ventricular rate No elevation of WBC. Chest x-ray with no evidence of consolidation or infiltrate Continue to monitor (3) COPD (chronic obstructive pulmonary disease): Plan: Outpatient medications include Spiriva Respimat. This will be continued during this hospital stay No wheezes on presentation so we will hold off on bronchodilators due to RVR (4) Atrial fibrillation with rapid ventricular response: Plan: New onset last admission in February 2022 Was seen by cardiology at that time and appeared to have persistent atrial fibrillation. They placed patient on metoprolol succinate and apixaban on discharge Patient currently in atrial fibrillation with a rate of 130. She received 10 mg of diltiazem in the emergency department Discontinue IV Lopressor Continue with metoprolol succinate 50 mg p.o. every afternoon Previous echo last month with no valvular disease and a preserved left ventricular ejection fraction of 55% Continue to monitor on telemetry (5) Morbid obesity: Plan: Body mass index is 41.5 kg/m This is most likely contributing to her hypoxia with hypercapnia Will need to discuss weight loss strategy at the time of discharge (6) Uncontrolled type 2 diabetes mellitus: Plan: Resume AHA/carb consistent diet Glycemic control consult placed. Their help appreciated Hemoglobin A1c q. 02/12/2022 was 5.3. It was 6.3 on 11/10/2021. No need to repeat Outpatient medications include Lantus (7) Gastroesophageal reflux disease: Plan: Although this is listed in past medical history I cannot confirm with the patient Currently not on an H2 mckinley or PPI Due to patient's morbid obesity, empirically started her on famotidine IV daily Can convert to p.o. famotidine with a.m. meds (8) Hypothyroidism: Plan: Continue levothyroxine Most recent TSH is 4.83 (02/06/2022). Previously it was 3.243 (01/28/2022) Will not adjust dose at this time Outpatient management with PCP (9) HTN (hypertension): Plan: Patient currently hemodynamically stable with a systolic blood pressure of 127 Continue with metoprolol tartrate and follow vital signs per protocol Follow on telemetry (10) Hypomagnesemia: Plan: Serum magnesium was 1.6 yesterday Potassium was 4.2 Will replete magnesium with 2 g of magnesium sulfate and repeat labs tomorrow morning (11) Elevated BUN: Plan: BUN is currently elevated Can discontinue IV fluids once patient is able to sustain oral intake Hold patient's furosemide. Follow volume status for when furosemide should be re-started Anticipate restarting all oral meds tomorrow (12) DVT prophylaxis: Plan: Patient currently anticoagulated with apixaban Continue at this time CODE STATUS: POLST form in place. DNR/DNI. Disposition: Transfer back to [facility] when stable Admission and Anticipated Discharge Date Admission Date: March 14, 2022 Subjective Attending: Dr. Lamar Patient seen and examined in room 244. Her sensorium is completely cleared. She tolerated BiPAP. She is requesting advancement of diet today. She has no chest pain or tightness. She denies any cough or sputum production. She denies any shortness of breath. She is aware that she is in the hospital. She is also aware that she is currently residing at [facility]. She has no acute complaints. Review of Systems Review of Systems: A total of 10 systems was reviewed and is negative other than as listed in the HPI Physical Exam Physical Exam: GENERAL : No acute distress. Very, very talkative EYES: No icterus, gaze conjugate NOSE: No evidence of epistaxis. Nasal cannula is in place MOUTH: No lesions or candidiasis. Mucosa dry NECK: Supple LUNGS: Diminished but otherwise CTA B/L, no wheezes, rales or rhonchi HEART: Regular, rate controlled ABDOMEN: Soft, NT, ND, BS Present EXTREMITIES: No LE edema, pedal pulses intact NEURO: A&OX3 Results & Data Results & Data ([facility]) Vital Signs (Past 12 Hours) Vital Signs Temp Pulse Pulse Resp BP Pulse Ox 03/15/22 08:00 113 H 20 93 03/15/22 07:30 36.8 C 109 H 20 96/56 L 93 03/15/22 07:00 20 90 03/15/22 06:30 20 90 03/15/22 06:00 20 92 03/15/22 05:46 110 H 106/60 92 03/15/22 05:30 20 93 03/15/22 05:00 20 93 03/15/22 04:30 20 93 03/15/22 04:00 20 93 03/15/22 03:30 20 93 03/15/22 03:17 36.2 C L 120 H 20 117/62 93 03/15/22 02:53 113 H 18 96 03/15/22 00:28 123 H 105/69 03/14/22 23:13 111 H 20 93 03/14/22 23:00 36.9 C 105 H 20 100/66 95 Critical Care Results & Data Vital Signs (Past 12 Hours) Vital Signs Temp Pulse Pulse Resp BP Pulse Ox 03/15/22 15:55 36.8 C 117 H 20 80/48 L 93 03/15/22 11:31 36.4 C L 107 H 20 100/59 L 94 03/15/22 10:30 20 93 03/15/22 10:00 20 93 03/15/22 09:30 20 93 03/15/22 09:00 20 93 03/15/22 08:30 109 H 20 93 03/15/22 08:00 113 H 20 93 03/15/22 07:30 36.8 C 109 H 20 96/56 L 93 03/15/22 07:00 20 90 03/15/22 06:30 20 90 03/15/22 06:00 20 92 03/15/22 05:46 110 H 106/60 92 03/15/22 05:30 20 93 Lab & Micro Results (Past 24 Hours) RBC 4.36 M/uL (3.93-5.22) 03/15/22 WBC 10.69 K/ul (4.8-10.8) 03/15/22 Hgb 12.8 g/dl (12.0-16.0) 03/15/22 Hct 42.5 % (34.1-44.9) 03/15/22 MCV 97.5 fL (80.0-100.0) 03/15/22 MCH 29.4 pg (25.0-34.0) 03/15/22 MCHC 30.1 g/dL (32.0-36.0) L 03/15/22 RDW Standard Deviation 48.9 fL (36.4-46.3) H 03/15/22 RDW Coefficient of Variation 13.7 % (11.5-14.5) 03/15/22 Plt Count 312 K/uL (130-400) 03/15/22 MPV 10.1 fL (9.4-12.3) 03/15/22 Neutrophils (%) (Auto) 58.0 % 03/15/22 Lymphocytes (%) (Auto) 29.7 % 03/15/22 Monocytes # (Auto) 0.88 K/uL (0.24-0.82) H 03/15/22 Eosinophils # (Auto) 0.27 K/uL (0-0.50) 03/15/22 Immature Granulocyte % (Auto) 0.7 % 03/15/22 Neutrophils # (Auto) 6.19 K/uL (1.4-6.5) 03/15/22 Lymphocytes # (Auto) 3.17 K/uL (1.2-3.4) 03/15/22 Monocytes # (Auto) 0.88 K/uL (0.24-0.82) H 03/15/22 Eosinophils # (Auto) 0.27 K/uL (0-0.50) 03/15/22 Basophils # (Auto) 0.10 K/uL (0-0.2) 03/15/22 Immature Granulocyte # (Auto) 0.08 K/uL (0.00-0.02) H 03/15/22 Na 142 mmol/L (136-145) 03/15/22 K 4.4 mmol/L (3.5-5.1) 03/15/22 Cl 95 mmol/L (98-107) L 03/15/22 CO2 42 mmol/L (21-32) H* 03/15/22 Anion Gap 5 (3-11) 03/15/22 BUN 32 mg/dl (6-23) H 03/15/22 Creatinine 1.20 mg/dl (0.6-1.2) 03/15/22 Estimated GFR ( Amer) 51.2 ml/min 03/15/22 Estimated GFR (Non-Af Amer) 44.2 ml/min 03/15/22 BUN/Creatinine Ratio 26.7 (10-20) H 03/15/22 Glu 111 mg/dl (70-99(Fasting)) H 03/15/22 Ca 9.0 mg/dl (8.5-10.1) 03/15/22 Calcium Level 9.0 mg/dl (8.5-10.1) 03/15/22 05:22 03/15/22 Arterial Blood pH 7.38 (7.35-7.45) 03/15/22 10:25 03/15/22 Arterial Blood Partial Pressure CO2 71 mmHg (35-46) H 03/15/22 10:25 03/15/22 Arterial Blood Partial Pressure O2 97 mmHg (80-95) H 03/15/22 10:25 03/15/22 Arterial Blood HCO3 42 mmol/L (19-24) H 03/15/22 10:25 03/15/22 Arterial Blood Base Excess 13.5 mEq/L (-9-1.8) H 03/15/22 10:25 03/15/22 Arterial Blood Oxygen Saturation 98.7 % (90-95) H 03/15/22 10:25 03/15/22 Blood Gas Oxygen Given 2L 03/15/22 10:25 03/15/22 Rocky Test Pos (Pos) 03/15/22 10:25 03/15/22 Microbiology 03/14/22 Unknown Urine Culture - Preliminary Urine,Clean Catch Pin-point growth present, reincubating. 03/14/22 05:38 Aerobic Blood Culture - Preliminary Blood No growth in Aerobic bottle after 24 hours. Anaerobic Blood Culture - Preliminary No growth in Anaerobic bottle after 24 hours. 03/14/22 05:20 Aerobic Blood Culture - Preliminary Blood No growth in Aerobic bottle after 24 hours. Anaerobic Blood Culture - Preliminary No growth in Anaerobic bottle after 24 hours. I & O Totals 24 Hours 03/14/22 03/15/22 03/16/22 06:59 06:59 06:59 Intake Total 500 / 500 1217.500 / 1217.500 350 / 350 Output Total 175 / 175 200 / 200 Balance 500 / 500 1042.500 / 1042.500 150 / 150 Cumulative 03/14/22 04:48 thru 03/15/22 15:54 Intake Total 2067.500 Output Total 375 Balance 1692.500 RT Ventilator Mngmt (Last Documented) Ventilator Ordered Settings Respiratory Rate 20 03/15/22 15:55 Fraction of Inspired Oxygen 30 03/15/22 10:30 Ventilator - PT Measurements Respiratory Rate 20 PG Care Time/CCT Total # of Minutes Spent Total Time Spent with Patient: Total time spent is greater than 50% in coordination of care (as documented) at patient's floor/unit and/or counseling patient: Coding Level of Care Code 06318 Subseq Hosp Care Lvl 2 Diagnoses Altered mental status R41.82 Altered mental status type: unspecified Acute respiratory failure with hypoxia and hypercarbia J96.01; J96.02 COPD (chronic obstructive pulmonary disease) J44.9 Atrial fibrillation with rapid ventricular response I48.91 Morbid obesity E66.01 Uncontrolled type 2 diabetes mellitus E11.65 Gastroesophageal reflux disease K21.9 Hypothyroidism E03.9 HTN (hypertension) I10 Hypomagnesemia E83.42 Elevated BUN R79.9 DVT prophylaxis Z29.9 (1) Altered mental status Altered mental status type: unspecified Qualified Code(s): R41.82 - Altered mental status, unspecified
[2022-03-15 10:33] LABS: Allen Test Pos (Pos)
[2022-03-15] MEDS: APIXABAN 5 MG TABLET PO SCH ×2 (10:48→20:48)
[2022-03-15] MEDS: SENNA 8.6 MG TAB PO SCH (10:48)
[2022-03-15] MEDS: CHOLECALCIFEROL 5,000 UNITS 125 MCG TAB PO SCH (10:48)
[2022-03-15] MEDS: MULTIVITAMIN TAB PO SCH (10:48)
[2022-03-15] MEDS: DOCUSATE SODIUM 100 MG CAP PO SCH ×2 (10:49→20:48)
[2022-03-15] MEDS: MICONAZOLE NITRATE POWDER 43 GM EXT SCH ×2 (10:49→20:49)
[2022-03-15] MEDS: POTASSIUM CHLORIDE 10 MEQ TABCR PO SCH (10:49)
[2022-03-15] MEDS: ATORVASTATIN 10 MG TAB PO SCH (10:49)
[2022-03-15] MEDS: UMECLIDINIUM BROMIDE 62.5MCG/BLISTER 7 PUFFS/INHALER INH SCH (10:50)
[2022-03-15] MEDS: LORATADINE 10 MG TAB PO SCH (10:52)
[2022-03-15] MEDS ORDERED: Nursing to Pharmacy Communication SCH (11:00)
--- NOTE | 2022-03-15 11:24 | Cardiology Progress Note ---
Date of Service March 15, 2022 Assessment & Plan (1) Atrial fibrillation with rapid ventricular response: Plan: 1. Atrial fibrillation: No overt symptoms. Hemodynamically stable with continued elevated rates. She appears more alert today and likely can protect her airway. She would likely start eating again and can have administration of her oral medications. She could be started back on her oral metoprolol. We will monitor her heart rates. We can adjust the dose as required. She can also be started back on apixaban. Admission and Anticipated Discharge Date Admission Date: March 14, 2022 Subjective This morning the patient was alert and conversant. She did complain of some sacral pain. She did not report breathing difficulty or pain at other locations. No sense of palpitation. Review of Systems Review of Systems: Per HPI Physical Exam Physical Exam: She is alert and oriented x3. Mood affect appear normal. She answered all questions appropriately. HEENT: Edentulous. Sclerae are anicteric. Pupils are equal and reactive to light and accommodation. Extraocular movements were intact. Neuro: Cranial nerves intact Lungs: Lungs are clear to auscultation bilaterally. There are no rales wheezes or rhonchi. She has normal respiratory effort without use of accessory muscles. There is normal pulmonary excursion. Cardiac: The rhythm was irregular. S1 and S2 were normal. There are no murmurs on examination. The PMI was not markedly displaced on palpation. Abdomen: Obese Extremities: Patient has bilateral radial pulses that are equal in intensity. There is no evidence cyanosis or clubbing. Results & Data ([facility]) Vital Signs (Past 12 Hours) Vital Signs Temp Pulse Pulse Resp BP Pulse Ox 03/15/22 10:30 20 93 03/15/22 10:00 20 93 03/15/22 09:30 20 93 03/15/22 09:00 20 93 03/15/22 08:30 109 H 20 93 03/15/22 08:00 113 H 20 93 03/15/22 07:30 36.8 C 109 H 20 96/56 L 93 03/15/22 07:00 20 90 03/15/22 06:30 20 03/15/22 06:00 20 92 03/15/22 05:46 110 H 106/60 92 03/15/22 05:30 20 93 03/15/22 05:00 20 93 07/10/22 04:30 20 93 03/15/22 04:00 20 93 03/15/22 03:30 20 93 03/15/22 03:17 36.2 C L 120 H 20 117/62 93 03/15/22 02:53 113 H 18 96 03/15/22 00:28 123 H 105/69 Laboratory Results Abnormal Lab Results 03/14/22 03/14/22 03/14/22 05:10 11:26 16:14 WBC RBC Hgb Hct MCV MCH MCHC RDW Std Deviation RDW Coeff of Nasir Plt Count MPV Immature Gran % (Auto) Neut % (Auto) Lymph % (Auto) Gregory % (Auto) Eos % (Auto) Baso % (Auto) Neut # (Auto) Lymph # (Auto) Gregory # (Auto) Eos # (Auto) Baso # (Auto) Immature Gran # (Auto) ABG pH ABG pCO2 ABG pO2 ABG HCO3 ABG O2 Saturation ABG Base Excess Rocky Test Oxygen Given Sodium Potassium Chloride Carbon Dioxide Anion Gap BUN Creatinine Est Cr Clr Drug Dosing Est GFR ( Amer) Est GFR (Non-Af Amer) BUN/Creatinine Ratio Glucose POC Glucose 118 H 123 H Calcium Procalcitonin 0.06 Urine Color Urine Appearance Urine pH Ur Specific Largo Urine Protein Urine Glucose (UA) Urine Ketones Urine Blood Urine Nitrite Urine Bilirubin Urine Urobilinogen Ur Leukocyte Esterase Urine WBC (Auto) Urine RBC (Auto) U Hyaline Cast (Auto) U Epithel Cells (Auto) Urine Bacteria (Auto) Urine Yeast 03/14/22 03/14/22 03/15/22 22:05 Unknown 00:20 WBC RBC Hgb Hct MCV MCH MCHC RDW Std Deviation RDW Coeff of Nasir Plt Count MPV Immature Gran % (Auto) Neut % (Auto) Lymph % (Auto) Gregory % (Auto) Eos % (Auto) Baso % (Auto) Neut # (Auto) Lymph # (Auto) Gregory # (Auto) Eos # (Auto) Baso # (Auto) Immature Gran # (Auto) ABG pH ABG pCO2 ABG pO2 ABG HCO3 ABG O2 Saturation ABG Base Excess Rocky Test Oxygen Given Sodium Potassium Chloride Carbon Dioxide Anion Gap BUN Creatinine Est Cr Clr Drug Dosing Est GFR ( Amer) Est GFR (Non-Af Amer) BUN/Creatinine Ratio Glucose POC Glucose 134 H 113 H Calcium Procalcitonin Urine Color Dark Yellow Urine Appearance Turbid A Urine pH 5.0 Ur Specific Largo 1.021 Urine Protein 1+ H Urine Glucose (UA) Negative Urine Ketones Negative Urine Blood 2+ H Urine Nitrite Negative Urine Bilirubin 1+ H Urine Urobilinogen Negative Ur Leukocyte Esterase 2+ H Urine WBC (Auto) >30 H Urine RBC (Auto) 10-30 H U Hyaline Cast (Auto) 1-5 U Epithel Cells (Auto) 10-20 H Urine Bacteria (Auto) 2+ H Urine Yeast Not Reportable 03/15/22 03/15/22 03/15/22 05:22 05:22 05:58 WBC 10.69 RBC 4.36 Hgb 12.8 Hct 42.5 MCV 97.5 MCH 29.4 MCHC 30.1 L RDW Std Deviation 48.9 H RDW Coeff of Nasir 13.7 Plt Count 312 MPV 10.1 Immature Gran % (Auto) 0.7 Neut % (Auto) 58.0 Lymph % (Auto) 29.7 Gregory % (Auto) 8.2 Eos % (Auto) 2.5 Baso % (Auto) 0.9 Neut # (Auto) 6.19 Lymph # (Auto) 3.17 Gregory # (Auto) 0.88 H Eos # (Auto) 0.27 Baso # (Auto) 0.10 Immature Gran # (Auto) 0.08 H ABG pH ABG pCO2 ABG pO2 ABG HCO3 ABG O2 Saturation ABG Base Excess Rocky Test Oxygen Given Sodium 142 Potassium 4.4 Chloride 95 L Carbon Dioxide 42 H* Anion Gap 5 BUN 32 H Creatinine 1.20 Est Cr Clr Drug Dosing 47.8 Est GFR ( Amer) 51.2 Est GFR (Non-Af Amer) 44.2 BUN/Creatinine Ratio 26.7 H Glucose 111 H POC Glucose 128 H Calcium 9.0 Procalcitonin Urine Color Urine Appearance Urine pH Ur Specific Largo Urine Protein Urine Glucose (UA) Urine Ketones Urine Blood Urine Nitrite Urine Bilirubin Urine Urobilinogen Ur Leukocyte Esterase Urine WBC (Auto) Urine RBC (Auto) U Hyaline Cast (Auto) U Epithel Cells (Auto) Urine Bacteria (Auto) Urine Yeast 03/15/22 03/15/22 07:20 10:25 WBC RBC Hgb Hct MCV MCH MCHC RDW Std Deviation RDW Coeff of Nasir Plt Count MPV Immature Gran % (Auto) Neut % (Auto) Lymph % (Auto) Gregory % (Auto) Eos % (Auto) Baso % (Auto) Neut # (Auto) Lymph # (Auto) Gregory # (Auto) Eos # (Auto) Baso # (Auto) Immature Gran # (Auto) ABG pH 7.38 ABG pCO2 71 H ABG pO2 97 H ABG HCO3 42 H ABG O2 Saturation 98.7 H ABG Base Excess 13.5 H Rocky Test Pos Oxygen Given 2L Sodium Potassium Chloride Carbon Dioxide Anion Gap BUN Creatinine Est Cr Clr Drug Dosing Est GFR ( Amer) Est GFR (Non-Af Amer) BUN/Creatinine Ratio Glucose POC Glucose 111 H Calcium Procalcitonin Urine Color Urine Appearance Urine pH Ur Specific Largo Urine Protein Urine Glucose (UA) Urine Ketones Urine Blood Urine Nitrite Urine Bilirubin Urine Urobilinogen Ur Leukocyte Esterase Urine WBC (Auto) Urine RBC (Auto) U Hyaline Cast (Auto) U Epithel Cells (Auto) Urine Bacteria (Auto) Urine Yeast PG Care Time/CCT Total # of Minutes Spent Total Time Spent with Patient: Total time spent is greater than 50% in coordination of care (as documented) at patient's floor/unit and/or counseling patient: Coding Level of Care Code 91637 Subseq Hosp Care Lvl 2 Diagnoses Atrial fibrillation with rapid ventricular response I48.91
[2022-03-15] MEDS ORDERED: LANTUS PER UNIT CHARGE SQ SCH (11:30)
--- NOTE | 2022-03-15 12:20 | Electrocardiogram Report ---
Test Reason : Blood Pressure : / mmHG Vent. Rate : 117 BPM Atrial Rate : 127 BPM P-R Int : 000 ms QRS Dur : 080 ms QT Int : 316 ms P-R-T Axes : 000 060 013 degrees QTc Int : 440 ms Atrial fibrillation with rapid ventricular response Nonspecific T wave abnormality Abnormal ECG When compared with ECG of 14-MAR-2022 05:20, No significant change was found Confirmed by Aftab Schneider ([id number]) on 03/15/2022 12:19:52 PM Referred By: [facility] Confirmed By:Chevy Schneider
[2022-03-15] MEDS: cefTRIAXone SODIUM 2,000 MG in DEXTROSE 5% 50 ML IV SCH (16:19)
[2022-03-15] MEDS: METOPROLOL SUCC 50MG EXT REL TAB PO SCH (20:49)
[2022-03-16 05:42] LABS: Base Excess ABG 10.4 mEq/L (-9-1.8); HCO3 ABG 40 mmol/L (19-24); Oxygen Saturation ABG 98.3 % (90-95); PCO2 ABG 75 mmHg (35-46); PO2 ABG 86 mmHg (80-95); pH ABG 7.33 (7.35-7.45)
[2022-03-16 05:43] LABS: Allen Test Pos (Pos)
[2022-03-16 05:49] LABS: Basophils # (auto) 0.08 K/uL (0-0.2); Basophils % (auto) 0.8 %; Eosinophils # (auto) 0.45 K/uL (0-0.50); Eosinophils % (auto) 4.4 %; Hematocrit (blood only) 37.8 % (34.1-44.9); Hemoglobin 11.3 g/dl (12.0-16.0); Immature Granulocytes # (auto) 0.09 K/uL (0.00-0.02); Immature Granulocytes % (auto) 0.9 %; Lymphocytes # (auto) 2.64 K/uL (1.2-3.4); Lymphocytes % (auto) 25.7 %; Mean Corpuscular Hemoglobin 29.8 pg (25.0-34.0); Mean Corpuscular Hgb Conc 29.9 g/dL (32.0-36.0); Mean Corpuscular Volume 99.7 fL (80.0-100.0); Mean Platelet Volume 9.6 fL (9.4-12.3); Monocytes # (auto) 0.96 K/uL (0.24-0.82); Monocytes % (auto) 9.3 %; Neutrophils # (auto) 6.07 K/uL (1.4-6.5); Neutrophils % (auto) 58.9 %; Platelet Count 302 K/uL (130-400); RDW Coefficient of Variation 13.6 % (11.5-14.5); RDW Standard Deviation 49.3 fL (36.4-46.3); Red Blood Count 3.79 M/uL (3.93-5.22); White Blood Count 10.29 K/ul (4.8-10.8)
[2022-03-16 06:02] LABS: BUN Creatinine Ratio 30.5 (10-20); Calcium 8.1 mg/dl (8.5-10.1); Creatinine Clr Calc Pharmacy 48.7 ml/min; Est GFR (African American) 52.2 ml/min; Est GFR (Non-African American) 45.1 ml/min; Magnesium 1.9 mg/dl (1.7-2.4); Potassium 3.8 mmol/L (3.5-5.1)
[2022-03-16] MEDS: LEVOTHYROXINE SODIUM 50 MCG TABLET PO SCH (06:22)
[2022-03-16] MEDS: LORATADINE 10 MG TAB PO SCH (08:34)
[2022-03-16] MEDS: SENNA 8.6 MG TAB PO SCH (08:34)
[2022-03-16] MEDS: POTASSIUM CHLORIDE 10 MEQ TABCR PO SCH (08:34)
[2022-03-16] MEDS: MULTIVITAMIN TAB PO SCH (08:34)
[2022-03-16] MEDS: DOCUSATE SODIUM 100 MG CAP PO SCH ×2 (08:34→20:11)
[2022-03-16] MEDS: APIXABAN 5 MG TABLET PO SCH ×2 (08:34→20:12)
[2022-03-16] MEDS: ATORVASTATIN 10 MG TAB PO SCH (08:34)
[2022-03-16] MEDS: CHOLECALCIFEROL 5,000 UNITS 125 MCG TAB PO SCH (08:34)
[2022-03-16] MEDS: FAMOTIDINE 20 MG TAB PO SCH (08:34)
[2022-03-16] MEDS: UMECLIDINIUM BROMIDE 62.5MCG/BLISTER 7 PUFFS/INHALER INH SCH (08:35)
[2022-03-16] MEDS: MICONAZOLE NITRATE POWDER 43 GM EXT SCH ×2 (08:35→20:12)
[2022-03-16] MEDS: INSULIN ASPART PER UNIT SC SCH ×4 (08:43→20:58)
[2022-03-16] MEDS: LANTUS PER UNIT CHARGE SQ SCH (08:43)
--- NOTE | 2022-03-16 11:09 | Pharmacy Report ---
Pharmacy Glycemic Short Note 2 - Date of Service March 16, 2022 - Glycemic Short BSG Results (Last 24 hours): 03/15/22 03/15/22 03/15/22 11:27 16:06 20:14 Glucose POC Glucose 92 117 H 157 H 03/16/22 03/16/22 05:31 07:10 Glucose 95 POC Glucose 91 OUTPATIENT ANTIDIABETIC REGIMEN: * Lantus 10 units BID * Victoza 1.8mg SQ Daily * A1c 5.3% 02/12/22 ASSESSMENT: 03/16/22: * Keila received 22 units of insulin yesterday with excellent glycemic control. * 10 units basal + 12 units bolus * BSGs: 128, 92, 117, 157 mg/dL * Fasting of 91 mg/dL today. Will slightly reduce basal insulin this morning, however I suspect she may require more overtime, therefore I will put a sliding scale on for dinner encase BSG is trending upward. * Post prandial BSGs are at goal. No change to novolog parameters. Background * 76 year old female, admitted for acute respiratory failure, resides at [facility], non-verbal. Low A1c, possible previous hypoglycemia, home insulin dose was reduced after last admission in February. * Begin with basal bolus insulin and titrate to goal blood sugar. Euglycemic on admission. PLAN FOR INPATIENT GLYCEMIC CONTROL: * Hold outpatient diabetes medications * Basal insulin * Lantus 8 units SQ daily * Lantus 0-5 units SQ at dinner (5 units for BSG 160 mg/dL or more) * Bolus insulin * NovoLog per scale ACHS or Q6hrs while NPO * Goal Range: Low 110 mg/dL - High 140 mg/dL * Correction Factor: 20 mg/dL/unit * Nutritional / Prandial insulin per carb ratio of 1 unit per 7 grams CHO consumed
--- NOTE | 2022-03-16 12:40 | Hospitalist Progress Note ---
Date of Service March 16, 2022 Assessment & Plan (1) Acute respiratory failure with hypoxia and hypercarbia: Plan: Impression: 76-year-old female residing at [facility] found to be hypoxic last night with an SaO2 in the 50s. EMS was called. Patient was oxyg enated with nasal cannula and then with BiPAP. Patient currently on BiPAP in the emergency department at 7 L/min. Patient with new atrial fibrillation identified in February 2022 on apixaban and metoprolol succinate. Patient currently in atrial fibrillation with a rate of 130. Patient is nonverbal but does follow simple commands. CT scan of head this admission without evidence of acute change or CVA. Patient with a BMI of 41.5 kg/m. Patient identified with hypercapnia last admission and started on BiPAP at discharge. Patient is apparently noncompliant with BiPAP at [facility] Will obtain an ABG Continue BiPAP therapy with IPAP of 14 and EPAP of 7 and per protocol HS and during the day as needed Recommend outpatient polysomnography Monitor on telemetry due to altered mental status as well as atrial fibrillation with rapid ventricular rate No elevation of WBC. Chest x-ray with no evidence of consolidation or infiltrate Continue to monitor -> Resolved now. Will use BiPap HS and PRN. Will ask CM to understand why [facility] is not using this as she reports she is not refusing it there. (2) Altered mental status: Plan: Metabolic encephalopathy, POA, resolved. No evidence of acute stroke or other acute findings on CT head Most likely etiology is hypercapnia Check an arterial blood gas and repeat the BSG - Resolved by 03/15 (3) COPD (chronic obstructive pulmonary disease): Plan: Patient unable to provide history so unclear if there is a tobacco abuse history in place Outpatient medications include Spiriva Respimat. This will be continued during this hospital stay No wheezes on presentation so we will hold off on bronchodilators due to RVR (4) Atrial fibrillation with rapid ventricular response: Plan: New onset last admission in February 2022 Was seen by cardiology at that time and appeared to have persistent atrial fibrillation. They placed patient on metoprolol succinate and apixaban on discharge Patient currently in atrial fibrillation with a rate of 130. She received 10 mg of diltiazem in the emergency department Unclear on whether patient took her Toprol-XL last night We will begin treating with beta-mckinley for rate control starting with 2.5 mg of IV Lopressor and then every 6 hours until able to take oral medications Will follow on PCU/telemetry so we have the option of IV intervention as needed CT head without any acute findings Previous echo last month with no valvular disease and a preserved left ventricular ejection fraction of 55% Continue to monitor on telemetry (5) Morbid obesity: Plan: Body mass index is 41.5 kg/m This is most likely contributing to her hypoxia with hypercapnia We discussed weight loss strategy at the time of discharge (6) Uncontrolled type 2 diabetes mellitus: Plan: Held outpatient meds and placed glycemic control consult Hemoglobin A1c q. 02/12/2022 was 5.3. It was 6.3 on 11/10/2021. No need to repeat (7) Gastroesophageal reflux disease: Plan: Although this is listed in past medical history I cannot confirm with the patient Currently not on an H2 mckinley or PPI Due to patient's morbid obesity, will empirically start her on famotidine IV daily (8) Hypothyroidism: Plan: Continue levothyroxine Most recent TSH is 4.83 (02/06/2022). Previously it was 3.243 (01/28/2022) Will not adjust dose at this time (9) HTN (hypertension): Plan: Patient currently hemodynamically stable with a systolic blood pressure of 127 Oral medications are not able to be given now secondary to altered mental status so we will hold patient's metoprolol succinate and began metoprolol tartrate Follow on telemetry (10) Hypomagnesemia: Plan: Serum magnesium was 1.6 Potassium was 4.2 Will replete magnesium with 2 g of magnesium sulfate and repeat labs tomorrow morning (11) DVT prophylaxis: Plan: CODE STATUS: POLST form in place. DNR/DNI. Disposition: Transfer back to [facility] when stable Admission and Anticipated Discharge Date Admission Date: March 14, 2022 Subjective Doing very well today. Breathing comfortably. No major complaints. Reports no fevers/chills, chest pain, shortness of breath, abdominal pain, nausea, or vomiting. Physical Exam Constitutional: WD/WN, vitals as above Eyes: EOM intact bilaterally; no conjunctival abnormality ENMT: external ear and nose normal, oropharynx normal Neck: trachea midline, no thyromegaly normal visual inspection Respiratory: normal respiratory effort, lungs clear to auscultation no respiratory distress Cardiovascular: RRR, no murmur, no edema Gastrointestinal (Abdomen): Inspection/Auscultation: abdomen normal to inspection; abdomen not distended Musculoskeletal: no cyanosis or clubbing, extremities motor strength 5/5 Skin: no rashes, warm and dry Neurologic: moves all extremities and awake Psychiatric: Orientation: alert, oriented to person and cooperative Results & Data Results & Data ([facility]) Vital Signs (Past 12 Hours) Vital Signs Temp Pulse Pulse Resp BP BP Pulse Ox 03/16/22 11:51 36.8 C 111 H 18 96/63 L 96 03/16/22 08:09 111 H 03/16/22 07:53 36.9 C 110 H 18 93/54 L 96 03/16/22 05:50 36.9 C 16 125/69 99 03/16/22 00:47 36.7 C 113 H 15 119/79 97 PG Care Time/CCT Total # of Minutes Spent Total Time Spent with Patient: Total time spent is greater than 50% in coordination of care (as documented) at patient's floor/unit and/or counseling patient: Coding Level of Care Code 97017 Subseq Hosp Care Lvl 2 Diagnoses Acute respiratory failure with hypoxia and hypercarbia J96.01; J96.02 Altered mental status R41.82 Altered mental status type: unspecified COPD (chronic obstructive pulmonary disease) J44.9 Atrial fibrillation with rapid ventricular response I48.91 Morbid obesity E66.01 Uncontrolled type 2 diabetes mellitus E11.65 Gastroesophageal reflux disease K21.9 Hypothyroidism E03.9 HTN (hypertension) I10 Hypomagnesemia E83.42 DVT prophylaxis Z29.9 (1) Altered mental status Altered mental status type: unspecified Qualified Code(s): R41.82 - Altered mental status, unspecified
--- NOTE | 2022-03-16 13:01 | Electrocardiogram Report ---
Test Reason : Blood Pressure : / mmHG Vent. Rate : 103 BPM Atrial Rate : 127 BPM P-R Int : 000 ms QRS Dur : 086 ms QT Int : 334 ms P-R-T Axes : 000 058 016 degrees QTc Int : 437 ms Atrial fibrillation with rapid ventricular response Abnormal ECG When compared with ECG of 15-MAR-2022 05:02, No significant change was found Confirmed by Aftab Schneider ([id number]) on 03/16/2022 1:01:28 PM Referred By: [facility] Confirmed By:Chevy Schneider
[2022-03-16] MEDS: FUROSEMIDE 40 MG TAB PO SCH (13:42)
--- NOTE | 2022-03-16 14:01 | XRay Report ---
XR chest 1V portable CLINICAL HISTORY: Hypoxemia TECHNIQUE: Single frontal radiograph of the chest was obtained. Comparison: Comparison is made to chest radiograph 03/14/2022 FINDINGS: No lines and tubes are seen. Cardiomegaly is noted. Prominence and cephalization of the vasculature i s seen. No evidence of pleural effusion or pneumothorax. IMPRESSION: Mild pulmonary edema. Stable cardiomegaly. ACT 112: Negative or not required by law. Electronically signed by: Bobby Camacho M.D. 03/16/2022 1:59 PM
[2022-03-16] MEDS: cefTRIAXone SODIUM 2,000 MG in DEXTROSE 5% 50 ML IV SCH (15:01)
[2022-03-16] MEDS ORDERED: LANTUS PER UNIT CHARGE SQ SCH (16:30)
[2022-03-16] MEDS: METOPROLOL SUCC 50MG EXT REL TAB PO SCH (20:11)
[2022-03-17] MEDS: LEVOTHYROXINE SODIUM 50 MCG TABLET PO SCH (06:08)
[2022-03-17 06:17] LABS: Basophils # (auto) 0.05 K/uL (0-0.2); Basophils % (auto) 0.6 %; Eosinophils % (auto) 5.1 %; Hematocrit (blood only) 35.8 % (34.1-44.9); Hemoglobin 10.9 g/dl (12.0-16.0); Immature Granulocytes # (auto) 0.04 K/uL (0.00-0.02); Immature Granulocytes % (auto) 0.5 %; Lymphocytes # (auto) 2.26 K/uL (1.2-3.4); Lymphocytes % (auto) 28.9 %; Mean Corpuscular Hemoglobin 29.5 pg (25.0-34.0); Mean Corpuscular Hgb Conc 30.4 g/dL (32.0-36.0); Mean Corpuscular Volume 96.8 fL (80.0-100.0); Mean Platelet Volume 9.1 fL (9.4-12.3); Monocytes # (auto) 0.62 K/uL (0.24-0.82); Monocytes % (auto) 7.9 %; Neutrophils # (auto) 4.46 K/uL (1.4-6.5); Platelet Count 290 K/uL (130-400); RDW Coefficient of Variation 13.3 % (11.5-14.5); White Blood Count 7.83 K/ul (4.8-10.8)
[2022-03-17 06:38] LABS: BUN Creatinine Ratio 31.5 (10-20); Calcium 7.8 mg/dl (8.5-10.1); Creatinine Clr Calc Pharmacy 51.6 ml/min; Est GFR (African American) 56.3 ml/min; Est GFR (Non-African American) 48.5 ml/min; Magnesium 1.8 mg/dl (1.7-2.4); Potassium 3.7 mmol/L (3.5-5.1)
[2022-03-17] MEDS: ATORVASTATIN 10 MG TAB PO SCH (08:34)
[2022-03-17] MEDS: APIXABAN 5 MG TABLET PO SCH (08:34)
[2022-03-17] MEDS: FUROSEMIDE 40 MG TAB PO SCH (08:34)
[2022-03-17] MEDS: DOCUSATE SODIUM 100 MG CAP PO SCH (08:34)
[2022-03-17] MEDS: CHOLECALCIFEROL 5,000 UNITS 125 MCG TAB PO SCH (08:34)
[2022-03-17] MEDS: FAMOTIDINE 20 MG TAB PO SCH (08:34)
[2022-03-17] MEDS: MULTIVITAMIN TAB PO SCH (08:35)
[2022-03-17] MEDS: SENNA 8.6 MG TAB PO SCH (08:35)
[2022-03-17] MEDS: UMECLIDINIUM BROMIDE 62.5MCG/BLISTER 7 PUFFS/INHALER INH SCH (08:35)
[2022-03-17] MEDS: POTASSIUM CHLORIDE 10 MEQ TABCR PO SCH (08:35)
[2022-03-17] MEDS: LORATADINE 10 MG TAB PO SCH (08:35)
[2022-03-17] MEDS: MICONAZOLE NITRATE POWDER 43 GM EXT SCH (08:35)
[2022-03-17] MEDS: LANTUS PER UNIT CHARGE SQ SCH (08:42)
[2022-03-17] MEDS: INSULIN ASPART PER UNIT SC SCH ×3 (08:43→17:36)
--- NOTE | 2022-03-17 11:17 | Discharge Summary ---
Date of Service March 17, 2022 Admission HPI Per Admitting Provider Attending: Dr. Maciel Esparza Patient is a 83 years old female with past medical history of newly diagnosed atrial fibrillation with RVR in February 2022, hypertension, hyperlipidemia, major depressive disorder, hypothyroidism,, deep Raynaud's insufficiency, uncontrolled diabetes type 2, lymphedema, candidiasis presents to the emergency room via ambulance with complaint of altered mental status presumed to be secondary to hypercapnic failure. Patient has a significant past medical history which was complicated by social issues where office of aging needed to be involved. Patient was transferred to [facility] and is currently residing there. Last evening, the patient was found to be hypoxic with an SaO2 in the 50s. She was placed on supplemental oxygen at 6 L/min via nasal cannula and improved into the 70s. EMS arrived and increased her oxygen further and on arrival to the emergency department she was found to be in the 90s. Patient also in atrial fibrillation with RVR. She received diltiazem in the emergency department by the ER physician. Patient is nonverbal and is unable to provide past medical history or review of systems. I am not clear as to whether this is acute or chronic. She does follow some commands such as squeezing fingers, wiggling toes, opening and closing eyes, raising arms as directed. She seems to have a right pronator drift. Pupils are equal and reactive bilaterally. Patient does not appear to be in any acute distress. BiPAP is in place and patient is saturating at 97%. Patient is nonverbal so I could not discuss CODE STATUS. There is a POLST form in the chart. Patient was listed as a DNR/DNI as directed by that form. Principal Diagnosis Acute on chronic respiratory failure with hypoxia nd hypercapnia Discharge Exam Constitutional WD/WN, vitals as above + morbidly obese Eyes + anicteric sclerae ENMT external ear and nose normal, oropharynx normal Neck trachea midline, no thyromegaly Respiratory normal respiratory effort; no labored breathing and no cough Auscultation: + crackles (at bases,mild); no rhonchi and no wheezes Cardiovascular Rate/Rhythm: regular rate and regular rhythm Heart Sounds: no murmur Chest (Breasts) Chest: normal inspection of chest Gastrointestinal (Abdomen) normal bowel sounds, soft, nontender, no hepatosplenomegaly Musculoskeletal Extremities: extremities normal to inspection; no cyanosis and no clubbing Skin patches of erythema over back, legs with scaly white skin, c/w known psoriasis Neurologic moves all extremities and awake; no focal motor deficits Psychiatric A+Ox3, euthymic affect Discharge Data Allergies Allergy/AdvReac Type Severity Reaction Status Date / Time metformin AdvReac Unknown Diarrhea Verified 02/06/22 20:04 Consultations 03/14/22 06:19 ED Decision to Admit Stat 03/14/22 10:44 Consult Cardiology Routine Ordered Studies 03/14/22 08:49 CT head/brain wo con Stat Hospital Course (1) Acute respiratory failure with hypoxia and hypercarbia: Impression: 76-year-old female residing at [facility] found to be hypoxic with an SaO2 in the 50s. EMS was called. Patient was oxygenated with nasal cannula and then with BiPAP. Patient weaned off BiPAP and now on 5LNC with sat 90% Patient with new atrial fibrillation identified in February 2022 on apixaban and metoprolol succinate. Patient initially here in atrial fibrillation with a rate of 130 but then rate controlled after restarting po metoprolol once mental status improved Patient with a BMI of 44 Patient identified with hypercapnia last admission and started on BiPAP at discharge. Patient is apparently noncompliant with BiPAP at [facility] ABG consistent with acute on chronic hypercapnia Continue BiPAP therapy with IPAP of 14 and EPAP of 7 and per protocol HS and during the day as needed even after discharge-encouraged patient to do so Recommend outpatient polysomnography No elevation of WBC. Chest x-ray with no evidence of consolidation or infiltrate Improved back to baseline, stable for discharge (2) Altered mental status: Metabolic encephalopathy, POA, resolved. No evidence of acute stroke or other acute findings on CT head Most likely etiology is hypercapnia - Resolved by 03/15 (3) COPD (chronic obstructive pulmonary disease): unclear if there is a tobacco abuse history in place Outpatient medications include Spiriva Respimat. This will be continued No wheezes on presentation so we will hold off on bronchodilators due to RVR (4) Atrial fibrillation with rapid ventricular response: New onset last admission in February 2022 Was seen by cardiology at that time and appeared to have persistent atrial fibrillation. They placed patient on metoprolol succinate and apixaban on discharge Patient initially in atrial fibrillation with a rate of 130. She received 10 mg of diltiazem in the emergency department now rate controlled with usual Toprol XL Previous echo last month with no valvular disease and a preserved left ventricular ejection fraction of 55% continue ELiquis (5) Morbid obesity: Body mass index is 44 This is most likely contributing to her hypoxia with hypercapnia We discussed weight loss strategy at the time of discharge (6) Uncontrolled type 2 diabetes mellitus: Held outpatient meds and placed glycemic control consult Hemoglobin A1c q. 02/12/2022 was 5.3. It was 6.3 on 11/10/2021. No need to repeat continue usual home meds on discharge (7) Gastroesophageal reflux disease: Although this is listed in past medical history I cannot confirm with the patient Currently not on an H2 mckinley or PPI Due to patient's morbid obesity, will empirically start her on famotidine 20mg daily (8) Hypothyroidism: Continue levothyroxine Most recent TSH is 4.83 (02/06/2022). Previously it was 3.243 (01/28/2022) Will not adjust dose at this time (9) HTN (hypertension): Patient currently hemodynamically stable continue metoprolol, lasix (10) Hypomagnesemia: replaced (11) DVT prophylaxis: CODE STATUS: POLST form in place. DNR/DNI. Disposition: Transfer back to [facility] today Total Time Total Time Spent Total Time Spent (In Minutes): 35 min Discharge Plan Discharge Items Patient Disposition: Transfer Long Term Fac Reason For Visit: ALTERED MENTAL STATUS Discharge Diagnosis: Acute on chronic respiratory failure with hypoxia and hypercapnia, Rapid atrial fibrillation Condition on Discharge: Good Activity: Resume your previous activity Non-emergency contact: Primary Care Provider and Plumber Maintenance Call non-emergency contact if: you have any medication questions and your symptoms worsen Follow-up/Referrals: [facility] [Primary Care Provider] - Diet: Heart Healthy and Low Sodium (2gm) Addtl Attending Provider Instructions: It is very important that you wear your BiPAP each night to sleep. Continue daytime oxygen and your usual medications. Pending Studies at Discharge: Yes (Final blood culture results) Stand-Alone Forms: My [facility] Skilled Items Patient informed of condition?: Yes DNR: Yes Discharge Level of Care: Skilled Communicable Disease: No Discharge Prognosis: Improving Lines: None Urinary Catheter: No Medications and DC Order Prescriptions: New famotidine 20 mg Tablet 20 mg PO QAM Qty: 30 RF: 0 Continued acetaminophen 650 mg tablet extended release 650 mg PO Q6H PRN (Reason: Pain) RF: 0 atorvastatin [Lipitor] 10 mg tablet 10 mg PO DAILY Qty: 90 RF: 0 levothyroxine 50 mcg capsule 50 mcg PO DAILY Qty: 90 RF: 0 cholecalciferol (vitamin D3) 125 mcg (5,000 unit) capsule 125 mcg PO DAILY RF: 0 docusate sodium 100 mg capsule 100 mg PO BID RF: 0 multivitamin Tablet 1 tab PO QAM RF: 0 furosemide 40 mg tablet 40 mg PO DAILY RF: 0 sennosides [senna] 8.6 mg tablet 8.6 mg PO DAILY RF: 0 loratadine 10 mg tablet 10 mg PO DAILY RF: 0 potassium chloride 10 mEq tablet,ER particles/crystals 10 meq PO DAILY RF: 0 Victoza 3-Ashok 0.6 mg/0.1 mL (18 mg/3 mL) pen injector 1.8 mg SUBCUT DAILY RF: 0 Eucerin Advanced Repair Cream 1 applic TOPICAL BID RF: 0 metoprolol succinate 50 mg Tablet Extended Release 24 Hr 50 mg PO QPM Qty: 30 RF: 0 Desenex 2 % Powder 1 applic EXT BID Qty: 85 RF: 0 Eliquis 5 mg Tablet 5 mg PO BID Qty: 60 RF: 0 insulin glargine [Lantus Solostar U-100 Insulin] 100 unit/mL (3 mL) insulin pen 10 unit subcut BID Qty: 0 RF: 0 Spiriva Respimat 2.5 mcg/actuation mist 2 inh inhalation DAILY Qty: 4 RF: 0 Discharge Orders: Discharge Order (Routine); Ordered 03/17/22 Ordered By: Azalea Vazquez Admission Data Admit Date/Time: 03/14/22 09:20 Attending Provider: Azalea Vazquez Admit Provider: Maciel Esparza Primary Care Provider: [facility] Other Providers: Trent Khalil ; [facility], ; Murray Gomez ; Kristofer Moy ; Akbar Metz ; Kishore Flores ; Tavon Hopper ; Tavares Velazquez ; Eddie Corbett Jr ; Geraldo Austin ; Emili Cuello ; Holly Butterfield ; Glen Rodriguez ; Aftab Schneider ; Cameron Zuniga ; Heidi Ramon ; Marilu Jasso ; Mika Armstrong ; Kleber Ward ; Bertin Rivas ; Tavon Faith V. Coding Level of Care Code D/C DAY MANAGEMENT >30 MINS Diagnoses Acute respiratory failure with hypoxia and hypercarbia J96.01; J96.02 Altered mental status R41.82 Altered mental status type: unspecified COPD (chronic obstructive pulmonary disease) J44.9 Atrial fibrillation with rapid ventricular response I48.91 Morbid obesity E66.01 Uncontrolled type 2 diabetes mellitus E11.65 Gastroesophageal reflux disease K21.9 Hypothyroidism E03.9 HTN (hypertension) I10 Hypomagnesemia E83.42 DVT prophylaxis Z29.9
[2022-03-17] MEDS: cefTRIAXone SODIUM 2,000 MG in DEXTROSE 5% 50 ML IV SCH (15:36)
== END 2022-03-17 19:29 | DRG 189 ==
LOC: ED 04:57 → 2S 09:20 → SUATTDRO 09:20 → 2S 10:19 → 3W 03-16 14:53